=== PATIENT | female | born 1945 | race Caucasian/White ===

== ENCOUNTER → 2020-01-21 10:35 | Outpatient (BNVA) | payer OTHER, SELFPAY | PROVIDERS: PCP Family Medicine; Visit Provider Nurse Practitioner | DX: D12.6 Benign neoplasm of colon, unspecified (principal); K21.9 Gastro-esophageal reflux disease without esophagitis; K59.04 Chronic idiopathic constipation; R10.9 Unspecified abdominal pain | CPT/HCPCS: Q3014 ==

== ENCOUNTER 2020-07-15 14:50 | Inpatient (IN) | payer OTHER, SELFPAY ==
--- NOTE | ~2020-07-15 | XR_ITS ---
EXAMINATION: XR CHEST CLINICAL INFORMATION: Pneumonia. COMPARISON: Chest 12/28/2016 TECHNIQUE: Frontal view of the chest was obtained. FINDINGS: The lungs are well-expanded and clear. The heart size is enlarged with normal pulmonary vascularity. There is mild dextroscoliosis. No gross bony abnormality seen. XR/XR chest 1V IMPRESSION: Mild cardiomegaly. No acute process seen.
--- NOTE | ~2020-07-15 | CT_ITS ---
EXAMINATION: CT CHEST WITHOUT CONTRAST CLINICAL INFORMATION: Hypoxia. Question pneumonia. COMPARISON: Most recent chest radiograph done earlier the same day. CTA chest dated 09/21/2016. TECHNIQUE: Multidetector volumetric CT imaging of the chest was done. Axial MIP volume rendering provided. Sagittal and coronal reformatted images were obtained. This CT examination was performed using dose optimization techniques as appropriate, variously including the following: *Automated exposure control. *Adjustment of mA and/or kV according to patient size (this includes techniques or standardized protocols for targeted exams where dose is matched to indication/reason for exam; i.e. extremities or head). *Use of iterative reconstruction technique. DLP: 294 mGy-cm FINDINGS: SERVICE ATTENDANT CAFETERIA: Unremarkable. LUNGS: Mild bilateral atelectasis. No large, confluent airspace consolidation. No significant pulmonary nodule or mass. The central airways are patent. MEDIASTINUM: Cardiomegaly is redemonstrated. No pericardial effusion. No thoracic aortic dilatation. Atherosclerotic calcifications. No significant superior mediastinal or hilar lymphadenopathy. Unremarkable thyroid. PLEURA: There is no pleural effusion. No pleural mass or thickening. AXILLA: No lymphadenopathy. UPPER ABDOMEN: Small, sliding hiatal hernia. Otherwise, the visualized upper abdominal structures are unremarkable. OSSEOUS STRUCTURES: Unremarkable. CT/CT chest wo con IMPRESSION: 1. Mild bilateral atelectasis. No pulmonary nodule, mass, or confluent airspace consolidation. 2. No lymphadenopathy. 3. Stable cardiomegaly. 4. Stable, small sliding hiatal hernia.
--- NOTE | ~2020-07-15 | CT_ITS ---
EXAMINATION: CT ANGIOGRAM HEAD CT ANGIOGRAM NECK CLINICAL INFORMATION: Stroke. Carotid occlusion. COMPARISON: CT head from 07/15/2020. TECHNIQUE: Initial noncontrast prize fighter imaging of the head and neck was performed. Comparison is made with noncontrast head CT from earlier today. Test bolus sequences followed by intravenous administration 70 mL of Omnipaque 350. Helical imaging was performed in the axial plane from the aortic arch to the skull vertex. Delayed postcontrast imaging of the head was also performed. The data was processed at the development technologist's workstation for generation of MIP sequences. Angled MIPs and volume rendered reformatted images were also generated at an offline 3D workstation. Stenoses are assessed in accordance with NASCET criteria unless otherwise indicated. This CT examination was performed using dose optimization techniques as appropriate, variously including the following: *Automated exposure control. *Adjustment of mA and/or kV according to patient size (this includes techniques or standardized protocols for targeted exams where dose is matched to indication/reason for exam; i.e. extremities or head). *Use of iterative reconstruction technique. DLP: 1814 mGy-cm FINDINGS: CT Head: There is no evidence of acute intracranial hemorrhage or edematous territorial infarction. Basal ganglia mineralization. Lacunar infarcts of the bilateral lentiform nuclei and internal capsules. Scattered hypoattenuation in the periventricular and deep white matter are consistent with moderate microangiopathy. Serra-white matter differentiation is preserved. Proportional prominence of the ventricles and sulcal spaces. No evidence for obstructive hydrocephalus. No abnormal mass effect or midline shift. No extra-axial fluid collections. No pathologic intra-axial enhancement or regional oligemia. No acute soft tissue or osseous abnormalities. The mastoid air cells and paranasal sinuses are clear. CT Neck: The thyroid gland and remaining cervical soft tissues are within normal limits. Mild reversal the normal cervical lordosis centered on C4-C5. Mild degenerative anterolistheses at C2-C3 and C3-C4. Advanced degenerative disc disease at C5-C6 with disc disc osteophyte compresses formation. Facet and uncovertebral joint arthropathy leads osseous encroachment on the neural foramina from C3-C6. CT Upper Chest: The visualized lung apices and upper mediastinum are within normal limits. Neck CTA: Exam is moderately motion degraded. Repeat imaging was also obtained with delayed bolus timing. Aortic Arch: Normal contour and caliber with moderate calcific atherosclerotic disease. Classic 3 vessel branching pattern of the aortic arch. Great Vessel Origins: No significant stenosis of the branch origins. Right Common Carotid Artery: No focal stenosis or occlusion. Cervical Right Internal Carotid Artery: Calcific atherosclerotic disease of the carotid bulb and proximal internal carotid artery. No evidence of greater than 50% stenosis. Left Common Carotid Artery: No focal stenosis or occlusion. Cervical Left Internal Carotid Artery: Calcific atherosclerotic disease of the carotid bulb and proximal internal carotid artery. No evidence of greater than 50% stenosis. Cervical Vertebral Arteries: Evaluation of the cervical vertebral arteries is significantly limited by patient motion. Brain CTA: Exam is moderately motion degraded. Repeat imaging was also obtained with delayed bolus timing. Intracranial Internal Carotid Arteries: Moderate calcific atherosclerotic disease of the intracranial internal carotid arteries without occlusion or flow-limiting stenosis. No demonstrated focal stenosis or occlusion. Right Anterior Cerebral Artery: Normal A1 segment. Normal opacification of the distal EDWIGE segments. Left Anterior Cerebral Artery: Normal A1 segment. Normal opacification of the distal EDWIGE segments. Anterior Communicating Artery: Normal. Right Middle Cerebral Artery: Normal M1 segment of the MCA without focal stenosis or occlusion. Normal arborization of the distal segments. Left Middle Cerebral Artery: Normal M1 segment of the MCA without focal stenosis or occlusion. Normal arborization of the distal segments. Right Vertebral Artery: Normal V4 segment. Normal opacification of the proximal segments of the posterior inferior cerebellar artery. Left Vertebral Artery: Normal V4 segment. Normal opacification of the proximal segments of the posterior inferior cerebellar artery. Basilar Artery: Normal without focal stenosis or occlusion. Normal appearance of the proximal superior cerebellar arteries. Right Posterior Cerebral Artery: The P1 segment is diminutive. origin of the PHYSICAL MEDICINE SPECIALIST with robust opacification of the posterior communicating artery. Normal opacification of the distal PHYSICAL MEDICINE SPECIALIST segments. Left Posterior Cerebral Artery: Normal P1 segment. Normal opacification of the left-sided posterior communicating artery. Normal opacification of the distal PHYSICAL MEDICINE SPECIALIST segments. Normal opacification of the superior sagittal, straight, transverse, and sigmoid sinuses. CT/CT angio head neck IMPRESSION: Exam is limited by significant patient motion. 1. No evidence of acute intracranial hemorrhage or edematous territorial infarction. Moderate underlying microangiopathy. Lacunar infarcts of the deep nuclei. Mild generalized cerebral volume loss. 2. Within the limitations of this exam, CTA of the head and neck without demonstrated proximal occlusion or flow-limiting stenosis.
--- NOTE | ~2020-07-15 | CT_ITS ---
EXAMINATION: CT HEAD WITHOUT CONTRAST CLINICAL INFORMATION: Spontaneous. Resolved amnesia. COMPARISON: Previous head CT June 2015 TECHNIQUE: Contiguous axial imaging was performed from the skull base to vertex without intravenous administration of contrast. This CT examination was performed using dose optimization techniques as appropriate, variously including the following: *Automated exposure control *Adjustment of mA and/or kV according to patient size (this includes techniques or standardized protocols for targeted exams where dose is matched to indication/reason for exam; i.e. extremities or head) *Use of iterative reconstruction technique DLP: 556 mGy-cm FINDINGS: There is no evidence of an extra-axial collection. There is no evidence of intra-axial or extra-axial hemorrhage. Ventricles and extra-axial CSF spaces are slightly prominent compatible with age-related changes. There is nonspecific periventricular white matter. There is low-attenuation in the bilateral basal ganglia similar to prior exam questionable for small infarcts versus dilated perivascular spaces. No mass, mass effect or acute infarct is seen. There is evidence of atherosclerotic. The osseous structures and soft tissues are normal. There is mild inflammatory changes seen in the bilateral maxillary sinuses. The mastoid air cells and visualized portions of the paranasal sinuses are otherwise clear. CT/CT head/brain wo con IMPRESSION: No acute findings.
[2020-07-15 15:10] VITALS: BP 145/80; PULSE 82; RESP 18; TEMP 36.9; O2SAT 93; BMI 29.2
--- NOTE | 2020-07-15 15:24 | ED.GENADULT ---
HPI - General Adult General Chief complaint: Dizziness Stated complaint: Headache Time Seen by Provider: 07/15/20 15:06 Source: patient Mode of arrival: ambulatory Limitations: no limitations History of Present Illness HPI narrative: Patient presents to ED for Resolve amnesia and fogginess and head. Patient states this morning around 8:00am she woke up and she forgot who she was, where she was, and had bilateral blurry vision. Patient states for some reason she felt loss in her head. Patient states she did not feel herself until she showered and then has some recollection of who she was and where she was. Patient went to clinic with her grandson and was sent to the ED for evaluation. This as she was hypoxic at clinic. Patient denies any shortness of breath, chest pain, or any URI symptoms. Related Data Home Medications Medication Instructions Recorded Confirmed amlodipine 1 tab PO QAM 07/15/20 07/15/20 aspirin 1 tab PO QPM 07/15/20 07/15/20 atenolol 1 tab PO BID 07/15/20 07/15/20 atorvastatin 1 tab PO BEDTIME 07/15/20 07/15/20 cholecalciferol (vitamin D3) 1 tab PO QAM 07/15/20 07/15/20 glipizide 1 tab PO BID 07/15/20 07/15/20 losartan 1 tab PO DAILY 07/15/20 07/15/20 metformin 2 tab PO BID 07/15/20 07/15/20 omeprazole 1 cap PO QAM 07/15/20 07/15/20 sitagliptin [Januvia] 1 tab PO DAILY 07/15/20 07/15/20 Allergies Allergy/AdvReac Type Severity Reaction Status Date / Time No Known Allergies Allergy Unverified 10/24/19 17:45 [No Known Allergies*] Review of Systems Review of Systems: Yes all other systems are reviewed and are negative Constitutional: Constitutional: Reports as per HPI and Reports no additional constitutional complaints Eyes: Eyes: Reports as per HPI and Reports no additional eye complaints ENT: Reports system reviewed and no additional complaints, except as documented and Reports as per HPI Cardiovascular: Cardiovascular: Reports as per HPI and Reports no additional cardiovascular complaints Respiratory: Respiratory: Reports as per HPI and Reports no additional respiratory complaints Gastrointestinal: Gastrointestinal: Reports as per HPI and Reports no additional gastrointestinal complaints Musculoskeletal: Musculoskeletal: Reports no additional musculoskeletal complaints and Reports as per HPI Neurologic: Reports system reviewed and no additional complaints, except as documented and Reports as per HPI Comments: Resolved amnesia. Fogginess in the head Psychiatric: Psychiatric: Reports no additional psychiatric complaints and Reports as per HPI [facility] Past Medical History Surgical History (Updated 01/21/20 @ 10:38 by JACQUELINE Alvarez) History of esophagogastroduodenoscopy (EGD) History of tubal ligation Hx of colonoscopy Family History Family History (Updated 01/21/20 @ 10:36 by JACQUELINE Alvarez) Family/Other No significant medical problems Social History Social History (Updated 01/21/20 @ 10:37 by JACQUELINE Alvarez) Alcohol intake: never Patient Tobacco Use Status: Never used Tobacco Advance Directives: No Advance Directives Information Provided: Yes Physical Exam Vital Signs: Vital Signs: Last Vital Signs Temp 98.8 F 07/15/20 18:42 Pulse 83 07/15/20 18:42 Resp 17 07/15/20 18:42 BP 135/78 07/15/20 18:42 Pulse Ox 93 07/15/20 18:42 Body Mass Index 29.2 Const: General: cooperative, healthy appearing, comfortable, no acute distress, well developed, alert, awake and Physically active; No lethargic Orientation/consciousness: patient oriented x3 and No lethargic HENMT: Head: Yes normal to inspection, Yes No palpable skull fracture present, Yes normocephalic, Yes atraumatic and No abrasion Eyes: General: appearance normal, both eyes and all related structures Neck: Neck: Yes normal visual inspection, Yes full ROM, Yes no lymphadenopathy, Yes no meningeal signs, Yes trachea midline, Yes supple and No tender Chest: Chest palpation & inspection: normal inspection of the chest and normal palpation of entire chest wall Resp: Effort & Inspection: normal respiratory effort and able to speak in complete sentences Auscultation: clear to auscultation bilaterally Cardio: Jugular venous distension: no JVD Heart sounds: S1 normal heart sound present and S2 normal heart sound present GI: Inspection: Yes normal to inspection and No abdominal wall ecchymosis Palpation (GI): Soft to palpation, not firm, nontender, no guarding and not rigid : General: No CVA tenderness and Yes no CVA tenderness Back/Spine/Pelvis: Back: no CVA tenderness, No CVA tenderness and No back tenderness Skin: General skin exam: no rashes or lesions noted and elasticity normal Neuro: General: patient oriented x3, gait normal, no meningeal signs and CN's II-XI intact bilaterally Cranial nerves: Yes CN's II-XII intact bilaterally Extrem: Other: Lower extremities negative for swelling, pitting edema, calf tenderness. General: Yes normal to inspection and Yes full ROM Psych: Appearance: grossly normal, well kempt and not disheveled NIH Stroke Scale Level of Consciousness: Alert Level of Consciousness Questions: Answers both questions correctly Level of Consciousness Commands: Performs both tasks correctly Best Gaze: Normal Visual: No visual loss Facial Palsy: Normal Motor Arm (Right): No drift Motor Arm (Left): No drift Motor Leg (Right): No drift Motor Leg (Left): No drift Limb Ataxia: Absent Sensory: Normal Best Language: No aphasia Dysarthia: Normal Extinction and Inattention: No abnormality Score: 0 Course Course Course Narrative: Present NIH score 0. Patient on room air O2 saturation 94-95%. We will do medical evaluation including head CT Reevaluation(s) Reevaluation #1: Patient's troponin negative. Neuro exam is intact. Head CT a came back negative for stroke. During ED evaluation patient's O2 sats dropped to 80% on ambulation and was placed on nasal cannula oxygen with O2 saturation now 93% on 2 liter. Due to head CT already done not able to give IV contrast twice will do D-dimer, at BNP, and sent for chest CT to rule out any underlying x-ray. Reevaluation #2: D-dimer is 262 which is negative. Upper limit normal is 262. Chest CT came back negative for pneumonia. UA negative for UTI. Presently patient alert oriented x3 and negative for any neuro deficit. Patient accepted by hospitalist for admission for hypoxia and global amnesia/TIA. Dr. Moralez hospitalist Time: 21:58 Medical Decision Making MDM Narrative Medical decision making narrative: TIA. Global amnesia. Hypoxia Lab Data Result diagrams: 07/15/20 15:42 07/15/20 15:42 Labs: Lab Results 07/15/20 07/15/20 07/15/20 Range/Units 15:42 15:42 15:42 WBC 10.0 (4.8-10.8) X10*3/uL RBC 4.64 (4.20-5.50) X10*6/uL Hgb 12.9 (12.0-16.0) g/dl Hct 41.7 (37-47) % MCV 89.9 (80-98) fL MCH 27.8 (27.0-33.0) pg MCHC 30.9 L (31.0-35.0) g/dl RDW 13.6 (11.0-16.0) % Plt Count 199 (160-400) X10*3/uL MPV 13.4 H (9.4-12.3) fL Immature Gran % (Auto) Cancelled Neut % (Auto) Cancelled Lymph % (Auto) Cancelled Lewis % (Auto) Cancelled Eos % (Auto) Cancelled Baso % (Auto) Cancelled Lymph # (Auto) Cancelled Lewis # (Auto) Cancelled Eos # (Auto) Cancelled Baso # (Auto) Cancelled Abs Immat Gran (auto) Cancelled Absolute Neuts (auto) Cancelled Absolute Nucleated RBC 0.000 (0.0-0.012) X10*3/uL Nucleated RBC % (auto) 0.0 (0.0-0.2) /100WBC Neutrophils % (Manual) 64 (45-73) % Band Neutrophils % 3 (3-5) % Lymphocytes % (Manual) 23 (20-40) % Monocytes % (Manual) 7 (2-11) % Eosinophils % (Manual) 2 (0-4) % Basophils % (Manual) 1 (0-1) % Abs Neuts (Manual) 6.7 (2.2-7.9) X10*3/uL Lymphocytes # (Manual) 2.3 (0.6-4.8) X10*3/uL Monocytes # (Manual) 0.7 (0.0-1.2) X10*3/uL Eosinophils # (Manual) 0.2 (0.0-0.8) X10*3/UL Basophils # (Manual) 0.1 (0.0-0.3) X10*3/uL Platelet Estimate NORMAL (NORMAL) Large Platelets PRESENT Plt Morphology Comment NORMAL RBC Morphology NORMAL D-Dimer NG/ML Sodium 141 (135-145) mmol/L Potassium 4.5 (3.3-5.1) mmol/L Chloride 99 (96-108) mmol/L Carbon Dioxide 35 H (22-29) mmol/L Anion Gap 12 (12-20) BUN 13 (9-16) mg/dL Creatinine 0.84 (0.5-1.4) mg/dL Estim Creat Clear Calc 54.7 Estimated GFR > 60 Random Glucose 166 H (60-115) mg/dL Calcium 10.3 H (8.4-10.2) mg/dL Total Bilirubin 0.3 (0.0-1.0) mg/dL AST 24 (5-31) U/L ALT 13 (0-31) U/L Alkaline Phosphatase 94 (39-117) U/L Troponin I High Sens 4.8 (<3.5-17.0) ng/L B-Natriuretic Peptide 55 (<100) pg/mL Total Protein 7.7 (6.5-8.0) g/dL Albumin 4.2 (3.5-5.0) g/dL COVID-19 (KAVITHA) (Negative) COVID-19 Clin Com 07/15/20 07/15/20 Range/Units 15:42 18:31 WBC (4.8-10.8) X10*3/uL RBC (4.20-5.50) X10*6/uL Hgb (12.0-16.0) g/dl Hct (37-47) % MCV (80-98) fL MCH (27.0-33.0) pg MCHC (31.0-35.0) g/dl RDW (11.0-16.0) % Plt Count (160-400) X10*3/uL MPV (9.4-12.3) fL Immature Gran % (Auto) Neut % (Auto) Lymph % (Auto) Lewis % (Auto) Eos % (Auto) Baso % (Auto) Lymph # (Auto) Lewis # (Auto) Eos # (Auto) Baso # (Auto) Abs Immat Gran (auto) Absolute Neuts (auto) Absolute Nucleated RBC (0.0-0.012) X10*3/uL Nucleated RBC % (auto) (0.0-0.2) /100WBC Neutrophils % (Manual) (45-73) % Band Neutrophils % (3-5) % Lymphocytes % (Manual) (20-40) % Monocytes % (Manual) (2-11) % Eosinophils % (Manual) (0-4) % Basophils % (Manual) (0-1) % Abs Neuts (Manual) (2.2-7.9) X10*3/uL Lymphocytes # (Manual) (0.6-4.8) X10*3/uL Monocytes # (Manual) (0.0-1.2) X10*3/uL Eosinophils # (Manual) (0.0-0.8) X10*3/UL Basophils # (Manual) (0.0-0.3) X10*3/uL Platelet Estimate (NORMAL) Large Platelets Plt Morphology Comment RBC Morphology D-Dimer 262 NG/ML Sodium (135-145) mmol/L Potassium (3.3-5.1) mmol/L Chloride (96-108) mmol/L Carbon Dioxide (22-29) mmol/L Anion Gap (12-20) BUN (9-16) mg/dL Creatinine (0.5-1.4) mg/dL Estim Creat Clear Calc Estimated GFR Random Glucose (60-115) mg/dL Calcium (8.4-10.2) mg/dL Total Bilirubin (0.0-1.0) mg/dL AST (5-31) U/L ALT (0-31) U/L Alkaline Phosphatase (39-117) U/L Troponin I High Sens (<3.5-17.0) ng/L B-Natriuretic Peptide (<100) pg/mL Total Protein (6.5-8.0) g/dL Albumin (3.5-5.0) g/dL COVID-19 (KAVITHA) Negative (Negative) COVID-19 Clin Com See Note ECG Data Interpretation: Normal sinus rhythm. Ventricular rate left axis deviation. Ventricular rate 69. Pr interval 148. QRS 96. QTC 441. Negative STEMI Discharge Plan Discharge Clinical Impression: Transient cerebral ischemia, Amnesia, Hypoxia Patient Disposition: Admitted As Inpatient
[2020-07-15 15:46] VITALS: BP 131/83; PULSE 87; RESP 20; TEMP 37; O2SAT 93
[2020-07-15 16:04] LABS: Mean Corpuscular Volume 89.9 fL (80-98); Mean Platelet Volume 13.4 fL (9.4-12.3)
[2020-07-15 16:06] LABS: Hematocrit 41.7 % (37-47); Hemoglobin 12.9 g/dl (12.0-16.0); Mean Corpuscular HGB Conc 30.9 g/dl (31.0-35.0); Mean Corpuscular Hemoglobin 27.8 pg (27.0-33.0); Platelet Count 199 X10*3/uL (160-400); Red Blood Count 4.64 X10*6/uL (4.20-5.50); Red Cell Distribution Width 13.6 % (11.0-16.0)
[2020-07-15 16:07] LABS: PLT ABN DIST 1; WBC ABN SCTR FOR CBC 1
[2020-07-15 16:24] LABS: Alanine Aminotransferase 13 U/L (0-31); Albumin Level 4.2 g/dL (3.5-5.0); Alkaline Phosphatase 94 U/L (39-117); Anion Gap 12 (12-20); Aspartate Amino Transferase 24 U/L (5-31); Bilirubin Total 0.3 mg/dL (0.0-1.0); Blood Urea Nitrogen 13 mg/dL (9-16); Calcium 10.3 mg/dL (8.4-10.2); Carbon Dioxide 35 mmol/L (22-29); Chloride 99 mmol/L (96-108); Creatinine Clr Calc Pharmacy 54.7; Estimated Glomerular Filt Rate > 60; Glucose Random 166 mg/dL (60-115); Potassium 4.5 mmol/L (3.3-5.1); Sodium 141 mmol/L (135-145); Total Protein 7.7 g/dL (6.5-8.0)
[2020-07-15 16:30] LABS: Troponin-I High Sensitivity 4.8 ng/L (<3.5-17.0)
[2020-07-15 16:32] LABS: COVID-19 Test Negative (Negative)
[2020-07-15 16:43] LABS: Band Neutrophils Percent 3 % (3-5); Basophils Abs Manual 0.1 X10*3/uL (0.0-0.3); Basophils Percent Manual 1 % (0-1); Eosinophils Absolute Manual 0.2 X10*3/UL (0.0-0.8); Eosinophils Percent Manual 2 % (0-4); Lymphocytes Absolute Manual 2.3 X10*3/uL (0.6-4.8); Lymphocytes Percent Manual 23 % (20-40); Monocytes Absolute Manual 0.7 X10*3/uL (0.0-1.2); Monocytes Percent Manual 7 % (2-11); Neutrophils Absolute Manual 6.7 X10*3/uL (2.2-7.9); Neutrophils Percent Manual 64 % (45-73)
[2020-07-15 16:47] LABS: Platelet Estimate NORMAL (NORMAL); RBC Morphology NORMAL
[2020-07-15 16:48] LABS: Large Platelet PRESENT; Platelet Morphology Comment NORMAL
[2020-07-15] MEDS: iohexoL 350 MG/ML 100 ML INFUS..BTL IV (17:07)
[2020-07-15 18:00] VITALS: O2SAT 85
--- NOTE | 2020-07-15 18:27 | PC.NURSE ---
Pt's SPO2 dropped into the 80's while ambulating. Provider Shashank kemp.
[2020-07-15 18:42] VITALS: BP 135/78; PULSE 83; RESP 17; TEMP 37.1; O2SAT 93
[2020-07-15 18:47] LABS: D Dimer 262 NG/ML
[2020-07-15 18:53] LABS: B Type Natriuretic Peptide 55 pg/mL (<100)
--- NOTE | 2020-07-15 19:39 | PC.NURSE ---
REPORT TAKEN FROM CORRIE Juan RN. FIRST CONTACT WITH PT. SITTING UP IN BED A&Ox3, SKIN PWD RESPIRATIONS EVEN UNLABORED. AWAITING RESULTS AND MD REEVAL, AWARE OF PLAN OF CARE.
--- NOTE | 2020-07-15 19:56 | P.HPHOSP_ITS ---
History of Present Illness Date of Service: 07/15/20 Chief Complaint: Brief episode of forgetfulness. 75-year-old female with a past medical history of hypertension, hyperlipidemia, diabetes, GERD presented to the hospital with a chief complaint of brief episode of dizziness/funny sensation in head. Subsequently she went back to the sleep and again after she woke up she still felt the same and subsequently she took a shower and went to the clinic for evaluation where she was noted to be hypoxic to 90% on room air and the patient was sent to the ER for further evaluation. Patient mentioned that she has been taking her home medications okay. Mentions that her fingerstick glucose was in 200s in the clinic. Denies any GI or symptoms. Denies any fever chills cough. Review of all other systems is negative except mentioned above ER course: Per ER team patient exam was nonfocal, CT head and CT angio head and neck showed no acute process. D-dimer was slightly elevated than 270. Of chest x-ray showed no acute findings. Urinalysis pending. Random blood sugar in the blood chemistries 168. Otherwise CBC and chemistry within the normal limits. EKG nonischemic. Troponin x1 negative. Admitted to the hospital for further management. [facility] Family History (Updated 01/21/20 @ 10:36 by JACQUELINE Alvarez) Family/Other No significant medical problems Surgical History (Updated 01/21/20 @ 10:38 by JACQUELINE Alvarez) History of esophagogastroduodenoscopy (EGD) History of tubal ligation Hx of colonoscopy Social History (Updated 01/21/20 @ 10:37 by JACQUELINE Alvarez) Household Members: None Housing: Apartment Housing Other:: rd floor with elevator access Do you presently have visiting nurse or other home services: Yes ([employer] fr[employer]) Alcohol intake: never Patient Tobacco Use Status: Never used Tobacco Use of substances other than those prescribed or required for medical reasons: No Currently Displaying Signs/Symptoms of Drug Intoxication Withdrawal: No Have you been hit, kicked, punched, or otherwise hurt by someone within the past year? If so, by whom?: No Do you feel safe in your current relationship?: No Is there a partner from a previous relationship who is making you feel unsafe now?: No Are you made to feel afraid or neglected: No Advance Directives: No Advance Directives Information Provided: Yes Do you have thoughts of harming others: None Do you have a plan to hurt others: No Plan Recently lost weight without trying: Yes How much weight loss: 2-13 pounds Eating poorly because of decreased appetite: Yes Nutrition screen score: 4 Nutrition Risks: No Nutritional Risk Patient : No : No Poor oral hygiene: No service: No Current occupational status: unemployed Meds Allergies Allergy/AdvReac Type Severity Reaction Status Date / Time No Known Allergies Allergy Unverified 10/24/19 17:45 [No Known Allergies*] Active Medications: Current Medications Generic Name Dose Route Start Last Admin Trade Name Freq PRN Reason Stop Dose Admin Acetaminophen 650 mg 07/15/20 19:53 Acetaminophen 325 Mg Tablet PO Q6H PRN Pain, Mild (Pain Scale 1-3) Enoxaparin Sodium 40 mg 07/15/20 20:00 Enoxaparin Sodium 40 Mg/0.4 Ml Syringe SUBCUT Q24H [facility] Sodium Chloride 1,000 mls @ 50 mls/hr 07/15/20 20:00 Ns IVCONT .Q20H [facility] Insulin Human Lispro 0 unit 07/15/20 21:00 Insulin Lispro 100 Unit/Ml 3 Ml Vial SUBCUT QIDACHS [facility] Protocol Magnesium Hydroxide 30 ml 07/15/20 19:53 Milk Of Magnesia 30 Ml Oral.Susp PO DAILY PRN Constipation Melatonin 6 mg 07/15/20 19:53 Melatonin 3 Mg Tablet PO BEDTIME PRN Insomnia Sodium Chloride 3 ml 07/16/20 00:00 0.9 % Sodium Chloride Flush 3 Ml Syringe IVFLUSH QSHIFT [facility] Home Medications Medication Instructions Recorded Confirmed Last Taken Type Januvia 1 tab PO DAILY 07/15/20 07/15/20 Unknown History amlodipine 1 tab PO QAM 07/15/20 07/15/20 Unknown History aspirin 1 tab PO QPM 07/15/20 07/15/20 Unknown History atenolol 1 tab PO BID 07/15/20 07/15/20 Unknown History atorvastatin 1 tab PO BEDTIME 07/15/20 07/15/20 Unknown History cholecalciferol (vitamin D3) 1 tab PO QAM 07/15/20 07/15/20 Unknown History glipizide 1 tab PO BID 07/15/20 07/15/20 Unknown History losartan 1 tab PO DAILY 07/15/20 07/15/20 Unknown History metformin 2 tab PO BID 07/15/20 07/15/20 Unknown History omeprazole 1 cap PO QAM 07/15/20 07/15/20 Unknown History Physical Exam Vital Signs and Narrative: Vital Signs: Last Vital Signs Temp 98.8 F 07/15/20 18:42 Pulse 83 07/15/20 18:42 Resp 17 07/15/20 18:42 BP 135/78 07/15/20 18:42 Pulse Ox 93 07/15/20 18:42 Body Mass Index 29.2 Gen: Appears be in no acute distress HEENT: NCAT, Moist mucosa. Pulmonary: Vesicular breath sounds, fair air entry CVS: Normal S1-S2 Abdomen: BS+, Soft, Nontender Extremities: Warm well perfused Neuro: Alert and awake. Grossly nonfocal; oriented x3 Results Labs CBC and Chem 7: 07/16/20 05:14 07/16/20 05:14 Labs: Laboratory Results - last 24 hr 07/15/20 07/15/20 07/15/20 15:42 15:42 15:42 MCV 89.9 MCH 27.8 MCHC 30.9 L RDW 13.6 Plt Count 199 MPV 13.4 H Immature Gran % (Auto) Cancelled Neut % (Auto) Cancelled Lymph % (Auto) Cancelled [place] % (Auto) Cancelled Eos % (Auto) Cancelled Baso % (Auto) Cancelled Lymph # (Auto) Cancelled [place] # (Auto) Cancelled Eos # (Auto) Cancelled Baso # (Auto) Cancelled Abs Immat Gran (auto) Cancelled Absolute Neuts (auto) Cancelled Absolute Nucleated RBC 0.000 Nucleated RBC % (auto) 0.0 Neutrophils % (Manual) 64 Band Neutrophils % 3 Lymphocytes % (Manual) 23 Monocytes % (Manual) 7 Eosinophils % (Manual) 2 Basophils % (Manual) 1 Abs Neuts (Manual) 6.7 Lymphocytes # (Manual) 2.3 Monocytes # (Manual) 0.7 Eosinophils # (Manual) 0.2 Basophils # (Manual) 0.1 Platelet Estimate NORMAL Large Platelets PRESENT Plt Morphology Comment NORMAL RBC Morphology NORMAL D-Dimer Anion Gap 12 Estim Creat Clear Calc 54.7 Estimated GFR > 60 Random Glucose 166 H Calcium 10.3 H Total Bilirubin 0.3 AST 24 ALT 13 Alkaline Phosphatase 94 Troponin I High Sens 4.8 B-Natriuretic Peptide 55 Total Protein 7.7 Albumin 4.2 COVID-19 (K[facility]ITHA) COVID-19 Clin Com 07/15/20 07/15/20 15:42 18:31 MCV MCH MCHC RDW Plt Count MPV Immature Gran % (Auto) Neut % (Auto) Lymph % (Auto) [place] % (Auto) Eos % (Auto) Baso % (Auto) Lymph # (Auto) [place] # (Auto) Eos # (Auto) Baso # (Auto) Abs Immat Gran (auto) Absolute Neuts (auto) Absolute Nucleated RBC Nucleated RBC % (auto) Neutrophils % (Manual) Band Neutrophils % Lymphocytes % (Manual) Monocytes % (Manual) Eosinophils % (Manual) Basophils % (Manual) Abs Neuts (Manual) Lymphocytes # (Manual) Monocytes # (Manual) Eosinophils # (Manual) Basophils # (Manual) Platelet Estimate Large Platelets Plt Morphology Comment RBC Morphology D-Dimer 262 Anion Gap Estim Creat Clear Calc Estimated GFR Random Glucose Calcium Total Bilirubin AST ALT Alkaline Phosphatase Troponin I High Sens B-Natriuretic Peptide Total Protein Albumin COVID-19 (KAVITHA) Negative COVID-19 Clin Com See Note Imaging Radiologist's Impressions: Impressions Chest X-Ray 07/15/20 15:22 IMPRESSION: Mild cardiomegaly. No acute process seen. Head CT 07/15/20 15:41 IMPRESSION: No acute findings. Head/Neck CTA 07/15/20 16:26 IMPRESSION: Exam is limited by significant patient motion. 1. No evidence of acute intracranial hemorrhage or edematous territorial infarction. Moderate underlying microangiopathy. Lacunar infarcts of the deep nuclei. Mild generalized cerebral volume loss. 2. Within the limitations of this exam, CTA of the head and neck without demonstrated proximal occlusion or flow-limiting stenosis. Chest CT 07/15/20 19:01 IMPRESSION: 1. Mild bilateral atelectasis. No pulmonary nodule, mass, or confluent airspace consolidation. 2. No lymphadenopathy. 3. Stable cardiomegaly. 4. Stable, small sliding hiatal hernia. Assessment and Plan (1) Amnesia: Status: Acute 75-year-old female with a past medical history of hypertension, hyperlipidemia, diabetes, GERD presented to the hospital with a chief complaint of Dizziness. Dizziness: Unclear etiology. Denies any fall or trauma. Denies any seizure- like activity. Denies any chest pain or palpitations. Denies any signs of infection. Urinalysis pending CT head and CT angio head and neck showed no acute findings. Nonfocal examination; AAox3 Fingerstick glucose within the normal limits Neurology consult for further recommendations. EKG nonischemic, troponin [id number] troponin pending Hypertension/hyperlipidemia: Will continue home medications. Diabetes: Will give the patient on insulin sliding scale. Patient on glipizide and metformin at home. Will hold for now. DVT prophylaxis: Lovenox Code status: Full code
--- NOTE | 2020-07-15 20:15 | PC.NURSE ---
ATTEMPTED TO RECONCILE MEDICATIONS WITH PT, DOES NOT KNOW MEDS OFF TOP OF HEAD, SON TO GO HOME AND GET HER LIST.
--- NOTE | 2020-07-15 20:58 | PHA.MEDREC ---
Pharmacy Consult ? Medication Reconciliation Pharmacy has completed the medication reconciliation.
[2020-07-15 21:02] LABS: Glucose Urine UA NEG (NEG); Leukocyte Esterase Urine NEG (NEG); Nitrite Urine NEG (NEG); Urine Blood NEG (NEG); Urine Ketones NEG (NEG); Urine Protein 1+ MG/DL (NEG-TRACE)
[2020-07-15 21:05] LABS: Appearance Urine CLEAR; Color Urine YELLOW
[2020-07-15 21:10] LABS: RBC Urine 0-2 /HPF (0); Squamous Epithelial Cell Urine 2+ /LPF; WBC Urine 0-2 /HPF (0-4)
[2020-07-15 21:11] LABS: Bacteria Urine 1+ /LPF; Mucus Urine 1+ /LPF; Renal Epithelial Cells Urine TRACE /LPF
[2020-07-15 21:53] LABS: Glucose, Whole Blood 97 mg/dL (60-115)
--- NOTE | 2020-07-15 21:59 | ECG_ITS ---
Test Reason : SHORTNESS OF BREATH Blood Pressure : / mmHG Vent. Rate : 000 BPM Atrial Rate : 000 BPM P-R Int : 000 ms QRS Dur : 000 ms QT Int : 000 ms P-R-T Axes : 000 000 000 degrees QTc Int : 000 ms No QRS complexes found, no ECG analysis possible When compared with ECG of 21-SEP-2016 13:54, Current undetermined rhythm precludes rhythm comparison, needs review Referred By: Shashank Lux Electronically Signed By:
[2020-07-15 22:00] VITALS: PULSE 73; TEMP 37.1; O2SAT 100
[2020-07-15 23:37] VITALS: BP 156/79; PULSE 77; RESP 18; TEMP 37.2; O2SAT 93
[2020-07-16] VITALS (7 sets, daily range): BP systolic 128–154; BP diastolic 68–93; PULSE 69–89; RESP 18–19; TEMP 36–37.1; O2SAT 93–96
[2020-07-16 00:03] LABS: Glucose, Whole Blood 111 mg/dL (60-115)
[2020-07-16] MEDS: 0.9 % Sodium Chloride 1,000 ML 50 ML IVCONT ×2 (00:54→18:21)
[2020-07-16] MEDS: Enoxaparin Sodium 40 MG/0.4 ML SYRINGE SUBCUT ×2 (00:54→20:52)
[2020-07-16] MEDS: 0.9 % Sodium Chloride Flush 3 ML SYRINGE IVFLUSH (00:58)
[2020-07-16 06:52] LABS: Basophils Absolute Auto 0.1 X10*3/uL (0.0-0.2); Hemoglobin 12.1 g/dl (12.0-16.0)
[2020-07-16 06:54] LABS: Basophils Percent Auto 0.5 % (0-2); Eosinophils Absolute Auto 0.3 X10*3/uL (0.0-0.4); Eosinophils Percent Auto 2.8 % (0-4); Hematocrit 39.5 % (37-47); Imm Gran Abs Auto 0.04 X10*3/uL (0.00-0.03); Imm Gran Pct Auto 0.4 % (0.0-0.4); Lymphocytes Absolute Auto 3.5 X10*3/uL (1.2-4.9); Lymphocytes Percent Auto 31.9 % (20-40); Mean Corpuscular HGB Conc 30.6 g/dl (31.0-35.0); Mean Corpuscular Hemoglobin 27.8 pg (27.0-33.0); Mean Corpuscular Volume 90.8 fL (80-98); Mean Platelet Volume 13.7 fL (9.4-12.3); Monocytes Absolute Auto 0.9 X10*3/uL (0.1-1.2); Monocytes Percent Auto 8.3 % (2-11); Neutrophils Absolute Auto 6.1 X10*3/uL (2.0-8.3); Neutrophils Percent Auto 56.1 % (45-73); Platelet Count 186 X10*3/uL (160-400); Red Blood Count 4.35 X10*6/uL (4.20-5.50); Red Cell Distribution Width 13.4 % (11.0-16.0)
[2020-07-16 07:02] LABS: Anion Gap 10 (12-20); Blood Urea Nitrogen 13 mg/dL (9-16); Calcium 9.8 mg/dL (8.4-10.2); Carbon Dioxide 35 mmol/L (22-29); Chloride 98 mmol/L (96-108); Creatinine Clr Calc Pharmacy 56.8; Estimated Glomerular Filt Rate > 60; Glucose Random 150 mg/dL (60-115); Potassium 4.2 mmol/L (3.3-5.1); Sodium 139 mmol/L (135-145)
[2020-07-16 07:14] LABS: Magnesium 1.7 mg/dL (1.6-2.6)
[2020-07-16 07:15] LABS: Glucose, Whole Blood 158 mg/dL (60-115)
[2020-07-16 07:24] LABS: Thyroid Stimulating Hormone 2.74 uIU/mL (0.32-4.0)
[2020-07-16] MEDS: Acetaminophen 325 MG TABLET 650 MG PO (09:43)
[2020-07-16 11:10] LABS: Glucose, Whole Blood 192 mg/dL (60-115)
--- NOTE | 2020-07-16 12:22 | PM.NEUROCN ---
History of Present Illness Data of Consult Service Date: 07/16/20 Primary Care Provider: Annie Tafoya MD 75 years old woman with underlying history of diabetes who came to hospital with nonspecific dizziness. She described an odd feeling in the head. There was no associated speech or language difficulty double vision weakness numbness paralysis or any significant headache. Review of Systems Review of Systems: No recent cold or flu-like illness seizure or trauma. [facility] Family History Family History (Updated 01/21/20 @ 10:36 by JACQUELINE Alvarez) Family/Other No significant medical problems Surgical History Surgical History (Updated 01/21/20 @ 10:38 by JACQUELINE Alvarez) History of esophagogastroduodenoscopy (EGD) History of tubal ligation Hx of colonoscopy Social History Social History (Updated 01/21/20 @ 10:37 by JACQUELINE Alvarez) Household Members: None Housing: Apartment Housing Other:: rd floor with elevator access Do you presently have visiting nurse or other home services: Yes (HOSPITAL MONITOR services) Alcohol intake: never Patient Tobacco Use Status: Never used Tobacco Use of substances other than those prescribed or required for medical reasons: No Currently Displaying Signs/Symptoms of Drug Intoxication Withdrawal: No Have you been hit, kicked, punched, or otherwise hurt by someone within the past year? If so, by whom?: No Do you feel safe in your current relationship?: No Current Relationship Is there a partner from a previous relationship who is making you feel unsafe now?: No Are you made to feel afraid or neglected: No Advance Directives: No Advance Directives Information Provided: Yes Do you have thoughts of harming others: None Do you have a plan to hurt others: No Plan Recently lost weight without trying: No Nutrition Risks: No Nutritional Risk Patient : No : No Poor oral hygiene: No Meds Allergies Allergy/AdvReac Type Severity Reaction Status Date / Time No Known Allergies Allergy Unverified 10/24/19 17:45 [No Known Allergies*] Active Medications: Current Medications Generic Name Dose Route Start Last Admin Trade Name Freq PRN Reason Stop Dose Admin Acetaminophen 650 mg 07/15/20 19:53 07/16/20 09:43 Acetaminophen 325 Mg Tablet PO 325 mg Q6H PRN Administration Pain, Mild (Pain Scale 1-3) Enoxaparin Sodium 40 mg 07/15/20 22:00 07/16/20 00:54 Enoxaparin Sodium 40 Mg/0.4 Ml Syringe SUBCUT 40 mg Q24H NAJMA Administration Sodium Chloride 1,000 mls @ 50 mls/hr 07/15/20 20:00 07/16/20 00:54 Ns IVCONT 50 mls/hr .Q20H NAJMA Administration Insulin Human Lispro 0 unit 07/15/20 21:00 07/16/20 11:42 Insulin Lispro 100 Unit/Ml 3 Ml Vial SUBCUT Not Given QIDACHS [facility] Protocol Magnesium Hydroxide 30 ml 07/15/20 19:53 Milk Of Magnesia 30 Ml Oral.Susp PO DAILY PRN Constipation Melatonin 6 mg 07/15/20 19:53 Melatonin 3 Mg Tablet PO BEDTIME PRN Insomnia Pharmacy Consult 1 each 07/15/20 19:53 Consult Rx Perform Med Rec MISCELLANE ONCE PRN Consult order Sodium Chloride 3 ml 07/16/20 00:00 07/16/20 08:56 0.9 % Sodium Chloride Flush 3 Ml Syringe IVFLUSH Not Given QSHIFT [facility] Home Medications Medication Instructions Recorded Confirmed Last Taken Type amlodipine 1 tab PO QAM 07/15/20 07/15/20 Unknown History aspirin 1 tab PO QPM 07/15/20 07/15/20 Unknown History atenolol 1 tab PO BID 07/15/20 07/15/20 Unknown History atorvastatin 1 tab PO BEDTIME 07/15/20 07/15/20 Unknown History cholecalciferol (vitamin D3) 1 tab PO QAM 07/15/20 07/15/20 Unknown History glipizide 1 tab PO BID 07/15/20 07/15/20 Unknown History losartan 1 tab PO DAILY 07/15/20 07/15/20 Unknown History metformin 2 tab PO BID 07/15/20 07/15/20 Unknown History omeprazole 1 cap PO QAM 07/15/20 07/15/20 Unknown History sitagliptin [Januvia] 1 tab PO DAILY 07/15/20 07/15/20 Unknown History Physical Exam Vital Signs: Vital Signs: Last Vital Signs Temp 98 F 07/16/20 10:56 Pulse 78 07/16/20 10:56 Resp 19 07/16/20 10:56 BP 128/71 07/16/20 10:56 Pulse Ox 95 07/16/20 10:56 Body Mass Index 29.2 She was alert and awake with normal spontaneity of speech fluency comprehension and affect. Pupils were equal and reactive to light and extraocular muscles were intact. Visual callahan are full to threat. Face was symmetrical. There was no pronator drift. Deep tendon reflexes were absent with flexor plantars. Affect was normal. Results Labs CBC & Chem 7: 07/16/20 05:14 07/16/20 05:14 Labs: Short CBC 07/15/20 07/16/20 Range/Units 15:42 05:14 WBC 10.0 11.0 H (4.8-10.8) X10*3/uL Hgb 12.9 12.1 (12.0-16.0) g/dl Hct 41.7 39.5 (37-47) % Plt Count 199 186 (160-400) X10*3/uL BMP 07/15/20 07/16/20 15:42 05:14 Sodium 141 139 Potassium 4.5 4.2 Chloride 99 98 Carbon Dioxide 35 H 35 H BUN 13 13 Creatinine 0.84 0.81 Calcium 10.3 H 9.8 Liver Function 07/15/20 Range/Units 15:42 Total Bilirubin 0.3 (0.0-1.0) mg/dL AST 24 (5-31) U/L ALT 13 (0-31) U/L Alkaline Phosphatase 94 (39-117) U/L Albumin 4.2 (3.5-5.0) g/dL Urine 07/15/20 Range/Units 20:54 Urine Color YELLOW Urine Appearance CLEAR Urine pH 6.0 (5.0-8.0) Ur Specific [place] 1.010 (1.005-1.025) Urine Protein 1+ H (NEG-TRACE) MG/DL Urine Glucose (UA) NEG (NEG) MG/DL her noncontrast head CT revealed mild diffuse cerebral atrophy. CTA of brain and neck did not reveal any significant abnormality. CT of chest was okay. Assessment and Plan (1) Dizziness: Status: Acute Nonspecific symptom of dizziness with no other associated cortical or brainstem symptom. There was no obvious infection or metabolic abnormality or structure abnormality of brain or cerebral vasculature for explanation. At this time I would review her medications and make sure her diabetic medications and others were not causing any of this symptom. Overall clinical picture was not suggestive of seizure disorder either. Procedures Date of Service Date of Service: 07/16/20
[2020-07-16 15:58] LABS: Glucose, Whole Blood 233 mg/dL (60-115)
--- NOTE | 2020-07-16 16:05 | PC.NURSE ---
pt refusing sliding scale insulin. official court interpreter utilized to explain insulin coverage while hospitalized, pt reports that she uses metformin at home. notified
--- NOTE | 2020-07-16 16:32 | P.PNIM_ITS ---
Subjective Subjective Date of Service: 07/16/20 Physical Exam Vital Signs: Vital Signs: Last Vital Signs Temp 98.2 F 07/16/20 15:18 Pulse 74 07/16/20 15:18 Resp 19 07/16/20 15:18 BP 147/93 H 07/16/20 15:18 Pulse Ox 96 07/16/20 15:18 Body Mass Index 29.2 Objective Data Current Medications Generic Name Dose Route Start Last Admin Trade Name Freq PRN Reason Stop Dose Admin Acetaminophen 650 mg 07/15/20 19:53 07/16/20 09:43 Acetaminophen 325 Mg Tablet PO 325 mg Q6H PRN Administration Pain, Mild (Pain Scale 1-3) Enoxaparin Sodium 40 mg 07/15/20 22:00 07/16/20 00:54 Enoxaparin Sodium 40 Mg/0.4 Ml Syringe SUBCUT 40 mg Q24H NAJMA Administration Sodium Chloride 1,000 mls @ 50 mls/hr 07/15/20 20:00 07/16/20 00:54 Ns IVCONT 50 mls/hr .Q20H NAJMA Administration Insulin Human Lispro 0 unit 07/15/20 21:00 07/16/20 16:22 Insulin Lispro 100 Unit/Ml 3 Ml Vial SUBCUT Not Given QIDACHS [facility] Protocol Magnesium Hydroxide 30 ml 07/15/20 19:53 Milk Of Magnesia 30 Ml Oral.Susp PO DAILY PRN Constipation Melatonin 6 mg 07/15/20 19:53 Melatonin 3 Mg Tablet PO BEDTIME PRN Insomnia Pharmacy Consult 1 each 07/15/20 19:53 Consult Rx Perform Med Rec MISCELLANE ONCE PRN Consult order Sodium Chloride 3 ml 07/16/20 00:00 07/16/20 15:46 0.9 % Sodium Chloride Flush 3 Ml Syringe IVFLUSH Not Given QSHIFT [facility] Labs CBC & Chem 7: 07/16/20 05:14 07/16/20 05:14 Assessment and Plan (1) Dizziness: Status: Acute (2) Amnesia: Status: Acute Assessment and Plan: 75-year-old female with a past medical history of hypertension, hyperlipidemia, diabetes, GERD presented to the hospital with a chief complaint of Dizziness. Dizziness: Unclear etiology.work up has been unremarkable thus far, I don't the dizziness id due to diabetes meds or blood pressure meds, I will check orthostatic bP, Neurolgy did not make any additional recommendation. Observation and if no issues, discharge tomorrow. Hypertension/hyperlipidemia: Will continue home medications. Diabetes: Will give the patient on insulin sliding scale. Patient on glipizide and metformin at home. Will hold for now. DVT prophylaxis: Lovenox Code status: Full code
[2020-07-16 20:25] LABS: Glucose, Whole Blood 170 mg/dL (60-115)
[2020-07-17] VITALS (11 sets, daily range): BP systolic 131–162; BP diastolic 69–87; PULSE 78–97; RESP 18–19; TEMP 36.5–37.1; O2SAT 88–98
[2020-07-17 07:19] LABS: Glucose, Whole Blood 186 mg/dL (60-115)
[2020-07-17 11:22] LABS: Glucose, Whole Blood 208 mg/dL (60-115)
[2020-07-17 16:38] LABS: Glucose, Whole Blood 171 mg/dL (60-115)
--- NOTE | 2020-07-17 17:07 | HO.PM.IMPN ---
Subjective Subjective Date of Service: 07/17/20 Interval History: Seen in f/u for dizziness, she continues to have this but is very vague Review of Systems Gen: no fever Resp: no sob, no cough CV: no chest, no BOWEN, no leg edema GI: No n/v, no abd pain Neuro: No confusion Physical Exam Vital Signs: Vital Signs: Last Vital Signs Temp 98.0 F 07/17/20 15:13 Pulse 95 07/17/20 15:13 Resp 19 07/17/20 15:13 BP 162/87 H 07/17/20 15:13 Pulse Ox 91 L 07/17/20 15:13 Body Mass Index 29.2 General: AO X 3, no acute distress Resp: CTA bilateral CVS: S1,S2,RRR GI: +BS, NT, no distention Skin: No rash Neuro: motor grossly intact Psych: appropriate affect Objective Data Current Medications Generic Name Dose Route Start Last Admin Trade Name Freq PRN Reason Stop Dose Admin Acetaminophen 650 mg 07/15/20 19:53 07/16/20 09:43 Acetaminophen 325 Mg Tablet PO 325 mg Q6H PRN Administration Pain, Mild (Pain Scale 1-3) Enoxaparin Sodium 40 mg 07/15/20 22:00 07/16/20 20:52 Enoxaparin Sodium 40 Mg/0.4 Ml Syringe SUBCUT 40 mg Q24H NAJMA Administration Insulin Human Lispro 0 unit 07/15/20 21:00 07/17/20 16:49 Insulin Lispro 100 Unit/Ml 3 Ml Vial SUBCUT Not Given QIDACHS [facility] Protocol Magnesium Hydroxide 30 ml 07/15/20 19:53 Milk Of Magnesia 30 Ml Oral.Susp PO DAILY PRN Constipation Melatonin 6 mg 07/15/20 19:53 Melatonin 3 Mg Tablet PO BEDTIME PRN Insomnia Pharmacy Consult 1 each 07/15/20 19:53 Consult Rx Perform Med Rec MISCELLANE ONCE PRN Consult order Sodium Chloride 3 ml 07/16/20 00:00 07/17/20 08:52 0.9 % Sodium Chloride Flush 3 Ml Syringe IVFLUSH Not Given QSHIFT [facility] Labs CBC & Chem 7: 07/16/20 05:14 07/16/20 05:14 Assessment and Plan (1) Dizziness: Status: Acute (2) Amnesia: Status: Acute Assessment and Plan: 75-year-old female with a past medical history of hypertension, hyperlipidemia, diabetes, GERD presented to the hospital with a chief complaint of Dizziness. Dizziness: Unclear etiology.work up has been unremarkable thus far, I don't the dizziness id due to diabetes meds or blood pressure meds, I will check orthostatic bP, Neurolgy did not make any additional recommendation. Observation and if no issues Hypertension/hyperlipidemia: Will continue home medications. Diabetes: Will give the patient on insulin sliding scale. Patient on glipizide and metformin at home. Will hold for now. DVT prophylaxis: Lovenox Code status: Full code
[2020-07-17 20:53] LABS: Glucose, Whole Blood 220 mg/dL (60-115)
[2020-07-17] MEDS: Enoxaparin Sodium 40 MG/0.4 ML SYRINGE SUBCUT (21:05)
[2020-07-17] MEDS: 0.9 % Sodium Chloride Flush 3 ML SYRINGE IVFLUSH (21:06)
[2020-07-18 03:22] VITALS: BP 146/76; PULSE 67; RESP 18; TEMP 36.9; O2SAT 93
[2020-07-18 07:17] LABS: Glucose, Whole Blood 206 mg/dL (60-115)
[2020-07-18 07:20] VITALS: BP 169/83; PULSE 75; RESP 20; TEMP 37; O2SAT 93
[2020-07-18] MEDS: 0.9 % Sodium Chloride Flush 3 ML SYRINGE IVFLUSH (09:48)
[2020-07-18] MEDS: metFORMIN HCl ER 500 MG TAB.ER.24H 1000 MG PO (11:18)
[2020-07-18] MEDS: SITagliptin Phosphate 100 MG TABLET PO (11:19)
[2020-07-18 11:20] LABS: Glucose, Whole Blood 281 mg/dL (60-115)
[2020-07-18] MEDS: Aspirin Enteric Coated 81 MG TABLET.DR PO (11:20)
[2020-07-18] MEDS: Omeprazole 20 MG CAPSULE.DR PO (11:21)
[2020-07-18] MEDS: glipiZIDE 10 MG TABLET PO (11:22)
[2020-07-18] MEDS: Cholecalciferol (Vitamin D3) 25 MCG TABLET PO (11:22)
[2020-07-18 11:27] VITALS: BP 153/78; BP 191/98; PULSE 76; PULSE 91; RESP 20; TEMP 37.1; O2SAT 96
[2020-07-18] MEDS: Losartan Potassium 50 MG TABLET PO (11:27)
[2020-07-18 11:28] VITALS: BP 191/98; PULSE 91
[2020-07-18] MEDS: amLODIPine Besylate 10 MG TABLET PO (11:28)
[2020-07-18 11:37] VITALS: BP 191/98; PULSE 91
[2020-07-18] MEDS: atenoloL 100 MG TABLET PO (11:37)
--- NOTE | 2020-07-18 12:34 | MHC.CM.PN ---
PT MET [place] PT WITH THE ASSISTANCE OF [facility]. PTS TWO GRANDSONS WERE ALSO PRESENT AT BEDSIDE. PT REPORTEDLY LIVES ALONE AND HAS POWER ORIGINATOR SERVICES 5 HOURS DAILY. PT USES A CANE TO AMBULATE AND HAS A CPAP. PT REPORTEDLY LIVES NEXT DOOR TO THE [facility] WHERE HER PCP, PILI SIERRA IS, SO SHE WALKS TO [facility]. PT COMPLETED A NEW HCP TODAY NAMING HER GRANDSON, MONTY, HER AGENT. IMM DELIVERED CURRENT DC PLAN IS HOME WITH RESUMPTION OF POWER ORIGINATOR SERVICES PT/FAMILY ALSO INTERESTED IN [facility] TO TRANSPORT
[2020-07-18 14:41] VITALS: BP 134/80; PULSE 67; RESP 18; TEMP 37.1; O2SAT 95
--- NOTE | 2020-07-18 15:33 | PM.DS ---
DS: Providers Provider Date of Service: 07/18/20 Date of admission: 07/16/20 09:00 Primary care physician: Annie Tafoya MD Consults: 07/15/20 19:53 Consult to Neurology Routine Consulting Provider: [facility] Reason for consultation: Dizziness DS: Diagnosis Discharge Diagnosis (1) Dizziness: Status: Acute (2) Amnesia: Status: Acute DS: Medications Discharge Medications Home Medications: Home Medications Medication Instructions Recorded Confirmed Januvia 1 tab PO DAILY 07/15/20 07/15/20 amlodipine 1 tab PO QAM 07/15/20 07/15/20 aspirin 1 tab PO QPM 07/15/20 07/15/20 atenolol 1 tab PO BID 07/15/20 07/15/20 atorvastatin 1 tab PO BEDTIME 07/15/20 07/15/20 cholecalciferol (vitamin D3) 1 tab PO QAM 07/15/20 07/15/20 glipizide 1 tab PO BID 07/15/20 07/15/20 losartan 1 tab PO DAILY 07/15/20 07/15/20 metformin 2 tab PO BID 07/15/20 07/15/20 omeprazole 1 cap PO QAM 07/15/20 07/15/20 DS: Summary Hospital Course Hospital Course: 75-year-old female with a past medical history of hypertension, hyperlipidemia, diabetes, GERD presented to the hospital with a chief complaint of Dizziness that was rather non specific and work with CT head, ECG unremarkable. Was seen by Neuroglogy with no specific finding or recommendation. Patient seems fine at preents, has had some episode of elevated BP but now normal with her usual home medications. Orthostatic blood pressure was unremarkable I don't think the dizziness is due to diabetes meds or blood pressure meds. Hypertension/hyperlipidemia: Will continue home medications. Diabetes: continue home meds Time Spent with Patient Time attestation: Total time spent providing and/or coordinating discharge services: Discharge coordination time: Greater than 30 minutes Quality: Stroke Does the patient have a stroke diagnosis?: No Physical Exam Vital Signs: Vital Signs: Last Vital Signs Temp 98.7 F 07/18/20 14:41 Pulse 67 07/18/20 14:41 Resp 18 07/18/20 14:41 BP 134/80 07/18/20 14:41 Pulse Ox 95 07/18/20 14:41 Body Mass Index 29.2 Constitutional Awake and Alert, No apparent distress Neck Supple, No lymphadenopathy Cardiovascular RRR, No M/R/G, S1 S2, No S3 S4, No pedal edema Respiratory Lungs clear, No respiratory distress Gastrointestinal Non tender, Non-distended Skin No rash Neurological Alert & oriented x3 Psychological Appropriate affect DS: Data Data Completed and Pending Labs on day of discharge: Laboratory Results - last 24 hr 07/17/20 07/17/20 07/18/20 16:30 20:47 07:09 POC Glucose 171 H 220 H 206 H 07/18/20 11:10 POC Glucose 281 H Discharge Plan Discharge Anticipated Discharge Date/Time: 07/18/20 15:22 Patient Disposition: Home, Self-Care Discharge Diagnosis: dizziness Referrals: Annie Tafoya MD [Primary Care Provider] - 1 Week Discharge Medications: Continued losartan 50 mg tablet 1 tab PO DAILY RF: 0 atorvastatin 40 mg tablet 1 tab PO BEDTIME RF: 0 atenolol 100 mg tablet 1 tab PO BID RF: 0 glipizide 10 mg tablet 1 tab PO BID RF: 0 aspirin 81 mg tablet,delayed release (DR/EC) 1 tab PO QPM RF: 0 amlodipine 10 mg tablet 1 tab PO QAM RF: 0 omeprazole 20 mg capsule,delayed release(DR/EC) 1 cap PO QAM RF: 0 metformin 500 mg tablet extended release 24 hr 2 tab PO BID RF: 0 cholecalciferol (vitamin D3) 25 mcg (1,000 unit) tablet 1 tab PO QAM RF: 0 Januvia 100 mg tablet 1 tab PO DAILY RF: 0 Discharge Orders: Discharge Order (Routine); Ordered 07/18/20 Ordered By: Albert Elkins Diet: advance to usual diet Activity on Discharge: As tolerated Stand Alone Forms: Patient Portal Discharge page Care Plan Goals: prevent rehospitalization Health Concerns: dizziness Plan of Treatment: Take all our medicaton as directed and follow up with your Doctor in a week, call for appointment Assessment: See above
== END 2020-07-18 16:23 | disposition home or self-care (01) | DRG 149 ==
LOC: HO.ED 19:11 → HO.EDOVER 20:17 → HO.IMC 20:55
PROVIDERS: Physician Assistant; Admitting Provider Hospitalist; Emergency Provider Emergency Medicine Emergency Medical Services; PCP Family Medicine; Visit Provider Internal Medicine
DX: R42 Dizziness and giddiness (principal); E78.5 Hyperlipidemia, unspecified; R41.3 Other amnesia; I10 Essential (primary) hypertension; E11.9 Type 2 diabetes mellitus without complications; K21.9 Gastro-esophageal reflux disease without esophagitis; Z20.822 Contact with and (suspected) exposure to COVID-19; Z79.82 Long term (current) use of aspirin; Z79.84 Long term (current) use of oral hypoglycemic drugs; Z79.899 Other long term (current) drug therapy
CPT/HCPCS: 36415; 70450; 70496; 70498; 71045; 71250; 80048; 80053; 81001; 81003; 82947; 83735; 83880; 84443; 84484; 85007; 85025; 85027; 85379; 87635; 93005; 99285; J1650; Q9967

== ENCOUNTER 2020-09-24 16:24 | Outpatient (REF) | payer OTHER, SELFPAY ==
--- NOTE | ~2020-09-24 | MM_ITS ---
EXAMINATION: MM SCREENING DIGITAL BREAST TOMOSYNTHESIS, BILATERAL CLINICAL INFORMATION: Screening. Asymptomatic. The lifetime risk of breast cancer based on the Tyrer-Cuzick Model is 2%. COMPARISON: Mammography: 04/08/2019, 01/08/2018, 01/01/2018, 12/26/2016 TECHNIQUE: Digital breast tomosynthesis is performed in both the craniocaudal and mediolateral oblique views along with computer-aided detection (CAD). Synthesized 2D images are generated from the tomosynthesis. FINDINGS: There are scattered areas of fibroglandular density (ACR BI-RADS breast composition Category b). There are no significant masses, abnormal calcifications, or other abnormalities. Parenchymal pattern is similar to prior studies. No developing density. The axilla and skin contours are unremarkable. MM/MM tomosynthesis screening BI IMPRESSION: No mammographic evidence of malignancy. ASSESSMENT: BI-RADS 1: Negative RECOMMENDATION: Routine annual mammography screening. This patient's information was entered into a reminder system with a target due date for their next mammogram.
== END 2020-09-24 16:25 | disposition home or self-care (01) ==
LOC: HO.MAMMO 16:24
PROVIDERS: PCP Family Medicine; Visit Provider Family Medicine
DX: Z12.31 Encounter for screening mammogram for malignant neoplasm of breast (principal)
CPT/HCPCS: 77063; 77067

== ENCOUNTER 2020-10-26 11:53 | Outpatient (REF) | payer OTHER, SELFPAY ==
--- NOTE | ~2020-10-26 | XR_ITS ---
EXAMINATION: XR CHEST CLINICAL INFORMATION: Lower respiratory tract infection COMPARISON: Previous chest x-ray and chest CT July 2020 TECHNIQUE: 2 views of the chest were obtained. FINDINGS: The cardiac silhouette is enlarged but stable. The thoracic aorta is tortuous but stable. There are increased central markings questionable for bronchial wall thickening or airways disease. The lungs are otherwise clear without evidence of pneumonia. There is no pleural effusion or pneumothorax. Bony structures are unremarkable. XR/XR chest 2V IMPRESSION: Stable enlargement of the cardiac silhouette and tortuous thoracic aorta. Increased central lung markings questionable for bronchial wall thickening or airways disease. No evidence of pneumonia.
== END 2020-10-26 11:54 | disposition home or self-care (01) ==
LOC: HO.XRAY 11:53
PROVIDERS: PCP Family Medicine; Visit Provider Emergency Medicine
DX: J22 Unspecified acute lower respiratory infection (principal)
CPT/HCPCS: 71046

== ENCOUNTER 2020-11-26 11:24 | Outpatient (REF) | payer OTHER, SELFPAY ==
--- NOTE | ~2020-11-26 | XR_ITS ---
EXAMINATION: XR HIP, RIGHT CLINICAL INFORMATION: Right hip pain COMPARISON: None TECHNIQUE: Two views of the right hip. FINDINGS: No acute fracture or dislocation. Femoral head is spherical. Right hip joint space relatively preserved. Small femoral collar and acetabular marginal osteophytes. No suspicious osseous lesions. Soft tissues unremarkable. XR/XR hip RT min 2V IMPRESSION: No acute fracture or dislocation. Mild right hip arthrosis.
== END 2020-11-26 11:25 | disposition home or self-care (01) ==
LOC: HO.XRAY 11:24
PROVIDERS: Absent Provider Family Medicine; PCP Family Medicine; Visit Provider Internal Medicine Geriatric Medicine
DX: M25.551 Pain in right hip (principal)
CPT/HCPCS: 73502

== ENCOUNTER 2021-06-18 15:51 | Inpatient (IN) | payer OTHER, SELFPAY ==
--- NOTE | ~2021-06-18 | XR_ITS ---
EXAMINATION: XR CHEST CLINICAL INFORMATION: Shortness of breath COMPARISON: Chest x-ray 10/26/2020 TECHNIQUE: 2 views of the chest were obtained. FINDINGS: Lungs are clear. No pulmonary vascular congestion. There is no pleural effusion. The heart size is normal. The cardiac and mediastinal contours are normal. There are calcifications of the thoracic aorta. There are multilevel degenerative changes of dorsal spine. XR/XR chest 2V IMPRESSION: Unremarkable examination.
--- NOTE | ~2021-06-18 | NM_ITS ---
EXAMINATION: NM LUNG IMAGE PERFUSION CLINICAL INFORMATION: Shortness of breath with elevated d-dimer COMPARISON: Chest x-ray same day TECHNIQUE: 4 mCi technetium MAA. Images obtained in various obliquities over the lung callahan. FINDINGS: Fairly homogeneous distribution of the radioisotope. There is no convincing evidence for a segmental defect. Some overall decreased perfusion to the right base is likely due to mild elevation of the right hemidiaphragm on the chest x-ray. The anterior defect on the LPO images likely cardiac impression NM/NM pul perfusion IMPRESSION: Findings as described above. Suggest a low probability for pulmonary embolism. Correlation recommended clinically. Is there remains clinical suspicion recommend CTA of the chest and/or extremity venous Dopplers
--- NOTE | ~2021-06-18 | XR_ITS ---
EXAMINATION: XR CHEST CLINICAL INFORMATION: Cough. Question pneumonia. COMPARISON: 06/18/2021 TECHNIQUE: 2 views of the chest were obtained. FINDINGS: Cardiac leads overlie the chest. The lungs are well expanded. Mild elevation of the right hemidiaphragm. There is no focal consolidation, edema, or effusion. No pneumothorax. The cardiomediastinal silhouette is within normal limits of size with a calcified aorta. No acute osseous abnormality. XR/XR chest 2V IMPRESSION: No acute pulmonary finding.
--- NOTE | 2021-06-18 16:02 | ED_ITS ---
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 Patient states that 3 days ago, she tested positive for influenza but today, she has been getting increasingly short of breath. Patient denies any dizziness, lightheadedness, abdominal pain, nausea, vomiting, fever, chills, blurry vision, double vision, loss of vision, chest pain, back pain, night sweats, pain with urination, increased urinary frequency, increased urinary urgency, blood in her urine or stool, syncope or a near syncopal episode, recent trauma or falls, bowel incontinence, bladder incontinence, bowel retention, bladder retention, or any other complaints at this time. Patient states that she has a history does not have any history of respiratory issues including COPD. Onset (ago): hour(s) Severity scale (1-10): 5 Relieving factors: none Exacerbating factors: none Treatments prior to arrival: none Related Data Home Medications Medication Instructions Recorded Confirmed amlodipine 10 mg tablet 1 tab PO QAM 07/15/20 07/15/20 aspirin 81 mg tablet,delayed 1 tab PO QPM 07/15/20 07/15/20 release atenolol 100 mg tablet 1 tab PO BID 07/15/20 07/15/20 atorvastatin 40 mg tablet 1 tab PO BEDTIME 07/15/20 07/15/20 cholecalciferol (vitamin D3) 25 1 tab PO QAM 07/15/20 07/15/20 mcg (1,000 unit) tablet glipizide 10 mg tablet 1 tab PO BID 07/15/20 07/15/20 losartan 50 mg tablet 1 tab PO DAILY 07/15/20 07/15/20 metformin 500 mg tablet,extended 2 tab PO BID 07/15/20 07/15/20 release 24 hr omeprazole 20 mg capsule,delayed 1 cap PO QAM 07/15/20 07/15/20 release sitagliptin 100 mg tablet (Januvia) 1 tab PO DAILY 07/15/20 07/15/20 Allergies Allergy/AdvReac Type Severity Reaction Status Date / Time No Known Allergies Allergy Unverified 10/24/19 17:45 [No Known Allergies*] Review of Systems Constitutional: Constitutional: Reports no additional constitutional complaints, Denies chills, Denies fever(s) and Denies night sweats Eyes: Eyes: Reports no additional eye complaints, Denies blurry vision, Denies change in vision, Denies diplopia, Denies eye discharge, Denies loss of vision and Denies eye pain ENT: Denies dizziness Cardiovascular: Cardiovascular: Reports no additional cardiovascular complaints, Denies chest pain, Denies lightheadedness, Denies Loss of Consciousness and Reports dyspnea Respiratory: Respiratory: Reports no additional respiratory complaints and Reports dyspnea Gastrointestinal: Gastrointestinal: Reports no additional gastrointestinal complaints, Denies abdominal pain, Denies melena, Denies hematochezia, Denies change in bowel habits and Denies change in stool character Genitourinary: Genitourinary: Denies hematuria, Denies urinary frequency, Denies dysuria, Denies urinary incontinence, Denies urinary hesitancy and Denies urinary urgency Musculoskeletal: Musculoskeletal: Reports no additional musculoskeletal complaints, Denies numbness and Denies tingling Neurologic: Denies dizziness, Denies loss of vision, Denies numbness and Denies tingling Psychiatric: Psychiatric: Reports no additional psychiatric complaints Endocrine: Endocrine: Reports no additional endocrine complaints Hematologic/Lymphatic: Hematologic/Lymphatic: Reports no additional hematologic/lymphatic complaints Allergic/Immunologic: Allergic/Immunologic: Reports no additional allergic/immunologic complaints [facility] Past Medical History Attestation statement: The following information was validated with the patient. 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) Alcohol intake: never Patient Tobacco Use Status: Never used Tobacco Advance Directives: Yes Advance Directives on File: Yes Advance Directives Date on File: 07/20/20 service: No Current occupational status: unemployed Physical Exam ED Vital Signs: Vital Signs - 24 hr 06/18/21 16:10 06/18/21 17:00 06/18/21 19:02 Temperature 97.8 F 97.8 F 97.8 F Pulse Rate 115 H 111 H 91 Respiratory Rate 19 18 16 Blood Pressure 138/64 108/78 124/80 Pulse Oximetry 96 92 96 BMI result Body Mass Index 27.1 Const General: cooperative, no acute distress, alert and awake Nutritional Appearance: well nourished Orientation/consciousness: patient oriented x3 Limitations: no limitations HENMT Head: Yes normal to inspection and Yes atraumatic Ears: hearing grossly normal bilaterally and external ears normal General nose exam: Normal external nose present, no nasal discharge noted and no epistaxis Face and sinus: Yes normal facial exam, No abrasion and No laceration Mouth: Normal oral and palatal mucosa present, no drooling and no muffled voice Eyes General: appearance normal, both eyes and all related structures Periorbital: periorbital findings normal Eyelids: Yes eyelids normal Conjunctivae: conjunctivae normal Pupils: Equal, round and reactive pupils present EOM: EOMs intact bilaterally Neck Neck: Yes normal visual inspection, Yes full ROM and Yes no lymphadenopathy Chest Chest palpation & inspection: normal inspection of the chest Resp Effort & Inspection: able to speak in complete sentences and labored Auscultation: diminished lung sounds Cardio Rate: regular rate Rhythm: regular rhythm GI Inspection: Yes normal to inspection Neuro General: patient oriented x3 and moves all extremities Cranial nerves: Yes Equal, round and reactive pupils present Cognition (Neuro): normal cognition Motor exam (neuro): 5/5 motor strength present throughout Sensory Exam: Normal double simultaneous stimulation for sensation Coordination: [id number] test normal Extrem General: Yes normal to inspection, Yes full ROM and Yes capillary refill normal Psych Appearance: grossly normal Mental Status: mental status grossly normal Affect: normal affect Attitude: cooperative Thought process: Normal thought process present Thought content: Normal thought content present Insight: Good insight present (Psych) Medical Decision Making MDM Narrative Medical decision making narrative: Patient is a 76 year old female presenting to the emergency department today with shortness of breath. Patient's physical exam showed increased respiratory effort with decreased breath sounds throughout. Patient was at 96% on 2L of NC and when removed from oxygen, she desaturated to 84%. Patient's blood work showed an elevated d dimer. Patient's EKG was unremarkable. Patient's chest x- ray was read as normal however, there is a definite infiltrate present in the right lower lobe. Patient's rapid flu test was positive. I explained my physical exam findings as well as all test results to the patient and the patient's son. I answered all questions asked by the patient and the patient's son. Patient received IV fluids and IV Azithromycin which. Patient's VQ scan showed low probability of PE. I spoke to Dr. Moralez who agreed to hospital admission. Patient and the patient's son verbalized agreement and understanding with this treatment plan and admission. Differential Diagnosis Differential Diagnosis: hypoxia, pneumonia, influenza, PE Medical Records Medical records reviewed: Yes I reviewed the patient's medical records. Lab Data Lab results reviewed: Yes I reviewed the patient's lab results. Result diagrams: 06/18/21 16:15 06/18/21 16:15 Labs: Lab Results 06/18/21 06/18/21 06/18/21 Range/Units 16:15 16:15 16:15 WBC 7.9 (4.8-10.8) X10*3/uL RBC 4.84 (4.20-5.50) X10*6/uL Hgb 13.1 (12.0-16.0) g/dl Hct 41.7 (37.0-47.0) % MCV 86.2 (80.0-98.0) fL MCH 27.1 (27.0-33.0) pg MCHC 31.4 (31.0-35.0) g/dl RDW 13.2 (11.0-16.0) % Plt Count 166 (160-400) X10*3/uL MPV 14.3 H (9.4-12.3) fL Immature Gran % (Auto) 0.3 (0.0-0.4) % Neut % (Auto) 31.6 L (45-73) % Lymph % (Auto) 47.4 H (20-40) % [place] % (Auto) 18.6 H (2-11) % Eos % (Auto) 1.5 (0-4) % Baso % (Auto) 0.6 (0-2) % Lymph # (Auto) 3.7 (1.2-4.9) X10*3/uL [place] # (Auto) 1.5 H (0.1-1.2) X10*3/uL Eos # (Auto) 0.1 (0.0-0.4) X10*3/uL Baso # (Auto) 0.1 (0.0-0.2) X10*3/uL Abs Immat Gran (auto) 0.02 (0.00-0.03) X10*3/uL Absolute Neuts (auto) 2.5 (2.0-8.3) x10*3/uL Absolute Nucleated RBC 0.020 H (0.0-0.012) X10*3/uL Nucleated RBC % (auto) 0.3 H (0.0-0.2) /100WBC D-Dimer High Sensitivty NG/ML VBG pH (7.32-7.43) VBG pCO2 mmHg VBG pO2 mmHg VBG HCO3 (22-26) mmol/L VBG O2 Saturation % VBG Base Excess mmol/L Sodium 137 (135-145) mmol/L Potassium 3.9 (3.3-5.1) mmol/L Chloride 97 (96-108) mmol/L Carbon Dioxide 26 (22-29) mmol/L Anion Gap 18 (12-20) BUN 23 H (9-16) mg/dL Creatinine 1.39 (0.5-1.4) mg/dL Estim Creat Clear Calc 33.9 Estimated GFR 37 Random Glucose 175 H (60-115) mg/dL Lactic Acid 1.3 (0.5-2.0) mmol/L Calcium 9.3 (8.4-10.2) mg/dL Magnesium 1.9 (1.6-2.6) mg/dL Total Bilirubin 0.2 (0.0-1.0) mg/dL AST 40 H D (5-31) U/L ALT 24 (0-31) U/L Alkaline Phosphatase 81 (39-117) U/L Troponin I High Sens (<3.5-17.0) ng/L B-Natriuretic Peptide (<100) pg/mL Total Protein 8.0 (6.5-8.0) g/dL Albumin 4.0 (3.5-5.0) g/dL COVID-19 (KAVITHA) (Negative) COVID-19 Clin Com Influenza Type A (LETICIA) (Negative) Influenza Type B (LETICIA) (Negative) Influenza A & B Note 06/18/21 06/18/21 06/18/21 Range/Units 16:15 16:22 16:58 WBC (4.8-10.8) X10*3/uL RBC (4.20-5.50) X10*6/uL Hgb (12.0-16.0) g/dl Hct (37.0-47.0) % MCV (80.0-98.0) fL MCH (27.0-33.0) pg MCHC (31.0-35.0) g/dl RDW (11.0-16.0) % Plt Count (160-400) X10*3/uL MPV (9.4-12.3) fL Immature Gran % (Auto) (0.0-0.4) % Neut % (Auto) (45-73) % Lymph % (Auto) (20-40) % [place] % (Auto) (2-11) % Eos % (Auto) (0-4) % Baso % (Auto) (0-2) % Lymph # (Auto) (1.2-4.9) X10*3/uL [place] # (Auto) (0.1-1.2) X10*3/uL Eos # (Auto) (0.0-0.4) X10*3/uL Baso # (Auto) (0.0-0.2) X10*3/uL Abs Immat Gran (auto) (0.00-0.03) X10*3/uL Absolute Neuts (auto) (2.0-8.3) x10*3/uL Absolute Nucleated RBC (0.0-0.012) X10*3/uL Nucleated RBC % (auto) (0.0-0.2) /100WBC D-Dimer High Sensitivty NG/ML VBG pH 7.47 H (7.32-7.43) VBG pCO2 39 mmHg VBG pO2 109 mmHg VBG HCO3 29 H (22-26) mmol/L VBG O2 Saturation 99.0 % VBG Base Excess 5.4 mmol/L Sodium (135-145) mmol/L Potassium (3.3-5.1) mmol/L Chloride (96-108) mmol/L Carbon Dioxide (22-29) mmol/L Anion Gap (12-20) BUN (9-16) mg/dL Creatinine (0.5-1.4) mg/dL Estim Creat Clear Calc Estimated GFR Random Glucose (60-115) mg/dL Lactic Acid (0.5-2.0) mmol/L Calcium (8.4-10.2) mg/dL Magnesium (1.6-2.6) mg/dL Total Bilirubin (0.0-1.0) mg/dL AST (5-31) U/L ALT (0-31) U/L Alkaline Phosphatase (39-117) U/L Troponin I High Sens 14.7 (<3.5-17.0) ng/L B-Natriuretic Peptide (<100) pg/mL Total Protein (6.5-8.0) g/dL Albumin (3.5-5.0) g/dL COVID-19 (KAVITHA) (Negative) COVID-19 Clin Com Influenza Type A (LETICIA) Positive A (Negative) Influenza Type B (LETICIA) Negative (Negative) Influenza A & B Note See Note 06/18/21 06/18/21 06/18/21 Range/Units 16:58 17:14 19:01 WBC (4.8-10.8) X10*3/uL RBC (4.20-5.50) X10*6/uL Hgb (12.0-16.0) g/dl Hct (37.0-47.0) % MCV (80.0-98.0) fL MCH (27.0-33.0) pg MCHC (31.0-35.0) g/dl RDW (11.0-16.0) % Plt Count (160-400) X10*3/uL MPV (9.4-12.3) fL Immature Gran % (Auto) (0.0-0.4) % Neut % (Auto) (45-73) % Lymph % (Auto) (20-40) % [place] % (Auto) (2-11) % Eos % (Auto) (0-4) % Baso % (Auto) (0-2) % Lymph # (Auto) (1.2-4.9) X10*3/uL [place] # (Auto) (0.1-1.2) X10*3/uL Eos # (Auto) (0.0-0.4) X10*3/uL Baso # (Auto) (0.0-0.2) X10*3/uL Abs Immat Gran (auto) (0.00-0.03) X10*3/uL Absolute Neuts (auto) (2.0-8.3) x10*3/uL Absolute Nucleated RBC (0.0-0.012) X10*3/uL Nucleated RBC % (auto) (0.0-0.2) /100WBC D-Dimer High Sensitivty 312 NG/ML VBG pH (7.32-7.43) VBG pCO2 mmHg VBG pO2 mmHg VBG HCO3 (22-26) mmol/L VBG O2 Saturation % VBG Base Excess mmol/L Sodium (135-145) mmol/L Potassium (3.3-5.1) mmol/L Chloride (96-108) mmol/L Carbon Dioxide (22-29) mmol/L Anion Gap (12-20) BUN (9-16) mg/dL Creatinine (0.5-1.4) mg/dL Estim Creat Clear Calc Estimated GFR Random Glucose (60-115) mg/dL Lactic Acid (0.5-2.0) mmol/L Calcium (8.4-10.2) mg/dL Magnesium (1.6-2.6) mg/dL Total Bilirubin (0.0-1.0) mg/dL AST (5-31) U/L ALT (0-31) U/L Alkaline Phosphatase (39-117) U/L Troponin I High Sens 14.6 (<3.5-17.0) ng/L B-Natriuretic Peptide 28 (<100) pg/mL Total Protein (6.5-8.0) g/dL Albumin (3.5-5.0) g/dL COVID-19 (KAVITHA) Negative (Negative) COVID-19 Clin Com See Note Influenza Type A (LETICIA) (Negative) Influenza Type B (LETICIA) (Negative) Influenza A & B Note Imaging Data Chest x-ray: Attestation: I personally reviewed and interpreted this imaging study as follows: My impression: Acute right lower lobe infiltrate Radiologist's impression: EXAMINATION: XR CHEST CLINICAL INFORMATION: Shortness of breath COMPARISON: Chest x-ray 10/26/2020 TECHNIQUE: 2 views of the chest were obtained. FINDINGS: ?Lungs are clear. No pulmonary vascular congestion. There is no pleural effusion. The heart size is normal. The cardiac and mediastinal contours are normal. There are calcifications of the thoracic aorta. There are multilevel degenerative changes of dorsal spine.? ? XR/XR chest 2V IMPRESSION: Unremarkable examination. Dictated By: Scott Green MD Signed By: Electronically signed by Scott Green MD 06/18/21 1633 VQ Scan: Attestation: I personally reviewed and interpreted this imaging study as follows: Radiologist's impression: EXAMINATION: NM LUNG IMAGE PERFUSION CLINICAL INFORMATION: Shortness of breath with elevated d-dimer COMPARISON: Chest x-ray same day TECHNIQUE: 4 mCi technetium MAA. Images obtained in various obliquities over the lung callahan. FINDINGS: Fairly homogeneous distribution of the radioisotope. There is no convincing evidence for a segmental defect. Some overall decreased perfusion to the right base is likely due to mild elevation of the right hemidiaphragm on the chest x-ray. The anterior defect on the LPO images likely cardiac impression NM/NM pul perfusion IMPRESSION: Findings as described above. Suggest a low probability for pulmonary embolism. Correlation recommended clinically. Is there remains clinical suspicion recommend CTA of the chest and/or extremity venous Dopplers Dictated By: Parrish Argueta MD Signed By: Electronically signed by Parrish Argueta MD 06/18/212029 ECG Data Attestation: I personally reviewed and interpreted this ECG as follows: Prior ECG tracings: available for review Interpretation: Vent. Rate: 105 BPM ? ? Atrial Rate: 105 BPM P-R Int: 140 ms? QRS Dur: 098 ms QT Int: 366 ms ? ? ? P-R-T Axes: 052 -33 098 degrees QTc Int: 483 ms ? Sinus tachycardia Possible Left atrial enlargement Left axis deviation Left ventricular hypertrophy with repolarization abnormality ( R in aVL , [place] product ) Inferior infarct , age undetermined Abnormal ECG When compared with ECG of 15-JUL-2020 22:24, Vent. rate has increased BY? 36 BPM T wave inversion now evident in Lateral leads DD/ 1632 Discharge Plan Discharge Clinical Impression: Hypoxia, Influenza, Pneumonia Patient Disposition: Admitted As Inpatient Print Language: Hungarian
--- NOTE | 2021-06-18 16:08 | ECG_ITS ---
Test Reason : DYSPENA Blood Pressure : / mmHG Vent. Rate : 105 BPM Atrial Rate : 105 BPM P-R Int : 140 ms QRS Dur : 098 ms QT Int : 366 ms P-R-T Axes : 052 -33 098 degrees QTc Int : 483 ms Sinus tachycardia Possible Left atrial enlargement Left axis deviation Left ventricular hypertrophy with repolarization abnormality ( R in aVL , [place] product ) Inferior infarct , age undetermined Abnormal ECG When compared with ECG of 15-JUL-2020 22:24, Vent. rate has increased BY 36 BPM T wave inversion now evident in Lateral leads Referred By: Tawana Rucker Electronically Signed By:WILLI SMILEY MD
[2021-06-18 16:10] VITALS: BP 138/64; PULSE 115; RESP 19; TEMP 36.6; O2SAT 96; BMI 27.1
[2021-06-18 16:29] LABS: Venous Blood Gas Refer to POC result
[2021-06-18 16:30] LABS: VBG Base Excess 5.4 mmol/L; VBG HCO3 29 mmol/L (22-26); VBG pCO2 39 mmHg; VBG pH 7.47 (7.32-7.43); VBG pO2 109 mmHg
[2021-06-18 16:39] LABS: Red Cell Distribution Width 13.2 % (11.0-16.0); SCAN SMEAR FLAG 1; WBC ABN SCTR 1
[2021-06-18 16:41] LABS: PLT CLUMP 1
[2021-06-18 16:45] LABS: Lactic Acid 1.3 mmol/L (0.5-2.0)
[2021-06-18 16:46] LABS: Hemoglobin 13.1 g/dl (12.0-16.0)
[2021-06-18 16:50] LABS: Alanine Aminotransferase 24 U/L (0-31); Alkaline Phosphatase 81 U/L (39-117); Anion Gap 18 (12-20); Aspartate Amino Transferase 40 U/L (5-31); Bilirubin Total 0.2 mg/dL (0.0-1.0); Blood Urea Nitrogen 23 mg/dL (9-16); Calcium 9.3 mg/dL (8.4-10.2); Carbon Dioxide 26 mmol/L (22-29); Chloride 97 mmol/L (96-108); Creatinine Clr Calc Pharmacy 33.9; Estimated Glomerular Filt Rate 37; Glucose Random 175 mg/dL (60-115); Magnesium 1.9 mg/dL (1.6-2.6); Potassium 3.9 mmol/L (3.3-5.1); Sodium 137 mmol/L (135-145)
[2021-06-18 16:55] LABS: Basophils Absolute Auto 0.1 X10*3/uL (0.0-0.2); Basophils Percent Auto 0.6 % (0-2); Eosinophils Absolute Auto 0.1 X10*3/uL (0.0-0.4); Eosinophils Percent Auto 1.5 % (0-4); Hematocrit 41.7 % (37.0-47.0); Imm Gran Abs Auto 0.02 X10*3/uL (0.00-0.03); Imm Gran Pct Auto 0.3 % (0.0-0.4); Lymphocytes Absolute Auto 3.7 X10*3/uL (1.2-4.9); Lymphocytes Percent Auto 47.4 % (20-40); Mean Corpuscular HGB Conc 31.4 g/dl (31.0-35.0); Mean Corpuscular Hemoglobin 27.1 pg (27.0-33.0); Mean Corpuscular Volume 86.2 fL (80.0-98.0); Mean Platelet Volume 14.3 fL (9.4-12.3); Monocytes Absolute Auto 1.5 X10*3/uL (0.1-1.2); Monocytes Percent Auto 18.6 % (2-11); NRBC Pct Auto 0.3 /100WBC (0.0-0.2); Neutrophils Absolute Auto 2.5 x10*3/uL (2.0-8.3); Neutrophils Percent Auto 31.6 % (45-73); Red Blood Count 4.84 X10*6/uL (4.20-5.50)
[2021-06-18 16:56] LABS: Troponin-I High Sensitivity 14.7 ng/L (<3.5-17.0)
[2021-06-18 16:58] LABS: PLT ABN DIST 1; WBC ABN SCTR FOR CBC 1
[2021-06-18 16:59] LABS: MANUAL DIFF FLAG NO; White Blood Count 7.9 X10*3/uL (4.8-10.8)
[2021-06-18 17:00] VITALS: BP 108/78; PULSE 111; RESP 18; TEMP 36.6; O2SAT 92
[2021-06-18 17:01] LABS: Platelet Count 166 X10*3/uL (160-400)
--- NOTE | 2021-06-18 17:16 | PC.NURSE ---
86% on RA while at rest in hospital bed
[2021-06-18 17:28] LABS: COVID-19 Test Negative (Negative); IDNOW Serial# 16C4AD1C
[2021-06-18 17:31] LABS: D Dimer High Sensitivity 312 NG/ML
[2021-06-18 17:51] LABS: Influenza A Positive (Negative); Influenza B2 Negative (Negative)
[2021-06-18] MEDS: 0.9 % Sodium Chloride 1,000 ML 999 ML IVCONT (18:58)
[2021-06-18] MEDS: Azithromycin 500 MG in 0.9 % Sodium Chloride 250 ML 125 MG IV (18:58)
--- NOTE | 2021-06-18 19:00 | PC.NURSE ---
Took report from Stephen to assume care of Pt, Pt resting, call light in reach, this RN continues to monitor.
[2021-06-18 19:02] VITALS: BP 124/80; PULSE 91; RESP 16; TEMP 36.6; O2SAT 96
[2021-06-18 19:27] LABS: Troponin-I High Sensitivity 14.6 ng/L (<3.5-17.0)
[2021-06-18 20:20] LABS: B Type Natriuretic Peptide 28 pg/mL (<100)
--- NOTE | 2021-06-18 21:14 | PHA.MEDREC ---
MED REC COMPLETE, PATIENT DOES NOT KNOW THE NAMES OF HER MEDICATIONS BUT DOES STATE SHE TAKES WHAT IS FILLED AT THE PHARMACY, ENTERED MOSTLY OFF OF PHARMACY CLAIM HISTORY Pharmacy Consult ? Medication Reconciliation Pharmacy has completed the medication reconciliation.
--- NOTE | 2021-06-18 23:05 | PM.IMHP ---
History of Present Illness Date of Service: 06/18/21 Chief Complaint: Shortness of breath 76-year-old female with a past medical history of hypertension, hyperlipidemia, diabetes presented to the hospital with a chief complaint of shortness of breath. Patient reports that over the past 3 days she has been not feeling well; has been having shortness of breath which has been gradually worsening; associated dry cough. Denies any chest pain or palpitations. Denies any fevers. Denies any GI symptoms. Report because of the coughing she has mild abdominal discomfort. Denies any numbness tingling or focal weakness. Review of all other systems is negative except mentioned above ER course: Per ER team patient noted a coarse breath sounds; chest x-ray concerns for right lower lobe infiltrate-but reported negative; patient was given azithromycin empirically; also noted to be saturating 84% on room air; placed on supplemental oxygen. D-dimer was positive-weakness and pending. Patient influenza is positive. Admitted for further management PMFSH Family History Family/Other No significant medical problems Surgical History History of esophagogastroduodenoscopy (EGD) History of tubal ligation Hx of colonoscopy Social History Household Members: None Housing: Apartment Housing Other:: rd floor with elevator access Do you presently have visiting nurse or other home services: Yes Alcohol intake: never Patient Tobacco Use Status: Never used Tobacco Advance Directives Date on File: 07/20/20 service: No Current occupational status: unemployed Meds Allergies Allergy/AdvReac Type Severity Reaction Status Date / Time No Known Allergies Allergy Unverified 10/24/19 17:45 [No Known Allergies*] Active Medications: Current Medications Pharmacy Consult (Consult Rx Perform Med Rec) 1 each MISCELLANE ONCE PRN PRN Reason: Consult order Home Medications Medication Instructions Recorded Confirmed Last Taken Type amlodipine 10 mg tablet 1 tab PO DAILY 07/15/20 06/18/21 Unknown History aspirin 81 mg tablet,delayed 1 tab PO QPM 07/15/20 06/18/21 Unknown History release atenolol 100 mg tablet 1 tab PO BID 07/15/20 06/18/21 Unknown History atorvastatin 40 mg tablet 1 tab PO BEDTIME 07/15/20 06/18/21 Unknown History cholecalciferol (vitamin D3) 25 1 tab PO QAM 07/15/20 06/18/21 Unknown History mcg (1,000 unit) tablet losartan 50 mg tablet 1 tab PO DAILY 07/15/20 06/18/21 Unknown History metformin 500 mg tablet,extended 2 tab PO BID 07/15/20 06/18/21 Unknown History release 24 hr omeprazole 20 mg capsule,delayed 1 cap PO DAILY 07/15/20 06/18/21 Unknown History release clonazepam 0.5 mg tablet 0.5 mg PO BEDTIME 06/18/21 06/18/21 Unknown History insulin glargine 100 unit/mL 20 unit subcut DAILY 06/18/21 06/18/21 Unknown History subcutaneous solution (Lantus U-100 Insulin) oseltamivir 75 mg capsule 75 mg PO BID 06/18/21 06/18/21 Unknown History primidone 50 mg tablet 50 mg PO BID 06/18/21 06/18/21 Unknown History trihexyphenidyl 2 mg tablet 2 mg PO BID 06/18/21 06/18/21 Unknown History Physical Exam Vital Signs and Narrative: Vital Signs: Last Vital Signs Temp 97.8 F 06/18/21 19:02 Pulse 91 06/18/21 19:02 Resp 16 06/18/21 19:02 BP 124/80 06/18/21 19:02 Pulse Ox 96 06/18/21 19:02 BMI result Body Mass Index 27.1 Gen: Appears be in no acute distress HEENT: NCAT, Moist mucosa. Pulmonary: Coarse breath sounds CVS: Normal S1-S2 Abdomen: BS+, Soft, Nontender Extremities: Warm well perfused Neuro: Alert and awake. Results Labs CBC and Chem 7: 06/23/21 06:57 06/23/21 13:03 Labs: Laboratory Results - last 24 hr 06/18/21 06/18/21 06/18/21 16:15 16:15 16:15 MCV 86.2 MCH 27.1 MCHC 31.4 RDW 13.2 Plt Count 166 MPV 14.3 H Immature Gran % (Auto) 0.3 Neut % (Auto) 31.6 L Lymph % (Auto) 47.4 H [place] % (Auto) 18.6 H Eos % (Auto) 1.5 Baso % (Auto) 0.6 Lymph # (Auto) 3.7 [place] # (Auto) 1.5 H Eos # (Auto) 0.1 Baso # (Auto) 0.1 Abs Immat Gran (auto) 0.02 Absolute Neuts (auto) 2.5 Absolute Nucleated RBC 0.020 H Nucleated RBC % (auto) 0.3 H D-Dimer High Sensitivty VBG pH VBG pCO2 VBG pO2 VBG HCO3 VBG O2 Saturation VBG Base Excess Anion Gap 18 Estim Creat Clear Calc 33.9 Estimated GFR 37 Random Glucose 175 H Lactic Acid 1.3 Calcium 9.3 Magnesium 1.9 Total Bilirubin 0.2 AST 40 H D ALT 24 Alkaline Phosphatase 81 Troponin I High Sens B-Natriuretic Peptide Total Protein 8.0 Albumin 4.0 COVID-19 (KAVITHA) COVID-19 Clin Com Influenza Type A (LETICIA) Influenza Type B (LETICIA) Influenza A & B Note 06/18/21 06/18/21 06/18/21 16:15 16:22 16:58 MCV MCH MCHC RDW Plt Count MPV Immature Gran % (Auto) Neut % (Auto) Lymph % (Auto) [place] % (Auto) Eos % (Auto) Baso % (Auto) Lymph # (Auto) [place] # (Auto) Eos # (Auto) Baso # (Auto) Abs Immat Gran (auto) Absolute Neuts (auto) Absolute Nucleated RBC Nucleated RBC % (auto) D-Dimer High Sensitivty VBG pH 7.47 H VBG pCO2 39 VBG pO2 109 VBG HCO3 29 H VBG O2 Saturation 99.0 VBG Base Excess 5.4 Anion Gap Estim Creat Clear Calc Estimated GFR Random Glucose Lactic Acid Calcium Magnesium Total Bilirubin AST ALT Alkaline Phosphatase Troponin I High Sens 14.7 B-Natriuretic Peptide Total Protein Albumin COVID-19 (KAVITHA) COVID-19 Clin Com Influenza Type A (LETICIA) Positive A Influenza Type B (LETICIA) Negative Influenza A & B Note See Note 06/18/21 06/18/21 06/18/21 16:58 17:14 19:01 MCV MCH MCHC RDW Plt Count MPV Immature Gran % (Auto) Neut % (Auto) Lymph % (Auto) [place] % (Auto) Eos % (Auto) Baso % (Auto) Lymph # (Auto) [place] # (Auto) Eos # (Auto) Baso # (Auto) Abs Immat Gran (auto) Absolute Neuts (auto) Absolute Nucleated RBC Nucleated RBC % (auto) D-Dimer High Sensitivty 312 VBG pH VBG pCO2 VBG pO2 VBG HCO3 VBG O2 Saturation VBG Base Excess Anion Gap Estim Creat Clear Calc Estimated GFR Random Glucose Lactic Acid Calcium Magnesium Total Bilirubin AST ALT Alkaline Phosphatase Troponin I High Sens 14.6 B-Natriuretic Peptide 28 Total Protein Albumin COVID-19 (KAVITHA) Negative COVID-19 Clin Com See Note Influenza Type A (LETICIA) Influenza Type B (LETICIA) Influenza A & B Note Imaging Radiologist's Impressions: Impressions Chest X-Ray 06/18/21 16:19 IMPRESSION: Unremarkable examination. Pulmonary Perfusion Imaging 06/18/21 19:55 IMPRESSION: Findings as described above. Suggest a low probability for pulmonary embolism. Correlation recommended clinically. Is there remains clinical suspicion recommend CTA of the chest and/or extremity venous Dopplers Assessment and Plan (1) Hypoxia: Status: Resolved (2) Influenza: Status: Resolved Plan 76-year-old female with a past medical history of hypertension, hyperlipidemia, diabetes presented to the hospital with a chief complaint of shortness of breath. Noted to have following conditions Acute hypoxia: Likely in the setting of influenza/pneumonia: Patient has elevated D-dimer. V/Q scan low probability for PE Kendal p.r.n. Pneumonia: Patient initial chest x-ray read as negative. Will repeat chest x-ray after hydration. Empirically cover with ceftriaxone/azithromycin for now Ordered procalcitonin. Influenza positive: Will start the patient on Tamiflu. History of hypertension/hyperlipidemia: Continue home aspirin statin amlodipine atenolol History of diabetes: Hold home metformin, Lantus. Insulin sliding scale for now. DVT prophylaxis: Lovenox Code status: Full code Quality Stroke Does the patient have a stroke diagnosis?: No VTE Prior VTE?: No VTE Risk Level:: Medical - moderate - high VTE Device Contraindication: Treatment Not Indicated VTE Drug Contraindication: N/A - Med Ordered
[2021-06-19 00:31] LABS: Procalcitonin 0.17 ng/mL
[2021-06-19] MEDS: cefTRIAXone sodium 1 GM in 0.9 % Sodium Chloride 50 ML IV (00:46)
[2021-06-19] MEDS: 0.9 % Sodium Chloride 1,000 ML 50 ML IVCONT (00:47)
[2021-06-19] MEDS: Oseltamivir Phosphate 75 MG CAPSULE PO (02:47)
[2021-06-19 04:00] VITALS: BP 134/87; PULSE 108; RESP 16; TEMP 37.3; O2SAT 92
[2021-06-19 07:05] LABS: Hematocrit 39.2 % (37.0-47.0); Hemoglobin 12.2 g/dl (12.0-16.0); Mean Corpuscular HGB Conc 31.1 g/dl (31.0-35.0); Mean Corpuscular Hemoglobin 27.5 pg (27.0-33.0); Mean Corpuscular Volume 88.5 fL (80.0-98.0); Mean Platelet Volume 13.2 fL (9.4-12.3); Platelet Count 151 X10*3/uL (160-400); Red Blood Count 4.43 X10*6/uL (4.20-5.50); Red Cell Distribution Width 13.2 % (11.0-16.0)
[2021-06-19 07:09] LABS: WBC ABN SCTR FOR CBC 1
[2021-06-19 07:34] LABS: Anion Gap 15 (12-20); Blood Urea Nitrogen 15 mg/dL (9-16); Calcium 8.4 mg/dL (8.4-10.2); Carbon Dioxide 26 mmol/L (22-29); Chloride 103 mmol/L (96-108); Creatinine Clr Calc Pharmacy 58.9; Estimated Glomerular Filt Rate > 60; Glucose Random 172 mg/dL (60-115); Potassium 4.1 mmol/L (3.3-5.1); Sodium 140 mmol/L (135-145)
--- NOTE | 2021-06-19 07:40 | PC.NURSE ---
pt iv fluids finished infusing, were ordered for 50ml/hr lastnight, not scheduled to be fully infused at this time. iv fluids appear to not have been on iv pump.
[2021-06-19] MEDS: Insulin Lispro 100 UNIT/ML 3 ML VIAL SUBCUT ×3 (07:44→21:41)
[2021-06-19] MEDS: Omeprazole 20 MG CAPSULE.DR PO (07:45)
[2021-06-19] MEDS: Losartan Potassium 50 MG TABLET PO (07:45)
[2021-06-19] MEDS: Oseltamivir Phosphate 30 MG CAPSULE PO ×2 (07:45→21:29)
[2021-06-19] MEDS: atenoloL 100 MG TABLET PO ×2 (07:45→21:40)
[2021-06-19] MEDS: amLODIPine Besylate 10 MG TABLET PO (07:45)
[2021-06-19] MEDS: Enoxaparin Sodium 40 MG/0.4 ML SYRINGE SUBCUT (07:45)
[2021-06-19] MEDS: Cholecalciferol (Vitamin D3) 25 MCG TABLET PO (07:45)
[2021-06-19] MEDS: Primidone 50 MG TABLET PO ×2 (07:45→21:41)
[2021-06-19 07:49] LABS: Glucose, Whole Blood 166 mg/dL (60-115)
[2021-06-19 07:52] LABS: Band Neutrophils Percent 3 % (3-5); Basophils Percent Manual 1 % (0-2); Lymphocytes Percent Manual 39 % (20-40); Monocytes Percent Manual 18 % (2-11); Neutrophils Percent Manual 39 % (45-73)
[2021-06-19 07:53] LABS: Large Platelet PRESENT; Platelet Estimate SLIGHTLY DECREASED (NORMAL); Platelet Morphology Comment NOTED
[2021-06-19 07:54] LABS: RBC Morphology NORMAL
[2021-06-19 07:55] LABS: Basophils Abs Manual 0.1 X10*3/uL (0.0-0.2); Lymphocytes Absolute Manual 2.3 X10*3/uL (1.2-4.9); Neutrophils Absolute Manual 2.4 X10*3/uL (2.0-8.3); White Blood Count 5.8 X10*3/uL (4.8-10.8)
[2021-06-19 08:55] VITALS: BP 117/74; PULSE 102; RESP 16; TEMP 36.9; O2SAT 74
[2021-06-19 08:56] VITALS: O2SAT 93
--- NOTE | 2021-06-19 09:49 | HO.PM.IMPN ---
Subjective Subjective Date of Service: 06/19/21 Interval History: cc: sob interval history:still sob Cardiovascular Cardiovascular: Reports no additional cardiovascular complaints Gastrointestinal Gastrointestinal: Reports no additional gastrointestinal complaints Physical Exam Vital Signs: Vital Signs: Last Vital Signs Temp 98.5 F 06/19/21 08:55 Pulse 102 H 06/19/21 08:55 Resp 16 06/19/21 08:55 BP 117/74 06/19/21 08:55 Pulse Ox 93 06/19/21 08:56 BMI result Body Mass Index 27.1 General: AO X 3, dyspneic, tachypneic Resp: wheezing bilateral, accessory muscles used CVS: S1,S2,RRR GI: soft, non tender, non distended Neuro: motor grossly intact, alert Psych: appropriate affect, appropriate insight Objective Data Active Medications Acetaminophen (Acetaminophen 325 Mg Tablet) 650 mg PO Q6H PRN PRN Reason: Pain, Mild (Pain Scale 1-3) Albuterol/Ipratropium (Albuterol/Iprat 2.5/0.5mg 3 Ml Ampul.Neb) 3 ml INHALE RQ4H PRN PRN Reason: Shortness of Breath/Wheezing Amlodipine Besylate (Amlodipine Besylate 10 Mg Tablet) 10 mg PO DAILY [facility]; Protocol Last Admin: 06/19/21 07:45 Dose: 10 mg Documented by: PAUL Aspirin (Aspirin Enteric Coated 81 Mg Tablet.Dr) 81 mg PO BEDTIME NAJMA Atenolol (Atenolol 100 Mg Tablet) 100 mg PO BID [facility]; Protocol Last Admin: 06/19/21 07:45 Dose: 100 mg Documented by: PAUL Atorvastatin Calcium (Atorvastatin Calcium 40 Mg Tablet) 40 mg PO BEDTIME NAJMA Clonazepam (Clonazepam 0.5 Mg Tablet) 0.5 mg PO BEDTIME NAJMA Dextrose (Dextrose 50 % 25 Gm/50 Ml Syringe) 25 gm IVPUSH Q15M PRN; Protocol PRN Reason: per Hypoglycemia Standing Ord. Enoxaparin Sodium (Enoxaparin Sodium 40 Mg/0.4 Ml Syringe) 40 mg SUBCUT Q24H [facility] Last Admin: 06/19/21 07:45 Dose: 40 mg Documented by: PAUL Glucose (Glucose Gel 15 Gm Gel..Gram.) 15 gm PO Q15M PRN; Protocol PRN Reason: per Hypoglycemia Standing Ord. Insulin Human Lispro (Insulin Lispro 100 Unit/Ml 3 Ml Vial) 0 unit SUBCUT QIDACHS [facility]; Protocol Last Admin: 06/19/21 07:44 Dose: 2 unit Documented by: PAUL Losartan Potassium (Losartan Potassium 50 Mg Tablet) 50 mg PO DAILY [facility]; Protocol Last Admin: 06/19/21 07:45 Dose: 50 mg Documented by: PAUL Melatonin (Melatonin 3 Mg Tablet) 6 mg PO BEDTIME PRN PRN Reason: Insomnia Methylprednisolone Sodium Succinate (Methylprednisolone Sod Succ 40 Mg/Ml Vial) 40 mg IVPUSH Q12H [facility] Omeprazole (Omeprazole 20 Mg Capsule.) 20 mg PO DAILY [facility] Last Admin: 06/19/21 07:45 Dose: 20 mg Documented by: PAUL Oseltamivir Phosphate (Oseltamivir Phosphate 30 Mg Capsule) 30 mg PO BID [facility] Last Admin: 06/19/21 07:45 Dose: 30 mg Documented by: PAUL Pharmacy Consult (Consult Rx Perform Med Rec) 1 each MISCELLANE ONCE PRN PRN Reason: Consult order Primidone (Primidone 50 Mg Tablet) 50 mg PO BID [facility] Last Admin: 06/19/21 07:45 Dose: 50 mg Documented by: PAUL Senna (Sennosides 8.6 Mg Tablet) 17.2 mg PO BEDTIME PRN PRN Reason: Constipation Sodium Chloride (0.9 % Sodium Chloride Flush 3 Ml Syringe) 3 ml IVFLUSH QSHIFT [facility] Last Admin: 06/19/21 07:26 Dose: Not Given Documented by: PAUL Non-Admin Reason: Med Not Available Trihexyphenidyl HCl (Trihexyphenidyl Hcl 2 Mg Tablet) 2 mg PO BID [facility] Vitamin D (Cholecalciferol (Vitamin D3) 25 Mcg Tablet) 25 mcg PO DAILY [facility] Last Admin: 06/19/21 07:45 Dose: 25 mcg Documented by: PAUL Labs CBC & Chem 7: 06/19/21 06:50 06/19/21 06:50 Labs: Laboratory Results - last 24 hr 06/18/21 06/18/21 06/18/21 16:15 16:15 16:15 MCV 86.2 MCH 27.1 MCHC 31.4 RDW 13.2 Plt Count 166 MPV 14.3 H Immature Gran % (Auto) 0.3 Neut % (Auto) 31.6 L Lymph % (Auto) 47.4 H [place] % (Auto) 18.6 H Eos % (Auto) 1.5 Baso % (Auto) 0.6 Lymph # (Auto) 3.7 [place] # (Auto) 1.5 H Eos # (Auto) 0.1 Baso # (Auto) 0.1 Abs Immat Gran (auto) 0.02 Absolute Neuts (auto) 2.5 Absolute Nucleated RBC 0.020 H Nucleated RBC % (auto) 0.3 H Neutrophils % (Manual) Band Neutrophils % Lymphocytes % (Manual) Monocytes % (Manual) Basophils % (Manual) Abs Neuts (Manual) Lymphocytes # (Manual) Monocytes # (Manual) Basophils # (Manual) Platelet Estimate Large Platelets Plt Morphology Comment RBC Morphology D-Dimer High Sensitivty VBG pH VBG pCO2 VBG pO2 VBG HCO3 VBG O2 Saturation VBG Base Excess Anion Gap 18 Estim Creat Clear Calc 33.9 Estimated GFR 37 POC Glucose Random Glucose 175 H Lactic Acid 1.3 Calcium 9.3 Magnesium 1.9 Total Bilirubin 0.2 AST 40 H D ALT 24 Alkaline Phosphatase 81 Troponin I High Sens B-Natriuretic Peptide Total Protein 8.0 Albumin 4.0 Procalcitonin COVID-19 (KAVITHA) COVID-19 Clin Com Influenza Type A (LETICIA) Influenza Type B (LETICIA) Influenza A & B Note 06/18/21 06/18/21 06/18/21 16:15 16:22 16:58 MCV MCH MCHC RDW Plt Count MPV Immature Gran % (Auto) Neut % (Auto) Lymph % (Auto) [place] % (Auto) Eos % (Auto) Baso % (Auto) Lymph # (Auto) [place] # (Auto) Eos # (Auto) Baso # (Auto) Abs Immat Gran (auto) Absolute Neuts (auto) Absolute Nucleated RBC Nucleated RBC % (auto) Neutrophils % (Manual) Band Neutrophils % Lymphocytes % (Manual) Monocytes % (Manual) Basophils % (Manual) Abs Neuts (Manual) Lymphocytes # (Manual) Monocytes # (Manual) Basophils # (Manual) Platelet Estimate Large Platelets Plt Morphology Comment RBC Morphology D-Dimer High Sensitivty VBG pH 7.47 H VBG pCO2 39 VBG pO2 109 VBG HCO3 29 H VBG O2 Saturation 99.0 VBG Base Excess 5.4 Anion Gap Estim Creat Clear Calc Estimated GFR POC Glucose Random Glucose Lactic Acid Calcium Magnesium Total Bilirubin AST ALT Alkaline Phosphatase Troponin I High Sens 14.7 B-Natriuretic Peptide Total Protein Albumin Procalcitonin COVID-19 (KAVITHA) COVID-19 Clin Com Influenza Type A (LETICIA) Positive A Influenza Type B (LETICIA) Negative Influenza A & B Note See Note 06/18/21 06/18/21 06/18/21 16:58 17:14 19:01 MCV MCH MCHC RDW Plt Count MPV Immature Gran % (Auto) Neut % (Auto) Lymph % (Auto) [place] % (Auto) Eos % (Auto) Baso % (Auto) Lymph # (Auto) [place] # (Auto) Eos # (Auto) Baso # (Auto) Abs Immat Gran (auto) Absolute Neuts (auto) Absolute Nucleated RBC Nucleated RBC % (auto) Neutrophils % (Manual) Band Neutrophils % Lymphocytes % (Manual) Monocytes % (Manual) Basophils % (Manual) Abs Neuts (Manual) Lymphocytes # (Manual) Monocytes # (Manual) Basophils # (Manual) Platelet Estimate Large Platelets Plt Morphology Comment RBC Morphology D-Dimer High Sensitivty 312 VBG pH VBG pCO2 VBG pO2 VBG HCO3 VBG O2 Saturation VBG Base Excess Anion Gap Estim Creat Clear Calc Estimated GFR POC Glucose Random Glucose Lactic Acid Calcium Magnesium Total Bilirubin AST ALT Alkaline Phosphatase Troponin I High Sens 14.6 B-Natriuretic Peptide 28 Total Protein Albumin Procalcitonin COVID-19 (KAVITHA) Negative COVID-19 Clin Com See Note Influenza Type A (LETICIA) Influenza Type B (LETICIA) Influenza A & B Note 06/18/21 06/19/21 06/19/21 23:44 06:50 06:50 MCV 88.5 MCH 27.5 MCHC 31.1 RDW 13.2 Plt Count 151 L MPV 13.2 H Immature Gran % (Auto) Cancelled Neut % (Auto) Cancelled Lymph % (Auto) Cancelled [place] % (Auto) Cancelled Eos % (Auto) Cancelled Baso % (Auto) Cancelled Lymph # (Auto) Cancelled [place] # (Auto) Cancelled Eos # (Auto) Cancelled Baso # (Auto) Cancelled Abs Immat Gran (auto) Cancelled Absolute Neuts (auto) Cancelled Absolute Nucleated RBC 0.000 Nucleated RBC % (auto) 0.0 Neutrophils % (Manual) 39 L Band Neutrophils % 3 Lymphocytes % (Manual) 39 Monocytes % (Manual) 18 H Basophils % (Manual) 1 Abs Neuts (Manual) 2.4 Lymphocytes # (Manual) 2.3 Monocytes # (Manual) 1.0 Basophils # (Manual) 0.1 Platelet Estimate SLIGHTLY DECREASED Large Platelets PRESENT Plt Morphology Comment NOTED RBC Morphology NORMAL D-Dimer High Sensitivty VBG pH VBG pCO2 VBG pO2 VBG HCO3 VBG O2 Saturation VBG Base Excess Anion Gap 15 Estim Creat Clear Calc 58.9 Estimated GFR > 60 POC Glucose Random Glucose 172 H Lactic Acid Calcium 8.4 D Magnesium Total Bilirubin AST ALT Alkaline Phosphatase Troponin I High Sens B-Natriuretic Peptide Total Protein Albumin Procalcitonin 0.17 COVID-19 (KAVITHA) COVID-19 Clin Com Influenza Type A (LETICIA) Influenza Type B (LETICIA) Influenza A & B Note 06/19/21 07:02 MCV MCH MCHC RDW Plt Count MPV Immature Gran % (Auto) Neut % (Auto) Lymph % (Auto) [place] % (Auto) Eos % (Auto) Baso % (Auto) Lymph # (Auto) [place] # (Auto) Eos # (Auto) Baso # (Auto) Abs Immat Gran (auto) Absolute Neuts (auto) Absolute Nucleated RBC Nucleated RBC % (auto) Neutrophils % (Manual) Band Neutrophils % Lymphocytes % (Manual) Monocytes % (Manual) Basophils % (Manual) Abs Neuts (Manual) Lymphocytes # (Manual) Monocytes # (Manual) Basophils # (Manual) Platelet Estimate Large Platelets Plt Morphology Comment RBC Morphology D-Dimer High Sensitivty VBG pH VBG pCO2 VBG pO2 VBG HCO3 VBG O2 Saturation VBG Base Excess Anion Gap Estim Creat Clear Calc Estimated GFR POC Glucose 166 H Random Glucose Lactic Acid Calcium Magnesium Total Bilirubin AST ALT Alkaline Phosphatase Troponin I High Sens B-Natriuretic Peptide Total Protein Albumin Procalcitonin COVID-19 (KAVITHA) COVID-19 Clin Com Influenza Type A (LETICIA) Influenza Type B (LETICIA) Influenza A & B Note Assessment and Plan (1) Hypoxia: Status: Acute Plan 76F presented with sob acute hypoxic respiratory failure due to flu tamiflu, steroids, duonebs no evidence of bacterial pneumonia, will dc abx DM in[place]lin HTN atneolol, losartan dvt prophylaxis - lovenox full code reason for continued hospitalization: hypoxic, sob Quality Stroke Does the patient have a stroke diagnosis?: No VTE Prior VTE?: No VTE Risk Level:: Medical - moderate - high VTE Device Contraindication: Treatment Not Indicated VTE Drug Contraindication: N/A - Med Ordered
[2021-06-19] MEDS: methylPREDNISolone Sod Succ 40 MG/ML VIAL IVPUSH ×2 (11:36→21:28)
[2021-06-19 13:26] LABS: Glucose, Whole Blood 127 mg/dL (60-115)
[2021-06-19 15:46] VITALS: BP 150/90; PULSE 96; RESP 12; TEMP 37.2; O2SAT 97
[2021-06-19 18:31] LABS: Glucose, Whole Blood 311 mg/dL (60-115)
[2021-06-19 19:41] VITALS: BP 134/74; PULSE 99; RESP 16; O2SAT 98
[2021-06-19] MEDS: Aspirin Enteric Coated 81 MG TABLET.DR PO (21:29)
[2021-06-19] MEDS: Atorvastatin Calcium 40 MG TABLET PO (21:29)
[2021-06-19 21:40] VITALS: BP 124/70; PULSE 91; RESP 14; O2SAT 98
[2021-06-19] MEDS: Trihexyphenidyl HCL 2 MG TABLET PO (21:41)
[2021-06-19] MEDS: clonazePAM 0.5 MG TABLET PO (21:41)
--- NOTE | 2021-06-19 21:41 | PC.NURSE ---
POC 250, 4 units insulin given as per MD order, see MAR
[2021-06-19 21:45] LABS: Glucose, Whole Blood 250 mg/dL (60-115)
[2021-06-19] MEDS: 0.9 % Sodium Chloride Flush 3 ML SYRINGE IVFLUSH (23:15)
[2021-06-20] VITALS (7 sets, daily range): BP systolic 108–124; BP diastolic 55–70; PULSE 54–77; RESP 13–18; TEMP 35.7–36.5; O2SAT 84–99
[2021-06-20 07:12] LABS: Hematocrit 42.5 % (37.0-47.0); Mean Corpuscular HGB Conc 30.6 g/dl (31.0-35.0); Mean Corpuscular Hemoglobin 27.5 pg (27.0-33.0); Platelet Count 165 X10*3/uL (160-400); Red Blood Count 4.72 X10*6/uL (4.20-5.50); Red Cell Distribution Width 12.5 % (11.0-16.0)
--- NOTE | 2021-06-20 07:23 | PC.NURSE ---
pt asleep at this time, resp even and unlabored. vss. nad noted.
[2021-06-20 07:30] LABS: Glucose, Whole Blood 285 mg/dL (60-115)
[2021-06-20 07:50] LABS: Anion Gap 14 (12-20); Blood Urea Nitrogen 19 mg/dL (9-16); Calcium 9.5 mg/dL (8.4-10.2); Carbon Dioxide 33 mmol/L (22-29); Chloride 99 mmol/L (96-108); Creatinine Clr Calc Pharmacy 52.4; Estimated Glomerular Filt Rate > 60; Glucose Fasting 278 mg/dL (60-99); Potassium 5.1 mmol/L (3.3-5.1); Sodium 138 mmol/L (135-145)
[2021-06-20] MEDS: Enoxaparin Sodium 40 MG/0.4 ML SYRINGE SUBCUT (07:53)
[2021-06-20] MEDS: Insulin Lispro 100 UNIT/ML 3 ML VIAL SUBCUT ×4 (07:54→21:38)
[2021-06-20] MEDS: atenoloL 100 MG TABLET PO ×2 (07:54→20:58)
[2021-06-20] MEDS: Primidone 50 MG TABLET PO ×2 (07:54→20:58)
[2021-06-20] MEDS: 0.9 % Sodium Chloride Flush 3 ML SYRINGE IVFLUSH (07:54)
[2021-06-20] MEDS: amLODIPine Besylate 10 MG TABLET PO (07:55)
[2021-06-20] MEDS: Omeprazole 20 MG CAPSULE.DR PO (07:55)
[2021-06-20] MEDS: Oseltamivir Phosphate 30 MG CAPSULE PO ×2 (07:55→20:59)
[2021-06-20] MEDS: Losartan Potassium 50 MG TABLET PO (07:55)
[2021-06-20] MEDS: Cholecalciferol (Vitamin D3) 25 MCG TABLET PO (07:55)
[2021-06-20] MEDS: Trihexyphenidyl HCL 2 MG TABLET PO ×2 (07:56→20:59)
--- NOTE | 2021-06-20 10:20 | P.PNIM_ITS ---
Subjective Subjective Date of Service: 06/20/21 Interval History: cc: sob interval history:a bit better Cardiovascular Cardiovascular: Reports no additional cardiovascular complaints Respiratory Respiratory: Reports no additional respiratory complaints Physical Exam Vital Signs: Vital Signs: Last Vital Signs Temp 96.2 F L 06/20/21 09:14 Pulse 59 06/20/21 09:14 Resp 18 06/20/21 09:14 BP 119/55 L 06/20/21 09:14 Pulse Ox 97 06/20/21 09:14 BMI result Body Mass Index 27.1 General: AO X 3, less dyspneic Resp:? wheezing bilateral, accessory muscles used CVS: S1,S2,RRR GI: soft, non tender, non distended Neuro:? motor grossly intact, alert Psych: appropriate affect, appropriate insight? Objective Data Active Medications Acetaminophen (Acetaminophen 325 Mg Tablet) 650 mg PO Q6H PRN PRN Reason: Pain, Mild (Pain Scale 1-3) Albuterol/Ipratropium (Albuterol/Iprat 2.5/0.5mg 3 Ml Ampul.Neb) 3 ml INHALE RQ4H PRN PRN Reason: Shortness of Breath/Wheezing Amlodipine Besylate (Amlodipine Besylate 10 Mg Tablet) 10 mg PO DAILY [facility]; Protocol Last Admin: 06/20/21 07:55 Dose: 10 mg Documented by: NYDIA Aspirin (Aspirin Enteric Coated 81 Mg Tablet.) 81 mg PO BEDTIME [facility] Last Admin: 06/19/21 21:29 Dose: 81 mg Documented by: DANNY Atenolol (Atenolol 100 Mg Tablet) 100 mg PO BID [facility]; Protocol Last Admin: 06/20/21 07:54 Dose: 100 mg Documented by: NYDIA Atorvastatin Calcium (Atorvastatin Calcium 40 Mg Tablet) 40 mg PO BEDTIME [facility] Last Admin: 06/19/21 21:29 Dose: 40 mg Documented by: DANNY Clonazepam (Clonazepam 0.5 Mg Tablet) 0.5 mg PO BEDTIME [facility] Last Admin: 06/19/21 21:41 Dose: 0.5 mg Documented by: DANNY Dextrose (Dextrose 50 % 25 Gm/50 Ml Syringe) 25 gm IVPUSH Q15M PRN; Protocol PRN Reason: per Hypoglycemia Standing Ord. Enoxaparin Sodium (Enoxaparin Sodium 40 Mg/0.4 Ml Syringe) 40 mg SUBCUT Q24H [facility] Last Admin: 06/20/21 07:53 Dose: 40 mg Documented by: NYDIA Glucose (Glucose Gel 15 Gm Gel..Gram.) 15 gm PO Q15M PRN; Protocol PRN Reason: per Hypoglycemia Standing Ord. Insulin Human Lispro (Insulin Lispro 100 Unit/Ml 3 Ml Vial) 0 unit SUBCUT QIDACHS [facility]; Protocol Last Admin: 06/20/21 07:54 Dose: 6 unit Documented by: NYDIA Losartan Potassium (Losartan Potassium 50 Mg Tablet) 50 mg PO DAILY [facility]; Protocol Last Admin: 06/20/21 07:55 Dose: 50 mg Documented by: NYDIA Melatonin (Melatonin 3 Mg Tablet) 6 mg PO BEDTIME PRN PRN Reason: Insomnia Methylprednisolone Sodium Succinate (Methylprednisolone Sod Succ 40 Mg/Ml Vial) 40 mg IVPUSH Q12H [facility] Last Admin: 06/19/21 21:28 Dose: 40 mg Documented by: DANNY Omeprazole (Omeprazole 20 Mg Capsule.) 20 mg PO DAILY [facility] Last Admin: 06/20/21 07:55 Dose: 20 mg Documented by: NYDIA Oseltamivir Phosphate (Oseltamivir Phosphate 30 Mg Capsule) 30 mg PO BID [facility] Last Admin: 06/20/21 07:55 Dose: 30 mg Documented by: NYDIA Pharmacy Consult (Consult Rx Perform Med Rec) 1 each MISCELLANE ONCE PRN PRN Reason: Consult order Primidone (Primidone 50 Mg Tablet) 50 mg PO BID [facility] Last Admin: 06/20/21 07:54 Dose: 50 mg Documented by: NYDIA Senna (Sennosides 8.6 Mg Tablet) 17.2 mg PO BEDTIME PRN PRN Reason: Constipation Sodium Chloride (0.9 % Sodium Chloride Flush 3 Ml Syringe) 3 ml IVFLUSH QSHIFT [facility] Last Admin: 06/20/21 07:54 Dose: 3 ml Documented by: NYDIA Trihexyphenidyl HCl (Trihexyphenidyl Hcl 2 Mg Tablet) 2 mg PO BID [facility] Last Admin: 06/20/21 07:56 Dose: 2 mg Documented by: NYDIA Vitamin D (Cholecalciferol (Vitamin D3) 25 Mcg Tablet) 25 mcg PO DAILY [facility] Last Admin: 06/20/21 07:55 Dose: 25 mcg Documented by: NYDIA Labs CBC & Chem 7: 06/20/21 06:25 06/20/21 06:25 Labs: Laboratory Results - last 24 hr 06/19/21 06/19/21 06/19/21 13:19 18:05 21:29 MCV MCH MCHC RDW Plt Count MPV Absolute Nucleated RBC Nucleated RBC % (auto) Anion Gap Estim Creat Clear Calc Estimated GFR POC Glucose 127 H 311 H 250 H Fasting Glucose Calcium 06/20/21 06/20/21 06/20/21 06:25 06:25 07:16 MCV 90.0 MCH 27.5 MCHC 30.6 L RDW 12.5 Plt Count 165 MPV 14.0 H Absolute Nucleated RBC 0.000 Nucleated RBC % (auto) 0.0 Anion Gap 14 Estim Creat Clear Calc 52.4 Estimated GFR > 60 POC Glucose 285 H Fasting Glucose 278 H Calcium 9.5 D Microbiology Microbiology Results: Microbiology 06/18/21 16:58 Blood Culture - Final Blood - Venous Coag negative Staphylococcus 06/18/21 16:15 Blood Culture - Preliminary Blood - Venous No growth after 24 hours. Assessment and Plan (1) Hypoxia: Status: Acute Plan 76F presented with sob acute hypoxic respiratory failure due to flu tamiflu, steroids, duonebs wean o2 as tolerated DM [place] HTN atneolol, losartan dvt prophylaxis - lovenox full code reason for continued hospitalization: hypoxic, sob Quality Stroke Does the patient have a stroke diagnosis?: No VTE Prior VTE?: No VTE Risk Level:: Medical - moderate - high VTE Device Contraindication: Treatment Not Indicated VTE Drug Contraindication: N/A - Med Ordered
[2021-06-20] MEDS: methylPREDNISolone Sod Succ 40 MG/ML VIAL IVPUSH ×2 (10:52→20:58)
[2021-06-20 11:19] LABS: Glucose, Whole Blood 382 mg/dL (60-115)
[2021-06-20 17:50] LABS: Glucose, Whole Blood 193 mg/dL (60-115)
[2021-06-20] MEDS: Atorvastatin Calcium 40 MG TABLET PO (20:58)
[2021-06-20] MEDS: clonazePAM 0.5 MG TABLET PO (20:58)
[2021-06-20] MEDS: Aspirin Enteric Coated 81 MG TABLET.DR PO (20:59)
[2021-06-20 21:00] LABS: Glucose, Whole Blood 283 mg/dL (60-115)
[2021-06-21] MEDS: 0.9 % Sodium Chloride Flush 3 ML SYRINGE IVFLUSH ×3 (00:56→17:38)
--- NOTE | 2021-06-21 01:48 | PC.NURSE ---
Patient up ad araceli to commode - steady on feet. Patient on 2 liters nasal cannula. Denies SOB. Lungs CTA. Patient denies pain. New IV put in - #22 right AC. Vitals stable.
[2021-06-21 04:13] VITALS: BP 121/61; PULSE 57; RESP 15; TEMP 36.5; O2SAT 98
[2021-06-21 06:38] LABS: Red Cell Distribution Width 12.3 % (11.0-16.0)
[2021-06-21 06:40] LABS: Hematocrit 39.4 % (37.0-47.0); Hemoglobin 12.2 g/dl (12.0-16.0); Mean Corpuscular Hemoglobin 27.9 pg (27.0-33.0); Mean Platelet Volume 14.1 fL (9.4-12.3); Platelet Count 166 X10*3/uL (160-400); Red Blood Count 4.38 X10*6/uL (4.20-5.50)
[2021-06-21 06:55] LABS: PLT ABN DIST 1; WBC ABN SCTR FOR CBC 1; White Blood Count 8.1 X10*3/uL (4.8-10.8)
[2021-06-21 07:01] LABS: Anion Gap 8 (12-20); Blood Urea Nitrogen 34 mg/dL (9-16); Calcium 9.2 mg/dL (8.4-10.2); Carbon Dioxide 34 mmol/L (22-29); Chloride 97 mmol/L (96-108); Creatinine Clr Calc Pharmacy 43.6; Estimated Glomerular Filt Rate 49; Glucose Fasting 313 mg/dL (60-99); Potassium 5.8 mmol/L (3.3-5.1); Sodium 133 mmol/L (135-145)
[2021-06-21 07:50] LABS: Glucose, Whole Blood 295 mg/dL (60-115)
[2021-06-21] MEDS: Insulin Lispro 100 UNIT/ML 3 ML VIAL SUBCUT ×4 (07:55→21:15)
[2021-06-21] MEDS: Enoxaparin Sodium 40 MG/0.4 ML SYRINGE SUBCUT (08:00)
[2021-06-21] MEDS: Losartan Potassium 50 MG TABLET PO (08:02)
[2021-06-21] MEDS: Oseltamivir Phosphate 30 MG CAPSULE PO ×2 (08:03→21:17)
[2021-06-21] MEDS: Primidone 50 MG TABLET PO ×2 (08:03→21:17)
[2021-06-21] MEDS: Trihexyphenidyl HCL 2 MG TABLET PO ×2 (08:03→21:17)
[2021-06-21] MEDS: amLODIPine Besylate 10 MG TABLET PO (08:03)
[2021-06-21] MEDS: atenoloL 100 MG TABLET PO ×2 (08:03→21:17)
[2021-06-21] MEDS: Omeprazole 20 MG CAPSULE.DR PO (08:03)
[2021-06-21] MEDS: Cholecalciferol (Vitamin D3) 25 MCG TABLET PO (08:03)
--- NOTE | 2021-06-21 11:32 | HO.PM.IMPN ---
Subjective Subjective Date of Service: 06/21/21 Interval History: cc: sob interval history:improved but still sob Cardiovascular Cardiovascular: Reports no additional cardiovascular complaints Gastrointestinal Gastrointestinal: Reports no additional gastrointestinal complaints Physical Exam Vital Signs: Vital Signs: Last Vital Signs Temp 97.7 F 06/21/21 04:13 Pulse 57 06/21/21 04:13 Resp 15 06/21/21 04:13 BP 121/61 06/21/21 04:13 Pulse Ox 98 06/21/21 04:13 BMI result Body Mass Index 27.1 General: AO X 3, less dyspneic Resp:? diminished bilateral, accessory muscles used CVS: S1,S2,RRR GI: soft, non tender, non distended Neuro:? motor grossly intact, alert Psych: appropriate affect, appropriate insight? Objective Data Active Medications Acetaminophen (Acetaminophen 325 Mg Tablet) 650 mg PO Q6H PRN PRN Reason: Pain, Mild (Pain Scale 1-3) Albuterol/Ipratropium (Albuterol/Iprat 2.5/0.5mg 3 Ml Ampul.Neb) 3 ml INHALE RQ4H PRN PRN Reason: Shortness of Breath/Wheezing Amlodipine Besylate (Amlodipine Besylate 10 Mg Tablet) [address] [facility]; Protocol Last Admin: 06/21/21 08:03 Dose: 10 mg Documented by: MELISSA Aspirin (Aspirin Enteric Coated 81 Mg Tablet.) 81 mg PO BEDTIME [facility] Last Admin: 06/20/21 20:59 Dose: 81 mg Documented by: JESSIE Atenolol (Atenolol 100 Mg Tablet) [address] [facility]; Protocol Last Admin: 06/21/21 08:03 Dose: 100 mg Documented by: MELISSA Atorvastatin Calcium (Atorvastatin Calcium 40 Mg Tablet) 40 mg PO BEDTIME [facility] Last Admin: 06/20/21 20:58 Dose: 40 mg Documented by: JESSIE Clonazepam (Clonazepam 0.5 Mg Tablet) 0.5 mg PO BEDTIME [facility] Last Admin: 06/20/21 20:58 Dose: 0.5 mg Documented by: JESSIE Dextrose (Dextrose 50 % 25 Gm/50 Ml Syringe) 25 gm IVPUSH Q15M PRN; Protocol PRN Reason: per Hypoglycemia Standing Ord. Enoxaparin Sodium (Enoxaparin Sodium 40 Mg/0.4 Ml Syringe) [address] [facility] Last Admin: 06/21/21 08:00 Dose: 40 mg Documented by: MELISSA Glucose (Glucose Gel 15 Gm Gel..Gram.) 15 gm PO Q15M PRN; Protocol PRN Reason: per Hypoglycemia Standing Ord. Insulin Human Lispro (Insulin Lispro 100 Unit/Ml 3 Ml Vial) [address] [facility]; Protocol Last Admin: 06/21/21 07:55 Dose: 6 unit Documented by: MELISSA Melatonin (Melatonin 3 Mg Tablet) 6 mg PO BEDTIME PRN PRN Reason: Insomnia Methylprednisolone Sodium Succinate (Methylprednisolone Sod Succ 40 Mg/Ml Vial) [address] [facility] Last Admin: 06/20/21 20:58 Dose: 40 mg Documented by: JESSIE Omeprazole (Omeprazole 20 Mg Capsule.) [address] [facility] Last Admin: 06/21/21 08:03 Dose: 20 mg Documented by: MELISSA Oseltamivir Phosphate (Oseltamivir Phosphate 30 Mg Capsule) [address] [facility] Last Admin: 06/21/21 08:03 Dose: 30 mg Documented by: MELISSA Pharmacy Consult (Consult Rx Perform Med Rec) 1 each MISCELLANE ONCE PRN PRN Reason: Consult order Primidone (Primidone 50 Mg Tablet) [address] [facility] Last Admin: 06/21/21 08:03 Dose: 50 mg Documented by: MELISSA Senna (Sennosides 8.6 Mg Tablet) 17.2 mg PO BEDTIME PRN PRN Reason: Constipation Sodium Chloride (0.9 % Sodium Chloride Flush 3 Ml Syringe) [address] [facility] Last Admin: 06/21/21 08:04 Dose: 3 ml Documented by: MELISSA Trihexyphenidyl HCl (Trihexyphenidyl Hcl 2 Mg Tablet) [address] [facility] Last Admin: 06/21/21 08:03 Dose: 2 mg Documented by: MELISSA Vitamin D (Cholecalciferol (Vitamin D3) 25 Mcg Tablet) [address] [facility] Last Admin: 06/21/21 08:03 Dose: 25 mcg Documented by: MELISSA Labs CBC & Chem 7: 06/21/21 06:23 05/16/22 06:23 Labs: Laboratory Results - last 24 hr 06/20/21 06/20/21 06/21/21 17:42 20:52 06:23 MCV 90.0 MCH 27.9 MCHC 31.0 RDW 12.3 Plt Count 166 MPV 14.1 H Absolute Nucleated RBC 0.000 Nucleated RBC % (auto) 0.0 Anion Gap Estim Creat Clear Calc Estimated GFR POC Glucose 193 H 283 H Fasting Glucose Calcium 06/21/21 06/21/21 06:23 07:42 MCV MCH MCHC RDW Plt Count MPV Absolute Nucleated RBC Nucleated RBC % (auto) Anion Gap 8 L Estim Creat Clear Calc 43.6 Estimated GFR 49 POC Glucose 295 H Fasting Glucose 313 H Calcium 9.2 Microbiology Microbiology Results: Microbiology 06/18/21 16:15 Blood Culture - Preliminary Blood - Venous No growth after 48 hours. 06/18/21 16:58 Blood Culture - Final Blood - Venous Coag negative Staphylococcus Assessment and Plan (1) Hypoxia: Status: Acute Plan 76F presented with sob acute hypoxic respiratory failure due to flu tamiflu, steroids, duonebs wean o2 as tolerated, still needing 2L hyperkalemia 5.8 hold losartan lokelma 10mg once monitor DM [place] HTN atenolol, losartan on hold dvt prophylaxis - lovenox full code reason for continued hospitalization: hypoxic, sob, hyperk Quality Stroke Does the patient have a stroke diagnosis?: No VTE Prior VTE?: No VTE Risk Level:: Medical - moderate - high VTE Device Contraindication: Treatment Not Indicated VTE Drug Contraindication: N/A - Med Ordered
[2021-06-21 11:45] VITALS: BP 111/58; PULSE 61; RESP 20; TEMP 36.5; O2SAT 95
[2021-06-21] MEDS: methylPREDNISolone Sod Succ 40 MG/ML VIAL IVPUSH ×2 (11:49→21:18)
[2021-06-21 11:55] LABS: Glucose, Whole Blood 278 mg/dL (60-115)
[2021-06-21] MEDS: Sodium Zirconium Cyclosilicate 10 GM POWD.PACK PO (13:49)
--- NOTE | 2021-06-21 15:41 | MHC.CM.PN ---
Met with pt via staff interpreter to review d/c planning needs: pt resides alone but has compensated [employer] care M-F provided by her grand dtr. [employer] care includes transportation, housekeeping and minimal ADL assistance. Pt has no other services and has a CPAP that she doesn't use - vendor unknown. D/C plan is for a return to home with existing [employer]. IMM given and in chart, HCP on file/verified: [facility].
[2021-06-21 18:13] LABS: Glucose, Whole Blood 328 mg/dL (60-115)
[2021-06-21 18:20] VITALS: BP 98/59; PULSE 60; RESP 15; TEMP 36.4; O2SAT 95
[2021-06-21 20:00] VITALS: BP 114/60; PULSE 65; RESP 16; TEMP 36.3; O2SAT 93
[2021-06-21 20:57] LABS: Glucose, Whole Blood 356 mg/dL (60-115)
[2021-06-21] MEDS: Atorvastatin Calcium 40 MG TABLET PO (21:17)
[2021-06-21] MEDS: Aspirin Enteric Coated 81 MG TABLET.DR PO (21:17)
[2021-06-21] MEDS: clonazePAM 0.5 MG TABLET PO (21:17)
[2021-06-22] VITALS (7 sets, daily range): BP systolic 118–152; BP diastolic 52–93; PULSE 58–70; RESP 18–20; TEMP 36.4–37.1; O2SAT 92–98
[2021-06-22] MEDS: 0.9 % Sodium Chloride Flush 3 ML SYRINGE IVFLUSH ×4 (00:09→23:56)
[2021-06-22 06:57] LABS: Anion Gap 11 (12-20); Blood Urea Nitrogen 28 mg/dL (9-16); Calcium 9.4 mg/dL (8.4-10.2); Carbon Dioxide 33 mmol/L (22-29); Chloride 98 mmol/L (96-108); Creatinine Clr Calc Pharmacy 48.6; Estimated Glomerular Filt Rate 56; Glucose Fasting 321 mg/dL (60-99); Potassium 5.4 mmol/L (3.3-5.1); Sodium 137 mmol/L (135-145)
[2021-06-22 06:59] LABS: Hematocrit 40.3 % (37.0-47.0); Hemoglobin 12.2 g/dl (12.0-16.0); Mean Corpuscular HGB Conc 30.3 g/dl (31.0-35.0); Mean Corpuscular Hemoglobin 26.7 pg (27.0-33.0); Mean Corpuscular Volume 88.2 fL (80.0-98.0); Platelet Count 162 X10*3/uL (160-400); Red Blood Count 4.57 X10*6/uL (4.20-5.50); Red Cell Distribution Width 12.3 % (11.0-16.0); White Blood Count 6.5 X10*3/uL (4.8-10.8)
[2021-06-22 07:48] LABS: Glucose, Whole Blood 304 mg/dL (60-115)
[2021-06-22] MEDS: Primidone 50 MG TABLET PO ×2 (08:52→20:39)
[2021-06-22] MEDS: Cholecalciferol (Vitamin D3) 25 MCG TABLET PO (08:52)
[2021-06-22] MEDS: Insulin Lispro 100 UNIT/ML 3 ML VIAL SUBCUT ×5 (08:52→20:38)
[2021-06-22] MEDS: Omeprazole 20 MG CAPSULE.DR PO (08:52)
[2021-06-22] MEDS: Enoxaparin Sodium 40 MG/0.4 ML SYRINGE SUBCUT (08:52)
[2021-06-22] MEDS: methylPREDNISolone Sod Succ 40 MG/ML VIAL IVPUSH ×2 (08:52→20:40)
[2021-06-22] MEDS: atenoloL 100 MG TABLET PO ×2 (08:53→20:39)
[2021-06-22] MEDS: Trihexyphenidyl HCL 2 MG TABLET PO ×2 (08:53→20:39)
[2021-06-22] MEDS: amLODIPine Besylate 10 MG TABLET PO (08:53)
[2021-06-22] MEDS: Oseltamivir Phosphate 30 MG CAPSULE PO ×2 (08:53→20:39)
--- NOTE | 2021-06-22 10:20 | HO.PM.IMPN ---
Subjective Subjective Date of Service: 06/22/21 Interval History: cc: sob interval history: still sob, though overall improved Gastrointestinal Gastrointestinal: Reports no additional gastrointestinal complaints Genitourinary Genitourinary: Reports no additional female genitourinary complaints Physical Exam Vital Signs: Vital Signs: Last Vital Signs Temp 97.6 F 06/22/21 07:36 Pulse 59 06/22/21 07:36 Resp 18 06/22/21 07:36 BP 134/71 06/22/21 07:36 Pulse Ox 96 06/22/21 07:36 BMI result Body Mass Index 27.1 General: AO X 3, less dyspneic Resp:? diminished bilateral, accessory muscles used CVS: S1,S2,RRR GI: soft, non tender, non distended Neuro:? motor grossly intact, alert Psych: appropriate affect, appropriate insight? Objective Data Active Medications Acetaminophen (Acetaminophen 325 Mg Tablet) 650 mg PO Q6H PRN PRN Reason: Pain, Mild (Pain Scale 1-3) Albuterol/Ipratropium (Albuterol/Iprat 2.5/0.5mg 3 Ml Ampul.Neb) 3 ml INHALE RQ4H PRN PRN Reason: Shortness of Breath/Wheezing Amlodipine Besylate (Amlodipine Besylate 10 Mg Tablet) 10 mg PO DAILY [facility]; Protocol Last Admin: 06/22/21 08:53 Dose: 10 mg Documented by: ELISA Aspirin (Aspirin Enteric Coated 81 Mg Tablet.Dr) 81 mg PO BEDTIME [facility] Last Admin: 06/21/21 21:17 Dose: 81 mg Documented by: MEÑO Atenolol (Atenolol 100 Mg Tablet) 100 mg PO BID [facility]; Protocol Last Admin: 06/22/21 08:53 Dose: 100 mg Documented by: ELISA Atorvastatin Calcium (Atorvastatin Calcium 40 Mg Tablet) 40 mg PO BEDTIME [facility] Last Admin: 06/21/21 21:17 Dose: 40 mg Documented by: MEÑO Clonazepam (Clonazepam 0.5 Mg Tablet) 0.5 mg PO BEDTIME [facility] Last Admin: 06/21/21 21:17 Dose: 0.5 mg Documented by: MEÑO Dextrose (Dextrose 50 % 25 Gm/50 Ml Syringe) 25 gm IVPUSH Q15M PRN; Protocol PRN Reason: per Hypoglycemia Standing Ord. Enoxaparin Sodium (Enoxaparin Sodium 40 Mg/0.4 Ml Syringe) 40 mg SUBCUT Q24H [facility] Last Admin: 06/22/21 08:52 Dose: 40 mg Documented by: ELISA Glucose (Glucose Gel 15 Gm Gel..Gram.) 15 gm PO Q15M PRN; Protocol PRN Reason: per Hypoglycemia Standing Ord. Insulin Human Lispro (Insulin Lispro 100 Unit/Ml 3 Ml Vial) 0 unit SUBCUT QIDACHS [facility]; Protocol Last Admin: 06/22/21 08:52 Dose: 8 unit Documented by: ELISA Melatonin (Melatonin 3 Mg Tablet) 6 mg PO BEDTIME PRN PRN Reason: Insomnia Methylprednisolone Sodium Succinate (Methylprednisolone Sod Succ 40 Mg/Ml Vial) 40 mg IVPUSH Q12H [facility] Last Admin: 06/22/21 08:52 Dose: 40 mg Documented by: ELISA Omeprazole (Omeprazole 20 Mg Capsule.) 20 mg PO DAILY [facility] Last Admin: 06/22/21 08:52 Dose: 20 mg Documented by: ELISA Oseltamivir Phosphate (Oseltamivir Phosphate 30 Mg Capsule) 30 mg PO BID [facility] Last Admin: 06/22/21 08:53 Dose: 30 mg Documented by: ELISA Pharmacy Consult (Consult Rx Perform Med Rec) 1 each MISCELLANE ONCE PRN PRN Reason: Consult order Primidone (Primidone 50 Mg Tablet) 50 mg PO BID [facility] Last Admin: 06/22/21 08:52 Dose: 50 mg Documented by: ELISA Senna (Sennosides 8.6 Mg Tablet) 17.2 mg PO BEDTIME PRN PRN Reason: Constipation Sodium Chloride (0.9 % Sodium Chloride Flush 3 Ml Syringe) 3 ml IVFLUSH QSHIFT [facility] Last Admin: 06/22/21 08:52 Dose: 3 ml Documented by: ELISA Trihexyphenidyl HCl (Trihexyphenidyl Hcl 2 Mg Tablet) 2 mg PO BID [facility] Last Admin: 06/22/21 08:53 Dose: 2 mg Documented by: ELISA Vitamin D (Cholecalciferol (Vitamin D3) 25 Mcg Tablet) 25 mcg PO DAILY [facility] Last Admin: 06/22/21 08:52 Dose: 25 mcg Documented by: HO.RAEJ Labs CBC & Chem 7: 06/22/21 06:08 06/22/21 06:08 Labs: Laboratory Results - last 24 hr 06/21/21 06/21/21 06/21/21 11:36 18:09 20:53 MCV MCH MCHC RDW Plt Count MPV Absolute Nucleated RBC Nucleated RBC % (auto) Anion Gap Estim Creat Clear Calc Estimated GFR POC Glucose 278 H 328 H 356 H* Fasting Glucose Calcium 06/22/21 06/22/21 06/22/21 06:08 06:08 07:37 MCV 88.2 MCH 26.7 L MCHC 30.3 L RDW 12.3 Plt Count 162 MPV 14.0 H Absolute Nucleated RBC 0.000 Nucleated RBC % (auto) 0.0 Anion Gap 11 L Estim Creat Clear Calc 48.6 Estimated GFR 56 POC Glucose 304 H Fasting Glucose 321 H Calcium 9.4 Assessment and Plan (1) Hypoxia: Status: Acute Plan 76F presented with sob acute hypoxic respiratory failure due to flu tamiflu day 4/, steroids, duonebs wean o2 as tolerated, still needing 2L hyperkalemia 5.4 holding losartan second dose lokelma 10mg monitor DM in[place] HTN atenolol, losartan on hold dvt prophylaxis - lovenox full code reason for continued hospitalization: hypoxic, sob, hyperk Quality Stroke Does the patient have a stroke diagnosis?: No VTE Prior VTE?: No VTE Risk Level:: Medical - moderate - high VTE Device Contraindication: Treatment Not Indicated VTE Drug Contraindication: N/A - Med Ordered
[2021-06-22] MEDS: Sodium Zirconium Cyclosilicate 10 GM POWD.PACK PO (10:48)
[2021-06-22 11:22] LABS: Glucose, Whole Blood 388 mg/dL (60-115)
--- NOTE | 2021-06-22 12:27 | P.CDIC_ITS ---
CDI Concurrent Query Documentation Clarification: PHYSICIAN'S DOCUMENTATION REQUEST Date of Query: 06/22/21 1229 Patient Name: Gay Whelan Admit Date: 06/18/21 Dear Doctor, A review of the medical record indicates additional documentation may be needed. Please review below and update the documentation accordingly. Clinical Indicators: The following diagnoses or signs and symptoms were noted in the patient record: Lab Tests: 06/18/21: Influenza type A positive Risk Factors/Clinical Indicators/Treatments Per MD progress note 06/22/21: acute hypoxic respiratory failure due to flu Tamiflu day 4/, steroids, duonebs wean o2 as tolerated, still needing 2L Based on the above, could you clarify in the Progress Notes the appropriate diagnosis, if significant, that supports the above abnormalities and additional evaluation, monitoring, and/or treatment rendered: * Labs indicate a diagnosis of (please specify type of Influenza) * Other (please specify) * Unable to determine Use of terms such as suspected, likely, concern for, or probable (associated with a specific diagnosis that is being evaluated, monitored, or treated as if it exists) are acceptable and can be coded in the inpatient setting, when documented at the time of discharge. Thank you, Katherine Davis RN Extension: [phone] Please use your independent medical judgment in providing your response. THIS QUERY IS PART OF THE PERMANENT MEDICAL RECORD Provider Response: Other Other Diagnosis: influenza a
[2021-06-22 15:56] LABS: Glucose, Whole Blood 311 mg/dL (60-115)
[2021-06-22 19:43] LABS: Glucose, Whole Blood 356 mg/dL (60-115)
[2021-06-22] MEDS: Atorvastatin Calcium 40 MG TABLET PO (20:39)
[2021-06-22] MEDS: clonazePAM 0.5 MG TABLET PO (20:39)
[2021-06-22] MEDS: Aspirin Enteric Coated 81 MG TABLET.DR PO (20:39)
[2021-06-23 07:15] LABS: Hematocrit 39.7 % (37.0-47.0); Hemoglobin 12.3 g/dl (12.0-16.0); Mean Corpuscular Volume 87.1 fL (80.0-98.0); Platelet Count 150 X10*3/uL (160-400); Red Blood Count 4.56 X10*6/uL (4.20-5.50); Red Cell Distribution Width 11.9 % (11.0-16.0)
[2021-06-23 07:16] LABS: PLT ABN DIST 1; WBC ABN SCTR FOR CBC 1; White Blood Count 8.8 X10*3/uL (4.8-10.8)
[2021-06-23 07:22] LABS: Glucose, Whole Blood 409 mg/dL (60-115)
[2021-06-23 08:00] VITALS: BP 153/72; PULSE 60; RESP 20; TEMP 36.5; O2SAT 94
[2021-06-23 08:16] LABS: Anion Gap 13 (12-20); Blood Urea Nitrogen 25 mg/dL (9-16); Calcium 9.2 mg/dL (8.4-10.2); Carbon Dioxide 32 mmol/L (22-29); Chloride 96 mmol/L (96-108); Creatinine Clr Calc Pharmacy 54.8; Estimated Glomerular Filt Rate > 60; Glucose Fasting 386 mg/dL (60-99); Potassium 5.5 mmol/L (3.3-5.1); Sodium 135 mmol/L (135-145)
[2021-06-23] MEDS: Insulin Glargine,Hum.rec.anlog 100 UNIT/ML 10 ML VIAL 10 UNIT SUBCUT (09:05)
[2021-06-23] MEDS: Insulin Lispro 100 UNIT/ML 3 ML VIAL SUBCUT ×3 (09:06→11:56)
[2021-06-23] MEDS: 0.9 % Sodium Chloride Flush 3 ML SYRINGE IVFLUSH (09:07)
[2021-06-23] MEDS: methylPREDNISolone Sod Succ 40 MG/ML VIAL IVPUSH (09:07)
[2021-06-23] MEDS: Sodium Zirconium Cyclosilicate 10 GM POWD.PACK PO (09:07)
[2021-06-23] MEDS: Enoxaparin Sodium 40 MG/0.4 ML SYRINGE SUBCUT (09:08)
[2021-06-23] MEDS: Primidone 50 MG TABLET PO (09:08)
[2021-06-23] MEDS: Trihexyphenidyl HCL 2 MG TABLET PO (09:08)
[2021-06-23] MEDS: Cholecalciferol (Vitamin D3) 25 MCG TABLET PO (09:08)
[2021-06-23] MEDS: Sodium Polystyrene Sulfon/Sorb 15 GM/60 ML ORAL.SUSP 30 GM PO (09:08)
[2021-06-23] MEDS: Omeprazole 20 MG CAPSULE.DR PO (09:08)
[2021-06-23] MEDS: atenoloL 100 MG TABLET PO (09:08)
[2021-06-23] MEDS: amLODIPine Besylate 10 MG TABLET PO (09:08)
[2021-06-23] MEDS: Oseltamivir Phosphate 30 MG CAPSULE PO (09:08)
[2021-06-23 11:17] LABS: Glucose, Whole Blood 325 mg/dL (60-115)
[2021-06-23 11:19] VITALS: BP 150/60; PULSE 70; RESP 20; TEMP 36.5; O2SAT 98
--- NOTE | 2021-06-23 11:47 | MHC.CM.PN ---
Per ROUNDS discussion, Patient may be medically cleared for dc soon, pending high K. Home/resume [employer] is the goal and CM will follow.
[2021-06-23 13:25] VITALS: BP 150/60; PULSE 70; O2SAT 98
--- NOTE | 2021-06-23 13:44 | P.DS_ITS ---
DS: Providers Provider Date of Service: 06/23/21 Date of admission: 06/18/21 23:05 Primary care physician: Annie Tafoya MD DS: Diagnosis Discharge Diagnosis (1) Hypoxia: Status: Acute (2) Hyperkalemia: Status: Acute (3) Influenza: Status: Acute DS: Summary Hospital Course Hospital Course: admission note HPI 76-year-old female with a past medical history of hypertension, hyperlipidemia, diabetes presented to the hospital with a chief complaint of shortness of breath.? Patient reports that over the past 3 days she has been not feeling well; has been having shortness of breath which has been gradually worsening; associated dry cough.? Denies any chest pain or palpitations.?Denies any fevers.Denies any GI symptoms.Report because of the coughing she has mild abdominal discomfort.Denies any numbness tingling or focal weakness.? Per ER team patient noted a coarse breath sounds; chest x-ray concerns for right lower lobe infiltrate-but reported negative; patient was given azithromycin empirically; also noted to be saturating 84% on room air; placed on supplemental oxygen.? D-dimer was positive-weakness and pending.? Patient influenza is positive.? Admitted for further management Hospital course The patient was admitted to the hospital for evaluation of acute hypoxic respiratory failure secondary to influenza infection. The patient was treated with IV steroids, DuoNebs and Tamiflu finish total of 5 days during the hospital stay and was weaned off the oxygen down to room air. Able to ambulate with physical therapist with a plan to go back home. Noticed to have elevated potassium levels responded well to local mass and Kayexalate. To repeat blood work after discharge home. continue prednisone as prescribed To repeat BMP as outpatient Time Spent with Patient Time attestation: Total time spent providing and/or coordinating discharge services: Discharge coordination time: Greater than 30 minutes Quality: Safe Use of Opioids Does Pt have an Active Cancer Diagnosis on the Problem List?: No Quality: Stroke Does the patient have a stroke diagnosis?: No Physical Exam Vital Signs: Vital Signs: Last Vital Signs Temp 97.7 F 06/23/21 11:19 Pulse 70 06/23/21 11:19 Resp 20 06/23/21 11:19 BP 150/60 H 06/23/21 11:19 Pulse Ox 98 06/23/21 11:19 BMI result Body Mass Index 27.1 Const: Other: Constitutional : Alert, oriented, not in distress Neck : Normal inspection, Supple Cardiovascular : RRR, no JVP, no lower extremity edema Respiratory : fair bilateral air entry, no crackles, wheezes or rhonchi Gastrointestinal: soft, lax, Normal bowel sounds, Non tender Skin : Warm, Dry Neurological : Alert & oriented x3, No focal deficit , CN 2-12 within normal DS: Data Data Completed and Pending Labs on day of discharge: Laboratory Results - last 24 hr 06/22/21 06/22/21 06/23/21 15:22 19:38 06:57 WBC 8.8 RBC 4.56 Hgb 12.3 Hct 39.7 MCV 87.1 MCH 27.0 MCHC 31.0 RDW 11.9 Plt Count 150 L MPV 14.0 H Absolute Nucleated RBC 0.000 Nucleated RBC % (auto) 0.0 Sodium Potassium Chloride Carbon Dioxide Anion Gap BUN Creatinine Estim Creat Clear Calc Estimated GFR POC Glucose 311 H 356 H* Fasting Glucose Calcium 06/23/21 06/23/21 06/23/21 06:57 07:17 11:08 WBC RBC Hgb Hct MCV MCH MCHC RDW Plt Count MPV Absolute Nucleated RBC Nucleated RBC % (auto) Sodium 135 Potassium 5.5 H Chloride 96 Carbon Dioxide 32 H Anion Gap 13 BUN 25 H Creatinine 0.86 Estim Creat Clear Calc 54.8 Estimated GFR > 60 POC Glucose 409 H* 325 H Fasting Glucose 386 H* Calcium 9.2 Preliminary micro results at discharge 06/18/21 16:15 Blood Culture - Preliminary Blood - Venous No growth after 48 hours. Discharge Plan Discharge Patient Disposition: Home, Self-Care Discharge Diagnosis: Influenza A infection Hyperkalemia Referrals: Annie Tafoya MD [Primary Care Provider] - 1 Week Discharge Medications: New prednisone 20 mg tablet 40 mg PO DAILY 3 Days Qty: 6 0RF Continued atorvastatin 40 mg tablet 1 tab PO BEDTIME 0RF atenolol 100 mg tablet 1 tab PO BID 0RF aspirin 81 mg tablet,delayed release (DR/EC) 1 tab PO QPM 0RF amlodipine 10 mg tablet 1 tab PO DAILY 0RF omeprazole 20 mg capsule,delayed release(DR/EC) 1 cap PO DAILY 0RF metformin 500 mg tablet extended release 24 hr 2 tab PO BID 0RF cholecalciferol (vitamin D3) 25 mcg (1,000 unit) tablet 1 tab PO QAM 0RF oseltamivir 75 mg Capsule 75 mg PO BID 0RF Rx Instructions: ORDERED 06/18/21, FOR 5 DAY SUPPLY, PATIENT HAS NOT YET STARTED Lantus U-100 Insulin 100 unit/mL Solution 20 unit SUBCUT DAILY 0RF primidone 50 mg Tablet 50 mg PO BID 0RF clonazepam 0.5 mg Tablet 0.5 mg PO BEDTIME 0RF Rx Instructions: administer 30 minutes before bedtime trihexyphenidyl 2 mg Tablet 2 mg PO BID 0RF Rx Instructions: give with food (meal/snack) Held losartan 50 mg tablet 1 tab PO DAILY 0RF Hold Instructions: Resume on 06/26/21. Discharge Orders: Discharge Order (Routine); Ordered 06/23/21 Ordered By: Toño He Diet: advance to usual diet Activity on Discharge: As tolerated Stand Alone Forms: Patient Portal Discharge page Print Language: [place] Other Ambulatory Orders: Basic Metabolic Panel (Routine) Timeframe: 1 Day Facility: [facility] - Location: Laboratory Ordered By: Toño He Care Plan Goals: Read below Health Concerns: Read below Plan of Treatment: Read below Assessment: you were admitted to the hospital for treatment of influenza infection. Responded well to Tamiflu and steroids with addition of nebulizers. continue prednisone as prescribed to recheck your blood work as outpatient
--- NOTE | 2021-06-23 13:57 | W.MHC.F2F ---
Service Date Service Date: 06/23/21 Encounter Date of encounter: 06/23/21 Reasons for Services Signs and symptoms assessed: physical deconditioning Reason for physical therapy: home safety and mobility and therapeutic exercises Homebound: Leaving the home is medically contraindicated at this time without the asist of a device and/or another person due th the listed conditions above and below. Reason homebound: unsteady gait / fall risk Certification: Based on the above findings, I certify that this patient is confined to the home and needs intermittent penitentiary care, physical therapy and/or speech therapy, or continues to need occupational therapy. The patient is under my care, and I have initiated the establishment of the plan of care. The patient will be followed by a physician who will periodically review the plan of care.
[2021-06-23 14:09] LABS: Anion Gap 12 (12-20); Blood Urea Nitrogen 25 mg/dL (9-16); Calcium 9.7 mg/dL (8.4-10.2); Carbon Dioxide 34 mmol/L (22-29); Chloride 94 mmol/L (96-108); Creatinine Clr Calc Pharmacy 51.3; Estimated Glomerular Filt Rate 60; Glucose Random 315 mg/dL (60-115); Potassium 4.2 mmol/L (3.3-5.1); Sodium 136 mmol/L (135-145)
--- NOTE | 2021-06-23 14:15 | W.MHC.F2F ---
Service Date Service Date: 06/23/21 Encounter Date of encounter: 06/23/21 Reasons for Services Signs and symptoms assessed: Physical deconditioning Reason for physical therapy: home safety and mobility and therapeutic exercises Homebound: Leaving the home is medically contraindicated at this time without the asist of a device and/or another person due th the listed conditions above and below. Reason homebound: unsteady gait / fall risk Certification: Based on the above findings, I certify that this patient is confined to the home and needs intermittent long term care, physical therapy and/or speech therapy, or continues to need occupational therapy. The patient is under my care, and I have initiated the establishment of the plan of care. The patient will be followed by a physician who will periodically review the plan of care.
--- NOTE | 2021-06-23 14:27 | MHC.CM.PN ---
Patient has been medically cleared for dc to home today, with services. A referral was made to [facility], who is aware of today's dc and can SOC with PT tomorrow. Last IMM addressed on 06/21/21.
[2021-06-23 15:25] VITALS: BP 160/75; PULSE 73; RESP 18; TEMP 37.1; O2SAT 97
[2021-06-23 15:44] LABS: Glucose, Whole Blood 344 mg/dL (60-115)
== END 2021-06-23 17:00 | disposition home health service (06) | DRG 866 ==
LOC: HO.ED 23:01 → HO.EDOVER 23:17 → HO.IMC 06-21 18:27
PROVIDERS: Internal Medicine; Physician Assistant Medical; Admitting Provider Hospitalist; Emergency Provider Student in an Organized Health Care Education/Training Program; PCP Family Medicine; Visit Provider Student in an Organized Health Care Education/Training Program
DX: J10.89 Influenza due to other identified influenza virus with other manifestations (principal); I10 Essential (primary) hypertension; E87.5 Hyperkalemia; E78.5 Hyperlipidemia, unspecified; E11.9 Type 2 diabetes mellitus without complications; Z20.822 Contact with and (suspected) exposure to COVID-19; Z79.4 Long term (current) use of insulin; Z79.82 Long term (current) use of aspirin; Z79.84 Long term (current) use of oral hypoglycemic drugs; Z79.52 Long term (current) use of systemic steroids; Z79.899 Other long term (current) drug therapy
CPT/HCPCS: 36415; 71046; 78580; 80048; 80053; 82803; 82947; 83605; 83735; 83880; 84145; 84484; 85007; 85025; 85027; 85379; 87040; 87147; 87205; 87502; 87635; 93005; 96361; 96365; 97162; 99285; A9540; J0456; J0696; J1650; J2920

== ENCOUNTER 2021-06-24 11:33 | Outpatient (REF) | payer OTHER, MEDICAID, SELFPAY ==
[2021-06-24 13:24] LABS: Anion Gap 10 (12-20); Blood Urea Nitrogen 24 mg/dL (9-16); Calcium 9.8 mg/dL (8.4-10.2); Carbon Dioxide 41 mmol/L (22-29); Chloride 90 mmol/L (96-108); Estimated Glomerular Filt Rate 48; Glucose Random 325 mg/dL (60-115); Potassium 3.7 mmol/L (3.3-5.1); Sodium 137 mmol/L (135-145)
== END 2021-06-24 11:34 | disposition home or self-care (01) ==
LOC: HO.LAB 11:33
PROVIDERS: PCP Family Medicine; Visit Provider Student in an Organized Health Care Education/Training Program
DX: E87.5 Hyperkalemia (principal)
CPT/HCPCS: 36415; 80048

== ENCOUNTER 2021-09-28 11:55 | Outpatient (REF) | payer OTHER, MEDICAID, SELFPAY ==
--- NOTE | ~2021-09-28 | MM_ITS ---
EXAMINATION: MM SCREENING DIGITAL BREAST TOMOSYNTHESIS, BILATERAL CLINICAL INFORMATION: Screening. Asymptomatic. The lifetime risk of breast cancer based on the Tyrer-Cuzick Model is 2%. COMPARISON: Mammography: September 24, 2020 and studies dating back to October 07, 2015 TECHNIQUE: Digital breast tomosynthesis is performed in both the craniocaudal and mediolateral oblique views along with computer-aided detection (CAD). Synthesized 2D images are generated from the tomosynthesis. FINDINGS: There are scattered areas of fibroglandular density (ACR BI-RADS breast composition Category b). There are no significant masses, abnormal calcifications, or other abnormalities. MM/MM tomosynthesis screening BI IMPRESSION: No significant changes from prior exam. ASSESSMENT: BI-RADS 1: Negative RECOMMENDATION: Routine annual mammography screening. This patient's information was entered into a reminder system with a target due date for their next mammogram.
== END 2021-09-28 11:56 | disposition home or self-care (01) ==
LOC: HO.MAMMO 11:55
PROVIDERS: PCP Family Medicine; Visit Provider Family Medicine
DX: Z12.31 Encounter for screening mammogram for malignant neoplasm of breast (principal)
CPT/HCPCS: 77063; 77067

== ENCOUNTER 2022-09-06 12:47 | Inpatient (IN) | payer OTHER, MEDICAID, SELFPAY ==
--- NOTE | ~2022-09-06 | US_ITS ---
EXAMINATION: US ABDOMEN LIMITED CLINICAL INFORMATION: Right upper quadrant pain. COMPARISON: None available. TECHNIQUE: Real-time imaging of the right upper quadrant abdominal viscera. FINDINGS: PANCREAS: Normal. LIVER: The liver is normal in size. The liver contour is normal. Increased parenchymal echogenicity. No focal hepatic lesion. There is no intrahepatic biliary duct dilatation seen. GALLBLADDER: Normal. The gallbladder is physiologically distended without evidence of stones, sludge, polyps, wall thickening or pericholecystic fluid. COMMON BILE DUCT: Normal in caliber measuring 0.3 cm in diameter. RIGHT KIDNEY: Normal. No hydronephrosis. No renal calculi or focal parenchymal lesions. The kidney measures 10 cm in maximum dimension. FREE FLUID: None. US/US abdomen limited IMPRESSION: Increased hepatic parenchymal echogenicity is nonspecific and could be seen in the setting of hepatic steatosis or hepatocellular disease. Correlate with liver function tests.
--- NOTE | ~2022-09-06 | XR_ITS ---
EXAMINATION: XR CHEST CLINICAL INFORMATION: Chest pain COMPARISON: 06/19/2021 TECHNIQUE: 2 views of the chest were obtained. FINDINGS: The lungs are well expanded. Central vascular prominence without overt edema. No dense consolidation. No pleural effusion or pneumothorax. The cardiomediastinal silhouette remains enlarged with a calcified aorta. XR/XR chest 2V IMPRESSION: Central vascular prominence without overt edema.
--- NOTE | 2022-09-06 12:55 | ECG_ITS ---
Test Reason : chest pain Blood Pressure : / mmHG Vent. Rate : 069 BPM Atrial Rate : 069 BPM P-R Int : 168 ms QRS Dur : 100 ms QT Int : 402 ms P-R-T Axes : 010 -31 055 degrees QTc Int : 430 ms Normal sinus rhythm Left axis deviation Moderate voltage criteria for LVH, may be normal variant ( R in aVL , Corona product ) Possible Anterolateral infarct , age undetermined Abnormal ECG When compared with ECG of 18-JUN-2021 16:32, Vent. rate has decreased BY 36 BPM Borderline criteria for Anterolateral infarct are now Present QT has shortened Referred By: Generic ED Physician Electronically Signed By:SUHAIL TAN
[2022-09-06 13:20] VITALS: BP 152/85; PULSE 69; RESP 17; TEMP 35.8; O2SAT 94; BMI 29.8
--- NOTE | 2022-09-06 13:22 | ED.CHESTPAIN ---
HPI - Chest Pain General Chief Complaint: General Medical Stated Complaint: Chest pain/Neck pain/R arm pain Time Seen by Provider: 09/06/22 15:48 Source: patient, family and design engineering specialist Mode of arrival: ambulatory History of Present Illness HPI narrative: 77-year-old female with difficult history as she reports 1-2 months of initially right upper quadrant discomfort and radiation into the right shoulder with some subjective fevers and chills and then endorses that she has also had left-sided abdominal discomfort and also reports urinary symptoms and was recently seen by her primary care provider in July. Patient does have diabetes and hypertension. Related Data Home Medications Medication Instructions Recorded Confirmed amlodipine 10 mg tablet 1 tab PO DAILY 07/15/20 06/18/21 aspirin 81 mg tablet,delayed 1 tab PO QPM 07/15/20 06/18/21 release atenolol 100 mg tablet 1 tab PO BID 07/15/20 06/18/21 atorvastatin 40 mg tablet 1 tab PO BEDTIME 07/15/20 06/18/21 cholecalciferol (vitamin D3) 25 1 tab PO QAM 07/15/20 06/18/21 mcg (1,000 unit) tablet losartan 50 mg tablet 1 tab PO DAILY 07/15/20 06/18/21 metformin 500 mg tablet,extended 2 tab PO BID 07/15/20 06/18/21 release 24 hr omeprazole 20 mg capsule,delayed 1 cap PO DAILY 07/15/20 06/18/21 release clonazepam 0.5 mg tablet 0.5 mg PO BEDTIME 06/18/21 06/18/21 insulin glargine 100 unit/mL 20 unit subcut DAILY 06/18/21 06/18/21 subcutaneous solution (Lantus U-100 Insulin) oseltamivir 75 mg capsule 75 mg PO BID 06/18/21 06/18/21 primidone 50 mg tablet 50 mg PO BID 06/18/21 06/18/21 trihexyphenidyl 2 mg tablet 2 mg PO BID 06/18/21 06/18/21 Previous Rx's Medication Instructions Recorded prednisone 20 mg tablet 40 mg PO DAILY 3 days #6 tabs 06/23/21 Allergies Allergy/AdvReac Type Severity Reaction Status Date / Time No Known Allergies Allergy Unverified 10/24/19 17:45 [No Known Allergies*] Review of Systems Review of Systems: Pertinent positives and negatives as stated in HPI [facility] Past Medical History Source: nursing notes reviewed Surgical History History of esophagogastroduodenoscopy (EGD) History of tubal ligation Hx of colonoscopy Family History Family History Family/Other No significant medical problems Social History Social History Household Members: None Housing: Apartment Housing Other:: rd floor with elevator access Do you presently have visiting nurse or other home services: Yes Alcohol intake: never Patient Tobacco Use Status: Never used Tobacco Smoked in Last 30 Days: No Use of substances other than those prescribed or required for medical reasons: No Advance Directives: Yes Advance Directives on File: Yes Advance Directives Date on File: 07/20/20 service: No Current occupational status: unemployed Physical Exam Vital Signs: Vital Signs: Last Vital Signs Temp 98.5 F 09/06/22 19:06 Pulse 76 09/06/22 20:40 Resp 16 09/06/22 20:40 BP 162/82 H 09/06/22 19:06 Pulse Ox 92 09/06/22 19:06 O2 Del Method Room Air 09/06/22 19:06 BMI result Body Mass Index 29.8 VITAL SIGNS: Reviewed. GENERAL: Well developed, well nourished, in no acute distress. HEAD: Normocephalic/atraumatic EYES: PERRLA, EOMI EARS: Ext canals without abnormality NOSE: Nares patent bilateral OROPHARYNX: no oral lesions noted, posterior pharynx clear NECK: Supple, no adenopathy LUNGS: Crackles noted. No adventitious sounds or accessory muscle use. SpO2<90> CARDIOVASCULAR: Regular rate and rhythm without noted murmurs, no JVD or lower extremity edema. ABDOMEN: Soft, RUQ ttp but also ttp in LUQ, non-distended with bowel sounds. MUSCULOSKELETAL: No tenderness, deformities, or effusions noted on gross inspection. EXTREMITIES: No cyanosis, clubbing or edema. SKIN: Inspection of the skin reveals no rashes NEUROLOGIC: Alert and oriented x 4. Strength and sensation to light touch were grossly intact x 4. Course Course Course Narrative: RME - 77 yo Yi speaking female with history of GERD, constipation, HTN, HLD, DM who presents to the ER for evaluation of intermittent central chest pain for the last 2 days. It is associated with lower chest pain under the breasts radiating to the RUQ and back for the last month. It also radiates to her right shoulder which has chronic pain and she recently had injection in. Also reporting fevers. No SOB Plan: EKG, cardiac workup, LFTs Medications Administered Discontinued Medications Generic Name Dose Route Start Last Admin Trade Name Mayte PRN Reason Stop Dose Admin Albuterol Sulfate 5 mg/ 0 mg 09/06/22 19:07 09/06/22 19:32 Albuterol/Ipratropium 3 ml INHALE 09/06/22 19:08 1 each ONCE ONE Administration Albuterol Sulfate 5 mg/ 0 mg 09/06/22 20:25 09/06/22 20:39 Albuterol/Ipratropium 3 ml INHALE 09/06/22 20:26 1 each ONCE ONE Administration Methylprednisolone Sodium Succinate 125 mg 09/06/22 20:25 09/06/22 20:42 Methylprednisolone Sod Succ 125 Mg/2 Ml Vial IVPUSH 09/06/22 20:26 125 mg ONCE ONE Administration Medical Decision Making Medical Decision Making MDM Narrative: 77-year-old female with history and clinical presentation, DDX: Musculoskeletal, gastritis, cholecystitis, less likely felt to be pneumonia and patient has no history of asthma or COPD. On review of all investigations there is no leukocytosis, anemia or thrombocytopenia. Chemistry indices show electrolytes and liver enzymes are within normal limits with the chronically stable detected troponin level. There is no TODD. I reviewed the ultrasound read which came in somewhat late and there is no cholelithiasis/cholecystitis and otherwise my interpretation is in agreement with radiology's impression. Chest x-ray does demonstrate central vascular prominence without overt edema and on clinical exam patient is noted to appear to be tachypneic although she states that she is all was like this. 2033: Nursing informed me that patient had increasing oxygenation drops down into 88-90% and was placed on supplemental oxygen at 2 L and I ordered a DuoNeb treatment. I have reviewed patient's chart and do not appreciate any history of COPD though on further questioning with a senior associate patient and family endorse that she is a previous smoker. The son with whom she lives states that patient has had chronic low oxygen levels and when asked with the plan was for these low levels by the primary care doctor neither the family nor the patient know. Again, patient continues to insist that she is not at being difficulty breathing. We conducted an ambulation test which demonstrated 84% on ambulation an 87% while standing still. Patient appears to have increased work of breathing and will proceed with treatment for COPD as I have low clinical suspicion for pulmonary edema/CHF. - BNP, VBG, Lactic acid, BCx I reviewed BNP which this further supports my clinical assessment that this is not component of CHF, lactic acid blood cultures have been collected, lactic acid is within normal limits. There was some problem with the tube sent for VBG and so that test is pending. 2141: I contacted inpatient hospitalist and will accept patient. 2142: VBG demonstrates pH of 7.35 and pCO2 of 53. As patient carries no diagnosis of COPD this is further suggestion that she is currently undergoing in exacerbation. Differential Diagnosis Differential Diagnoses: The differential diagnosis associated with the presentation includes Please see the discussion above Admission/Observation Consideration of admission/observation: Escalation of care including admission/observation considered Please see the discussion above Consult Healthcare Provider Management of the patient was discussed with: Hospitalist Please see the discussion above Lab Data MDM Lab Attestation statement: I reviewed the patient's lab results. Please see the discussion above 09/06/22 14:00 09/06/22 14:00 Labs: Lab Results 09/06/22 09/06/22 09/06/22 Range/Units 14:00 14:00 14:00 WBC 8.9 (4.8-10.8) X10*3/uL RBC 4.74 (4.20-5.50) X10*6/uL Hgb 12.9 (12.0-16.0) g/dl Hct 41.7 (37.0-47.0) % MCV 88.0 (80.0-98.0) fL MCH 27.2 (27.0-33.0) pg MCHC 30.9 L (31.0-35.0) g/dl RDW 13.0 (11.0-16.0) % Plt Count 214 D (160-400) X10*3/uL MPV Not Reportable Immature Gran % (Auto) Cancelled Neut % (Auto) Cancelled Lymph % (Auto) Cancelled [place] % (Auto) Cancelled Eos % (Auto) Cancelled Baso % (Auto) Cancelled Lymph # (Auto) Cancelled [place] # (Auto) Cancelled Eos # (Auto) Cancelled Baso # (Auto) Cancelled Abs Immat Gran (auto) Cancelled Absolute Neuts (auto) Cancelled Absolute Nucleated RBC 0.000 (0.0-0.012) X10*3/uL Nucleated RBC % (auto) 0.0 (0.0-0.2) /100WBC Neutrophils % (Manual) 52 (45-73) % Band Neutrophils % 0 L (3-5) % Lymphocytes % (Manual) 30 (20-40) % Monocytes % (Manual) 15 H (2-11) % Eosinophils % (Manual) 3 (0-4) % Abs Neuts (Manual) 4.6 (2.0-8.3) X10*3/uL Lymphocytes # (Manual) 2.7 (1.2-4.9) X10*3/uL Monocytes # (Manual) 1.3 H (0.1-1.2) X10*3/uL Eosinophils # (Manual) 0.3 (0.0-0.4) X10*3/uL Platelet Estimate NORMAL (NORMAL) Large Platelets PRESENT Plt Morphology Comment NOTED RBC Morphology NOTED Hypochromasia 1+ (5-14) /OIF VBG pH (7.32-7.43) VBG pCO2 mmHg VBG pO2 mmHg VBG HCO3 (22-26) mmol/L VBG O2 Saturation % VBG Base Excess mmol/L Sodium 141 (135-145) mmol/L Potassium 4.6 D (3.3-5.1) mmol/L Chloride 102 (96-108) mmol/L Carbon Dioxide 27 (22-29) mmol/L Anion Gap 17 (12-20) BUN 19 H (9-16) mg/dL Creatinine 1.03 (0.5-1.4) mg/dL Estim Creat Clear Calc 43.7 Estimated GFR 52 Random Glucose 117 H (60-115) mg/dL Lactic Acid (0.5-2.0) mmol/L Calcium 9.7 (8.4-10.2) mg/dL Magnesium 1.9 (1.6-2.6) mg/dL Total Bilirubin 0.2 (0.0-1.0) mg/dL Direct Bilirubin < 0.2 (0.0-0.5) mg/dL AST 18 (5-31) U/L ALT 14 (0-31) U/L Alkaline Phosphatase 97 (39-117) U/L Troponin I High Sens 4.6 (<3.5-17.0) ng/L B-Natriuretic Peptide (<100) pg/mL Total Protein 8.3 H (6.5-8.0) g/dL Albumin 4.1 (3.5-5.0) g/dL Lipase 48 (8-78) U/L Urine Color Urine Appearance Urine pH (5.0-9.0) Ur Specific [place] (1.005-1.025) Urine Protein (Neg-Trace) mg/dL Urine Glucose (UA) (Negative) mg/dL Urine Ketones (Negative) mg/dL Urine Blood (Negative) Urine Nitrite (Negative) Ur Leukocyte Esterase (Negative) Urine RBC (0-2) /HPF Urine WBC (0-5) /HPF Ur Squamous Epith Cells (0-2) /HPF Urine Bacteria (None Seen) Hyaline Casts (0-2) /LPF 09/06/22 09/06/22 09/06/22 Range/Units 14:05 21:06 21:06 WBC (4.8-10.8) X10*3/uL RBC (4.20-5.50) X10*6/uL Hgb (12.0-16.0) g/dl Hct (37.0-47.0) % MCV (80.0-98.0) fL MCH (27.0-33.0) pg MCHC (31.0-35.0) g/dl RDW (11.0-16.0) % Plt Count (160-400) X10*3/uL MPV Immature Gran % (Auto) Neut % (Auto) Lymph % (Auto) [place] % (Auto) Eos % (Auto) Baso % (Auto) Lymph # (Auto) [place] # (Auto) Eos # (Auto) Baso # (Auto) Abs Immat Gran (auto) Absolute Neuts (auto) Absolute Nucleated RBC (0.0-0.012) X10*3/uL Nucleated RBC % (auto) (0.0-0.2) /100WBC Neutrophils % (Manual) (45-73) % Band Neutrophils % (3-5) % Lymphocytes % (Manual) (20-40) % Monocytes % (Manual) (2-11) % Eosinophils % (Manual) (0-4) % Abs Neuts (Manual) (2.0-8.3) X10*3/uL Lymphocytes # (Manual) (1.2-4.9) X10*3/uL Monocytes # (Manual) (0.1-1.2) X10*3/uL Eosinophils # (Manual) (0.0-0.4) X10*3/uL Platelet Estimate (NORMAL) Large Platelets Plt Morphology Comment RBC Morphology Hypochromasia /OIF VBG pH (7.32-7.43) VBG pCO2 mmHg VBG pO2 mmHg VBG HCO3 (22-26) mmol/L VBG O2 Saturation % VBG Base Excess mmol/L Sodium (135-145) mmol/L Potassium (3.3-5.1) mmol/L Chloride (96-108) mmol/L Carbon Dioxide (22-29) mmol/L Anion Gap (12-20) BUN (9-16) mg/dL Creatinine (0.5-1.4) mg/dL Estim Creat Clear Calc Estimated GFR Random Glucose (60-115) mg/dL Lactic Acid 1.4 (0.5-2.0) mmol/L Calcium (8.4-10.2) mg/dL Magnesium (1.6-2.6) mg/dL Total Bilirubin (0.0-1.0) mg/dL Direct Bilirubin (0.0-0.5) mg/dL AST (5-31) U/L ALT (0-31) U/L Alkaline Phosphatase (39-117) U/L Troponin I High Sens (<3.5-17.0) ng/L B-Natriuretic Peptide 81 (<100) pg/mL Total Protein (6.5-8.0) g/dL Albumin (3.5-5.0) g/dL Lipase (8-78) U/L Urine Color Yellow Urine Appearance Clear Urine pH 5.5 (5.0-9.0) Ur Specific [place] 1.020 (1.005-1.025) Urine Protein 300 (3+) H (Neg-Trace) mg/dL Urine Glucose (UA) Negative (Negative) mg/dL Urine Ketones Trace (Negative) mg/dL Urine Blood Negative (Negative) Urine Nitrite Negative (Negative) Ur Leukocyte Esterase Moderate (2+) H (Negative) Urine RBC 0-2 (0-2) /HPF Urine WBC 21-50 H (0-5) /HPF Ur Squamous Epith Cells 11-20 (0-2) /HPF Urine Bacteria Trace (None Seen) Hyaline Casts 0-2 (0-2) /LPF 09/06/22 Range/Units 21:30 WBC (4.8-10.8) X10*3/uL RBC (4.20-5.50) X10*6/uL Hgb (12.0-16.0) g/dl Hct (37.0-47.0) % MCV (80.0-98.0) fL MCH (27.0-33.0) pg MCHC (31.0-35.0) g/dl RDW (11.0-16.0) % Plt Count (160-400) X10*3/uL MPV Immature Gran % (Auto) Neut % (Auto) Lymph % (Auto) [place] % (Auto) Eos % (Auto) Baso % (Auto) Lymph # (Auto) [place] # (Auto) Eos # (Auto) Baso # (Auto) Abs Immat Gran (auto) Absolute Neuts (auto) Absolute Nucleated RBC (0.0-0.012) X10*3/uL Nucleated RBC % (auto) (0.0-0.2) /100WBC Neutrophils % (Manual) (45-73) % Band Neutrophils % (3-5) % Lymphocytes % (Manual) (20-40) % Monocytes % (Manual) (2-11) % Eosinophils % (Manual) (0-4) % Abs Neuts (Manual) (2.0-8.3) X10*3/uL Lymphocytes # (Manual) (1.2-4.9) X10*3/uL Monocytes # (Manual) (0.1-1.2) X10*3/uL Eosinophils # (Manual) (0.0-0.4) X10*3/uL Platelet Estimate (NORMAL) Large Platelets Plt Morphology Comment RBC Morphology Hypochromasia /OIF VBG pH 7.35 (7.32-7.43) VBG pCO2 53 mmHg VBG pO2 44 mmHg VBG HCO3 30 H (22-26) mmol/L VBG O2 Saturation 67.0 % VBG Base Excess 3.6 mmol/L Sodium (135-145) mmol/L Potassium (3.3-5.1) mmol/L Chloride (96-108) mmol/L Carbon Dioxide (22-29) mmol/L Anion Gap (12-20) BUN (9-16) mg/dL Creatinine (0.5-1.4) mg/dL Estim Creat Clear Calc Estimated GFR Random Glucose (60-115) mg/dL Lactic Acid (0.5-2.0) mmol/L Calcium (8.4-10.2) mg/dL Magnesium (1.6-2.6) mg/dL Total Bilirubin (0.0-1.0) mg/dL Direct Bilirubin (0.0-0.5) mg/dL AST (5-31) U/L ALT (0-31) U/L Alkaline Phosphatase (39-117) U/L Troponin I High Sens (<3.5-17.0) ng/L B-Natriuretic Peptide (<100) pg/mL Total Protein (6.5-8.0) g/dL Albumin (3.5-5.0) g/dL Lipase (8-78) U/L Urine Color Urine Appearance Urine pH (5.0-9.0) Ur Specific [place] (1.005-1.025) Urine Protein (Neg-Trace) mg/dL Urine Glucose (UA) (Negative) mg/dL Urine Ketones (Negative) mg/dL Urine Blood (Negative) Urine Nitrite (Negative) Ur Leukocyte Esterase (Negative) Urine RBC (0-2) /HPF Urine WBC (0-5) /HPF Ur Squamous Epith Cells (0-2) /HPF Urine Bacteria (None Seen) Hyaline Casts (0-2) /LPF Independent Interpretation I performed an independent interpretation of an: EKG Interpretation: NSR, HR-69, no STEMI, AL/QRS/QTc wnl Radiology Impression Discussion of test interpretation with radiology: I have reviewed the radiologist's reading. Radiologist Impression: Venous congestion, otherwise my interpretation is in agreement with radiology's impression External Record Review External record reviewed: Outpatient record and Prior outpatient labs Chronic Conditions Patient?s care impacted by: Diabetes and Hypertension Critical Care Time Critical Care Time Critical Care Time: Yes Total Critical Care Time: 30 Attestation: I personally attest to this time spent taking care of the patient. Discharge Plan Discharge Clinical Impression: Hypoxia, COPD exacerbation Patient Disposition: Admitted As Inpatient
[2022-09-06 14:15] LABS: Appearance Urine Clear; Color Urine Yellow; Glucose Urine UA Negative (Negative); Leukocyte Esterase Urine Moderate (2+) (Negative); Nitrite Urine Negative (Negative); PH 5.5 (5.0-9.0); UMIC TRIGGER UACC YES; Urine Blood Negative (Negative); Urine Ketones Trace mg/dL (Negative); Urine Protein 300 (3+) mg/dL (Neg-Trace)
[2022-09-06 14:20] LABS: Hematocrit 41.7 % (37.0-47.0); Hemoglobin 12.9 g/dl (12.0-16.0); Mean Corpuscular HGB Conc 30.9 g/dl (31.0-35.0); Mean Corpuscular Hemoglobin 27.2 pg (27.0-33.0); PLT CLUMP 1; Red Blood Count 4.74 X10*6/uL (4.20-5.50)
[2022-09-06 14:21] LABS: PLT ABN DIST 1; WBC ABN SCTR FOR CBC 1
[2022-09-06 14:24] LABS: Bacteria Urine Trace (None Seen); Hyaline Casts Urine 0-2 /LPF (0-2); RBC Urine 0-2 /HPF (0-2); UACC Culture Trigger YES; WBC Urine 21-50 /HPF (0-5)
[2022-09-06 14:39] LABS: Alanine Aminotransferase 14 U/L (0-31); Albumin Level 4.1 g/dL (3.5-5.0); Alkaline Phosphatase 97 U/L (39-117); Anion Gap 17 (12-20); Aspartate Amino Transferase 18 U/L (5-31); Bilirubin Direct < 0.2 mg/dL (0.0-0.5); Bilirubin Total 0.2 mg/dL (0.0-1.0); Blood Urea Nitrogen 19 mg/dL (9-16); Calcium 9.7 mg/dL (8.4-10.2); Carbon Dioxide 27 mmol/L (22-29); Chloride 102 mmol/L (96-108); Creatinine Clr Calc Pharmacy 43.7; Estimated Glomerular Filt Rate 52; Glucose Random 117 mg/dL (60-115); Lipase 48 U/L (8-78); Magnesium 1.9 mg/dL (1.6-2.6); Potassium 4.6 mmol/L (3.3-5.1); Sodium 141 mmol/L (135-145); Total Protein 8.3 g/dL (6.5-8.0)
[2022-09-06 14:45] LABS: Troponin-I High Sensitivity 4.6 ng/L (<3.5-17.0)
[2022-09-06 14:59] LABS: Band Neutrophils Percent 0 % (3-5); Eosinophils Percent Manual 3 % (0-4); Lymphocytes Percent Manual 30 % (20-40); Monocytes Percent Manual 15 % (2-11); Neutrophils Percent Manual 52 % (45-73)
[2022-09-06 15:00] LABS: Hypochromasia 1+ (5-14) /OIF; Large Platelet PRESENT; Platelet Estimate NORMAL (NORMAL); Platelet Morphology Comment NOTED; RBC Morphology NOTED
[2022-09-06 15:54] VITALS: BP 162/82; PULSE 69; RESP 18; TEMP 36.9; O2SAT 90
[2022-09-06 17:37] LABS: Eosinophils Absolute Manual 0.3 X10*3/uL (0.0-0.4); Lymphocytes Absolute Manual 2.7 X10*3/uL (1.2-4.9); Monocytes Absolute Manual 1.3 X10*3/uL (0.1-1.2); Neutrophils Absolute Manual 4.6 X10*3/uL (2.0-8.3); Platelet Count 214 X10*3/uL (160-400); White Blood Count 8.9 X10*3/uL (4.8-10.8)
[2022-09-06 19:06] VITALS: BP 162/82; PULSE 64; RESP 18; TEMP 36.9; O2SAT 92
[2022-09-06] MEDS: Albuterol Sulfate 5 MG, Albuterol/Iprat 2.5/0.5MG 3 ML 3 ML INHALE ×2 (19:32→20:39)
[2022-09-06 19:33] VITALS: PULSE 69; RESP 16; O2SAT 96
[2022-09-06 20:40] VITALS: PULSE 76; RESP 16; O2SAT 96
[2022-09-06] MEDS: methylPREDNISolone Sod Succ 125 MG/2 ML VIAL IVPUSH (20:42)
--- NOTE | 2022-09-06 20:44 | PC.NURSE ---
this rn assumed care of pt @ 1900. 20g iv placed in L AC. pt medicated according to mar
[2022-09-06 21:26] LABS: Lactic Acid 1.4 mmol/L (0.5-2.0)
[2022-09-06 21:36] LABS: Venous Blood Gas Refer to POC result
[2022-09-06 21:36] LABS: B Type Natriuretic Peptide 81 pg/mL (<100)
[2022-09-06 21:38] LABS: VBG Base Excess 3.6 mmol/L; VBG HCO3 30 mmol/L (22-26); VBG pCO2 53 mmHg; VBG pH 7.35 (7.32-7.43); VBG pO2 44 mmHg
--- NOTE | 2022-09-06 21:51 | PHA.MEDREC ---
Pharmacy Consult ? Medication Reconciliation Pharmacy has completed the medication reconciliation. Patient uses [facility] at [facility] pharmacy to fill medications. Bronson ChengD
--- NOTE | 2022-09-06 22:56 | PM.IMHP ---
History of Present Illness Date of Service: 09/06/22 Chief Complaint: Dyspnea This is a 77-year-old female with pertinent history of insulin-dependent diabetes mellitus, mood disorder, essential hypertension, mixed hyperlipidemia, gastroesophageal reflux disease who presents to the emergency department for evaluation of dyspnea and generalized abdominal discomfort. Patient states he has been having generalized abdominal pain that has been ongoing for the last 2-3 months. Denies nausea, vomiting, diarrhea. She was also found to be tachypneic and dyspneic by her family members. Patient was found to be wheezing. Is former tobacco smoker. Denies fever, chills, cough, chest discomfort, palpitations, abdominal pain, changes in urinary or bowel habits. In the emergency department, patient was found to be wheezing and hypoxemic Review of Systems Constitutional: Constitutional: Reports no additional constitutional complaints Cardiovascular: Cardiovascular: Reports dyspnea on exertion Respiratory: Respiratory: Reports dyspnea on exertion and Reports wheezing Gastrointestinal: Gastrointestinal: Reports no additional gastrointestinal complaints Genitourinary: Genitourinary: Reports no additional female genitourinary complaints Allergic/Immunologic: Allergic/Immunologic: Reports wheezing [facility], LAT[facility] Medical History GERD (gastroesophageal reflux disease) Hyperlipidemia Hypertension Insulin dependent type 2 diabetes mellitus Mood disorder Family History Family/Other No significant medical problems Pertinent family history: Not significant due to age Surgical History History of esophagogastroduodenoscopy (EGD) History of tubal ligation Hx of colonoscopy Social History Household Members: None Housing: Apartment Housing Other:: rd floor with elevator access Do you presently have visiting nurse or other home services: Yes Alcohol intake: never Patient Tobacco Use Status: Never used Tobacco Smoked in Last 30 Days: No Use of substances other than those prescribed or required for medical reasons: No Advance Directives: Yes Advance Directives on File: Yes Advance Directives Date on File: 07/20/20 service: No Current occupational status: unemployed Meds Allergies Allergy/AdvReac Type Severity Reaction Status Date / Time No Known Allergies Allergy Unverified 10/24/19 17:45 [No Known Allergies*] Home Medications Medication Instructions Recorded Confirmed Last Taken Type amlodipine 10 mg tablet 1 tab PO DAILY 07/15/20 09/06/22 Unknown History aspirin 81 mg tablet,delayed 1 tab PO QPM 07/15/20 09/06/22 Unknown History release atenolol 100 mg tablet 1 tab PO BID 07/15/20 09/06/22 Unknown History atorvastatin 40 mg tablet 1 tab PO BEDTIME 07/15/20 09/06/22 Unknown History cholecalciferol (vitamin D3) 25 1 tab PO QAM 07/15/20 09/06/22 Unknown History mcg (1,000 unit) tablet metformin 500 mg tablet,extended 2 tab PO BID 07/15/20 09/06/22 Unknown History release 24 hr omeprazole 20 mg capsule,delayed 1 cap PO DAILY 07/15/20 09/06/22 Unknown History release insulin glargine 100 unit/mL 24 unit subcut DAILY 06/18/21 09/06/22 Unknown History subcutaneous solution (Lantus U-100 Insulin) primidone 50 mg tablet 50 mg PO BID 06/18/21 09/06/22 Unknown History trihexyphenidyl 2 mg tablet 2 mg PO BID 06/18/21 09/06/22 Unknown History clonazepam 1 mg tablet 1 mg PO BEDTIME 09/06/22 09/06/22 Unknown History Physical Exam Vital Signs and Narrative: Vital Signs: Last Vital Signs Temp 98.5 F 09/06/22 19:06 Pulse 76 09/06/22 20:40 Resp 16 09/06/22 20:40 BP 162/82 H 09/06/22 19:06 Pulse Ox 92 09/06/22 19:06 O2 Del Method Room Air 09/06/22 19:06 BMI result Body Mass Index 29.8 Elderly female lying in bed in mild distress on supplemental oxygen Neck supple, no JVD Regular rate and rhythm, S1-S2 heard Bilateral wheezing without crackles Abdomen soft nontender, no guarding, no rigidity Patient is awake, alert and oriented to self, place, time and person ; no focal motor deficit Psych: Normal mood Results Labs 09/06/22 14:00 09/06/22 14:00 Labs: Laboratory Results - last 24 hr 09/06/22 09/06/22 09/06/22 14:00 14:00 14:05 MCV 88.0 MCH 27.2 MCHC 30.9 L RDW 13.0 Plt Count 214 D MPV Not Reportable Immature Gran % (Auto) Cancelled Neut % (Auto) Cancelled Lymph % (Auto) Cancelled [place] % (Auto) Cancelled Eos % (Auto) Cancelled Baso % (Auto) Cancelled Lymph # (Auto) Cancelled [place] # (Auto) Cancelled Eos # (Auto) Cancelled Baso # (Auto) Cancelled Abs Immat Gran (auto) Cancelled Absolute Neuts (auto) Cancelled Absolute Nucleated RBC 0.000 Nucleated RBC % (auto) 0.0 Neutrophils % (Manual) 52 Band Neutrophils % 0 L Lymphocytes % (Manual) 30 Monocytes % (Manual) 15 H Eosinophils % (Manual) 3 Abs Neuts (Manual) 4.6 Lymphocytes # (Manual) 2.7 Monocytes # (Manual) 1.3 H Eosinophils # (Manual) 0.3 Platelet Estimate NORMAL Large Platelets PRESENT Plt Morphology Comment NOTED RBC Morphology NOTED Hypochromasia 1+ (5-14) VBG pH VBG pCO2 VBG pO2 VBG HCO3 VBG O2 Saturation VBG Base Excess Anion Gap 17 Estim Creat Clear Calc 43.7 Estimated GFR 52 Random Glucose 117 H Lactic Acid Calcium 9.7 Magnesium 1.9 Total Bilirubin 0.2 Direct Bilirubin < 0.2 AST 18 ALT 14 Alkaline Phosphatase 97 B-Natriuretic Peptide Total Protein 8.3 H Albumin 4.1 Lipase 48 Urine Color Yellow Urine Appearance Clear Urine pH 5.5 Ur Specific [place] 1.020 Urine Protein 300 (3+) H Urine Glucose (UA) Negative Urine Ketones Trace Urine Blood Negative Urine Nitrite Negative Ur Leukocyte Esterase Moderate (2+) H Urine RBC 0-2 Urine WBC 21-50 H Ur Squamous Epith Cells 11-20 Urine Bacteria Trace Hyaline Casts 0-2 09/06/22 09/06/22 09/06/22 21:06 21:06 21:30 MCV MCH MCHC RDW Plt Count MPV Immature Gran % (Auto) Neut % (Auto) Lymph % (Auto) [place] % (Auto) Eos % (Auto) Baso % (Auto) Lymph # (Auto) [place] # (Auto) Eos # (Auto) Baso # (Auto) Abs Immat Gran (auto) Absolute Neuts (auto) Absolute Nucleated RBC Nucleated RBC % (auto) Neutrophils % (Manual) Band Neutrophils % Lymphocytes % (Manual) Monocytes % (Manual) Eosinophils % (Manual) Abs Neuts (Manual) Lymphocytes # (Manual) Monocytes # (Manual) Eosinophils # (Manual) Platelet Estimate Large Platelets Plt Morphology Comment RBC Morphology Hypochromasia VBG pH 7.35 VBG pCO2 53 VBG pO2 44 VBG HCO3 30 H VBG O2 Saturation 67.0 VBG Base Excess 3.6 Anion Gap Estim Creat Clear Calc Estimated GFR Random Glucose Lactic Acid 1.4 Calcium Magnesium Total Bilirubin Direct Bilirubin AST ALT Alkaline Phosphatase B-Natriuretic Peptide 81 Total Protein Albumin Lipase Urine Color Urine Appearance Urine pH Ur Specific [place] Urine Protein Urine Glucose (UA) Urine Ketones Urine Blood Urine Nitrite Ur Leukocyte Esterase Urine RBC Urine WBC Ur Squamous Epith Cells Urine Bacteria Hyaline Casts Imaging Radiologist's Impressions: Impressions Chest X-Ray 09/06/22 13:52 IMPRESSION: Central vascular prominence without overt edema. Abdomen Ultrasound 09/06/22 17:28 IMPRESSION: Increased hepatic parenchymal echogenicity is nonspecific and could be seen in the setting of hepatic steatosis or hepatocellular disease. Correlate with liver function tests. Assessment and Plan (1) Hypoxia: Status: Acute Plan This is a 77-year-old female with pertinent history of insulin-dependent diabetes mellitus, mood disorder, essential hypertension, mixed hyperlipidemia, gastroesophageal reflux disease who presents to the emergency department for evaluation of dyspnea and generalized abdominal discomfort. #. Acute hypoxemic respiratory failure due to likely acute exacerbation of obstructive lung disease. Patient is former smoker and found to be hypoxemic and wheezing at admission. Initiating systemic steroids. Scheduled and p.r.n. DuoNebs. Patient not on home inhalers. Consulting pulmonology #. Mood disorder. Continue clonazepam #. Tremors. On primidone and trihexyphenidyl #. Essential hypertension. On atenolol and amlodipine #. Insulin-dependent diabetes mellitus. Reduce home basal insulin. Initiating Accu-Cheks with sliding scale insulin #. Mixed hyperlipidemia. On statin #. Pyuria. Patient without symptoms. Defer treatment DVT prophylaxis: Lovenox Full code Admit as inpatient and will require two night minimum hospital stay for supplemental oxygen Time Spent With Patient Time: Total time managing care of this patient today ____ minutes. Quality Stroke Does the patient have a stroke diagnosis?: No VTE Prior VTE?: No VTE Risk Level:: Medical - moderate - high VTE Device Contraindication: Treatment Not Indicated VTE Drug Contraindication: N/A - Med Ordered
[2022-09-06 23:25] VITALS: BP 118/70; PULSE 82; RESP 18; TEMP 36.8; O2SAT 97
--- NOTE | 2022-09-06 23:30 | PC.NURSE ---
assembled wood products repairer informed this rn that pt was fully dressed under impression she was up for discharge. this rn spoke with dr melissa singletary. and shellfish checker to bedside to educate pt that she will be admitted. pt back into hospital gown. calm and cooperative
[2022-09-06 23:40] LABS: Glucose, Whole Blood 320 mg/dL (60-115)
[2022-09-07] VITALS (13 sets, daily range): BP systolic 101–143; BP diastolic 45–69; PULSE 73–90; RESP 13–20; TEMP 36.3–36.9; O2SAT 92–100
[2022-09-07] MEDS: 0.9 % Sodium Chloride Flush 3 ML SYRINGE IVFLUSH ×3 (00:23→23:07)
[2022-09-07] MEDS: Enoxaparin Sodium 40 MG/0.4 ML SYRINGE SUBCUT ×2 (00:23→23:07)
[2022-09-07] MEDS: Aspirin Enteric Coated 81 MG TABLET.DR PO ×2 (00:23→20:43)
[2022-09-07] MEDS: polyethylene glycoL 3350 17 GM POWD.PACK PO (00:23)
[2022-09-07] MEDS: clonazePAM 1 MG TABLET PO ×2 (00:24→20:44)
--- NOTE | 2022-09-07 00:29 | PC.NURSE ---
dr torres made aware of poc of 320. dr torres placed order for IVP insulin
[2022-09-07] MEDS: Insulin Regular, Human 100 UNIT/ML 3 ML VIAL IVPUSH (00:42)
--- NOTE | 2022-09-07 02:17 | PC.NURSE ---
this rn made dr torres aware of poc of 284. per md no new orders at this time
[2022-09-07 02:21] LABS: Glucose, Whole Blood 284 mg/dL (60-115)
--- NOTE | 2022-09-07 05:12 | PC.NURSE ---
pt positioned on left side. sleeping at this time. lights dimmed
[2022-09-07 05:44] LABS: Hematocrit 39.1 % (37.0-47.0); Mean Corpuscular HGB Conc 30.7 g/dl (31.0-35.0); Mean Corpuscular Hemoglobin 27.1 pg (27.0-33.0); Mean Corpuscular Volume 88.3 fL (80.0-98.0); Platelet Count 200 X10*3/uL (160-400); Red Blood Count 4.43 X10*6/uL (4.20-5.50); Red Cell Distribution Width 12.8 % (11.0-16.0)
[2022-09-07 05:45] LABS: WBC ABN SCTR FOR CBC 1; White Blood Count 10.4 X10*3/uL (4.8-10.8)
[2022-09-07 06:03] LABS: Anion Gap 20 (12-20); Blood Urea Nitrogen 24 mg/dL (9-16); Calcium 9.9 mg/dL (8.4-10.2); Carbon Dioxide 25 mmol/L (22-29); Chloride 99 mmol/L (96-108); Creatinine Clr Calc Pharmacy 38.8; Estimated Glomerular Filt Rate 45; Glucose Random 348 mg/dL (60-115); Potassium 5.6 mmol/L (3.3-5.1); Sodium 138 mmol/L (135-145)
[2022-09-07 06:07] LABS: Band Neutrophils Percent 4 % (3-5); Basophils Abs Manual 0.1 X10*3/uL (0.0-0.2); Basophils Percent Manual 1 % (0-2); Lymphocytes Absolute Manual 0.8 X10*3/uL (1.2-4.9); Lymphocytes Percent Manual 8 % (20-40); Monocytes Absolute Manual 0.1 X10*3/uL (0.1-1.2); Monocytes Percent Manual 1 % (2-11); Neutrophils Absolute Manual 9.4 X10*3/uL (2.0-8.3); Neutrophils Percent Manual 86 % (45-73)
[2022-09-07 06:08] LABS: Burr Cells 1+ (0-2) /OIF; Platelet Estimate NORMAL (NORMAL); Platelet Morphology Comment NORMAL; RBC Morphology NOTED; Smudge Cells PRESENT
[2022-09-07] MEDS: Omeprazole 20 MG CAPSULE.DR PO (06:32)
--- NOTE | 2022-09-07 07:39 | MHC.EDTECH ---
Oral care done and linens changed. AM care done.
[2022-09-07] MEDS: Insulin Lispro 100 UNIT/ML 3 ML VIAL SUBCUT ×4 (07:46→20:43)
[2022-09-07 07:51] LABS: Glucose, Whole Blood 338 mg/dL (60-115)
--- NOTE | 2022-09-07 07:51 | PC.NURSE ---
PT ATE BKFST, UP TO SINK TO WASH UP.
--- NOTE | 2022-09-07 08:47 | PM.CNPUL ---
History of Present Illness History of Present Illness Consult date: 09/07/22 Chief complaint: Dyspnea Narrative: THis is an inpatient pulmonary consultation. This is a 77-year-old female presenting to the emergency department for evaluation of dyspnea and generalized abdominal discomfort.? Patient states he has been having generalized abdominal pain that has been ongoing for the last 2-3 months.? Denies nausea, vomiting, diarrhea.? She was also found to be tachypneic and dyspneic by her family members.? Patient was found to be wheezing.? Is former tobacco smoker.? Denies fever, chills, cough, chest discomfort, palpitations, abdominal pain, changes in urinary or bowel habits.The patient is a chest x-ray which I personally reviewed demonstrating increased cardiac silhouette is some perihilar congestion. She denies any lower extremity edema or any chest pain at this time. We did review also a CT scan that she had back in 2020 of the chest. She also had increased cardiac size also there. EKG demonstrated some abnormal findings as well. she had been having some wheezing this morning she is doing better. She is currently on 2 L and her oxygenation now is 98%. Overall the patient is doing little better. Review of Systems Constitutional: Constitutional: Reports no additional constitutional complaints Cardiovascular: Cardiovascular: Reports dyspnea on exertion Respiratory: Respiratory: Reports dyspnea on exertion and Reports wheezing Gastrointestinal: Gastrointestinal: Reports no additional gastrointestinal complaints Genitourinary: Genitourinary: Reports no additional female genitourinary complaints Allergic/Immunologic: Allergic/Immunologic: Reports wheezing PMFSH Past Medical History Medical History (Updated 09/07/22 @ 08:50 by Pavan Roman MD) Cardiomegaly GERD (gastroesophageal reflux disease) Hyperlipidemia Hypertension Insulin dependent type 2 diabetes mellitus Mood disorder Family History Family History Family/Other No significant medical problems Surgical History Surgical History History of esophagogastroduodenoscopy (EGD) History of tubal ligation Hx of colonoscopy Social History Social History Household Members: None Housing: Apartment Housing Other:: rd floor with elevator access Do you presently have visiting nurse or other home services: Yes Alcohol intake: never Patient Tobacco Use Status: Never used Tobacco Smoked in Last 30 Days: No Use of substances other than those prescribed or required for medical reasons: No Advance Directives: Yes Advance Directives on File: Yes Advance Directives Date on File: 07/20/20 service: No Current occupational status: unemployed Meds Allergies Allergy/AdvReac Type Severity Reaction Status Date / Time No Known Allergies Allergy Unverified 10/24/19 17:45 [No Known Allergies*] Active Medications: Current Medications Acetaminophen (Acetaminophen 325 Mg Tablet) 650 mg PO Q6H PRN PRN Reason: Pain, Mild (Pain Scale 1-3) Albuterol/Ipratropium (Albuterol/Iprat 2.5/0.5mg 3 Ml Ampul.Neb) 3 ml INHALE Q4H PRN PRN Reason: Wheezing Albuterol/Ipratropium (Albuterol/Iprat 2.5/0.5mg 3 Ml Ampul.Neb) 3 ml INHALE RQ4H WHILE AWAKE ON LICENSE OF [facility] Last Admin: 09/07/22 08:12 Dose: Not Given Amlodipine Besylate (Amlodipine Besylate 10 Mg Tablet) 10 mg PO DAILY ON LICENSE OF [facility]; Protocol Aspirin (Aspirin Enteric Coated 81 Mg Tablet.Dr) 81 mg PO BEDTIME ON LICENSE OF [facility] Last Admin: 09/07/22 00:23 Dose: 81 mg Atenolol (Atenolol 100 Mg Tablet) 100 mg PO BID ON LICENSE OF [facility]; Protocol Atorvastatin Calcium (Atorvastatin Calcium 40 Mg Tablet) 40 mg PO BEDTIME ON LICENSE OF [facility] Clonazepam (Clonazepam 1 Mg Tablet) 1 mg PO BEDTIME ON LICENSE OF [facility] Last Admin: 09/07/22 00:24 Dose: 1 mg Dextrose (Dextrose 50 % 25 Gm/50 Ml Syringe) 25 gm IVPUSH Q15M PRN; Protocol PRN Reason: per Hypoglycemia Standing Ord. Enoxaparin Sodium (Enoxaparin Sodium 40 Mg/0.4 Ml Syringe) 40 mg SUBCUT Q24H ON LICENSE OF [facility] Last Admin: 09/07/22 00:23 Dose: 40 mg Glucose (Glucose Gel 15 Gm Gel..Gram.) 15 gm PO Q15M PRN; Protocol PRN Reason: per Hypoglycemia Standing Ord. Insulin Glargine (Insulin Glargine,Hum.Rec.Anlog 100 Unit/Ml 10 Ml Vial) 15 unit SUBCUT DAILY ON LICENSE OF [facility] Insulin Human Lispro (Insulin Lispro 100 Unit/Ml 3 Ml Vial) 0 unit SUBCUT QIDACHS ON LICENSE OF [facility]; Protocol Last Admin: 09/07/22 07:46 Dose: 8 unit Melatonin (Melatonin 3 Mg Tablet) 6 mg PO BEDTIME PRN PRN Reason: Insomnia Methylprednisolone Sodium Succinate (Methylprednisolone Sod Succ 40 Mg/Ml Vial) 40 mg IVPUSH Q12H ON LICENSE OF [facility] Omeprazole (Omeprazole 20 Mg Capsule.Dr) 20 mg PO DAILY@0630 ON LICENSE OF [facility] Last Admin: 09/07/22 06:32 Dose: 20 mg Ondansetron HCl (Ondansetron Hcl 4 Mg/2 Ml Vial) 4 mg IVPUSH Q8H PRN PRN Reason: Nausea and Vomiting Primidone (Primidone 50 Mg Tablet) 50 mg PO BID ON LICENSE OF [facility] Sodium Chloride (0.9 % Sodium Chloride Flush 3 Ml Syringe) 3 ml IVFLUSH QSHIFT ON LICENSE OF [facility] Last Admin: 09/07/22 00:23 Dose: 3 ml Trihexyphenidyl HCl (Trihexyphenidyl Hcl 2 Mg Tablet) 2 mg PO BID ON LICENSE OF [facility] Vitamin D (Cholecalciferol (Vitamin D3) 25 Mcg Tablet) 25 mcg PO DAILY ON LICENSE OF [facility] Home Medications Medication Instructions Recorded Confirmed Last Taken Type amlodipine 10 mg tablet 1 tab PO DAILY 07/15/20 09/06/22 Unknown History aspirin 81 mg tablet,delayed 1 tab PO QPM 07/15/20 09/06/22 Unknown History release atenolol 100 mg tablet 1 tab PO BID 07/15/20 09/06/22 Unknown History atorvastatin 40 mg tablet 1 tab PO BEDTIME 07/15/20 09/06/22 Unknown History cholecalciferol (vitamin D3) 25 1 tab PO QAM 07/15/20 09/06/22 Unknown History mcg (1,000 unit) tablet metformin 500 mg tablet,extended 2 tab PO BID 07/15/20 09/06/22 Unknown History release 24 hr omeprazole 20 mg capsule,delayed 1 cap PO DAILY 07/15/20 09/06/22 Unknown History release insulin glargine 100 unit/mL 24 unit subcut DAILY 06/18/21 09/06/22 Unknown History subcutaneous solution (Lantus U-100 Insulin) primidone 50 mg tablet 50 mg PO BID 06/18/21 09/06/22 Unknown History trihexyphenidyl 2 mg tablet 2 mg PO BID 06/18/21 09/06/22 Unknown History clonazepam 1 mg tablet 1 mg PO BEDTIME 09/06/22 09/06/22 Unknown History Physical Exam Vital Signs: Vital Signs: Last Vital Signs Temp 98.3 F 09/07/22 05:53 Pulse 77 09/07/22 05:53 Resp 18 09/07/22 05:53 BP 136/60 09/07/22 05:53 Pulse Ox 98 09/07/22 05:53 O2 Del Method Nasal Cannula 09/07/22 05:53 O2 Flow Rate 3 09/07/22 05:53 BMI result Body Mass Index 29.8 Const: Other: Constitutional : Alert, oriented, not in distress Neck : Normal inspection, Supple Cardiovascular : RRR, no JVP, no lower extremity edema Respiratory : fair bilateral air entry, no crackles, wheezes or rhonchi Gastrointestinal: soft, lax, Normal bowel sounds, Non tender Skin : Warm, Dry Neurological : Alert & oriented x3, No focal deficit , CN 2-12 within normal Results Laboratory Findings 09/07/22 05:14 09/07/22 05:14 Abnormal lab findings: Abnormal Labs 09/06/22 09/06/22 09/06/22 14:00 14:00 14:05 MCHC 30.9 L MPV Neutrophils % (Manual) Band Neutrophils % 0 L Lymphocytes % (Manual) Monocytes % (Manual) 15 H Abs Neuts (Manual) Lymphocytes # (Manual) Monocytes # (Manual) 1.3 H VBG HCO3 Potassium BUN 19 H POC Glucose Random Glucose 117 H Total Protein 8.3 H Urine Protein 300 (3+) H Ur Leukocyte Esterase Moderate (2+) H Urine WBC 21-50 H 09/06/22 09/06/22 09/07/22 21:30 23:36 02:15 MCHC MPV Neutrophils % (Manual) Band Neutrophils % Lymphocytes % (Manual) Monocytes % (Manual) Abs Neuts (Manual) Lymphocytes # (Manual) Monocytes # (Manual) VBG HCO3 30 H Potassium BUN POC Glucose 320 H 284 H Random Glucose Total Protein Urine Protein Ur Leukocyte Esterase Urine WBC 09/07/22 09/07/22 09/07/22 05:14 05:14 07:31 MCHC 30.7 L MPV 13.0 H Neutrophils % (Manual) 86 H Band Neutrophils % Lymphocytes % (Manual) 8 L Monocytes % (Manual) 1 L Abs Neuts (Manual) 9.4 H Lymphocytes # (Manual) 0.8 L Monocytes # (Manual) VBG HCO3 Potassium 5.6 H D BUN 24 H POC Glucose 338 H Random Glucose 348 H Total Protein Urine Protein Ur Leukocyte Esterase Urine WBC Assessment and Plan (1) Hypoxia: Status: Acute (2) COPD exacerbation: Status: Acute (3) Cardiomegaly: Status: Acute Plan The patient presented with worsening respiratory symptoms and evidence of acute hypoxia respiratory failure requiring oxygen. She did have some wheezing. In the cardiac wheezing is in the differential. She does have increased cardiac size in some her vascular congestion. Recommendations: Lasix p.o. x1 Echocardiogram Stop Solu-Medrol and start on prednisone. To minimize significant hyperglycemia I will for the prednisone twice a day Titrate oxygen to maintain a pulse ox above 92%. She is already at 98% on a couple Liters so should be able to easily be weaned off. Continue respiratory therapy Time Spent With Patient Time: Total time managing care of this patient today ____ minutes. Procedures Date of Service Date of Service: 09/07/22
[2022-09-07] MEDS: Furosemide 20 MG TABLET PO (10:03)
[2022-09-07] MEDS: Cholecalciferol (Vitamin D3) 25 MCG TABLET PO (10:03)
--- NOTE | 2022-09-07 10:05 | PC.NURSE ---
talking well w/no diff breathing. +o2 on RA. no resp distress. denies pain. poc taken.
[2022-09-07] MEDS: atenoloL 100 MG TABLET PO ×2 (10:07→20:44)
[2022-09-07] MEDS: amLODIPine Besylate 10 MG TABLET PO (10:07)
[2022-09-07 10:12] LABS: Glucose, Whole Blood 367 mg/dL (60-115)
--- NOTE | 2022-09-07 10:15 | PC.NURSE ---
paged poc [phone] (rechecked it prior to glargine). her family said she had a 4oz cup of milk around 9:15am. asked how to proceed.
[2022-09-07] MEDS: Insulin Glargine,Hum.rec.anlog 100 UNIT/ML 10 ML VIAL 15 UNIT SUBCUT (10:30)
--- NOTE | 2022-09-07 10:34 | PC.NURSE ---
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 family member at bedside. no distress. hanna spanish interpreter/translator on way
--- NOTE | 2022-09-07 10:35 | PC.NURSE ---
med req'd meds not available in pyxis from [facility] pharmacist - pharm bringing down
--- NOTE | 2022-09-07 10:40 | PC.NURSE ---
staff interpreter hanna at bedside when giving meds. no distress. pt states feels well and has no questions at this time re: plan of care/assessment.
--- NOTE | 2022-09-07 10:59 | P.PNIM_ITS ---
Subjective Subjective Date of Service: 09/07/22 Interval History: f/u on acute resp faiure, intervl history: feels better, hypoxia reolved. Physical Exam Vital Signs: Vital Signs: Last Vital Signs Temp 98.3 F 09/07/22 05:53 Pulse 83 09/07/22 10:00 Resp 16 09/07/22 09:17 BP 119/67 09/07/22 10:00 Pulse Ox 99 09/07/22 09:17 O2 Del Method Room Air 09/07/22 09:17 O2 Flow Rate 3 09/07/22 05:53 BMI result Body Mass Index 29.8 Const: Other: General: AO X 3, no acute distress Resp: CTA bilateral CVS: S1,S2,RRR GI: +BS, NT, no distention Skin: No rash Neuro: motor grossly intact Psych: appropriate affect Objective Data Active Medications Acetaminophen (Acetaminophen 325 Mg Tablet) 650 mg PO Q6H PRN PRN Reason: Pain, Mild (Pain Scale 1-3) Albuterol/Ipratropium (Albuterol/Iprat 2.5/0.5mg 3 Ml Ampul.Neb) 3 ml INHALE Q4H PRN PRN Reason: Wheezing Albuterol/Ipratropium (Albuterol/Iprat 2.5/0.5mg 3 Ml Ampul.Neb) 3 ml INHALE RQ4H WHILE AWAKE [facility] Last Admin: 09/07/22 08:12 Dose: Not Given Documented By: JACQUES Non-Admin Reason: Patient Asleep Amlodipine Besylate (Amlodipine Besylate 10 Mg Tablet) 10 mg PO DAILY [facility]; Protocol Last Admin: 09/07/22 10:07 Dose: 10 mg Documented By: FRANK Aspirin (Aspirin Enteric Coated 81 Mg Tablet.) 81 mg PO BEDTIME [facility] Last Admin: 09/07/22 00:23 Dose: 81 mg Documented By: JAY Atenolol (Atenolol 100 Mg Tablet) 100 mg PO BID [facility]; Protocol Last Admin: 09/07/22 10:07 Dose: 100 mg Documented By: FRANK Atorvastatin Calcium (Atorvastatin Calcium 40 Mg Tablet) 40 mg PO BEDTIME NAJMA Clonazepam (Clonazepam 1 Mg Tablet) 1 mg PO BEDTIME [facility] Last Admin: 09/07/22 00:24 Dose: 1 mg Documented By: JAY Dextrose (Dextrose 50 % 25 Gm/50 Ml Syringe) 25 gm IVPUSH Q15M PRN; Protocol PRN Reason: per Hypoglycemia Standing Ord. Enoxaparin Sodium (Enoxaparin Sodium 40 Mg/0.4 Ml Syringe) 40 mg SUBCUT Q24H [facility] Last Admin: 09/07/22 00:23 Dose: 40 mg Documented By: JAY Glucose (Glucose Gel 15 Gm Gel..Gram.) 15 gm PO Q15M PRN; Protocol PRN Reason: per Hypoglycemia Standing Ord. Insulin Glargine (Insulin Glargine,Hum.Rec.Anlog 100 Unit/Ml 10 Ml Vial) 15 unit SUBCUT DAILY [facility] Insulin Human Lispro (Insulin Lispro 100 Unit/Ml 3 Ml Vial) 0 unit SUBCUT QIDACHS [facility]; Protocol Last Admin: 09/07/22 07:46 Dose: 8 unit Documented By: ISABELL Melatonin (Melatonin 3 Mg Tablet) 6 mg PO BEDTIME PRN PRN Reason: Insomnia Omeprazole (Omeprazole 20 Mg Capsule.Dr) 20 mg PO DAILY@0630 [facility] Last Admin: 09/07/22 06:32 Dose: 20 mg Documented By: JAY Ondansetron HCl (Ondansetron Hcl 4 Mg/2 Ml Vial) 4 mg IVPUSH Q8H PRN PRN Reason: Nausea and Vomiting Prednisone (Prednisone 20 Mg Tablet) 20 mg PO BIDWM [facility] Primidone (Primidone 50 Mg Tablet) 50 mg PO BID [facility] Sodium Chloride (0.9 % Sodium Chloride Flush 3 Ml Syringe) [facility] Last Admin: 09/07/22 10:35 Dose: Not Given Documented By: FRANK Non-Admin Reason: prev shift Trihexyphenidyl HCl (Trihexyphenidyl Hcl 2 Mg Tablet) 2 mg PO BID [facility] Vitamin D (Cholecalciferol (Vitamin D3) 25 Mcg Tablet) 25 mcg PO DAILY [facility] Last Admin: 09/07/22 10:03 Dose: 25 mcg Documented By: FRANK Labs 09/07/22 05:14 09/07/22 05:14 Labs: Laboratory Results - last 24 hr 09/06/22 09/06/22 09/06/22 14:00 14:00 14:05 MCV 88.0 MCH 27.2 MCHC 30.9 L RDW 13.0 Plt Count 214 D MPV Not Reportable Immature Gran % (Auto) Cancelled Neut % (Auto) Cancelled Lymph % (Auto) Cancelled [place] % (Auto) Cancelled Eos % (Auto) Cancelled Baso % (Auto) Cancelled Lymph # (Auto) Cancelled [place] # (Auto) Cancelled Eos # (Auto) Cancelled Baso # (Auto) Cancelled Abs Immat Gran (auto) Cancelled Absolute Neuts (auto) Cancelled Absolute Nucleated RBC 0.000 Nucleated RBC % (auto) 0.0 Neutrophils % (Manual) 52 Band Neutrophils % 0 L Lymphocytes % (Manual) 30 Monocytes % (Manual) 15 H Eosinophils % (Manual) 3 Basophils % (Manual) Abs Neuts (Manual) 4.6 Lymphocytes # (Manual) 2.7 Monocytes # (Manual) 1.3 H Eosinophils # (Manual) 0.3 Basophils # (Manual) Smudge Cells Platelet Estimate NORMAL Large Platelets PRESENT Plt Morphology Comment NOTED RBC Morphology NOTED Hypochromasia 1+ (5-14) [place] Cells VBG pH VBG pCO2 VBG pO2 VBG HCO3 VBG O2 Saturation VBG Base Excess Anion Gap 17 Estim Creat Clear Calc 43.7 Estimated GFR 52 POC Glucose Random Glucose 117 H Lactic Acid Calcium 9.7 Magnesium 1.9 Total Bilirubin 0.2 Direct Bilirubin < 0.2 AST 18 ALT 14 Alkaline Phosphatase 97 B-Natriuretic Peptide Total Protein 8.3 H Albumin 4.1 Lipase 48 Urine Color Yellow Urine Appearance Clear Urine pH 5.5 Ur Specific [place] 1.020 Urine Protein 300 (3+) H Urine Glucose (UA) Negative Urine Ketones Trace Urine Blood Negative Urine Nitrite Negative Ur Leukocyte Esterase Moderate (2+) H Urine RBC 0-2 Urine WBC 21-50 H Ur Squamous Epith Cells 11-20 Urine Bacteria Trace Hyaline Casts 0-2 09/06/22 09/06/22 09/06/22 21:06 21:06 21:30 MCV MCH MCHC RDW Plt Count MPV Immature Gran % (Auto) Neut % (Auto) Lymph % (Auto) [place] % (Auto) Eos % (Auto) Baso % (Auto) Lymph # (Auto) [place] # (Auto) Eos # (Auto) Baso # (Auto) Abs Immat Gran (auto) Absolute Neuts (auto) Absolute Nucleated RBC Nucleated RBC % (auto) Neutrophils % (Manual) Band Neutrophils % Lymphocytes % (Manual) Monocytes % (Manual) Eosinophils % (Manual) Basophils % (Manual) Abs Neuts (Manual) Lymphocytes # (Manual) Monocytes # (Manual) Eosinophils # (Manual) Basophils # (Manual) Smudge Cells Platelet Estimate Large Platelets Plt Morphology Comment RBC Morphology Hypochromasia [place] Cells VBG pH 7.35 VBG pCO2 53 VBG pO2 44 VBG HCO3 30 H VBG O2 Saturation 67.0 VBG Base Excess 3.6 Anion Gap Estim Creat Clear Calc Estimated GFR POC Glucose Random Glucose Lactic Acid 1.4 Calcium Magnesium Total Bilirubin Direct Bilirubin AST ALT Alkaline Phosphatase B-Natriuretic Peptide 81 Total Protein Albumin Lipase Urine Color Urine Appearance Urine pH Ur Specific [place] Urine Protein Urine Glucose (UA) Urine Ketones Urine Blood Urine Nitrite Ur Leukocyte Esterase Urine RBC Urine WBC Ur Squamous Epith Cells Urine Bacteria Hyaline Casts 09/06/22 09/07/22 09/07/22 23:36 02:15 05:14 MCV 88.3 MCH 27.1 MCHC 30.7 L RDW 12.8 Plt Count 200 MPV 13.0 H Immature Gran % (Auto) Cancelled Neut % (Auto) Cancelled Lymph % (Auto) Cancelled [place] % (Auto) Cancelled Eos % (Auto) Cancelled Baso % (Auto) Cancelled Lymph # (Auto) Cancelled [place] # (Auto) Cancelled Eos # (Auto) Cancelled Baso # (Auto) Cancelled Abs Immat Gran (auto) Cancelled Absolute Neuts (auto) Cancelled Absolute Nucleated RBC 0.000 Nucleated RBC % (auto) 0.0 Neutrophils % (Manual) 86 H Band Neutrophils % 4 Lymphocytes % (Manual) 8 L Monocytes % (Manual) 1 L Eosinophils % (Manual) Basophils % (Manual) 1 Abs Neuts (Manual) 9.4 H Lymphocytes # (Manual) 0.8 L Monocytes # (Manual) 0.1 Eosinophils # (Manual) Basophils # (Manual) 0.1 Smudge Cells PRESENT Platelet Estimate NORMAL Large Platelets Plt Morphology Comment NORMAL RBC Morphology NOTED Hypochromasia [place] Cells 1+ (0-2) VBG pH VBG pCO2 VBG pO2 VBG HCO3 VBG O2 Saturation VBG Base Excess Anion Gap Estim Creat Clear Calc Estimated GFR POC Glucose 320 H 284 H Random Glucose Lactic Acid Calcium Magnesium Total Bilirubin Direct Bilirubin AST ALT Alkaline Phosphatase B-Natriuretic Peptide Total Protein Albumin Lipase Urine Color Urine Appearance Urine pH Ur Specific [place] Urine Protein Urine Glucose (UA) Urine Ketones Urine Blood Urine Nitrite Ur Leukocyte Esterase Urine RBC Urine WBC Ur Squamous Epith Cells Urine Bacteria Hyaline Casts 09/07/22 09/07/22 09/07/22 05:14 07:31 10:04 MCV MCH MCHC RDW Plt Count MPV Immature Gran % (Auto) Neut % (Auto) Lymph % (Auto) [place] % (Auto) Eos % (Auto) Baso % (Auto) Lymph # (Auto) [place] # (Auto) Eos # (Auto) Baso # (Auto) Abs Immat Gran (auto) Absolute Neuts (auto) Absolute Nucleated RBC Nucleated RBC % (auto) Neutrophils % (Manual) Band Neutrophils % Lymphocytes % (Manual) Monocytes % (Manual) Eosinophils % (Manual) Basophils % (Manual) Abs Neuts (Manual) Lymphocytes # (Manual) Monocytes # (Manual) Eosinophils # (Manual) Basophils # (Manual) Smudge Cells Platelet Estimate Large Platelets Plt Morphology Comment RBC Morphology Hypochromasia [place] Cells VBG pH VBG pCO2 VBG pO2 VBG HCO3 VBG O2 Saturation VBG Base Excess Anion Gap 20 Estim Creat Clear Calc 38.8 Estimated GFR 45 POC Glucose 338 H 367 H* Random Glucose 348 H Lactic Acid Calcium 9.9 Magnesium Total Bilirubin Direct Bilirubin AST ALT Alkaline Phosphatase B-Natriuretic Peptide Total Protein Albumin Lipase Urine Color Urine Appearance Urine pH Ur Specific [place] Urine Protein Urine Glucose (UA) Urine Ketones Urine Blood Urine Nitrite Ur Leukocyte Esterase Urine RBC Urine WBC Ur Squamous Epith Cells Urine Bacteria Hyaline Casts Assessment and Plan (1) Hypoxia: Status: Acute Plan 77-year-old female with pertinent history of insulin-dependent diabetes mellitus, mood disorder, essential hypertension, mixed hyperlipidemia, gastroesophageal reflux disease who presents to the emergency department for evaluation of dyspnea and generalized abdominal discomfort. #? Acute hypoxemic respiratory failure due to likely acute exacerbation of obstructive lung disease.? -improving, continue Nebs, Prednisone, Echo as recommended by Pulmonology, wean off O2 # Mood disorder.? Continue clonazepam #? Tremors.? On primidone and trihexyphenidyl #? Essential hypertension.? On atenolol and amlodipine # Insulin-dependent diabetes mellitus.? Reduce home basal insulin.? Initiating Accu-Cheks with sliding scale insulin #? Mixed hyperlipidemia.? On statin #? Pyuria.? Patient without symptoms.? Defer treatment DVT prophylaxis: Lovenox Full code Time Spent With Patient Time: Total time managing care of this patient today ____ minutes. Quality Stroke Does the patient have a stroke diagnosis?: No VTE Prior VTE?: No VTE Risk Level:: Medical - moderate - high VTE Device Contraindication: Treatment Not Indicated VTE Drug Contraindication: N/A - Med Ordered
[2022-09-07] MEDS: Albuterol/Iprat 2.5/0.5MG 3 ML AMPUL.NEB INHALE ×3 (11:02→20:17)
[2022-09-07] MEDS: Primidone 50 MG TABLET PO ×2 (12:30→20:44)
[2022-09-07] MEDS: Trihexyphenidyl HCL 2 MG TABLET PO ×2 (12:31→20:44)
[2022-09-07 12:37] LABS: Glucose, Whole Blood 259 mg/dL (60-115)
--- NOTE | 2022-09-07 13:45 | PC.NURSE ---
transport called by rogerio woodruff
--- NOTE | 2022-09-07 13:49 | PC.NURSE ---
called for report. pt eatingh lunch. family in room. no distress. VSS. talking well.
--- NOTE | 2022-09-07 15:05 | MHC.CLN ---
NUTRITION ADDED DIABETIC 1800 KCAL TO DIET ORDER. DIET=DM 1800 KCALS, CARDIAC.
[2022-09-07 16:28] LABS: Glucose, Whole Blood 232 mg/dL (60-115)
[2022-09-07] MEDS: predniSONE 20 MG TABLET PO (16:28)
[2022-09-07 20:32] LABS: Glucose, Whole Blood 360 mg/dL (60-115)
[2022-09-07] MEDS: Atorvastatin Calcium 40 MG TABLET PO (20:43)
[2022-09-08] VITALS (11 sets, daily range): BP systolic 111–146; BP diastolic 61–86; PULSE 68–85; RESP 16–20; TEMP 36.1–36.5; O2SAT 92–96
[2022-09-08] MEDS: Omeprazole 20 MG CAPSULE.DR PO (05:54)
--- NOTE | 2022-09-08 07:00 | CA_ITS ---
Transthoracic Echocardiogram Patient (Last, First, Middle): aGy Giron T Gender: Female Date of : 1945 Age: 77 Procedure Date: 09/08/2022 Procedure Type: Transthoracic E[place] [facility] [place]: 157.48 cm Weight: 73.94 kg BSA: 1.75 m2 Heart Rate: 71 bpm BP: 136 / 60 mmHg Press Puller: SB Referring MD: Pavan Roman MD Symptoms: hypoxia Study Quality: Fair but adequate ECG Rhythm: Sinus Conclusions: - The left ventricular systolic function is normal. The visually estimated ejection fraction is between 55-60%. - Evidence suggests grade II (moderate) diastolic dysfunction. - There is mild mitral annular calcification. There is mild mitral valve regurgitation. - Mild pulmonary hypertension is present. - The inferior vena cava is mildly dilated and collapses less than 50% with inspiration. Findings Left Ventricle Normal left ventricular cavity size. There is normal left ventricular wall thickness. The left ventricular systolic function is normal. The visually estimated ejection fraction is between 55-60%. There is no evidence of regional wall motion abnormalities. Evidence suggests grade II (moderate) diastolic dysfunction. Right Ventricle Normal right ventricular cavity size and systolic function. Atria The left atrium is mildly dilated. The right atrium is normal in size. Aortic Valve The aortic valve was not well visualized. There is no aortic valve stenosis. There is no aortic valve regurgitation. Mitral Valve There is mild mitral annular calcification. There is mild mitral valve regurgitation. There is no mitral valve stenosis. Pulmonic Valve The pulmonic valve is likely normal. Tricuspid Valve Normal tricuspid valve structure. There is trace tricuspid valve regurgitation. Mild pulmonary hypertension is present. Great Vessels The asc aorta is normal in size. Venous The inferior vena cava is mildly dilated and collapses less than 50% with inspiration. Pericardium/Pleural There is no evidence of pericardial effusion. Prior Study Comparison No significant change compared to prior study dated: 02/24/2017. Measurements 2D Linear Measurements IVSd: 0.99 0.6-0.9/0.6-1.0 cm LVIDd: 5.09 3.9-5.3/4.2-5.9 cm LVIDd Index: 2.91 2.4-3.2/2.2-3.1 cm/m2 LVIDs: 3.63 2.0-3.6 cm LVPWd: 0.83 0.7-1.1 cm LA Diam: 4.10 2.7-3.8/3.0-4.0 cm LAIDs Index: 2.34 1.5-2.3 cm/m2 LV Mass: 205.99 67-162/88-224 g LV Mass Index: 117.71 43-95/49-115 g/m2 LVOT Diam: 2.10 3.0+(-)1.3 cm 2D Systolic Function EF 4C: 51.10 >55% EF 2C: 53.00 >55% EF BiP: 51.00 >55% Mitral Valve MV Pk E: 1.34 MV PK A: 1.02 MV Decel Time: 198.00 E/A: 1.30 E'Lateral: 5.33 E'Medial: 5.11 E/E' Med: 26.20 E/E' Lat: 25.10 PHT: 58.00 MVA PHT: 3.79 Decel Ponce: 6.77 MR VTI: 1.75 Aortic Valve AoV Pk Peter: 1.50 AoV Mn Peter: 1.03 AoV VTI: 0.33 AoV Pk Grad: 9.00 Aov Mn Grad: 5.00 YASMANY Cont.VTI: 2.59 LVOT LVOT Pk Peter: 1.06 LVOT Mn Peter: 0.73 LVOT VTI: 0.25 LVOT Pk Grad: 4.00 LVOT Mn Grad: 2.00 LVOT Diam: 2.10 LVOT Area: 3.46 Diastolic Function MV Pk E: 1.34 MV Pk A: 1.02 E/A: 1.30 E'Medial: 5.11 E/E' Med: 26.20 E' Laterial: 5.33 E/E' Lat: 25.10 Right Ventricle TAPSE (mm): 26.90 TVS' Peter: 11.80 Tricuspid Valve TR Pk Peter: 2.98 TR Pk Grad: 36.00 RA Press: 15.00 RVSP: 51.00 Great Vessels Aorta Sinus of Valsalva: 3.00 2.0-3.5 cm Ao Asc: 3.50 2.1-3.4 cm Pulmonary Veins Pulm Vein S/D 1.00 Pulmonary Valve PV Pk Peter: 1.03 Peak PV Grad: 4.00 Updated in Other Vendor System with Status of Final Kurtis Patel MD electronically signed on 09/08/2022 3:19:03 PM with status of Final
[2022-09-08 07:25] LABS: Glucose, Whole Blood 290 mg/dL (60-115)
[2022-09-08] MEDS: predniSONE 20 MG TABLET PO ×2 (07:34→16:23)
[2022-09-08] MEDS: Insulin Lispro 100 UNIT/ML 3 ML VIAL SUBCUT ×4 (07:34→20:24)
[2022-09-08] MEDS: amLODIPine Besylate 10 MG TABLET PO (07:34)
[2022-09-08] MEDS: 0.9 % Sodium Chloride Flush 3 ML SYRINGE IVFLUSH ×2 (07:34→23:19)
[2022-09-08] MEDS: atenoloL 100 MG TABLET PO ×2 (07:34→20:02)
[2022-09-08] MEDS: Trihexyphenidyl HCL 2 MG TABLET PO ×2 (07:34→20:02)
[2022-09-08] MEDS: Primidone 50 MG TABLET PO ×2 (07:34→20:02)
[2022-09-08] MEDS: Cholecalciferol (Vitamin D3) 25 MCG TABLET PO (07:35)
[2022-09-08] MEDS: Albuterol/Iprat 2.5/0.5MG 3 ML AMPUL.NEB INHALE ×4 (08:34→19:22)
[2022-09-08] MEDS: Insulin Glargine,Hum.rec.anlog 100 UNIT/ML 10 ML VIAL 15 UNIT SUBCUT (09:09)
--- NOTE | 2022-09-08 10:34 | P.DS_ITS ---
DS: Providers Provider Date of Service: 09/09/22 Date of admission: 09/06/22 22:55 Primary care physician: Annie Tafoya MD Consults: 09/06/22 23:04 Consult to Pulmonology Routine Consulting Provider: [facility] [place] Pulmonology Services Reason for consultation: COPD exacerbation DS: Diagnosis Discharge Diagnosis (1) Hypoxia: Status: Resolved DS: Summary Hospital Course Hospital Course: hief Complaint: Dyspnea This is a 77-year-old female with pertinent history of insulin-dependent diabetes mellitus, mood disorder, essential hypertension, mixed hyperlipidemia, gastroesophageal reflux disease who presents to the emergency department for evaluation of dyspnea and generalized abdominal discomfort.? Patient states he has been having generalized abdominal pain that has been ongoing for the last 2-3 months.? Denies nausea, vomiting, diarrhea.? She was also found to be tachypneic and dyspneic by her family members.? Patient was found to be wheezing.? Is former tobacco smoker.? Denies fever, chills, cough, chest discomfort, palpitations, abdominal pain, changes in urinary or bowel habits. In the emergency department, patient was found to be wheezing and hypoxemic Hospital course: This patient has copd and TAMIKA and uses CPAP but is not reliable with the CPAP, she presented with SOB and was admitted for management of COPD exacerbation with IV steroid, bronchodilator by Nebs. Overall is better, hypoxia has resolved while awake but has been noted to be hypoxic when sleeping. She will be discharge with Prednisone. She was noted to desat while sleeping and therefore had nocturnal O2 study with signficant drop in O2 and additional qualify for day O2 with activity and therefore will be discharge home with oxygen to be used during the day and at night Time Spent with Patient Time attestation: Total time managing care of this patient today ____ minutes. Discharge coordination time: Greater than 30 minutes Quality: Safe Use of Opioids Does Pt have an Active Cancer Diagnosis on the Problem List?: No Quality: Stroke Does the patient have a stroke diagnosis?: No Physical Exam Vital Signs: Vital Signs: Last Vital Signs Temp 97.1 F 09/08/22 07:12 Pulse 73 09/08/22 08:36 Resp 16 09/08/22 08:36 BP 132/63 09/08/22 07:12 Pulse Ox 93 09/08/22 09:48 O2 Del Method Room Air 09/08/22 09:48 O2 Flow Rate 2 09/08/22 07:12 BMI result Body Mass Index 29.8 DS: Data Data Completed and Pending Labs on day of discharge: Laboratory Results - last 24 hr 09/07/22 09/07/22 09/07/22 12:30 16:21 20:25 POC Glucose 259 H 232 H 360 H* 09/08/22 07:16 POC Glucose 290 H Preliminary micro results at discharge 09/06/22 20:58 Blood Culture - Preliminary Blood - Venous No growth after 24 hours. 09/06/22 21:06 Blood Culture - Preliminary Blood - Venous No growth after 24 hours. Discharge Plan Discharge Anticipated Discharge Date/Time: 09/08/22 10:24 Patient Disposition: Home Health Service Discharge Diagnosis: copd exacerbation Referrals: Andrew HULL [Outside] - 3-5 Days (HOME SERVICES FOR [facility] AND PHYSICAL THERAPY) Annie Tafoya MD [Primary Care Provider] - 1 Week Discharge Medications: Continued atorvastatin 40 mg tablet 1 tab PO BEDTIME atenolol 100 mg tablet 1 tab PO BID aspirin 81 mg tablet,delayed release (DR/EC) 1 tab PO QPM amlodipine 10 mg tablet 1 tab PO DAILY omeprazole 20 mg capsule,delayed release(DR/EC) 1 cap PO DAILY metformin 500 mg tablet extended release 24 hr 2 tab PO BID cholecalciferol (vitamin D3) 25 mcg (1,000 unit) tablet 1 tab PO QAM insulin glargine [Lantus U-100 Insulin] 100 unit/mL Solution 24 unit SUBCUT DAILY primidone 50 mg Tablet 50 mg PO BID trihexyphenidyl 2 mg Tablet 2 mg PO BID Rx Instructions: give with food (meal/snack) clonazepam 1 mg tablet 1 mg PO BEDTIME Discharge Orders: Discharge Order (Routine); Ordered 09/09/22 Ordered By: Albert Elkins Diet: Advance to usual diet Activity on Discharge: As tolerated Stand Alone Forms: Patient Portal Discharge page Care Plan Goals: recovery from copd exacerbation Health Concerns: copd, sleep apnea Plan of Treatment: use CPAP machine every nigh, take steroid (prednisone) as directed and follow up with your doctor in a week Use oxygen as directed Assessment: as above Discharge Date/Time: 09/09/22 14:24
[2022-09-08 11:15] LABS: Glucose, Whole Blood 300 mg/dL (60-115)
--- NOTE | 2022-09-08 11:22 | PC.NURSE ---
Attempted to wean off o2, 93% room while awake up in chair. rechecked later while pt sleeping sat 77-84% aroused pt ant only went up to 90% Pt had cpap at home but is non-compliant. Dr Elkins aware Abg s ordered.
[2022-09-08 11:48] LABS: ABG Base Excess 5.4 mmol/L; ABG HCO3 33 mmol/L (22-26); ABG pCO2 62 mmHg (32-45); ABG pH 7.33 (7.35-7.45); ABG pO2 69 mmHg (83-108)
--- NOTE | 2022-09-08 12:49 | P.PNIM_ITS ---
Subjective Subjective Date of Service: 09/08/22 Interval History: f/u on acute resp faiure, intervl history: feels better, hypoxia reolved, but easily somnolent, ABG shows some CO2 retention, she reportedly doesn't use CPAP Physical Exam Vital Signs: Vital Signs: Last Vital Signs Temp 97.1 F 09/08/22 07:12 Pulse 80 09/08/22 12:29 Resp 16 09/08/22 12:29 BP 132/63 09/08/22 07:12 Pulse Ox 93 09/08/22 09:48 O2 Del Method Room Air 09/08/22 09:48 O2 Flow Rate 2 09/08/22 07:12 BMI result Body Mass Index 29.8 Const: Other: General: AO X 3, no acute distress Resp: CTA bilateral CVS: S1,S2,RRR GI: +BS, NT, no distention Skin: No rash Neuro: motor grossly intact Psych: appropriate affect Objective Data Active Medications Acetaminophen (Acetaminophen 325 Mg Tablet) 650 mg PO Q6H PRN PRN Reason: Pain, Mild (Pain Scale 1-3) Albuterol/Ipratropium (Albuterol/Iprat 2.5/0.5mg 3 Ml Ampul.Neb) 3 ml INHALE Q4H PRN PRN Reason: Wheezing Albuterol/Ipratropium (Albuterol/Iprat 2.5/0.5mg 3 Ml Ampul.Neb) 3 ml INHALE RQ4H WHILE AWAKE [facility] Last Admin: 09/08/22 12:29 Dose: 3 ml Documented By: JESSICA Amlodipine Besylate (Amlodipine Besylate 10 Mg Tablet) 10 mg PO DAILY [facility]; Protocol Last Admin: 09/08/22 07:34 Dose: 10 mg Documented By: MATTHEW Aspirin (Aspirin Enteric Coated 81 Mg Tablet.) 81 mg PO BEDTIME [facility] Last Admin: 09/07/22 20:43 Dose: 81 mg Documented By: ISAIAH Atenolol (Atenolol 100 Mg Tablet) 100 mg PO BID [facility]; Protocol Last Admin: 09/08/22 07:34 Dose: 100 mg Documented By: MATTHEW Atorvastatin Calcium (Atorvastatin Calcium 40 Mg Tablet) 40 mg PO BEDTIME [facility] Last Admin: 09/07/22 20:43 Dose: 40 mg Documented By: ISAIAH Clonazepam (Clonazepam 1 Mg Tablet) 1 mg PO BEDTIME [facility] Last Admin: 09/07/22 20:44 Dose: 1 mg Documented By: ISAIAH Dextrose (Dextrose 50 % 25 Gm/50 Ml Syringe) 25 gm IVPUSH Q15M PRN; Protocol PRN Reason: per Hypoglycemia Standing Ord. Enoxaparin Sodium (Enoxaparin Sodium 40 Mg/0.4 Ml Syringe) 40 mg SUBCUT Q24H [facility] Last Admin: 09/07/22 23:07 Dose: 40 mg Documented By: ISAIAH Glucose (Glucose Gel 15 Gm Gel..Gram.) 15 gm PO Q15M PRN; Protocol PRN Reason: per Hypoglycemia Standing Ord. Insulin Glargine (Insulin Glargine,Hum.Rec.Anlog 100 Unit/Ml 10 Ml Vial) 15 unit SUBCUT DAILY [facility] Last Admin: 09/08/22 09:09 Dose: 15 unit Documented By: NURIA Insulin Human Lispro (Insulin Lispro 100 Unit/Ml 3 Ml Vial) 0 unit SUBCUT QIDACHS [facility]; Protocol Last Admin: 09/08/22 11:39 Dose: 8 unit Documented By: MATTHEW Melatonin (Melatonin 3 Mg Tablet) 6 mg PO BEDTIME PRN PRN Reason: Insomnia Omeprazole (Omeprazole 20 Mg Capsule.) 20 mg PO DAILY@0630 [facility] Last Admin: 09/08/22 05:54 Dose: 20 mg Documented By: ISAIAH Ondansetron HCl (Ondansetron Hcl 4 Mg/2 Ml Vial) 4 mg IVPUSH Q8H PRN PRN Reason: Nausea and Vomiting Prednisone (Prednisone 20 Mg Tablet) 20 mg PO BIDWM [facility] Last Admin: 09/08/22 07:34 Dose: 20 mg Documented By: MATTHEW Primidone (Primidone 50 Mg Tablet) 50 mg PO BID [facility] Last Admin: 09/08/22 07:34 Dose: 50 mg Documented By: MATTHEW Sodium Chloride (0.9 % Sodium Chloride Flush 3 Ml Syringe) 3 ml IVFLUSH QSHIFT [facility] Last Admin: 09/08/22 07:34 Dose: 3 ml Documented By: MATTHEW Trihexyphenidyl HCl (Trihexyphenidyl Hcl 2 Mg Tablet) 2 mg PO BID [facility] Last Admin: 09/08/22 07:34 Dose: 2 mg Documented By: MATTHEW Vitamin D (Cholecalciferol (Vitamin D3) 25 Mcg Tablet) 25 mcg PO DAILY [facility] Last Admin: 09/08/22 07:35 Dose: 25 mcg Documented By: MATTHEW Labs 09/07/22 05:14 09/07/22 05:14 Labs: Laboratory Results - last 24 hr 09/07/22 09/07/22 09/08/22 16:21 20:25 07:16 O2 Saturation ABG pH at Pt Temp ABG pCO2 at Pt Temp ABG pO2 at Pt Temp ABG HCO3 ABG Base Excess (Actual) POC Glucose 232 H 360 H* 290 H 09/08/22 09/08/22 11:09 11:38 O2 Saturation 93.0 ABG pH at Pt Temp 7.33 L ABG pCO2 at Pt Temp 62 H* ABG pO2 at Pt Temp 69 L ABG HCO3 33 H ABG Base Excess (Actual) 5.4 POC Glucose 300 H Microbiology Microbiology Results: Microbiology 09/06/22 20:58 Blood Culture - Preliminary Blood - Venous No growth after 24 hours. 09/06/22 21:06 Blood Culture - Preliminary Blood - Venous No growth after 24 hours. 09/06/22 Unknown Urine Culture - Final Urine clean catch - Urine chandra top No growth. Assessment and Plan (1) Cardiomegaly: Status: Acute Plan 77-year-old female with pertinent history of insulin-dependent diabetes mellitus, mood disorder, essential hypertension, mixed hyperlipidemia, gastroesophageal reflux disease who presents to the emergency department for evaluation of dyspnea and generalized abdominal discomfort. #? Acute hypoxemic respiratory failure due to likely acute exacerbation of obstructive lung disease.? -improving, continue Nebs, Prednisone, Echo done today, check nocturnal O2 # Mood disorder.? Continue clonazepam #? Tremors.? On primidone and trihexyphenidyl #? Essential hypertension.? On atenolol and amlodipine # Insulin-dependent diabetes mellitus.? basal insulin.? Initiating Accu-Cheks with sliding scale insulin #? Mixed hyperlipidemia.? On statin #? Pyuria.? Patient without symptoms.? Defer treatment DVT prophylaxis: Lovenox Full code Time Spent With Patient Time: Total time managing care of this patient today ____ minutes. Quality Stroke Does the patient have a stroke diagnosis?: No VTE Prior VTE?: No VTE Risk Level:: Medical - moderate - high VTE Device Contraindication: Treatment Not Indicated VTE Drug Contraindication: N/A - Med Ordered
[2022-09-08 13:39] LABS: ABG Refer to POC result
[2022-09-08 16:34] LABS: Glucose, Whole Blood 264 mg/dL (60-115)
--- NOTE | 2022-09-08 18:32 | PM.PNPUL ---
Subjective Subjective Date of Service: 09/08/22 Interval history: Seen and examined. Feeling better. Still desaturates at times. Objective Data Labs 09/07/22 05:14 09/07/22 05:14 Labs: Laboratory Results - last 24 hr 09/07/22 09/08/22 09/08/22 20:25 07:16 11:09 O2 Saturation ABG pH at Pt Temp ABG pCO2 at Pt Temp ABG pO2 at Pt Temp ABG HCO3 ABG Base Excess (Actual) POC Glucose 360 H* 290 H 300 H 09/08/22 09/08/22 11:38 16:24 O2 Saturation 93.0 ABG pH at Pt Temp 7.33 L ABG pCO2 at Pt Temp 62 H* ABG pO2 at Pt Temp 69 L ABG HCO3 33 H ABG Base Excess (Actual) 5.4 POC Glucose 264 H Microbiology Microbiology Results: Microbiology 09/06/22 20:58 Blood - Venous Blood Culture - Preliminary No growth after 24 hours. 09/06/22 21:06 Blood - Venous Blood Culture - Preliminary No growth after 24 hours. 09/06/22 Unknown Urine clean catch - Urine chandra top Urine Culture - Final No growth. Review of Systems Constitutional: Reports no additional constitutional complaints Cardiovascular: Reports dyspnea on exertion Respiratory: Reports dyspnea on exertion and Reports wheezing Gastrointestinal: Reports no additional gastrointestinal complaints Genitourinary: Reports no additional female genitourinary complaints Allergic/Immunologic: Reports wheezing Physical Exam Vital Signs: Vital Signs: Last Vital Signs Temp 97.6 F 09/08/22 15:44 Pulse 68 09/08/22 16:51 Resp 16 09/08/22 16:51 BP 111/86 09/08/22 15:44 Pulse Ox 96 09/08/22 15:44 O2 Del Method Nasal Cannula 09/08/22 15:44 O2 Flow Rate 2 09/08/22 15:44 BMI result Body Mass Index 29.8 Const: Other: General: AO X 3, no acute distress Resp: CTA bilateral CVS: S1,S2,RRR GI: +BS, NT, no distention Skin: No rash Neuro: motor grossly intact Psych: appropriate affect Procedures Date of Service Date of Service: 09/08/22 Assessment and Plan Assessment and plan (1) COPD exacerbation: Status: Acute (2) Hypoxia: Status: Acute (3) Cardiomegaly: Status: Acute (4) Diastolic dysfunction: Status: Acute Plan continue respiratory therapy diuresis as tolerated Prednione taper Overnight oximetry, will benefit from nocturnal oxygen Will need to F/U as outpt Time Spent With Patient Time: Total time managing care of this patient today ____ minutes. Progress Note: Quality Stroke Does the patient have a stroke diagnosis?: No
[2022-09-08] MEDS: Aspirin Enteric Coated 81 MG TABLET.DR PO (20:01)
[2022-09-08] MEDS: Atorvastatin Calcium 40 MG TABLET PO (20:02)
[2022-09-08] MEDS: clonazePAM 1 MG TABLET PO (20:02)
[2022-09-08 20:20] LABS: Glucose, Whole Blood 321 mg/dL (60-115)
[2022-09-08] MEDS: Enoxaparin Sodium 40 MG/0.4 ML SYRINGE SUBCUT (22:18)
--- NOTE | 2022-09-08 22:24 | PC.RT ---
Overnight pulse ox placed. Patient on room air. No SOB noted at this time. RN made aware of overnight study.
[2022-09-09 02:53] VITALS: BP 130/60; PULSE 75; RESP 16; TEMP 36; O2SAT 86
[2022-09-09 07:21] VITALS: BP 124/93; PULSE 60; RESP 18; TEMP 36.2
[2022-09-09 07:36] LABS: Glucose, Whole Blood 207 mg/dL (60-115)
[2022-09-09] MEDS: Albuterol/Iprat 2.5/0.5MG 3 ML AMPUL.NEB INHALE ×2 (07:44→11:43)
[2022-09-09 07:47] VITALS: PULSE 75; RESP 16; O2SAT 92
[2022-09-09] MEDS: predniSONE 20 MG TABLET PO (08:33)
[2022-09-09] MEDS: Cholecalciferol (Vitamin D3) 25 MCG TABLET PO (08:33)
[2022-09-09] MEDS: Insulin Lispro 100 UNIT/ML 3 ML VIAL SUBCUT ×2 (08:33→12:11)
[2022-09-09] MEDS: Trihexyphenidyl HCL 2 MG TABLET PO (08:33)
[2022-09-09] MEDS: Insulin Glargine,Hum.rec.anlog 100 UNIT/ML 10 ML VIAL 15 UNIT SUBCUT (08:33)
[2022-09-09] MEDS: amLODIPine Besylate 10 MG TABLET PO (08:33)
[2022-09-09] MEDS: Primidone 50 MG TABLET PO (08:33)
[2022-09-09] MEDS: atenoloL 100 MG TABLET PO (08:33)
[2022-09-09] MEDS: 0.9 % Sodium Chloride Flush 3 ML SYRINGE IVFLUSH (08:34)
[2022-09-09 11:15] LABS: Glucose, Whole Blood 259 mg/dL (60-115)
[2022-09-09 11:41] VITALS: PULSE 75
[2022-09-09 11:45] VITALS: PULSE 72; PULSE 74; PULSE 76; PULSE 95; PULSE 96; RESP 16; O2SAT 87; O2SAT 88; O2SAT 92; O2SAT 93
--- NOTE | 2022-09-09 14:07 | MHC.CM.PN ---
IMM DELIVERED PT LIVES ALONE IN AN APT WITH AN ELEVATOR. INDEPENDENT AT BASELINE FOR ADL'S BUT USES A WALKER FOR AMBULATION. 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 PCP DR. SIERRA AT [facility] DP: PT HAS BEEN MEDICALLY CLEARED FOR DC HOME WITH NEW [facility] SERVICES FOR SN/PT, HAS NEW HOME 02. FAMILY TO TRANSPORT.
--- NOTE | 2022-09-09 14:33 | W.MHC.F2F ---
Service Date Service Date: 09/09/22 Encounter Date of encounter: 09/09/22 Reasons for Services Signs and symptoms assessed: weakness, shorntess, new to oxygen Reason for half-way: medication management and teach disease management Reason for physical therapy: home safety and mobility and energy conservation Homebound: Leaving the home is medically contraindicated at this time without the asist of a device and/or another person due th the listed conditions above and below. Reason homebound: unsteady gait / fall risk, shortness of breath with minimal effort and weakness related to hospital stay Homebound supporting statement: Homebound due to shortness of breath, falls, weakness from hospitalizaton and need for assistance from another person Certification: Based on the above findings, I certify that this patient is confined to the home and needs intermittent half-way care, physical therapy and/or speech therapy, or continues to need occupational therapy. The patient is under my care, and I have initiated the establishment of the plan of care. The patient will be followed by a physician who will periodically review the plan of care. Time Spent With Patient Time: Total time managing care of this patient today ____ minutes.
== END 2022-09-09 14:24 | disposition home health service (06) | DRG 192 ==
LOC: HO.ED 20:36 → HO.EDOVER 23:01 → HO.ICU 09-07 13:15 → HO.S3 09-07 13:25
PROVIDERS: Physician Assistant; Admitting Provider Student in an Organized Health Care Education/Training Program; Emergency Provider Student in an Organized Health Care Education/Training Program; PCP Family Medicine; Visit Provider Internal Medicine
DX: J44.1 Chronic obstructive pulmonary disease with (acute) exacerbation (principal); E78.2 Mixed hyperlipidemia; R25.1 Tremor, unspecified; G47.33 Obstructive sleep apnea (adult) (pediatric); I11.9 Hypertensive heart disease without heart failure; E11.9 Type 2 diabetes mellitus without complications; F39 Unspecified mood [affective] disorder; Z91.199 Patient's noncompliance with other medical treatment and regimen due to unspecified reason; Z87.891 Personal history of nicotine dependence; Z79.4 Long term (current) use of insulin; Z79.84 Long term (current) use of oral hypoglycemic drugs; Z79.82 Long term (current) use of aspirin; Z79.899 Other long term (current) drug therapy
CPT/HCPCS: 36415; 36600; 71046; 76705; 80048; 80076; 81001; 82803; 82947; 83605; 83690; 83735; 83880; 84484; 85007; 85027; 87040; 87086; 93005; 93306; 94640; 97162; 99285; J1650; J2930; Q9957

== ENCOUNTER → 2022-09-06 12:55 | Outpatient (BNV) | payer OTHER, MEDICAID, SELFPAY | PROVIDERS: Emergency Provider Student in an Organized Health Care Education/Training Program; PCP Family Medicine; Visit Provider Internal Medicine | DX: R94.31 Abnormal electrocardiogram [ECG] [EKG] (principal); R07.9 Chest pain, unspecified | CPT/HCPCS: 93010 ==

== ENCOUNTER 2022-09-06 22:55 | Outpatient (BNV) | payer OTHER, MEDICAID, SELFPAY | END 2022-09-08 07:00 | PROVIDERS: Admitting Provider Student in an Organized Health Care Education/Training Program; Emergency Provider Student in an Organized Health Care Education/Training Program; PCP Family Medicine; Visit Provider Internal Medicine | DX: I34.0 Nonrheumatic mitral (valve) insufficiency (principal); I34.81 Nonrheumatic mitral (valve) annulus calcification | CPT/HCPCS: 93306 ==

== ENCOUNTER → 2022-09-06 22:55 | Outpatient (BNV) | payer OTHER, MEDICAID, SELFPAY | PROVIDERS: Admitting Provider Student in an Organized Health Care Education/Training Program; Emergency Provider Student in an Organized Health Care Education/Training Program; PCP Family Medicine; Visit Provider Student in an Organized Health Care Education/Training Program | DX: J44.1 Chronic obstructive pulmonary disease with (acute) exacerbation (principal) | CPT/HCPCS: 99222; 99232; 99239; G0180 ==

== ENCOUNTER → 2022-09-06 22:55 | Outpatient (BNV) | payer OTHER, MEDICAID, SELFPAY | PROVIDERS: Admitting Provider Student in an Organized Health Care Education/Training Program; Emergency Provider Student in an Organized Health Care Education/Training Program; PCP Family Medicine; Visit Provider Hospitalist | DX: J44.1 Chronic obstructive pulmonary disease with (acute) exacerbation (principal); R09.02 Hypoxemia; I51.7 Cardiomegaly | CPT/HCPCS: 99223; 99233 ==

== ENCOUNTER 2022-09-10 21:04 | Emergency (ER) | payer OTHER, MEDICAID, SELFPAY ==
[2022-09-10 21:13] VITALS: BP 132/79; BP 170/100; PULSE 81; PULSE 86; RESP 16; TEMP 37.9; O2SAT 94; BMI 41.6
--- NOTE | 2022-09-10 21:27 | ED.SOB ---
HPI - SOB/Dyspnea General Chief Complaint: Upper Respiratory Symptoms Stated Complaint: sob Time Seen by Provider: 09/10/22 21:22 Source: patient Mode of arrival: EMS Limitations: no limitations History of Present Illness HPI Narrative: Patient is 77 years of history of diabetes mood disorder hypertension with history of TAMIKA noncompliant to CPAP noted to be desaturating while sleeping and oxygen 3 liter/minute was given to the patient patient came here as as she ran out of her oxygen Related Data Home Medications Medication Instructions Recorded Confirmed amlodipine 10 mg tablet 1 tab PO DAILY 07/15/20 09/06/22 aspirin 81 mg tablet,delayed 1 tab PO QPM 07/15/20 09/06/22 release atenolol 100 mg tablet 1 tab PO BID 07/15/20 09/06/22 atorvastatin 40 mg tablet 1 tab PO BEDTIME 07/15/20 09/06/22 cholecalciferol (vitamin D3) 25 1 tab PO QAM 07/15/20 09/06/22 mcg (1,000 unit) tablet metformin 500 mg tablet,extended 2 tab PO BID 07/15/20 09/06/22 release 24 hr omeprazole 20 mg capsule,delayed 1 cap PO DAILY 07/15/20 09/06/22 release insulin glargine 100 unit/mL 24 unit subcut DAILY 06/18/21 09/06/22 subcutaneous solution (Lantus U-100 Insulin) primidone 50 mg tablet 50 mg PO BID 06/18/21 09/06/22 trihexyphenidyl 2 mg tablet 2 mg PO BID 06/18/21 09/06/22 clonazepam 1 mg tablet 1 mg PO BEDTIME 09/06/22 09/06/22 Previous Rx's Medication Instructions Recorded prednisone 20 mg tablet 40 mg PO DAILY #8 tabs 09/08/22 Allergies Allergy/AdvReac Type Severity Reaction Status Date / Time No Known Allergies Allergy Unverified 10/24/19 17:45 [No Known Allergies*] Review of Systems Review of Systems: Yes all other systems are reviewed and are negative [facility] Past Medical History Medical History Cardiomegaly Diastolic dysfunction GERD (gastroesophageal reflux disease) Hyperlipidemia Hypertension Insulin dependent type 2 diabetes mellitus Mood disorder Surgical History History of esophagogastroduodenoscopy (EGD) History of tubal ligation Hx of colonoscopy Family History Family History Family/Other No significant medical problems Social History Social History Household Members: None Housing: Apartment Housing Other:: rd floor with elevator access Do you presently have visiting nurse or other home services: Yes Alcohol intake: never Patient Tobacco Use Status: Never used Tobacco Smoked in Last 30 Days: No Use of substances other than those prescribed or required for medical reasons: No Advance Directives: Yes Advance Directives on File: Yes Advance Directives Date on File: 07/20/20 service: No Current occupational status: unemployed Physical Exam Vital Signs: Vital Signs: Last Vital Signs Temp 98.7 F 09/11/22 04:01 Pulse 73 09/11/22 04:01 Resp 20 09/11/22 04:01 BP 133/58 L 09/11/22 04:01 Pulse Ox 94 09/11/22 04:37 O2 Del Method Nasal Cannula 09/11/22 04:37 O2 Flow Rate 2 09/11/22 04:01 Oxygen Flow Rate 2 09/11/22 04:37 BMI result Body Mass Index 41.6 Appearance: Alert. Oriented X3. No acute distress. Eyes: PERRLA, No Nystagmus ENT: Pharynx normal. Oral Mucosa moist Neck: Normal inspection. Neck supple. CVS: Normal heart rate and rhythm. Pulses normal. Respiratory: No respiratory distress. Equal air entry bilateral, prolonged expiration Abdomen: Soft and nontender. Bowel sounds are present, no mass palpable, no CVA tenderness Skin: Skin warm and dry. Normal skin color. Normal skin turgor. Extremities: No lower extremity edema. No calf tenderness Neuro: Oriented X 3. No motor deficit. Medications Administered Discontinued Medications Generic Name Dose Route Start Last Admin Trade Name Freq PRN Reason Stop Dose Admin Albuterol/Ipratropium 3 ml 09/10/22 21:47 09/10/22 21:49 Albuterol/Iprat 2.5/0.5mg 3 Ml Ampul.Neb INHALE 09/10/22 21:48 3 ml ONCE ONE Administration Medical Decision Making Medical Decision Making MDM Narrative: Patient oxygen-dependent COPD unable to get the oxygen for home will give the patient emergency room for observation and get the care team involved for arrangement for the oxygen tomorrow Lab Data [facility] Lab Attestation statement: I reviewed the patient's lab results. 09/11/22 00:00 09/11/22 00:00 Labs: Lab Results 09/10/22 09/10/22 09/11/22 Range/Units 21:38 22:50 00:00 WBC 11.0 H (4.8-10.8) X10*3/uL RBC 4.37 (4.20-5.50) X10*6/uL Hgb 11.9 L (12.0-16.0) g/dl Hct 38.3 (37.0-47.0) % MCV 87.6 (80.0-98.0) fL MCH 27.2 (27.0-33.0) pg MCHC 31.1 (31.0-35.0) g/dl RDW 12.8 (11.0-16.0) % Plt Count TNP MPV 13.7 H (9.4-12.3) fL Immature Gran % (Auto) Cancelled Neut % (Auto) Cancelled Lymph % (Auto) Cancelled Mccreary % (Auto) Cancelled Eos % (Auto) Cancelled Baso % (Auto) Cancelled Lymph # (Auto) Cancelled Mccreary # (Auto) Cancelled Eos # (Auto) Cancelled Baso # (Auto) Cancelled Abs Immat Gran (auto) Cancelled Absolute Neuts (auto) Cancelled Absolute Nucleated RBC 0.000 (0.0-0.012) X10*3/uL Nucleated RBC % (auto) 0.0 (0.0-0.2) /100WBC Neutrophils % (Manual) 47 (45-73) % Band Neutrophils % 1 L (3-5) % Lymphocytes % (Manual) 41 H (20-40) % Monocytes % (Manual) 6 (2-11) % Eosinophils % (Manual) 5 H (0-4) % Abs Neuts (Manual) 5.3 (2.0-8.3) X10*3/uL Lymphocytes # (Manual) 4.5 (1.2-4.9) X10*3/uL Monocytes # (Manual) 0.7 (0.1-1.2) X10*3/uL Eosinophils # (Manual) 0.6 H (0.0-0.4) X10*3/uL Smudge Cells PRESENT Platelet Estimate NORMAL (NORMAL) Large Platelets PRESENT Plt Morphology Comment NORMAL RBC Morphology NORMAL Sodium (135-145) mmol/L Potassium (3.3-5.1) mmol/L Chloride (96-108) mmol/L Carbon Dioxide (22-29) mmol/L Anion Gap (12-20) BUN (9-16) mg/dL Creatinine (0.5-1.4) mg/dL Estim Creat Clear Calc Estimated GFR POC Glucose 340 H (60-115) mg/dL Random Glucose (60-115) mg/dL Lactic Acid (0.5-2.0) mmol/L Calcium (8.4-10.2) mg/dL Total Bilirubin (0.0-1.0) mg/dL AST (5-31) U/L ALT (0-31) U/L Alkaline Phosphatase (39-117) U/L B-Natriuretic Peptide (<100) pg/mL Total Protein (6.5-8.0) g/dL Albumin (3.5-5.0) g/dL COVID-19 (KAVITHA) Negative (Negative) COVID-19 Clin Com See Note 09/11/22 09/11/22 09/11/22 Range/Units 00:00 00:00 00:00 WBC (4.8-10.8) X10*3/uL RBC (4.20-5.50) X10*6/uL Hgb (12.0-16.0) g/dl Hct (37.0-47.0) % MCV (80.0-98.0) fL MCH (27.0-33.0) pg MCHC (31.0-35.0) g/dl RDW (11.0-16.0) % Plt Count MPV (9.4-12.3) fL Immature Gran % (Auto) Neut % (Auto) Lymph % (Auto) Mccreary % (Auto) Eos % (Auto) Baso % (Auto) Lymph # (Auto) Mccreary # (Auto) Eos # (Auto) Baso # (Auto) Abs Immat Gran (auto) Absolute Neuts (auto) Absolute Nucleated RBC (0.0-0.012) X10*3/uL Nucleated RBC % (auto) (0.0-0.2) /100WBC Neutrophils % (Manual) (45-73) % Band Neutrophils % (3-5) % Lymphocytes % (Manual) (20-40) % Monocytes % (Manual) (2-11) % Eosinophils % (Manual) (0-4) % Abs Neuts (Manual) (2.0-8.3) X10*3/uL Lymphocytes # (Manual) (1.2-4.9) X10*3/uL Monocytes # (Manual) (0.1-1.2) X10*3/uL Eosinophils # (Manual) (0.0-0.4) X10*3/uL Smudge Cells Platelet Estimate (NORMAL) Large Platelets Plt Morphology Comment RBC Morphology Sodium 138 (135-145) mmol/L Potassium 4.3 D (3.3-5.1) mmol/L Chloride 98 (96-108) mmol/L Carbon Dioxide 29 (22-29) mmol/L Anion Gap 15 (12-20) BUN 27 H (9-16) mg/dL Creatinine 1.05 (0.5-1.4) mg/dL Estim Creat Clear Calc 36.2 Estimated GFR 51 POC Glucose (60-115) mg/dL Random Glucose 297 H (60-115) mg/dL Lactic Acid 1.4 (0.5-2.0) mmol/L Calcium 9.3 D (8.4-10.2) mg/dL Total Bilirubin 0.1 (0.0-1.0) mg/dL AST 13 (5-31) U/L ALT 16 (0-31) U/L Alkaline Phosphatase 96 (39-117) U/L B-Natriuretic Peptide 83 (<100) pg/mL Total Protein 7.2 (6.5-8.0) g/dL Albumin 3.6 (3.5-5.0) g/dL COVID-19 (KAVITHA) (Negative) COVID-19 Clin Com Discharge Plan Discharge Clinical Impression: COPD (chronic obstructive pulmonary disease), Chronic respiratory failure with hypoxia Patient Disposition: Still a Patient Prescriptions: No Action atorvastatin 40 mg tablet 1 tab PO BEDTIME atenolol 100 mg tablet 1 tab PO BID aspirin 81 mg tablet,delayed release (DR/EC) 1 tab PO QPM amlodipine 10 mg tablet 1 tab PO DAILY omeprazole 20 mg capsule,delayed release(DR/EC) 1 cap PO DAILY metformin 500 mg tablet extended release 24 hr 2 tab PO BID cholecalciferol (vitamin D3) 25 mcg (1,000 unit) tablet 1 tab PO QAM insulin glargine [Lantus U-100 Insulin] 100 unit/mL Solution 24 unit SUBCUT DAILY primidone 50 mg Tablet 50 mg PO BID trihexyphenidyl 2 mg Tablet 2 mg PO BID Rx Instructions: give with food (meal/snack) clonazepam 1 mg tablet 1 mg PO BEDTIME prednisone 20 mg tablet 40 mg PO DAILY Qty: 8 0RF
--- NOTE | 2022-09-10 21:29 | ECG_ITS ---
Test Reason : SOB Blood Pressure : / mmHG Vent. Rate : 076 BPM Atrial Rate : 076 BPM P-R Int : 142 ms QRS Dur : 102 ms QT Int : 394 ms P-R-T Axes : 029 -31 056 degrees QTc Int : 443 ms Normal sinus rhythm Left axis deviation Moderate voltage criteria for LVH, may be normal variant ( R in aVL , [place] product ) Abnormal ECG When compared with ECG of 06-SEP-2022 13:06, Borderline criteria for Anterolateral infarct are no longer Present Referred By: Jewel Salgado Electronically Signed By:SUHAIL TAN
[2022-09-10 21:42] LABS: Glucose, Whole Blood 340 mg/dL (60-115)
[2022-09-10 21:49] VITALS: PULSE 82; RESP 18; O2SAT 95
[2022-09-10] MEDS: Albuterol/Iprat 2.5/0.5MG 3 ML AMPUL.NEB INHALE (21:49)
--- NOTE | 2022-09-10 22:52 | PC.NURSE ---
per provider hold off on labs.
[2022-09-10 23:10] LABS: COVID-19 Test Negative (Negative); IDNOW Serial# 6674DD1D
[2022-09-11 00:10] LABS: Hematocrit 38.3 % (37.0-47.0); Hemoglobin 11.9 g/dl (12.0-16.0); Mean Corpuscular HGB Conc 31.1 g/dl (31.0-35.0); Mean Corpuscular Hemoglobin 27.2 pg (27.0-33.0); Mean Corpuscular Volume 87.6 fL (80.0-98.0); Mean Platelet Volume 13.7 fL (9.4-12.3); PLT CLUMP 1; Red Blood Count 4.37 X10*6/uL (4.20-5.50); Red Cell Distribution Width 12.8 % (11.0-16.0)
[2022-09-11 00:11] LABS: WBC ABN SCTR FOR CBC 1
[2022-09-11 00:16] LABS: Lactic Acid 1.4 mmol/L (0.5-2.0)
[2022-09-11 00:21] LABS: Alanine Aminotransferase 16 U/L (0-31); Albumin Level 3.6 g/dL (3.5-5.0); Alkaline Phosphatase 96 U/L (39-117); Anion Gap 15 (12-20); Aspartate Amino Transferase 13 U/L (5-31); Bilirubin Total 0.1 mg/dL (0.0-1.0); Blood Urea Nitrogen 27 mg/dL (9-16); Calcium 9.3 mg/dL (8.4-10.2); Carbon Dioxide 29 mmol/L (22-29); Chloride 98 mmol/L (96-108); Creatinine Clr Calc Pharmacy 36.2; Estimated Glomerular Filt Rate 51; Glucose Random 297 mg/dL (60-115); Potassium 4.3 mmol/L (3.3-5.1); Sodium 138 mmol/L (135-145); Total Protein 7.2 g/dL (6.5-8.0)
[2022-09-11 00:27] LABS: B Type Natriuretic Peptide 83 pg/mL (<100)
[2022-09-11 00:30] LABS: Band Neutrophils Percent 1 % (3-5); Eosinophils Absolute Manual 0.6 X10*3/uL (0.0-0.4); Eosinophils Percent Manual 5 % (0-4); Large Platelet PRESENT; Lymphocytes Absolute Manual 4.5 X10*3/uL (1.2-4.9); Lymphocytes Percent Manual 41 % (20-40); Monocytes Absolute Manual 0.7 X10*3/uL (0.1-1.2); Monocytes Percent Manual 6 % (2-11); Neutrophils Absolute Manual 5.3 X10*3/uL (2.0-8.3); Neutrophils Percent Manual 47 % (45-73); Platelet Estimate NORMAL (NORMAL); Platelet Morphology Comment NORMAL; RBC Morphology NORMAL
[2022-09-11 00:31] LABS: Smudge Cells PRESENT
[2022-09-11 04:00] VITALS: O2SAT 85
[2022-09-11 04:01] VITALS: BP 133/58; PULSE 73; RESP 20; TEMP 37.1; O2SAT 96
--- NOTE | 2022-09-11 04:25 | PC.NURSE ---
Late entry: SHON from home, son at bedside. Pt reports being D/C from here recently and given two O2 tanks where she uses at night. Son reports O2 running low, calling PCP and advise to come to hospital. Pt reports dry nose from O2 use. Pt speaking in full sentences, 94% on 2L via NC, RR 16. SpO2 85% while on RA while Pt was sleeping, placed back on 2L via NC. No apparent distress noted. Will CTM.
[2022-09-11 04:37] VITALS: PULSE 79; O2SAT 94
[2022-09-11 08:17] LABS: Glucose, Whole Blood 185 mg/dL (60-115)
[2022-09-11 08:21] VITALS: BP 135/68; PULSE 65; RESP 17; TEMP 36.8; O2SAT 98
--- NOTE | 2022-09-11 09:03 | PHA.MEDREC ---
Addendum entered by Vicki Lamb RPh 09/11/22 09:22: PT UNCLEAR IF SHE IS ON CLONAZEPAM. BASED ON PDMP GETS FILLED EVERY 30 DAYS. DUE TOMORROW FOR FILL Original Note: Pharmacy Consult ? Medication Reconciliation Pharmacy has completed the medication reconciliation. spoke with patient through an virtual assistant for advertisers. Had med boxes from [facility]. Patient reports not picking up the prednisone and has not started it.
[2022-09-11 10:37] VITALS: BP 159/80; PULSE 62; RESP 18; TEMP 37.2; O2SAT 98
--- NOTE | 2022-09-11 10:49 | MHC.CM.ED ---
Received consult for assessment of d/c needs: [place] [facility] [place] [facility] and new [facility] skilled RN visits. Pt sent home w/portable O2 tank but did not contact [facility] for delivery of O2. She subsequently ran out of the portable supply and represented to the ED for assistance. Pt and primary support Srinivasa (son) Malay speaking only. [facility] [place] contact [facility] to set up home delivery as soon as pt's son arrives to transport pt to home. [facility] contacted to ensure start of services on 09/12. She has two portable tanks that will accompany her. Pt states understanding of plan per use of making department preparer. Son contacted using coordinator integrated marketing as well. ED care team updated on d/c plan.
== END 2022-09-11 11:53 | disposition home or self-care (01) ==
PROVIDERS: Emergency Provider Internal Medicine; PCP Family Medicine
DX: J44.9 Chronic obstructive pulmonary disease, unspecified (principal); J96.11 Chronic respiratory failure with hypoxia; R06.02 Shortness of breath; Z20.822 Contact with and (suspected) exposure to COVID-19; E11.9 Type 2 diabetes mellitus without complications; I10 Essential (primary) hypertension; E78.5 Hyperlipidemia, unspecified; K21.9 Gastro-esophageal reflux disease without esophagitis; G47.33 Obstructive sleep apnea (adult) (pediatric); Z99.89 Dependence on other enabling machines and devices; Z99.81 Dependence on supplemental oxygen; Z79.4 Long term (current) use of insulin; Z79.82 Long term (current) use of aspirin; Z79.899 Other long term (current) drug therapy
CPT/HCPCS: 36415; 80053; 82947; 83605; 83880; 85007; 85027; 87040; 87635; 93005; 94640; 99285

== ENCOUNTER → 2022-09-10 21:29 | Outpatient (BNV) | payer OTHER, MEDICAID, SELFPAY | PROVIDERS: Emergency Provider Internal Medicine; PCP Family Medicine; Visit Provider Internal Medicine | DX: R94.31 Abnormal electrocardiogram [ECG] [EKG] (principal); R06.02 Shortness of breath | CPT/HCPCS: 93010 ==

== ENCOUNTER → 2022-10-11 10:45 | Outpatient (BNV) | payer OTHER, MEDICAID, SELFPAY | PROVIDERS: PCP Family Medicine; Visit Provider Radiology Diagnostic Radiology | DX: Z12.31 Encounter for screening mammogram for malignant neoplasm of breast (principal) | CPT/HCPCS: 77063; 77067 ==

== ENCOUNTER 2022-10-11 10:55 | Outpatient (REF) | payer OTHER, MEDICAID, SELFPAY ==
--- NOTE | ~2022-10-11 | MM_ITS ---
EXAMINATION: MM SCREENING DIGITAL BREAST TOMOSYNTHESIS, BILATERAL CLINICAL INFORMATION: Screening. Asymptomatic. COMPARISON: Mammography: 09/28/2021, and studies dating back to October 07, 2015 TECHNIQUE: Digital breast tomosynthesis is performed in both the craniocaudal and mediolateral oblique views along with computer-aided detection (CAD). Synthesized 2D images are generated from the tomosynthesis. In addition additional full-field 3-D left MLO nipple in profile view was performed. FINDINGS: There are scattered areas of fibroglandular density (ACR BI-RADS breast composition Category b). There are no suspicious masses, suspicious grouped calcifications, or areas of architectural distortion. The parenchymal pattern is stable from prior exams. MM/MM tomosynthesis screening BI IMPRESSION: No mammographic evidence of malignancy. ASSESSMENT: BI-RADS BI-RADS 1 - Negative RECOMMENDATION: Routine annual mammography screening. 1 year F/U This examination should not preclude the clinical evaluation of a suspicious palpable abnormality. This patient's information was entered into a reminder system with a target due date for their next mammogram.
== END 2022-10-11 10:56 | disposition home or self-care (01) ==
LOC: HO.MAMMO 10:55
PROVIDERS: PCP Family Medicine; Visit Provider Family Medicine
DX: Z12.31 Encounter for screening mammogram for malignant neoplasm of breast (principal)
CPT/HCPCS: 77063; 77067

== ENCOUNTER 2022-11-29 14:25 | Outpatient (AMB) | payer OTHER, MEDICAID, SELFPAY ==
--- NOTE | 2022-11-29 14:47 | MHC.OFFVIS ---
Intake Vital Signs 11/29/22 14:49 Weight 176 lb 6 oz BP 140/82 H Blood Pressure Location Rt brachial Position Sitting Pulse 67 Pulse Source Pulse Oximeter Pulse Oximetry (%) 100 Oxygen Delivery Method Nasal Cannula Oxygen Flow Rate 4 Intake Visit Reasons: Letter ENP-TAMIKA - Confirmed Intake Note: Pt here today to establish care for TAMIKA Allergies No Known Allergies [No Known Allergies*] Allergy (Verified 11/29/22 14:52) HPI HPI Comments History of Present Illness Details 77 y/o female patient with COPD, hypoxia presents with her grandson for new in-person visit to manage sleep apnea. Pt reports that she was diagnosed with TAMIKA about 4-5 years ago, and tried BiPAP. However, she did not tolerate BiPAP and stopped using it. Pt is also oxygen dependent, uses continuous supplement O2 at 4L. Sleep questionnaire: Have you ever been diagnosed with a sleep disorder? Yes, Have you ever had a sleep study in the past? Yes, 4-5 years ago. Have you ever been treated for a sleep disorder? Yes, with BiPAP, but not using it. Do you take medications for a sleep disorder? trazodone PRN. Do you snore? Yes. Do you wake up gasping at night? Yes. Do you have episodes of apneas? Yes. If yes, are they witnessed? Yes. Do you have episodes of nocturnal chest pain or dyspnea? Yes, uses supplement O2 4L. Do you have difficulty initiating sleep? Yes. Do you have difficulty maintaining sleep? Yes. Do you wake up tired? Yes. Do you have headaches upon awakening? Yes. Do you wake up with dry mouth or throat? Yes. Do you have GERD? Yes. Do you have nocturia? Yes. Do you have nocturnal leg cramps? No. Do you have symptoms of restless legs? No. Do you act out your dreams? No. Sleep hygiene questionnaire: What is your usual sleep routine? Usual bedtime is at 11 pm; Usual wake up time is at 8-11 am. Do you take naps? Yes. Is your sleep environment cool, dark, and quiet? Yes. Do you exercise? No. Do you take caffeine or other stimulants? 1 cup of coffee in the morning and in the evening. Do you use electronics in bed? Yes. What is your work schedule? N/A Hypersomnolence questionnaire: Do you have daytime tiredness or fatigue? Yes. Do you easily fall asleep when inactive? Yes. Have you ever had episodes of sudden weakness? No. Have you ever had episodes of sudden weakness associated with strong emotions? No. PFSH Medical History Diastolic dysfunction Cardiomegaly Mood disorder Hyperlipidemia Hypertension Insulin dependent type 2 diabetes mellitus GERD (gastroesophageal reflux disease) Surgical History History of esophagogastroduodenoscopy (EGD) Hx of colonoscopy History of tubal ligation Family History Family/Other No significant medical problems Social History Household Members: None Housing: Apartment Housing Other:: rd floor with elevator access Do you presently have visiting nurse or other home services: Yes Alcohol intake: never Patient Tobacco Use Status: Never used Tobacco Advance Directives Date on File: 07/20/20 service: No Current occupational status: unemployed Review of Systems Const All systems reviewed & are unremarkable except as noted in HPI and below ENT Reports Normal hearing present Neuro Reports Normal hearing present Physical Exam Vital Signs: Last Vital Signs Pulse 67 11/29/22 14:49 BP 140/82 H 11/29/22 14:49 Pulse Ox 100 11/29/22 14:49 Oxygen Delivery Method Nasal Cannula 11/29/22 14:49 Oxygen Flow Rate 4 11/29/22 14:49 Const General: cooperative Nutritional Appearance: obese Orientation/consciousness: patient oriented x3 Limitations: language barrier ([place] speaking only) Neck Neck: Yes full ROM and Yes supple Resp Other: Uses continuous supplement O2 at 4L Neuro General: patient oriented x3 Cranial nerves: Yes Bilaterally intact EOM present, Yes Normal facial strength present, Yes Midline tongue present, Yes Symmetric palate elevation present, Yes Normal hearing present, Yes Ability to bilaterally rotate head present and Yes Ability to bilaterally elevate shoulders present Cognition (Neuro): normal cognition Motor exam (neuro): 5/5 motor strength present throughout, Pronator motor function not present and no tremor noted Psych Appearance: grossly normal Mental Status: mental status grossly normal Speech and movement: Normal speech and movement present Affect: normal affect Assessment & Plan Assessment & Plan (1) TAMIKA and COPD overlap syndrome: Code(s): G47.33 - Obstructive sleep apnea (adult) (pediatric); J44.9 - Chronic obstructive pulmonary disease, unspecified Plan Advised patient to undergo in lab sleep study with continuous supplement O2 to assess sleep apnea and hypoxemia. Will f/u with patient after the sleep study to discuss result and appropriate treatment options. Pt to call to call with any worsening concerns and questions. 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
[2022-11-29 14:49] VITALS: BP 140/82; PULSE 67; O2SAT 100
== END 2022-11-29 15:26 | disposition home or self-care (01) ==
PROVIDERS: PCP Family Medicine; Visit Provider Nurse Practitioner Family
DX: G47.33 Obstructive sleep apnea (adult) (pediatric) (principal); J44.9 Chronic obstructive pulmonary disease, unspecified
CPT/HCPCS: 99203

== ENCOUNTER → 2022-11-29 14:25 | Outpatient (BNVA) | payer OTHER, MEDICAID, SELFPAY | PROVIDERS: PCP Family Medicine; Visit Provider Nurse Practitioner Family ==

== ENCOUNTER → 2022-12-14 19:30 | Outpatient (REF) | payer OTHER, MEDICAID, SELFPAY | LOC: HO.SL 19:30 | PROVIDERS: PCP Family Medicine; Visit Provider Nurse Practitioner Family | DX: G47.30 Sleep apnea, unspecified (principal); I51.7 Cardiomegaly; I51.89 Other ill-defined heart diseases; E11.9 Type 2 diabetes mellitus without complications; J44.9 Chronic obstructive pulmonary disease, unspecified; R09.02 Hypoxemia; I10 Essential (primary) hypertension; Z79.4 Long term (current) use of insulin | CPT/HCPCS: 95810 ==

== ENCOUNTER → 2022-12-15 00:43 | Outpatient (BNV) | payer OTHER, MEDICAID, SELFPAY | PROVIDERS: PCP Family Medicine; Visit Provider Psychiatry & Neurology Neurology | DX: G47.33 Obstructive sleep apnea (adult) (pediatric) (principal) | CPT/HCPCS: 95810 ==

== ENCOUNTER → 2023-02-17 19:30 | Outpatient (REF) | payer OTHER, MEDICAID, SELFPAY | LOC: HO.SL 19:30 | PROVIDERS: PCP Family Medicine; Visit Provider Nurse Practitioner Family | DX: G47.33 Obstructive sleep apnea (adult) (pediatric) (principal) | CPT/HCPCS: 95811 ==

== ENCOUNTER → 2023-02-17 23:08 | Outpatient (BNV) | payer OTHER, MEDICAID, SELFPAY | PROVIDERS: PCP Family Medicine; Visit Provider Psychiatry & Neurology Neurology | DX: G47.33 Obstructive sleep apnea (adult) (pediatric) (principal) | CPT/HCPCS: 95811 ==

== ENCOUNTER 2023-04-06 09:44 | Outpatient (REF) | payer OTHER, MEDICAID, SELFPAY ==
[2023-04-06 11:46] LABS: Estimated Average Glucose 171 mg/dL; Hemoglobin A1c % 7.6 % (<6.0)
[2023-04-06 11:48] LABS: Alanine Aminotransferase 13 U/L (0-31); Albumin Level 4.2 g/dL (3.5-5.0); Alkaline Phosphatase 85 U/L (39-117); Anion Gap 12 (12-20); Aspartate Amino Transferase 17 U/L (5-31); Bilirubin Direct < 0.2 mg/dL (0.0-0.5); Bilirubin Total 0.2 mg/dL (0.0-1.0); Blood Urea Nitrogen 21 mg/dL (9-16); Calcium 9.9 mg/dL (8.4-10.2); Carbon Dioxide 33 mmol/L (22-29); Chloride 101 mmol/L (96-108); Cholesterol 171 mg/dL (<200); Estimated Glomerular Filt Rate 60; Glucose Random 151 mg/dL (60-115); HDL Cholesterol 47 mg/dL (>40); LDL Cholesterol Calculated 84 mg/dL (<100); Potassium 4.3 mmol/L (3.3-5.1); Sodium 142 mmol/L (135-145); Total Protein 8.2 g/dL (6.5-8.0); Triglycerides 203 mg/dL (<150)
[2023-04-06 12:08] LABS: ~HepC Num1 0.11 S/CO (0.00-0.79); ~Hepatitis C Antibody Nonreactive (Nonreactive)
[2023-04-06 12:17] LABS: Creatinine Urine 87.92 mg/dL; Microalbum/Creatinine Ratio Ur 350.3 ug/mg cr (<30)
== END 2023-04-06 09:45 | disposition home or self-care (01) ==
LOC: HO.HHCL 09:44
PROVIDERS: Visit Provider Family Medicine
DX: Z11.59 Encounter for screening for other viral diseases (principal); E78.5 Hyperlipidemia, unspecified; Z79.4 Long term (current) use of insulin
CPT/HCPCS: 36415; 80048; 80061; 80076; 82043; 82570; 83036; 86803

== ENCOUNTER 2023-04-19 14:48 | Outpatient (AMB) | payer OTHER, MEDICAID, SELFPAY ==
--- NOTE | 2023-04-19 14:50 | A.OFFVIS_ITS ---
Intake Vital Signs 04/19/23 14:57 Height 5 ft Weight 162 lb BMI 31.6 BP 140/80 H Blood Pressure Location Rt brachial Position Sitting Pulse 75 Pulse Source Pulse Oximeter Pulse Oximetry (%) 96 Oxygen Delivery Method Room Air Intake Visit Reasons: Follow Up - CONF w/address Intake Note: Patient presents for f/u. Allergies No Known Allergies [No Known Allergies*] Allergy (Verified 04/19/23 14:56) HPI HPI Comments History of Present Illness Details 78 y/o female patient presents with her grandson for follow up of sleep study. retread technician ID #[id number] utilized. Pt has hx of COPD and hypoxia, was on 4LPM of O2. Pt reports that her barrel charrer helper told her that she does not need to use continuous O2 during daytime, so she stopped using it. The PSG sleep study result was significant for a severe degree of sleep apnea. The AHI was 40/hr, REM AHI was 85/hr and oxygen apurva was 56%. She uses 4LPM of O2 at home and during this sleep study, supplemented with 1LPM. Pt also underwent titration study. Pt's breathing and oxygenation stabilized with CPAP at [id number] and supplemental oxygen 1L. CPAP ordered, but patient has not received CPAP yet. COUNT INCLUDES [facility] Medical History Diastolic dysfunction Cardiomegaly Mood disorder Hyperlipidemia Hypertension Insulin dependent type 2 diabetes mellitus GERD (gastroesophageal reflux disease) Surgical History History of esophagogastroduodenoscopy (EGD) Hx of colonoscopy History of tubal ligation Family History Family/Other No significant medical problems Social History Household Members: None Housing: Apartment Housing Other:: rd floor with elevator access Do you presently have visiting nurse or other home services: Yes Alcohol intake: never Patient Tobacco Use Status: Never used Tobacco Advance Directives Date on File: 07/20/20 service: No Current occupational status: unemployed Review of Systems Const All systems reviewed & are unremarkable except as noted in HPI and below ENT Reports Normal hearing present Neuro Reports Normal hearing present Physical Exam Vital Signs: Last Vital Signs Pulse 75 04/19/23 14:57 BP 140/80 H 04/19/23 14:57 Pulse Ox 96 04/19/23 14:57 Oxygen Delivery Method Room Air 04/19/23 14:57 BMI result Body Mass Index 31.6 Const General: cooperative Nutritional Appearance: obese Orientation/consciousness: patient oriented x3 Limitations: language barrier ([place] speaking only) Neck Neck: Yes full ROM and Yes supple Resp Other: Uses continuous supplement O2 at 4L Neuro General: patient oriented x3 Cranial nerves: Yes Bilaterally intact EOM present, Yes Normal facial strength present, Yes Midline tongue present, Yes Symmetric palate elevation present, Yes Normal hearing present, Yes Ability to bilaterally rotate head present and Yes Ability to bilaterally elevate shoulders present Cognition (Neuro): normal cognition Motor exam (neuro): 5/5 motor strength present throughout, Pronator motor function not present and no tremor noted Psych Appearance: grossly normal Mental Status: mental status grossly normal Speech and movement: Normal speech and movement present Affect: normal affect Assessment & Plan Assessment & Plan (1) TAMIKA and COPD overlap syndrome: Code(s): G47.33 - Obstructive sleep apnea (adult) (pediatric); J44.9 - Chronic obstructive pulmonary disease, unspecified Plan Resent CPAP prescription to [facility]. [facility] information given to patient. Advised patient to start CPAP at [id number] with supplemental O2 1 L at night. Stressed compliance, use CPAP nightly and more than 4 hrs. Coding Level of Care Code Est Pt Level 3 (35525) Diagnoses TAMIKA and COPD overlap syndrome G47.33; J44.9
[2023-04-19 14:57] VITALS: BP 140/80; PULSE 75; O2SAT 96; BMI 31.6
== END 2023-04-19 15:19 | disposition home or self-care (01) ==
PROVIDERS: PCP Family Medicine; Visit Provider Nurse Practitioner Family
DX: G47.33 Obstructive sleep apnea (adult) (pediatric) (principal); J44.9 Chronic obstructive pulmonary disease, unspecified
CPT/HCPCS: 99213

== ENCOUNTER → 2023-04-19 14:48 | Outpatient (BNVA) | payer OTHER, MEDICAID, SELFPAY | PROVIDERS: PCP Family Medicine; Visit Provider Nurse Practitioner Family | DX: J44.9 Chronic obstructive pulmonary disease, unspecified (principal); G47.33 Obstructive sleep apnea (adult) (pediatric) | CPT/HCPCS: 99212 ==

== ENCOUNTER 2023-06-22 10:52 | Outpatient (REF) | payer OTHER, SELFPAY ==
[2023-06-22 11:35] LABS: Anion Gap 11 (12-20); Blood Urea Nitrogen 15 mg/dL (9-16); Calcium 9.5 mg/dL (8.4-10.2); Carbon Dioxide 32 mmol/L (22-29); Chloride 99 mmol/L (96-108); Estimated Glomerular Filt Rate 49; Glucose Random 168 mg/dL (60-115); Potassium 4.3 mmol/L (3.3-5.1); Sodium 138 mmol/L (135-145)
== END 2023-06-22 10:53 | disposition home or self-care (01) ==
LOC: HO.LAB 10:52
PROVIDERS: PCP Family Medicine; Visit Provider Internal Medicine
DX: U07.1 COVID-19 (principal)
CPT/HCPCS: 36415; 80048; 83605

== ENCOUNTER 2023-07-27 13:37 | Outpatient (REF) | payer OTHER, SELFPAY ==
[2023-07-27 15:45] LABS: Appearance Urine Clear; Color Urine Yellow; Glucose Urine UA >=1000 mg/dL (Negative); Leukocyte Esterase Urine Negative (Negative); Nitrite Urine Negative (Negative); Specific Gravity - Urine >= 1.030 (1.005-1.025); UMIC TRIGGER UA YES; Urine Blood Negative (Negative); Urine Ketones Negative (Negative); Urine Protein 30 (1+) mg/dL (Neg-Trace)
[2023-07-27 15:45] LABS: Hematocrit 37.1 % (37.0-47.0); Hemoglobin 11.7 g/dl (12.0-16.0); Mean Corpuscular HGB Conc 31.5 g/dl (31.0-35.0); Mean Corpuscular Hemoglobin 27.7 pg (27.0-33.0); Mean Corpuscular Volume 87.9 fL (80.0-98.0); PLT CLUMP 1; Red Blood Count 4.22 X10*6/uL (4.20-5.50); Red Cell Distribution Width 13.2 % (11.0-16.0)
[2023-07-27 15:52] LABS: Bacteria Urine None Seen (None Seen); Hyaline Casts Urine 0-2 /LPF (0-2); RBC Urine 0-2 /HPF (0-2); WBC Urine 0-5 /HPF (0-5)
[2023-07-27 15:53] LABS: PLT ABN DIST 1; White Blood Count 10.6 X10*3/uL (4.8-10.8)
[2023-07-27 16:09] LABS: Alanine Aminotransferase 17 U/L (0-31); Alkaline Phosphatase 85 U/L (39-117); Anion Gap 15 (12-20); Aspartate Amino Transferase 19 U/L (5-31); Bilirubin Total 0.2 mg/dL (0.0-1.0); Blood Urea Nitrogen 24 mg/dL (9-16); Calcium 9.7 mg/dL (8.4-10.2); Carbon Dioxide 31 mmol/L (22-29); Chloride 98 mmol/L (96-108); Estimated Glomerular Filt Rate 51; Glucose Random 139 mg/dL (60-115); Potassium 4.7 mmol/L (3.3-5.1); Sodium 139 mmol/L (135-145); Total Protein 7.7 g/dL (6.5-8.0)
[2023-07-27 16:18] LABS: Creatinine Urine 99.69 mg/dL; Total Protein Urine Random 41 mg/dL (<12)
[2023-07-27 16:19] LABS: Mean Platelet Volume 13.7 fL (9.4-12.3); Platelet Count 230 X10*3/uL (160-400)
== END 2023-07-27 13:38 | disposition home or self-care (01) ==
LOC: HO.LAB 13:37
PROVIDERS: PCP Family Medicine; Referring Provider Family Medicine; Visit Provider Internal Medicine Hypertension Specialist
DX: E11.22 Type 2 diabetes mellitus with diabetic chronic kidney disease (principal); I12.9 Hypertensive chronic kidney disease with stage 1 through stage 4 chronic kidney disease, or unspecified chronic kidney disease; N18.9 Chronic kidney disease, unspecified; R80.9 Proteinuria, unspecified
CPT/HCPCS: 36415; 80053; 81001; 82570; 84156; 85027; 99202

== ENCOUNTER 2023-07-27 13:37 | Outpatient (AMB) | payer OTHER, SELFPAY ==
--- NOTE | 2023-07-27 13:39 | HO.NEPHOV ---
Vital Signs 07/27/23 13:40 Height 5 ft Weight 157 lb BMI 30.7 BP 134/70 Blood Pressure Location Rt brachial Position Sitting Pulse 72 Pulse Source Pulse Oximeter Pulse Oximetry (%) 91 L Oxygen Delivery Method Room Air Intake Visit Reasons: Proteinuria/ Conf Offal Icer Poultry Required: Yes Offal Icer Poultry Name: Mando [id number] Accompanied by: Friend Allergies No Known Allergies [No Known Allergies*] Allergy (Verified 07/27/23 13:46) Medication List - Last Reconciled 07/27/23 by Emory Chamorro MD amlodipine 1 tab PO DAILY aspirin 1 tab PO QPM atenolol 1 tab PO BID atorvastatin 1 tab PO BEDTIME cholecalciferol (vitamin D3) 1 tab PO QAM clonazepam 1 mg PO BEDTIME insulin glargine (Lantus U-100 Insulin) 24 units subcut DAILY losartan 25 mg PO DAILY metformin ER 2 tabs PO BID omeprazole 1 cap PO DAILY primidone 50 mg PO BID trihexyphenidyl 2 mg PO BID HPI Comments Details: Gay is a 78 new year old woman with a history of longstanding diabetes mellitus for more than 15 years along with hypertension. She has been referred for evaluation of proteinuria. She is currently on losartan for renal protection. She was accompanied by a family member. Offal Icer Poultry service was used. She has been compliant with her medications. Today she has no complaints like headache nausea vomiting. No shortness of breath. No edema. No polyuria polydipsia. No fever no rash. No joint pains. [facility] Medical History Diastolic dysfunction Cardiomegaly Mood disorder Hyperlipidemia Hypertension Insulin dependent type 2 diabetes mellitus GERD (gastroesophageal reflux disease) Surgical History History of esophagogastroduodenoscopy (EGD) Hx of colonoscopy History of tubal ligation Family History Family/Other No significant medical problems Social History Household Members: None Housing: Apartment Housing Other:: rd floor with elevator access Do you presently have visiting nurse or other home services: Yes Alcohol intake: never Patient Tobacco Use Status: Never used Tobacco Advance Directives Date on File: 07/20/20 service: No Current occupational status: unemployed Physical Exam Vital Signs: Last Vital Signs Pulse 72 07/27/23 13:40 BP 134/70 07/27/23 13:40 Pulse Ox 91 L 07/27/23 13:40 Oxygen Delivery Method Room Air 07/27/23 13:40 BMI result Body Mass Index 30.7 Const General: comfortable; No acute distress Orientation/consciousness: patient oriented x3 Eyes General: appearance normal, both eyes and all related structures Visual Mckeon: normal visual mckeon by confrontation Neck Neck: Yes supple and Yes no JVD Resp Effort & Inspection: normal respiratory effort and respiratory effort not decreased Auscultation: rhonchi Cardio Palpation: no palpable S3 and no palpable S4 Heart sounds: no rubs GI Inspection: Yes normal to inspection Palpation (GI): Soft to palpation Percussion: Yes normal to percussion Auscultation: normal bowel sounds General: Yes no CVA tenderness Back/Spine/Pelvis Back: no CVA tenderness Skin General skin exam: no petechiae and no purpura Neuro General: patient oriented x3 and no focal motor deficits Extrem General: No clubbing and No edema Results Reviewed Nephrology Results: Hgb Pending 07/27/23 WBC Pending 07/27/23 Plt Count Pending 07/27/23 Sodium 138 mmol/L (135-145) 06/22/23 Potassium 4.3 mmol/L (3.3-5.1) 06/22/23 Chloride 99 mmol/L (96-108) 06/22/23 Carbon Dioxide 32 mmol/L (22-29) H 06/22/23 BUN 15 mg/dL (9-16) 06/22/23 Creatinine 1.09 mg/dL (0.5-1.4) 06/22/23 Calcium 9.5 mg/dL (8.4-10.2) 06/22/23 Urine Creatinine 87.92 mg/dL 04/06/23 Assessment & Plan Assessment & Plan (1) Hypertension: Code(s): I10 - Essential (primary) hypertension Category: Medical (2) CKD (chronic kidney disease): Code(s): N18.9 - Chronic kidney disease, unspecified Category: Medical (3) Proteinuria: Code(s): R80.9 - Proteinuria, unspecified Category: Medical Plan Gay is a 78-year-old woman with non nephrotic range proteinuria in the setting of longstanding diabetes mellitus hypertension. 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 No clinical events obstruction. No evidence of any active glomerulonephritis or interstitial disease at this time. I have initiated workup for CKD. Recheck urine protein creatinine ratio. Check renal ultrasonogram. Optimize blood pressure and maintain blood pressure less than 130/80. Agree with angiotensin receptor jo. Gradually titrate the dose to maximize ARASELI inhibition. Continue overt nephrotoxic agents including NSAIDs. Encouraged her to stay on low-sodium diet. Increase p.o. fluid intake and avoid dehydration. Answered all questions. Return to office in the next few weeks Orders: Orders Complete Blood Count no Diff Today E11.9 - Type 2 diabetes mellitus without complications, I10 - Essential (primary) hypertension Total Protein Urine Random Today E11.9 - Type 2 diabetes mellitus without complications, I10 - Essential (primary) hypertension Creatinine Urine Today E11.9 - Type 2 diabetes mellitus without complications, I10 - Essential (primary) hypertension Comprehensive Met. Panel Today E11.9 - Type 2 diabetes mellitus without complications, I10 - Essential (primary) hypertension UA and rflx microscopic Today E11.9 - Type 2 diabetes mellitus without complications, I10 - Essential (primary) hypertension US renal BI Today N18.9 - Chronic kidney disease, unspecified Coding Level of Care Code New Pt Level 4 (58611) Diagnoses Hypertension I10 CKD (chronic kidney disease) N18.9 Proteinuria R80.9
[2023-07-27 13:40] VITALS: BP 134/70; PULSE 72; O2SAT 91; BMI 30.7
== END 2023-07-27 14:07 | disposition home or self-care (01) ==
PROVIDERS: PCP Family Medicine; Referring Provider Family Medicine; Visit Provider Internal Medicine Hypertension Specialist
DX: I12.9 Hypertensive chronic kidney disease with stage 1 through stage 4 chronic kidney disease, or unspecified chronic kidney disease (principal); N18.9 Chronic kidney disease, unspecified; R80.9 Proteinuria, unspecified
CPT/HCPCS: 99204

== ENCOUNTER 2023-08-30 12:02 | Outpatient (REF) | payer OTHER, SELFPAY ==
[2023-08-30 13:57] LABS: Anion Gap 14 (12-20); Blood Urea Nitrogen 25 mg/dL (9-16); Calcium 9.8 mg/dL (8.4-10.2); Carbon Dioxide 30 mmol/L (22-29); Chloride 101 mmol/L (96-108); Estimated Glomerular Filt Rate 42; Glucose Random 300 mg/dL (60-115); Potassium 4.5 mmol/L (3.3-5.1); Sodium 140 mmol/L (135-145)
[2023-08-30 18:13] LABS: Appearance Urine Clear; Color Urine Yellow; Glucose Urine UA >=1000 mg/dL (Negative); Leukocyte Esterase Urine Trace (Negative); Nitrite Urine Negative (Negative); PH 6.5 (5.0-9.0); UMIC TRIGGER UA YES; Urine Blood Negative (Negative); Urine Ketones Negative (Negative); Urine Protein 100 (2+) mg/dL (Neg-Trace)
[2023-08-30 18:33] LABS: Bacteria Urine None Seen (None Seen); Hyaline Casts Urine 0-2 /LPF (0-2); RBC Urine 0-2 /HPF (0-2)
[2023-08-30 18:34] LABS: Specific Gravity - Urine >= 1.030 (1.005-1.025)
== END 2023-08-30 12:03 | disposition home or self-care (01) ==
LOC: HO.HHCL 12:02
PROVIDERS: Internal Medicine Hypertension Specialist; Visit Provider Family Medicine
DX: I10 Essential (primary) hypertension (principal); E11.9 Type 2 diabetes mellitus without complications
CPT/HCPCS: 36415; 80048; 81001

== ENCOUNTER 2023-08-31 10:53 | Outpatient (AMB) | payer OTHER, SELFPAY ==
--- NOTE | 2023-08-31 10:54 | HO.NEPHOV ---
Vital Signs 08/31/23 10:55 Height 5 ft Weight 159 lb BMI 31.0 BP 122/64 Blood Pressure Location Lt brachial Position Sitting Pulse 70 Pulse Source Pulse Oximeter Pulse Oximetry (%) 93 Oxygen Delivery Method Room Air Intake Visit Reasons: Proteinuria/ Conf Construction Helper Required: Yes Construction Helper Name: Sunni [id number] Accompanied by: Self / Same As Patient Allergies No Known Allergies [No Known Allergies*] Allergy (Verified 08/31/23 10:58) Medication List - Last Reconciled 08/31/23 by Emory Chamorro MD amlodipine 1 tab PO DAILY aspirin 1 tab PO QPM atenolol 1 tab PO BID atorvastatin 1 tab PO BEDTIME cholecalciferol (vitamin D3) 1 tab PO QAM clonazepam 1 mg PO BEDTIME empagliflozin-metformin 10-1,000 mg ER (Synjardy XR) 1 tab PO DAILY insulin glargine (Lantus U-100 Insulin) 24 units subcut DAILY losartan 25 mg PO DAILY omeprazole 1 cap PO DAILY primidone 50 mg PO BID trihexyphenidyl 2 mg PO BID HPI Comments Details: Gay is a 78 new year old woman with a history of longstanding diabetes mellitus for more than 15 years along with hypertension. She has been referred for evaluation of proteinuria. She is currently on losartan for renal protection. She was accompanied by a family member. Construction Helper service was used. She has been compliant with her medications. Today she has no complaints like headache nausea vomiting. No shortness of breath. No edema. No polyuria polydipsia. No fever no rash. No joint pains. [facility] Medical History Diastolic dysfunction Cardiomegaly Mood disorder Hyperlipidemia Hypertension Insulin dependent type 2 diabetes mellitus GERD (gastroesophageal reflux disease) Surgical History History of esophagogastroduodenoscopy (EGD) Hx of colonoscopy History of tubal ligation Family History Family/Other No significant medical problems Social History Household Members: None Housing: Apartment Housing Other:: rd floor with elevator access Do you presently have visiting nurse or other home services: Yes Alcohol intake: never Patient Tobacco Use Status: Never used Tobacco Advance Directives Date on File: 07/20/20 service: No Current occupational status: unemployed Physical Exam Vital Signs: Last Vital Signs Pulse 70 08/31/23 10:55 BP 122/64 08/31/23 10:55 Pulse Ox 93 08/31/23 10:55 Oxygen Delivery Method Room Air 08/31/23 10:55 BMI result Body Mass Index 31.0 Results Reviewed Nephrology Results: Hgb 11.7 g/dl (12.0-16.0) L 07/27/23 WBC 10.6 X10*3/uL (4.8-10.8) 07/27/23 Plt Count 230 X10*3/uL (160-400) 07/27/23 Sodium 140 mmol/L (135-145) 08/30/23 Potassium 4.5 mmol/L (3.3-5.1) 08/30/23 Chloride 101 mmol/L (96-108) 08/30/23 Carbon Dioxide 30 mmol/L (22-29) H 08/30/23 BUN 25 mg/dL (9-16) H 08/30/23 Creatinine 1.24 mg/dL (0.5-1.4) 08/30/23 Calcium 9.8 mg/dL (8.4-10.2) 08/30/23 Urine Protein 100 (2+) mg/dL (Neg-Trace) H 08/30/23 Urine Creatinine 99.69 mg/dL 07/27/23 Assessment & Plan Assessment & Plan (1) CKD (chronic kidney disease): Code(s): N18.9 - Chronic kidney disease, unspecified Category: Medical (2) Hypertension: Code(s): I10 - Essential (primary) hypertension Category: Medical (3) Proteinuria: Code(s): R80.9 - Proteinuria, unspecified Category: Medical Plan Gay is a 78-year-old woman with non nephrotic range proteinuria in the setting of longstanding diabetes mellitus hypertension. 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 No clinical evidence of obstruction. No evidence of any active glomerulonephritis or interstitial disease at this time. Mild acceptabel increase in creatinine She could have a component of hypoperfusion ( She had diarrhea) Encouraged in increase PO fluids Optimize blood pressure and maintain blood pressure less than 130/80. Agree with angiotensin receptor jo. Gradually titrate the dose to maximize ARASELI inhibition. Continue overt nephrotoxic agents including NSAIDs. Encouraged her to stay on low-sodium diet. Urine with leukocytes Will check culture Orders: Orders Urine Culture Today N18.9 - Chronic kidney disease, unspecified Coding Level of Care Code Est Pt Level 4 (04188) Diagnoses CKD (chronic kidney disease) N18.9 Hypertension I10 Proteinuria R80.9
[2023-08-31 10:55] VITALS: BP 122/64; PULSE 70; O2SAT 93; BMI 31.0
== END 2023-08-31 11:12 | disposition home or self-care (01) ==
PROVIDERS: PCP Family Medicine; Visit Provider Internal Medicine Hypertension Specialist
DX: I12.9 Hypertensive chronic kidney disease with stage 1 through stage 4 chronic kidney disease, or unspecified chronic kidney disease (principal); N18.9 Chronic kidney disease, unspecified; R80.9 Proteinuria, unspecified
CPT/HCPCS: 99214

== ENCOUNTER → 2023-08-31 10:53 | Outpatient (BNVA) | payer OTHER, SELFPAY | PROVIDERS: PCP Family Medicine; Visit Provider Internal Medicine Hypertension Specialist | DX: R80.9 Proteinuria, unspecified (principal); E11.65 Type 2 diabetes mellitus with hyperglycemia; I12.9 Hypertensive chronic kidney disease with stage 1 through stage 4 chronic kidney disease, or unspecified chronic kidney disease; Z79.4 Long term (current) use of insulin | CPT/HCPCS: 81001; 87086; 99212 ==

== ENCOUNTER 2023-08-31 11:52 | Outpatient (REF) | payer OTHER, SELFPAY ==
[2023-08-31 13:41] LABS: Appearance Urine Clear; Color Urine Yellow; Glucose Urine UA >=1000 mg/dL (Negative); Leukocyte Esterase Urine Negative (Negative); Nitrite Urine Negative (Negative); PH 5.5 (5.0-9.0); Specific Gravity - Urine 1.025 (1.005-1.025); UMIC TRIGGER UA YES; Urine Blood Negative (Negative); Urine Ketones Negative (Negative); Urine Protein 30 (1+) mg/dL (Neg-Trace)
[2023-08-31 13:47] LABS: Bacteria Urine None Seen (None Seen); Hyaline Casts Urine 0-2 /LPF (0-2); RBC Urine 0-2 /HPF (0-2); Squamous Epithelial Cell Urine 0-2 /HPF (0-2); WBC Urine 0-5 /HPF (0-5)
== END 2023-08-31 11:53 | disposition home or self-care (01) ==
LOC: HO.10HDLNP 11:52
PROVIDERS: Visit Provider Internal Medicine Hypertension Specialist
DX: Z13.89 Encounter for screening for other disorder (principal)
CPT/HCPCS: 81001; 87086

== ENCOUNTER 2023-12-04 10:52 | Outpatient (AMB) | payer OTHER, SELFPAY ==
--- NOTE | 2023-12-04 10:50 | HO.NEPHOV ---
Vital Signs 12/04/23 10:51 Height 5 ft Weight 167 lb BMI 32.6 BP 138/72 Blood Pressure Location Lt brachial Position Sitting Pulse 87 Pulse Source Pulse Oximeter Pulse Oximetry (%) 94 Oxygen Delivery Method Room Air Intake Visit Reasons: Proteinuria/ Conf Traffic Attendant Required: Yes Traffic Attendant Name: Pamella [id number] Accompanied by: Self / Same As Patient Allergies No Known Allergies [No Known Allergies*] Allergy (Verified 12/04/23 10:52) Medication List - Last Reconciled 12/04/23 by Emory Chamorro MD amlodipine 1 tab PO DAILY aspirin 1 tab PO QPM atenolol 50 mg PO BID atorvastatin 1 tab PO BEDTIME cholecalciferol (vitamin D3) 1 tab PO QAM empagliflozin (Jardiance) 25 mg PO DAILY insulin glargine (Lantus U-100 Insulin) 24 units subcut DAILY losartan 50 mg PO DAILY omeprazole 1 cap PO DAILY primidone 50 mg PO BID HPI Comments Details: Gay is a 78 new year old woman with a history of longstanding diabetes mellitus for more than 15 years along with hypertension. She has been referred for evaluation of proteinuria. She is currently on losartan for renal protection. She was accompanied by a family member. Traffic Attendant service was used. She has been compliant with her medications. Today she has no complaints like headache nausea vomiting. No shortness of breath. No edema. No polyuria polydipsia. No fever no rash. No joint pains. 12/04/23 Did not undergo any investigations as ordered. Traffic Attendant service was used. [facility] Medical History Diastolic dysfunction Cardiomegaly Mood disorder Hyperlipidemia Hypertension Insulin dependent type 2 diabetes mellitus GERD (gastroesophageal reflux disease) Surgical History History of esophagogastroduodenoscopy (EGD) Hx of colonoscopy History of tubal ligation Family History Family/Other No significant medical problems Social History Household Members: None Housing: Apartment Housing Other:: rd floor with elevator access Do you presently have visiting nurse or other home services: Yes Alcohol intake: never Patient Tobacco Use Status: Never used Tobacco Advance Directives Date on File: 07/20/20 service: No Current occupational status: unemployed Physical Exam Vital Signs: Last Vital Signs Pulse 87 12/04/23 10:51 BP 138/72 12/04/23 10:51 Pulse Ox 94 12/04/23 10:51 Oxygen Delivery Method Room Air 12/04/23 10:51 BMI result Body Mass Index 32.6 Const General: comfortable; No acute distress Orientation/consciousness: patient oriented x3 Eyes General: appearance normal, both eyes and all related structures Visual Mckeon: normal visual mckeon by confrontation Neck Neck: Yes supple and Yes no JVD Resp Effort & Inspection: normal respiratory effort and respiratory effort not decreased Auscultation: rhonchi Cardio Palpation: no palpable S3 and no palpable S4 Heart sounds: no rubs GI Inspection: Yes normal to inspection Palpation (GI): Soft to palpation Percussion: Yes normal to percussion Auscultation: normal bowel sounds General: Yes no CVA tenderness Back/Spine/Pelvis Back: no CVA tenderness Skin General skin exam: no petechiae and no purpura Neuro General: patient oriented x3 and no focal motor deficits Extrem General: No clubbing and No edema Results Reviewed Nephrology Results: Hgb 11.7 g/dl (12.0-16.0) L 07/27/23 WBC 10.6 X10*3/uL (4.8-10.8) 07/27/23 Plt Count 230 X10*3/uL (160-400) 07/27/23 Sodium 140 mmol/L (135-145) 08/30/23 Potassium 4.5 mmol/L (3.3-5.1) 08/30/23 Chloride 101 mmol/L (96-108) 08/30/23 Carbon Dioxide 30 mmol/L (22-29) H 08/30/23 BUN 25 mg/dL (9-16) H 08/30/23 Creatinine 1.24 mg/dL (0.5-1.4) 08/30/23 Calcium 9.8 mg/dL (8.4-10.2) 08/30/23 Urine Protein 30 (1+) mg/dL (Neg-Trace) H 08/31/23 Urine Creatinine 99.69 mg/dL 07/27/23 Assessment & Plan Assessment & Plan (1) CKD (chronic kidney disease): Code(s): N18.9 - Chronic kidney disease, unspecified Category: Medical (2) Hypertension: Code(s): I10 - Essential (primary) hypertension Category: Medical Plan Gay is a 78-year-old woman with non nephrotic range proteinuria in the setting of longstanding diabetes mellitus hypertension. 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 No clinical evidence of obstruction. No evidence of any active glomerulonephritis or interstitial disease at this time. Mild acceptable increase in creatinine She could have a component of hypoperfusion ( She had diarrhea) Encouraged in increase PO fluids Optimize blood pressure and maintain blood pressure less than 130/80. Agree with angiotensin receptor jo. Gradually titrate the dose to maximize ARASELI inhibition. Continue overt nephrotoxic agents including NSAIDs. Encouraged her to stay on low-sodium diet. Reordered investigations. Orders: Orders Total Protein Urine Random Today N18.9 - Chronic kidney disease, unspecified, R80.9 - Proteinuria, unspecified US renal BI Today I10 - Essential (primary) hypertension, N18.9 - Chronic kidney disease, unspecified, R80.9 - Proteinuria, unspecified Basic Metabolic Panel Today N18.9 - Chronic kidney disease, unspecified, R80.9 - Proteinuria, unspecified Creatinine Urine Today N18.9 - Chronic kidney disease, unspecified, R80.9 - Proteinuria, unspecified UA and rflx microscopic Today N18.9 - Chronic kidney disease, unspecified, R80.9 - Proteinuria, unspecified Coding Level of Care Code Est Pt Level 4 (84602) Diagnoses CKD (chronic kidney disease) N18.9 Hypertension I10
[2023-12-04 10:51] VITALS: BP 138/72; PULSE 87; O2SAT 94; BMI 32.6
== END 2023-12-04 11:08 | disposition home or self-care (01) ==
PROVIDERS: PCP Family Medicine; Visit Provider Internal Medicine Hypertension Specialist
DX: I12.9 Hypertensive chronic kidney disease with stage 1 through stage 4 chronic kidney disease, or unspecified chronic kidney disease (principal); E11.22 Type 2 diabetes mellitus with diabetic chronic kidney disease; N18.30 Chronic kidney disease, stage 3 unspecified
CPT/HCPCS: 99214

== ENCOUNTER → 2023-12-04 10:52 | Outpatient (BNVA) | payer OTHER, SELFPAY | PROVIDERS: PCP Family Medicine; Visit Provider Internal Medicine Hypertension Specialist | DX: R80.9 Proteinuria, unspecified (principal); I12.9 Hypertensive chronic kidney disease with stage 1 through stage 4 chronic kidney disease, or unspecified chronic kidney disease; E11.22 Type 2 diabetes mellitus with diabetic chronic kidney disease; N18.9 Chronic kidney disease, unspecified | CPT/HCPCS: 36415; 80048; 81001; 82570; 84156; 99212 ==

== ENCOUNTER 2023-12-04 11:34 | Outpatient (REF) | payer OTHER, SELFPAY ==
[2023-12-04 14:18] LABS: Color Urine Yellow; Glucose Urine UA >=1000 mg/dL (Negative); Leukocyte Esterase Urine Negative (Negative); Nitrite Urine Negative (Negative); PH 5.5 (5.0-9.0); Specific Gravity - Urine 1.025 (1.005-1.025); UMIC TRIGGER UA YES; Urine Blood Negative (Negative); Urine Ketones Negative (Negative); Urine Protein 30 (1+) mg/dL (Neg-Trace)
[2023-12-04 14:24] LABS: Appearance Urine Clear; Bacteria Urine None Seen (None Seen); Hyaline Casts Urine 0-2 /LPF (0-2); RBC Urine 0-2 /HPF (0-2); Squamous Epithelial Cell Urine 0-2 /HPF (0-2); WBC Urine 0-5 /HPF (0-5)
[2023-12-04 14:34] LABS: Anion Gap 14 (12-20); Blood Urea Nitrogen 29 mg/dL (9-16); Calcium 9.3 mg/dL (8.4-10.2); Carbon Dioxide 29 mmol/L (22-29); Chloride 98 mmol/L (96-108); Estimated Glomerular Filt Rate 35; Glucose Random 282 mg/dL (60-115); Potassium 4.5 mmol/L (3.3-5.1); Sodium 136 mmol/L (135-145)
[2023-12-04 14:43] LABS: Creatinine Urine 46.52 mg/dL; Total Protein Urine Random 41 mg/dL (<12)
== END 2023-12-04 11:35 | disposition home or self-care (01) ==
LOC: HO.10HDL 11:34
PROVIDERS: Visit Provider Internal Medicine Hypertension Specialist
DX: Z13.89 Encounter for screening for other disorder (principal)
CPT/HCPCS: 36415; 80048; 81001; 81003; 82570; 84156

== ENCOUNTER 2023-12-12 10:53 | Outpatient (REF) | payer OTHER, SELFPAY ==
--- NOTE | ~2023-12-12 | US_ITS ---
EXAMINATION: US RETROPERITONEAL LIMITED (RENAL ONLY) CLINICAL INFORMATION: Essential (primary) hypertension. COMPARISON: Limited abdominal ultrasound 09/06/2022. TECHNIQUE: Real-time imaging of the kidneys. Limited visualization due to bowel gas. FINDINGS: RIGHT KIDNEY: 10.0 x 4.7 x 5.1 cm (SAG x AP x TRV). No hydronephrosis. No renal calculi. Limited visualization. Increased renal echogenicity. LEFT KIDNEY: 10.6 x 4.7 x 5.1 cm (SAG x AP x TRV). Increased renal echogenicity. No hydronephrosis. No renal calculi. Renal cortical thickness is normal. Limited visualization. US/US renal BI IMPRESSION: Increased renal echogenicity. No hydronephrosis. No renal calculi. Limited visualization. This study was presented today 12/12/2023 for interpretation. Stat results provided at this time as requested by referring provider. Electronically signed by: Kay De La O MD 12/12/2023 12:36 PM MARTHA
== END 2023-12-12 10:54 | disposition home or self-care (01) ==
LOC: HO.US 10:53
PROVIDERS: PCP Family Medicine; Visit Provider Internal Medicine Hypertension Specialist
DX: R80.9 Proteinuria, unspecified (principal); I12.9 Hypertensive chronic kidney disease with stage 1 through stage 4 chronic kidney disease, or unspecified chronic kidney disease; N18.9 Chronic kidney disease, unspecified
CPT/HCPCS: 76775

== ENCOUNTER 2023-12-26 12:32 | Outpatient (REF) | payer OTHER, SELFPAY ==
[2023-12-26 14:15] LABS: Anion Gap 15 (12-20); Blood Urea Nitrogen 17 mg/dL (9-16); Calcium 9.8 mg/dL (8.4-10.2); Carbon Dioxide 29 mmol/L (22-29); Chloride 98 mmol/L (96-108); Estimated Glomerular Filt Rate 46; Glucose Random 310 mg/dL (60-115); Potassium 4.7 mmol/L (3.3-5.1); Sodium 137 mmol/L (135-145)
== END 2023-12-26 12:33 | disposition home or self-care (01) ==
LOC: HO.HHCL 12:32
PROVIDERS: Visit Provider Family Medicine
DX: I10 Essential (primary) hypertension (principal)
CPT/HCPCS: 36415; 80048

== ENCOUNTER 2024-02-19 10:13 | Outpatient (REF) | payer OTHER, SELFPAY ==
[2024-02-19 11:05] LABS: Appearance Urine Clear; Color Urine Yellow; Glucose Urine UA >=1000 mg/dL (Negative); Leukocyte Esterase Urine Negative (Negative); Nitrite Urine Negative (Negative); UMIC TRIGGER UA YES; Urine Blood Negative (Negative); Urine Ketones Negative (Negative); Urine Protein 100 (2+) mg/dL (Neg-Trace)
[2024-02-19 11:08] LABS: Bacteria Urine None Seen (None Seen); Hyaline Casts Urine 0-2 /LPF (0-2); RBC Urine 0-2 /HPF (0-2)
[2024-02-19 11:35] LABS: Anion Gap 13 (12-20); Blood Urea Nitrogen 25 mg/dL (9-16); Calcium 9.4 mg/dL (8.4-10.2); Carbon Dioxide 31 mmol/L (22-29); Chloride 102 mmol/L (96-108); Cholesterol 152 mg/dL (<200); Estimated Glomerular Filt Rate 53; Glucose Random 234 mg/dL (60-115); HDL Cholesterol 48 mg/dL (>40); LDL Cholesterol Calculated 75 mg/dL (<100); Potassium 4.6 mmol/L (3.3-5.1); Sodium 141 mmol/L (135-145); Triglycerides 149 mg/dL (<150)
[2024-02-19 12:29] LABS: Creatinine Urine 44.57 mg/dL; Microalbum/Creatinine Ratio Ur 1011.8 ug/mg cr (<30)
[2024-02-22 10:34] LABS: TS Negative Control Passed; TS Panel A 0; TS Panel B 1; TS Positive Control Passed; TSpotTB Negative (Negative)
== END 2024-02-19 10:14 | disposition home or self-care (01) ==
LOC: HO.HHCL 10:13
PROVIDERS: Internal Medicine Hypertension Specialist; Visit Provider Family Medicine
DX: Z11.1 Encounter for screening for respiratory tuberculosis (principal); I10 Essential (primary) hypertension; E78.5 Hyperlipidemia, unspecified; E11.65 Type 2 diabetes mellitus with hyperglycemia; Z79.4 Long term (current) use of insulin; N18.9 Chronic kidney disease, unspecified; R80.9 Proteinuria, unspecified
CPT/HCPCS: 36415; 80048; 80061; 81001; 81003; 82043; 82570; 86481

== ENCOUNTER 2024-03-18 09:57 | Outpatient (AMB) | payer OTHER, SELFPAY ==
--- NOTE | 2024-03-18 10:01 | MHC.OFFVIS ---
Vital Signs 03/18/24 10:11 Height 5 ft Weight 167 lb BMI 32.6 BP 140/82 H Blood Pressure Location Rt brachial Pulse 67 Pulse Source Pulse Oximeter Pulse Oximetry (%) 90 L Oxygen Delivery Method Room Air Intake Visit Reasons: Follow Up - Confirmed Home School Coordinator Required: Yes Home School Coordinator Services: Home School Coordinator Present Accompanied by: beverly Allergies No Known Allergies [No Known Allergies*] Allergy (Verified 03/18/24 10:07) HPI Comments Details: 79 y/o female patient presents for follow-up of severe obstructive sleep apnea and nocturnal hypoxemia in setting of PMH DM, CKD, HTN, HLD, GERD, mood disorder. Patient is accompanied by her her grandson. 12/14/2022, In-lab PSG showed AHI 40/hr, REM AHI 86/hr and oxygen apurva was 56% with average SpO2 91% and SpO2 under 88% for 73 minutes of sleep study time. Periodic limb movement of sleep (PLMS) index 21/hour and PLMS arousal index 3.8/hour. 02/17/2023 in-lab PAP titration study, showed frequent residual sleep apnea with hypoxemia at lower treatment pressures. Recommendation was CPAP 15 cm H2O with small N20 mask and supplemental O2 at 1 LPM. Patient states she has her CPAP machine, but has not been using it. She needs new supplies. She states she never received supplemental O2 to use with her CPAP machine, but that she did not need to as she was told she no longer needed supplemental O2 at home as her O2 levels did not drop significantly enough on walking test. She was previously on supplemental home O2 at 4 LPM. Without CPAP, patient does have snoring, apneas, gasping arousals, excessive daytime sleepiness, fragmented sleep. She denies usual cough, wheezing, shortness of breath. However, she does endorse shortness of breath with walking longer distances were taking the stairs. Patient states she has not seen pulmonology since [place] [facility] [place] [address], [facility] Email: [email or web address] Compliance Report Usage 08/15/2023 - 09/13/2023 Usage days 16/30 days (53%) >= 4 hours 0 days (0%) < 4 hours 16 days (53%) Average usage (days used) 43 minutes AirSense 10 AutoSet Serial number [id number] Mode CPAP Set pressure 15 cmH2O EPR Fulltime EPR level 2 Therapy Leaks - L/min Median: 72.9 95th percentile: 105.5 Maximum: 109.1 Events per hour AI: 2.1 HI: 0.0 AHI: 2.1 PFSH Medical History Diastolic dysfunction Cardiomegaly Mood disorder Hyperlipidemia Hypertension Insulin dependent type 2 diabetes mellitus GERD (gastroesophageal reflux disease) Surgical History History of esophagogastroduodenoscopy (EGD) Hx of colonoscopy History of tubal ligation Family History Family/Other No significant medical problems Social History Household Members: None Housing: Apartment Housing Other:: rd floor with elevator access Do you presently have visiting nurse or other home services: Yes Alcohol intake: never Patient Tobacco Use Status: Never used Tobacco Advance Directives Date on File: 07/20/20 service: No Current occupational status: unemployed Physical Exam Vital Signs: Last Vital Signs Pulse 67 03/18/24 10:11 BP 140/82 H 03/18/24 10:11 Pulse Ox 90 L 03/18/24 10:11 Oxygen Delivery Method Room Air 03/18/24 10:11 BMI result Body Mass Index 32.6 Const General: no acute distress Orientation/consciousness: patient oriented x3 Resp Effort & Inspection: normal respiratory effort and able to speak in complete sentences Neuro General: patient oriented x3 Psych Mental Status: mental status grossly normal Speech and movement: Clear speech present Attitude: cooperative Assessment & Plan Assessment & Plan (1) TAMIKA (obstructive sleep apnea): Comment: Severe degree of sleep apnea. The AHI was 40, REM AHI was 85 and oxygen apurva was 56%. Code(s): G47.33 - Obstructive sleep apnea (adult) (pediatric) Category: Medical (2) Nocturnal hypoxemia: Code(s): G47.34 - Idiopathic sleep related nonobstructive alveolar hypoventilation Category: Medical Plan Discussed with patient that she has a known history of severe obstructive sleep apnea and nocturnal hypoxemia. Discussed that supplemental O2 use alone is usually not sufficient to treat nocturnal hypoxemia in the setting of severe TAMIKA. Patient states she is agreeable to resuming PAP therapy with O2 if needed. Patient is advised to undergo follow-up in-lab PSG, as she will need to requalify for CPAP therapy services. Her current respiratory supplier is [facility], however this may need to be changed to an alternate company, such as [employer], which can also provide supplemental home O2 Services. In the meantime, we will request pulmonology consult. Will follow-up upon review of above and patient to follow-up in clinic in 6 months or sooner prn. Orders: Orders RT PSG in-lab sleep study Today G47.33 - Obstructive sleep apnea (adult) (pediatric), G47.34 - Idiopathic sleep related nonobstructive alveolar hypoventilation, R06.02 - Shortness of breath Referrals Pulmonology Referral G47.33 - Obstructive sleep apnea (adult) (pediatric), G47.34 - Idiopathic sleep related nonobstructive alveolar hypoventilation, R06.02 - Shortness of breath Coding Level of Care Code Est Pt Level 3 (70400) Diagnoses TAMIKA (obstructive sleep apnea) G47.33 Nocturnal hypoxemia G47.34
[2024-03-18 10:11] VITALS: BP 140/82; PULSE 67; O2SAT 90; BMI 32.6
== END 2024-03-18 10:46 | disposition home or self-care (01) ==
PROVIDERS: PCP Family Medicine; Visit Provider Nurse Practitioner Family
DX: G47.33 Obstructive sleep apnea (adult) (pediatric) (principal); G47.34 Idiopathic sleep related nonobstructive alveolar hypoventilation
CPT/HCPCS: 99213

== ENCOUNTER → 2024-03-18 09:57 | Outpatient (BNVA) | payer OTHER, SELFPAY | PROVIDERS: PCP Family Medicine; Visit Provider Nurse Practitioner Family | DX: G47.33 Obstructive sleep apnea (adult) (pediatric) (principal); G47.34 Idiopathic sleep related nonobstructive alveolar hypoventilation | CPT/HCPCS: 99212 ==

== ENCOUNTER 2024-03-21 11:10 | Outpatient (REF) | payer OTHER, SELFPAY ==
--- OUTSIDE RECORDS SUMMARY | 2024-03-21 11:49 | XMS_ITS | Encounter Summary ---
Author Organization [facility] [employer] Address [address] [facility] [address] [place] [address] Care Team Providers Care Live Truck Operator Name Role Phone Annie Tafoya MD Primary Care Provider +- [phone] Misa Adler PharmD Unavailable Reason for Visit * Reason Onset Date Comments Prior Authorization 03/11/2024 Encounter Details Date Type Department Care Team (Late st Contact Info) Description 03/11/2024 Telephone [facility] MEDICINE [address] [place] [address] Wanda Collins, RN [address] [place] [address] Prior Authorization Social History Tobacco Use Types Packs/Day Years Used Date Smoking Tobacco: Never Passive Smoke Exposure: Never Smokeless Tobacco: Never Alcohol Use Standard Drinks/Week Comments Never 0 (1 standard drink = 0.6 oz pur e alcohol) Alcohol Answer Date Recorded Frequency of Alcohol Consumption Not on file 11/29/2023 Average Number of Drinks Not on file 024 Frequency of Binge Drinking Not on file 11/07 Score 0 11/29/2023 Depression Answer Date Recorded Patient Health Questionnaire-9 Score 7 11/29/2023 Patient Health Questionnaire-9 Score 7 11/29/2023 Last PHQ-9: Questionnaire Data Not on file 1 Housing Stability Answer Date Recorded What is your housing situation today? I have naren lepe 11/29/[address] you li ve. Do you have problems with any of the following? None of the above 11/29/2023 Food Insecurity Answer Date Recorded Within the past 12 months, y ou worried that your food would run out before you got money to buy more: Never True 11/29/2023 Within the past 12 months,th e food you bought just didn't last and you didn't have enough money to get more: Never True Transportation Answer Date Recorded In the past 12 months, has l ack of transportation kept you from medical appts, meetings, work or from getting things needed for daily living? No 11/29/2023 Utilities Answer Date Recorded In the past 12 months, has t he electric, gas, oil or water company threatened to shut off services in your home? No 11/29/2023 Depression Answer Date Recorded Patient Health Questionnaire-2 Score 1 11/29/2023 Internet Access Answer Date Recorded Internet Access Q1 Yes 11/29/2023 Internet Access Q2 Not on file 11/29/2023 Comments Unknown Sex and Gender Information Value Date Recorded Sex Assigned at Female 12/06/2021 10:20 AM EDT Legal Sex Female 10:20 AM EDT Gender Identity Female 12/06/2021 10:20 AM EDT Sexual Orientation Straight 12/06/2021 10 :20 AM EDT documented as of this encounter Miscellaneous Notes * Telephone Encounter - Alba Valenzuela - 03/21/2024 11:07 AM EST PA approval received. Scanned into media. * Telephone Encounter - Wanda Collins RN - 03/13/2024 4:07 PM EST Faxed signed PA packet to [facility] as below * Telephone Encounter - Wanda Collins RN - 03/11/2024 3:16 PM EST Received fax from pharmacy stating [facility] and supplies require PA. PA packet generated and placed on PCP's desk. Pending signature. documented in this encounter Plan of Treatment Upcoming Encounters Date Type Department Care Team (Late st Contact Info) Description 03/27/2024 2:00 PM EST Medication Management [facility] MEDICINE [address] [place] [phone] Misa Adler PharmD [address] [place] [phone] 05/15/2024 10:15 AM EDT Office Visit [facility] MEDICINE [address] [place] [address] [phone] Annie Tafoya MD [address] [place] [phone] documented as of this encounter Goals Goal Patient Goal Type Associated Problems Recent Progress Patient-Stated? Author Blood Pressure < 140/90 Blood Pressure 136/68(2024 3:16 PM EST) No Misa Yap PharmD Hemoglobin A1c < 8 Result Component 10.5(02/15/19 3:28 PM EST) No Misa Yap PharmD documented as of this encounter Visit Diagnoses Not on filedocumented in this encounter Additional Health Concerns Assessment Noted Time PHQ-9 Depression Total Score: 7 11/29/19 24 3:29 PM EDT documented as of this encounter Care Teams Live Truck Operator Relationship Specialty Start Date End Date Annie Tafoya MD [address] [place] [phone] PCP - General Family Medicine 09/24/12 Msia Adler PharmD [address] [place] [phone] Pharmacist Internal Medicine 02/25/22 documented as of this encounter
--- OUTSIDE RECORDS SUMMARY | 2024-03-21 11:49 | XMS_ITS | Encounter Summary ---
Author Organization [employer] Address [address] [place] [address] Care Team Providers Care Polyethylene Bag Machine Operator Name Role Phone Annie Tafoya MD Primary Care Provider + [phone] Misa Adler PharmD Unavailable +[phone]- [phone] Encounter Details Date Type Department Care Team (Latest Contact Info) Description 03/06/2024 Travel Social History Tobacco Use Types Packs/Day Years [...] AM EDT documented as of this encounter Plan of Treatment Upcoming Encounters Date Type Department Care Team (Late st Contact Info) Description 03/27/2024 2:00 PM EST Medication Management [facility] MEDICINE [address] [place] [phone] Azars-Teena Gaffneysa, PharmD [address] [place] [phone] 05/15/2024 10:15 AM EDT Office Visit [facility] [address] [place] [phone] Annie Tafoya MD [address] [place] [phone] documented as of this encounter Goals Goal Patient Goal Type Associated Problems Recent Progress Patient-Stated? Author Blood Pressure < 140/90 Blood Pressure 136/68(2024 3:16 PM EST) No Piers-Gambl e, Misa, PharmD Hemoglobin A1c < 8 Result Component 10.5(02/15/19 3:28 PM EST) No Piers-Gambl e, Misa, PharmD documented as of this encounter Visit Diagnoses Not on filedocumented in this encounter Additional Health Concerns Assessment Noted Time PHQ-9 Depression Total Score: 7 11/29/19 24 3:29 PM EDT documented as of this encounter Care Teams Polyethylene Bag Machine Operator Relationship Specialty Start Date End Date Michelet, Annie, MD [address] [place] [address] PCP - General Family Medicine 09/24/12 Misa Adler, BronsonD [address] [place] [address] Pharmacist Internal Medicine 02/25/22 documented as of this encounter
--- OUTSIDE RECORDS SUMMARY | 2024-03-21 11:49 | XMS_ITS | Encounter Summary ---
Author Organization [employer] [employer] Address [address] [facility] 7t [place] [address] Care Team Providers Care Ldr Rn Name Role Phone Annie Tafoya MD Primary Care Provider + [phone] Misa Adler PharmD Unavailable Encounter Details Date Type Department Care Team (Late st Contact Info) Description 02/27/2024 Telephone [facility] MED[facility]INE [address] [place] [address] Misa Adler, PharmD [address] [place] [address] Social History Tobacco Use Types Packs/Day Years [...] encounter Miscellaneous Notes * Telephone Encounter - Misa Adler PharmD - 02/27/2024 10:47 AM EST CDTM [facility] is currently working on PA for Jose; just an FYI to prevent duplicate PA completion. documented in this encounter Plan of Treatment Upcoming Encounters Date Type Department Care Team (Late st Contact Info) Description 03/27/2024 2:00 PM EST Medication Management [facility] MEDICINE [address] [place] [phone] Misa Adler PharmD [address] [place] [address] 05/15/2024 10:15 AM EDT Office Visit [facility] [address] [place] [phone] Annie Tafoya MD [address] [place] [address] documented as of this encounter Goals Goal [...] documented as of this encounter Care Teams Ldr Rn Relationship Specialty Start Date End Date Annie Tafoya MD [address] [place] [address] PCP - General Family Medicine 09/24/12 Misa Adler PharmD [address] [place] [address] Pharmacist Internal Medicine 02/25/22 documented as of this encounter
--- OUTSIDE RECORDS SUMMARY | 2024-03-21 11:50 | XMS_ITS | Encounter Summary ---
Author Organization [employer] Address [address] [facility] [address] [place] [address] Care Team Providers Care Metal Furniture Repairer Name Role Phone Annie Tafoya MD Primary Care Provider + [phone] Misa Adler PharmD Unavailable Reason for Visit * Reason Comments Med Refill Encounter Details Date Type Department Care Team (Late st Contact Info) Description 02/06/2024 Refill [facility] MEDICINE [address] [place] [address] Misa Adler, PharmD [address] [place], [place] [phone] Primary hypertension; Type 2 diabetes mellitus with hyperglycemia, with long-term current use of insulin ([facility]) Social History Tobacco Use Types Packs/Day Years [...] Description 03/27/2024 2:00 PM EST Medication Management [facility] [address] [place] [phone] Misa Adler PharmD [address] [place] [phone] 05/15/2024 10:15 AM EDT Office Visit [facility] [address] [place] [phone] Annie Tafoya MD [address] [place] [phone] documented as of this encounter Goals Goal Patient Goal Type Associated Problems Recent Progress Patient-Stated? Author Blood Pressure < 140/90 Blood Pressure 136/68(2024 3:16 PM EST) No Misa Yap PharmD Hemoglobin A1c < 8 Result Component 10.5(02/15/19 25 3:28 PM EST) No Misa Yap PharmD documented as of this encounter Visit Diagnoses Diagnosis Primary hypertension Unspecified essential hypertension Type 2 diabetes mellitus with hyperglycemia, with long-term current use of insulin ([facility]) documented in this encounter Additional Health Concerns Assessment Noted Time PHQ-9 Depression Total Score: 7 11/29/19 24 3:29 PM EDT documented as of this encounter Care Teams Metal Furniture Repairer Relationship Specialty Start Date End Date Annie Tafoya MD [address] [place] [address] PCP - General Family Medicine 09/24/12 Misa Adler PharmD [address] [place] [address] Pharmacist Internal Medicine 02/25/22 documented as of this encounter
--- OUTSIDE RECORDS SUMMARY | 2024-03-21 11:50 | XMS_ITS | Encounter Summary ---
Author Organization [employer] Address [address] [facility] [address] [place] [address] Care Team Providers Care Wire Drawing Die Maker Name Role Phone Annie Tafoya MD Primary Care Provider + [phone] Misa Adler PharmD Unavailable Reason for Visit * Reason Comments Med Refill Encounter Details Date Type Department Care Team (Late st Contact Info) Description 04/15/2022 Refill [facility] [address], [place] [phone] Annie Tafoya MD [address], [place] [phone] Type 2 diabetes mellitus with hyperglycemia ([facility]) Social History Tobacco Use Types Packs/Day Years Used Date Smoking Tobacco: Never Comments Unknown Sex and Gender Information Value Date Recorded Sex Assigned at Female 12/06/2021 10:20 AM EDT Legal Sex Female 10:20 AM EDT Gender Identity Female 12/06/2021 10:20 AM EDT Sexual Orientation Straight 12/06/2021 10 :20 AM EDT documented as of this encounter Miscellaneous Notes * Telephone Encounter - Mary Souza LPN - 04/26/2022 2:14 PM EDT Received an incoming fax from [facility] with refill request for Trihexyphenidyl 2 mg 1 tablet twice a day.Refill denied by pt needS an appt due to No Shows. DOES PCP WANT TO COVER? documented in this encounter Plan of Treatment Upcoming Encounters Date Type Department Care Team (Late st Contact Info) Description 03/27/2024 2:00 PM EST Medication Management [facility] [address] [place] [phone] Misa Adler PharmD [address] [place] [phone] 05/15/2024 10:15 AM EDT Office Visit [facility] [address] [place] [phone] Annie Tafoya MD [address] [place] [address] [phone] documented as of this encounter Goals Goal Patient Goal Type Associated Problems Recent Progress Patient-Stated? Author Hemoglobin A1c < 8 Result Component 10.5( 3:28 PM EST) No Misa Adler PharmD documented as of this encounter Visit Diagnoses Diagnosis Type 2 diabetes mellitus with hyperglycemia ([facility]) documented in this encounter Care Teams Wire Drawing Die Maker Relationship Specialty Start Date End Date Annie Tafoya MD [address] [place] [address] [phone] PCP - General Family Medicine 09/24/12 Misa Adler PharmD [address] [place] [address] [phone] Pharmacist Internal Medicine 02/25/22 documented as of this encounter
--- OUTSIDE RECORDS SUMMARY | 2024-03-21 11:50 | XMS_ITS | Clinical Summary ---
Author Organization [employer] Address [address] [place] [address] Care Team Providers Care Bike Shop Manager Name Role Phone Annie Tafoya MD Primary Care Provider +- [phone] Misa Adler PharmD Unavailable Allergies No known active allergies Medications albuterol 108 (90 Base) MCG/ACT inhaler Inhale 2 puffs. Every 4-6 hours as needed 020 Active TRUEplus Lancets 33G miscIndications: Type 2 diabetes mellitus with hyperglycemia (CMS/HCC) TEST BLOOD SUGAR TWICE DAILY 100 each 11 023 Active glucose (Glutose) 40 % gel oral gel USE NEEDED IF LOW BLOOD SUGAR OCCURS 37 g 11 023 Active Pentips 32G X 4 MM miscIndications: Insulin dependent type 2 diabetes mellitus (CMS/HCC) USE DIRECTED WITH LANTUS SOLOSTAR 100 each 5 024 Active aspirin 81 MG EC tablet Take 1 tablet (81 mg) by mouth in the morning. 90 tablet 3 024 Active atorvastatin (Lipitor) 40 MG tabletIndication s:Insulin dependent type 2 diabetes mellitus (CMS/HCC),Hyperl ipidemia, unspecified hyperlipidemia type Take 1 tablet (40 mg) by mouth at bedtime. 90 tablet 3 024 Active Blood Pressure kitIndications:P rimary hypertension Use as directed to check BP daily. 1 kit 024 Active omeprazole (PriLOSEC) [address] Glenn ns:Gastric pain TAKE 1 CAPSULE BY MOUTH EVERY MORNING 90 capsule 3 024 Active cholecalciferol (Vitamin D3) 25 MCG (1000 UT) tabletIndication s:Vitamin D deficiency TAKE 1 TABLET BY MOUTH EVERY MORNING 90 tablet 3 024 Active fluticasone (Flonase) 50 MCG/ACT nasal spray INSTILL 1 SPRAY IN EACH NOSTRIL ONCE DAILY 16 g 2 024 Active empagliflozin (Jardiance) 25 MGIndications:Ty pe 2 diabetes mellitus with hyperglycemia, with long-term current use of insulin ([facility]) TAKE 1 TABLET BY MOUTH EVERY MORNING 90 tablet 3 024 Active atenolol (Tenormin) 50 MG tabletIndication s:Primary hypertension TAKE 1 TABLET BY MOUTH TWICE DAILY IN THE MORNING AND IN THE EVENING 180 tablet 3 024 Active amLODIPine (Norvasc) 5 MG tabletIndication s:Primary hypertension Take 1 tablet (5 mg) by mouth Once per day. 90 tablet 025 Active losartan (Cozaar) 100 MG tabletIndication s:Primary hypertension Take 1 tablet (100 mg) by mouth Once per day. 90 tablet 025 Active Tirzepatide (Mounjaro) 2.5 MG/0.5ML solution auto-injectorInd ications:Type 2 diabetes mellitus with hyperglycemia, with long-term current use of insulin ([facility]) Inject 2.5 mg under the skin 1 (one) time per week. 2 mL 025 Active Continuous Glucose Sensor (FreeStyle Sury 3 Plus Sensor) miscIndications: Type 2 diabetes mellitus with hyperglycemia, with long-term current use of insulin ([facility]) 1 each Use as directed. 2 each 025 Active Continuous Glucose Skin Lifter Bacon (FreeStyle Sury 3 [place]) deviceIndication s:Type 2 diabetes mellitus with hyperglycemia, with long-term current use of insulin ([facility]) 1 each Use as directed. 1 each 025 Active insulin glargine (Lantus SoloStar) 100 UNIT/ML penIndications:T ype 2 diabetes mellitus with hyperglycemia, with long-term current use of insulin ([facility]) INJECT 34 UNITS SUBCUTANEOUSLY ONCE DAILY 025 Active Continuous Blood Gluc Skin Lifter Bacon (FreeStyle Sury 2 [place]) deviceIndication s:Insulin dependent type 2 diabetes mellitus (CMS/HCC) USE DIRECTED TO TEST BLOOD SUGAR EVERY 8 HOURS 1 each 023 2024 Discontinued(O ther) Continuous Glucose Sensor (FreeStyle Sury 2 Sensor) miscIndications: Insulin dependent type 2 diabetes mellitus (CMS/HCC) USE DIRECTED TO TEST BLOOD SUGAR EVERY 8 HOURS. CHANGE EVERY 14 DAYS 2 each 11 024 2024 Discontinued(O ther) insulin glargine (Lantus SoloStar) 100 UNIT/ML penIndications:T ype 2 diabetes mellitus with hyperglycemia, with long-term current use of insulin (CMS/HCC) INJECT 30 UNITS SUBCUTANEOUSLY ONCE DAILY 15 mL 6 025 2024 Discontinued insulin glargine (Lantus SoloStar) 100 UNIT/ML penIndications:T ype 2 diabetes mellitus with hyperglycemia, with long-term current use of insulin ([facility]) INJECT 32 UNITS SUBCUTANEOUSLY ONCE DAILY 025 2024 Discontinued Active Problems Patient Care Coordination No te Formatting of this note migh t be different from the original. Enrolled in [facility] DM and [facility] HTN clinic with Misa Adler, BronsonD, [facility] Care team: Navigator Srinath Walker Geriatric biomedical equipment support specialist Sasha [facility] Health customs manager Shayne Pagan [facility] Nurse oil field caser Jean Bolaños, HERO Problem Noted Date Diagnosed Date Type 2 diabetes mellitus wit h hyperglycemia, with long-term current use of insulin 11/29/2023 Overview (03/20/2024): - Mounjaro 2.5mg once daily started by [facility] 03/06/24 - Lantus titrated by [facility] - Continue Jardiance 25mg once daily -Metformin previously discontinued -SMGB using Sury 2 however to switch to Sury 3 plus 03/27/24 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, psychotic disturbance, mood disturbance, or anxiety 11/10/2023 Overview (11/10/2023): MMSE2 in [place] completed with pt 11/10/23 Pt scored a 13 out of a possible 30 points. This is considered severe cognitive impairment and at an increased odds for dementia status. Diabetes mellitus due to und erlying condition, with diabetic microalbuminuria, with long-term current use of insulin 10/16/2023 COVID-19 06/22/2023 Assessment & Plan (06/22/2023 10:18 AM EDT): Pt dx w/ covid, today 7th day of Sx is past the window period for anti viral Tx Pt is dehydrated and I advised her to go to ED for further IVF and life check, she refused I Order labs to be done today and will fu results Rx for zofran to take PRN nausea or vomiting Isolation until she's free of Sx for 24 hrs and she will be out of work until then. Counseled to let close contacts within the past week, know about dx so they can be tested if needed. Rest (sleep at least 8 hours a night). Wash hands frequently Hydrate with plenty of water. Use saline nose drops Take Acetaminophen or Ibuprofen as Prn fever or discomfort Gargle with salt water and use throat sprays/lozenges prn Use heated, humidified air or take hot showers. Body aches 06/22/2023 Nausea 06/22/2023 Sore throat 06/22/2023 Cataracts, bilateral 03/13/2023 Overview (04/05/2023): This patient was seen in our clinic for annual diabetic eye exam 02/2023. She has severe cataracts with reduced vision and has been referred to ophthalmology in the past and recommended to have surgery but believes that she has to wait for her health to stabilize. She would like to be referred and I have initiated the consult, but if the procedure is contraindicated then she would be best advised by you. I think she would greatly benefit from cataract surgery if she is medically able; additionally it will become increasingly difficult to assess her for diabetic retinal complications otherwise. - Encouraged to get surgery. Patient agrees to Cataract Surgery 04/05/23 Assessment & Plan (04/05/2023 12:00 PM EST): This patient was seen in our clinic for annual diabetic eye exam 02/2023. She has severe cataracts with reduced vision and has been referred to ophthalmology in the past and recommended to have surgery but believes that she has to wait for her health to stabilize. She would like to be referred and I have initiated the consult, but if the procedure is contraindicated then she would be best advised by you. I think she would greatly benefit from cataract surgery if she is medically able; additionally it will become increasingly difficult to assess her for diabetic retinal complications otherwise. - Encouraged to get surgery. Patient agrees to Cataract Surgery 04/05/23 Other specified health status 11/17/2022 Overview (04/05/2023): -next physical exam due after 11/18/2023 -eye care facilitated by [facility] -dental home is [facility] care proxy paperwork completed 04/05/23 Assessment & Plan (04/05/2023 10:42 AM EST): -next physical exam due after 11/18/2023 -eye care facilitated by [facility] -dental home is [facility] -Health care proxy paperwork completed 04/05/23 Assessment & Plan (11/17/2022 10:38 AM EDT): -next physical exam due after 11/18/2023 -eye care facilitated by [facility] -dental home is [facility] Physical exam 11/17/2022 Overview (07/05/2023): -Normal growth and development. -Anticipatory guidance discussed. -Preventative care / harm reduction discussed. Assessment & Plan (11/17/2022 9:52 AM EDT): -Normal growth and development. -Anticipatory guidance discussed. -Preventative care / harm reduction discussed. Urinary incontinence 11/17/2022 Overview (11/17/2022): -Requesting letter for night care. Assessment & Plan (11/17/2022 10:40 AM EDT): -Requesting letter for night care. Alcohol use 11/17/2022 Cardiomegaly 10/21/2022 Chronic idiopathic constipation 10/21/2022 Diastolic dysfunction 10/21/2022 Overview (11/17/2022): Echo 09/08/22 reveals EF 55-60% with grade 2, moderate diastolic dysfunction. Mild mitral annular calcification. Mild pulmonary hypertension. Mildly dilated inferior vena caval Assessment & Plan (11/17/2022 10:15 AM EDT): Echo 09/08/22 reveals EF 55-60% with grade 2, moderate diastolic dysfunction. Mild mitral annular calcification. Mild pulmonary hypertension. Mildly dilated inferior vena caval Gastric pain 10/21/2022 GERD (gastroesophageal reflux disease) Tubular adenoma of colon 10/21/2022 Class 1 obesity with serious comorbidity and body mass index (BMI) of 33.0 to 33.9 in adult 09/15/2022 Assessment & Plan (09/15/2022 9:26 AM EDT): Patient has been counseled and educated about diet and exercise. Personal goal of weight loss discussedPatient has comorbidity of:Patient has comorbidity of: DM Dependence on wheelchair 01/10/2022 Overview (10/26/2022): Pt ambulates in the home but is unsteady, she is required wheelchair for outtings sinse hospitalization on 06/2021. Assessment & Plan (11/29/2023 3:28 PM EDT): Pt ambulates in the home but is unsteady, she is required wheelchair for outtings sinse hospitalization on 06/2021. Assessment & Plan (11/17/2022 9:19 AM EDT): Pt ambulates in the home but is unsteady, she is required wheelchair for outtings sinse hospitalization on 06/2021. Assessment & Plan (07/13/2022 9:15 AM EDT): Pt ambulates in the home but is unsteady, she is required wheelchair for outtings sinse hospitalization on 06/2021. Assessment & Plan (05/04/2022 11:39 AM EDT): Pt ambulates in the home but is unsteady, she is required wheelchair for outtings sinse hospitalization on 06/2021. Hyperkalemia 01/10/2022 Overview (07/13/2022): Labs on 07/02/21 showed potassium 5.5 -Follow up potattium 3.47 -Losartan held. -Repeat potassium 06/2022 was 5.1 Assessment & Plan (11/17/2022 9:19 AM EDT): Labs on 07/02/21 showed potassium 5.5 -Follow up potattium 3.47 -Losartan held. -Repeat potassium 06/2022 was 5.1 Assessment & Plan (07/13/2022 10:21 AM EDT): Labs on 07/02/21 showed potassium 5.5 -Follow up potattium 3.47 -Losartan held. -Repeat potassium 06/2022 was 5.1 Assessment & Plan (05/04/2022 12:02 PM EDT): Labs on 07/02/21 showed potassium 5.5 -Follow up potattium 3.47 -Losartan held. -Will recheck. Hypoxia 01/10/2022 Overview (04/05/2023): O2 Sa 85%-94% on RA documented since at least 05/10/21. No wheeze on exam. No URI symptoms. CT negative for PE. WBC normal. No evidence of fluid overload ir CHF. No anemia. Hx mild tobacco but quit 11 years ago. last seen by pulmonology 2019. She reports tolerating BiPAP at night. - CRX normal 01/2017 - TAMIKA diagnosed 04/2016 but was not covered by insurance. She has new insurance. - Pt is followed by heel pricker, Dr. Galvan. She last visited 2019. - Pt was unable to perform spirogram despite 2 attempts. - Her chest exam did not suggest bronchospasm. - Differentials of varicose veins or DVT were ruled out. - Pt's dry cough might suggest a possibility of asthma or post nasal drip. - Echo results from 02/15/17: not suggestive of cardiac etiology. - 6 min walk study done - Last pulmonology follow up04/2018 recommends follow up sleep clinic. -hospitalized at [facility] (09/06/22-09/09/22)Patient presented for evaluation of dyspnea and general abdominal discomfort. Patient had oxygen drops down into 88-90% and was placed on supplemental O2. Noted to have increased work of breathing and treated for COPD. Treated with IV steroids and bronchodilators by nebs. Discharged home on O2 with activity and at night and prednisone. -After hospilitation she has not seen pulmonology, she has follow p in 02/10/2023, they report she was last seen 3yrs ago and has multiple no shows but they can call to see if anyone cancels sooner - Pt saw [facility] 02/09/23 Pulmonology and her Oxygen was discontinued, CXR and PFTs ordered referral for O2 assessment done to see if she needs O2 or not, Pt reports she is no longer on O2, Has follow up in August, pt and [employer] notified of follow up Assessment & Plan (07/06/2023 8:33 AM EDT): O2 Sa 85%-94% on RA documented since at least 05/10/21. No wheeze on exam. No URI symptoms. CT negative for PE. WBC normal. No evidence of fluid overload ir CHF. No anemia. Hx mild tobacco but quit 11 years ago. last seen by pulmonology 2018. She reports tolerating BiPAP at night. - CRX normal 01/2017 - TAMIKA diagnosed 04/2016 but was not covered by insurance. She has new insurance. - Pt is followed by heel pricker, Dr. Galvan. She last visited 2018. - Pt was unable to perform spirogram despite 2 attempts. - Her chest exam did not suggest bronchospasm. - Differentials of varicose veins or DVT were ruled out. - Pt's dry cough might suggest a possibility of asthma or post nasal drip. - Echo results from 02/15/17: not suggestive of cardiac etiology. - 6 min walk study done - Last pulmonology follow up04/2018 recommends follow up sleep clinic. -hospitalized at [facility] (09/06/22-09/09/22)Patient presented for evaluation of dyspnea and general abdominal discomfort. Patient had oxygen drops down into 88-90% and was placed on supplemental O2. Noted to have increased work of breathing and treated for COPD. Treated with IV steroids and bronchodilators by nebs. Discharged home on O2 with activity and at night and prednisone. -After hospilitation she has not seen pulmonology, she has follow p in 02/10/2023, they report she was last seen 3yrs ago and has multiple no shows but they can call to see if anyone cancels sooner - Pt saw [facility] 02/09/23 Pulmonology and her Oxygen was discontinued, CXR and PFTs ordered referral for O2 assessment done to see if she needs O2 or not, Pt reports she is no longer on O2, Has follow up in August, pt and [employer] notified of follow up Assessment & Plan (04/05/2023 11:30 AM EST): O2 Sa 85%-94% on RA documented since at least 05/10/21. No wheeze on exam. No URI symptoms. CT negative for PE. WBC normal. No evidence of fluid overload ir CHF. No anemia. Hx mild tobacco but quit 11 years ago. last seen by pulmonology 2018. She reports tolerating BiPAP at night. - CRX normal 01/2017 - TAMIKA diagnosed 04/2016 but was not covered by insurance. She has new insurance. - Pt is followed by heel pricker, Dr. Galvan. She last visited 2019. - Pt was unable to perform spirogram despite 2 attempts. - Her chest exam did not suggest bronchospasm. - Differentials of varicose veins or DVT were ruled out. - Pt's dry cough might suggest a possibility of asthma or post nasal drip. - Echo results from 02/15/17: not suggestive of cardiac etiology. - 6 min walk study done - Last pulmonology follow up04/2018 recommends follow up sleep clinic. -hospitalized at [facility] (09/06/22-09/09/22)Patient presented for evaluation of dyspnea and general abdominal discomfort. Patient had oxygen drops down into 88-90% and was placed on supplemental O2. Noted to have increased work of breathing and treated for COPD. Treated with IV steroids and bronchodilators by nebs. Discharged home on O2 with activity and at night and prednisone. -After hospilitation she has not seen pulmonology, she has follow p in 02/10/2023, they report she was last seen 3yrs ago and has multiple no shows but they can call to see if anyone cancels sooner - Pt saw [facility] 02/09/23 Pulmonology and her Oxygen was discontinued, CXR and PFTs ordered referral for O2 assessment done to see if she needs O2 or not, Pt reports she is no longer on O2, Has follow up in August, pt and [employer] notified of follow up Assessment & Plan (11/17/2022 10:46 AM EDT): O2 Sa 85%-94% on RA documented since at least 05/10/21. No wheeze on exam. No URI symptoms. CT negative for PE. WBC normal. No evidence of fluid overload ir CHF. No anemia. Hx mild tobacco but quit 11 years ago. last seen by pulmonology 2018. She reports tolerating BiPAP at night. - CRX normal 01/2017 - TAMIKA diagnosed 04/2016 but was not covered by insurance. She has new insurance. - Pt is followed by heel pricker, Dr. Galvan. She last visited 2018. - Pt was unable to perform spirogram despite 2 attempts. - Her chest exam did not suggest bronchospasm. - Differentials of varicose veins or DVT were ruled out. - Pt's dry cough might suggest a possibility of asthma or post nasal drip. - Echo results from 02/15/17: not suggestive of cardiac etiology. - 6 min walk study done - Last pulmonology follow up04/2018 recommends follow up sleep clinic. -hospitalized at [facility] (09/06/22-09/09/22)Patient presented for evaluation of dyspnea and general abdominal discomfort. Patient had oxygen drops down into 88-90% and was placed on supplemental O2. Noted to have increased work of breathing and treated for COPD. Treated with IV steroids and bronchodilators by nebs. Discharged home on O2 with activity and at night and prednisone. -After hospilitation she has not seen pulmonology, she has follow p in 02/10/2023, they report she was last seen 3yrs ago and has multiple no shows but they can call to see if anyone cancels sooner Assessment & Plan (09/15/2022 9:38 AM EDT): Pt here for a HDF Recently admitted after pt presented to the ER due to the fact that she had ran out of Oxygen.'She was given a diagnosis of COPD, started on PO Steroids and discharged home on a short term supply of Oxygen Pt has well documented chronic Hypoxia with her Os fluctuating between O2 Sa 85%-94% on RA since at least 05/10/21. Previous CT negative for PE. No evidence of fluid overload or CHF.Hx mild tobacco but quit 11 years ago. last seen by pulmonology ( Dr Galvan ) 2018. She reports tolerating BiPAP at night. - CRX normal 01/2017 - TAMIKA diagnosed 04/2016 - Pt is followed by heel pricker, Dr. Galvan. She last visited 2018. - Pt was unable to perform spirogram despite 2 attempts. - Her chest exam did not suggest bronchospasm. - Pt's dry cough might suggest a possibility of asthma or post nasal drip. - Echo results from 02/15/17: not suggestive of cardiac etiology. - 6 min walk study done - Last pulmonology follow up04/2018 recommends follow up sleep clinic. Pt not using her Bipap Plan: Will refer back to Pulmonology, refer back to Sleep Clinic Assessment & Plan (07/13/2022 9:14 AM EDT): O2 Sa 85%-94% on RA documented since at least 05/10/21. No wheeze on exam. No URI symptoms. CT negative for PE. WBC normal. No evidence of fluid overload ir CHF. No anemia. Hx mild tobacco but quit 11 years ago. last seen by pulmonology 2018. She reports tolerating BiPAP at night. - CRX normal 01/2017 - TAMIKA diagnosed 04/2016 but was not covered by insurance. She has new insurance. - Pt is followed by heel pricker, Dr. Galvan. She last visited 2019. - Pt was unable to perform spirogram despite 2 attempts. - Her chest exam did not suggest bronchospasm. - Differentials of varicose veins or DVT were ruled out. - Pt's dry cough might suggest a possibility of asthma or post nasal drip. - Echo results from 02/15/17: not suggestive of cardiac etiology. - 6 min walk study done - Last pulmonology follow up04/2018 recommends follow up sleep clinic. Assessment & Plan (05/04/2022 11:38 AM EDT): O2 Sa 85%-94% on RA documented since at least 05/10/21. No wheeze on exam. No URI symptoms. CT negative for PE. WBC normal. No evidence of fluid overload ir CHF. No anemia. Hx mild tobacco but quit 11 years ago. last seen by pulmonology 2018. She reports tolerating BiPAP at night. - CRX normal 01/2017 - TAMIKA diagnosed 04/2016 but was not covered by insurance. She has new insurance. - Pt is followed by heel pricker, Dr. Galvan. She last visited 2018. - Pt was unable to perform spirogram despite 2 attempts. - Her chest exam did not suggest bronchospasm. - Differentials of varicose veins or DVT were ruled out. - Pt's dry cough might suggest a possibility of asthma or post nasal drip. - Echo results from 02/15/17: not suggestive of cardiac etiology. - 6 min walk study done - Last pulmonology follow up04/2018 recommends follow up sleep clinic. Pneumonia due to infectious organism 01/10/2022 Mitral valve annular calcification 01/10/2022 Overview (11/17/2022): Saw cardiology; Dr. Cohen on 07/22/21. -Her echo on Feb 2017 showed moderate mitral annular calcification. -Echo 09/08/22 reveals EF 55-60% with grade 2, moderate diastolic dysfunction. Mild mitral annular calcification. Mild pulmonary hypertension. Mildly dilated inferior vena caval Assessment & Plan (11/17/2022 10:15 AM EDT): [facility]; Dr. Cohen on 07/22/21. -Her echo on Feb 2017 showed moderate mitral annular calcification. -Echo 09/08/22 reveals EF 55-60% with grade 2, moderate diastolic dysfunction. Mild mitral annular calcification. Mild pulmonary hypertension. Mildly dilated inferior vena caval Assessment & Plan (07/13/2022 9:14 AM EDT): [facility]; Dr. Cohen on 07/22/21. -Her echo on Feb 2017 showed moderate mitral annular calcification. Assessment & Plan (05/04/2022 11:38 AM EDT): Saw cardiology; Dr. Cohen on 07/22/21. -Her echo on Feb 2017 showed moderate mitral annular calcification. Obstructive sleep apnea syndrome 01/10/2022 Overview (05/15/2023): Diagnosed on sleep study 04/2016. Pt followed by sleep clinic. Reports now tolerating BiPAP. She saw a specialist on 11/2017 at [facility] 02/14/2018: We contacted [facility] and Linda reports: in July an order was sent to [employer] for CPAP and there is no record of issues with machine. We then contacted [employer] in July where Dr Fields's office was notified her insurance did not accept it so we recalled [facility] and the reported they will send an urgent message to find an in-network supplier. She states she has her machine now. - Sleep study done [facility] 02/17/23 recommending CPAP with 14 small N20 mask and Supplemental O2 at 1 L per min with Dr. Kayley Chamorro and patient reports compliance with CPAP 04/05/23 -Seen by sleep medicine 05/14/23 Resent CPAP prescription to [facility]. [facility] information given to patient. Advised patient to start CPAP at [id number] with supplemental O2 1 L at night. Stressed compliance, use CPAP nightly and more than 4 hrs. Assessment & Plan (07/06/2023 8:33 AM EDT): Diagnosed on sleep study 04/2016. Pt followed by sleep clinic. Reports now tolerating BiPAP. She saw a specialist on 11/2017 at [facility] 02/14/2018: We contacted [facility] and Linda reports: in July an order was sent to [employer] for CPAP and there is no record of issues with machine. We then contacted [employer] in July where Dr Fields's office was notified her insurance did not accept it so we recalled [facility] and the reported they will send an urgent message to find an in-network supplier. She states she has her machine now. - Sleep study done [facility] sleep center 02/17/23 recommending CPAP with 14 small N20 mask and Supplemental O2 at 1 L per min with Dr. Kayley Chamorro and patient reports compliance with CPAP 04/05/23 -Seen by sleep medicine 05/14/23 Resent CPAP prescription to C. [facility] information given to patient. Advised patient to start CPAP at [id number] with supplemental O2 1 L at night. Stressed compliance, use CPAP nightly and more than 4 hrs. Assessment & Plan (04/05/2023 11:59 AM EST): Diagnosed on sleep study 04/2016. Pt followed by sleep clinic. Reports now tolerating BiPAP. She saw a specialist on 11/2017 at [facility] 02/14/2018: We contacted [facility] and Linda reports: in July an order was sent to [employer] for CPAP and there is no record of issues with machine. We then contacted [employer] in July where Dr Fields's office was notified her insurance did not accept it so we recalled [facility] and the reported they will send an urgent message to find an in-network supplier. She states she has her machine now. - Sleep study done [facility] sleep center 02/17/23 recommending CPAP with 14 small N20 mask and Supplemental O2 at 1 L per min with Dr. Kayley Chamorro and patient reports compliance with CPAP 04/05/23 Assessment & Plan (11/17/2022 9:20 AM EDT): Diagnosed on sleep study 04/2016. Pt followed by sleep clinic. Reports now tolerating BiPAP. She saw a specialist on 11/2017 at [facility] 02/14/2018: We contacted [facility] and Linda reports: in July an order was sent to [employer] for CPAP and there is no record of issues with machine. We then contacted [employer] in July where Dr Fields's office was notified her insurance did not accept it so we recalled [facility] and the reported they will send an urgent message to find an in-network supplier. She states she has her machine now. Assessment & Plan (09/15/2022 9:35 AM EDT): Pt not using her Bipap for a long time due to the fact that the mask does not fit well Will refer to Sleep Clinic Assessment & Plan (07/13/2022 9:14 AM EDT): Diagnosed on sleep study 04/2016. Pt followed by sleep clinic. Reports now tolerating BiPAP. She saw a specialist on 11/2017 at [facility] 02/14/2018: We contacted [facility] and Linda reports: in July an order was sent to [facility] for CPAP and there is no record of issues with machine. We then contacted [employer] in July where Dr Fields's office was notified her insurance did not accept it so we recalled [facility] and the reported they will send an urgent message to find an in-network supplier. She states she has her machine now. Assessment & Plan (05/04/2022 11:37 AM EDT): Diagnosed on sleep study 04/2016. Pt followed by sleep clinic. Reports now tolerating BiPAP. She saw a specialist on 11/2017 at [facility] 02/14/2018: We contacted [facility] and Linda reports: in July an order was sent to [facility] for CPAP and there is no record of issues with machine. We then contacted [employer] in July where Dr Fields's office was notified her insurance did not accept it so we recalled [facility] and the reported they will send an urgent message to find an in-network supplier. She states she has her machine now. Tubular adenoma 01/10/2022 Overview (10/26/2022): Colonoscopy on 12/25/[address] Poole showed tubular adenoma. Advised repeat in 5 years. Assessment & Plan (11/17/2022 9:21 AM EDT): Colonoscopy on 12/25/[address] Poole showed tubular adenoma. Advised repeat in 5 years. Assessment & Plan (07/13/2022 9:13 AM EDT): Colonoscopy on 12/25/[address] Poole showed tubular adenoma. Advised repeat in 5 years. Assessment & Plan (05/04/2022 11:36 AM EDT): Colonoscopy on 12/25/[address] Poole showed tubular adenoma. Advised repeat in 5 years. Proteinuria 12/30/2013 Overview (12/06/2023): -Losartan increased to 50mg once daily and Jardiance increased to 25mg once daily by CDTM on 11/14/23 -seen by nephrology De. Emory Chamorro, 12/04/23-non nephrotic range proteinuria in the setting of longstanding diabetes mellitus hypertension. 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 -No clinical events obstruction. No evidence of any active glomerulonephritis or interstitial disease at this time. -Optimize blood pressure and maintain blood pressure less than 130/80. -Agree with angiotensin receptor jo. -Gradually titrate the dose to maximize WILLIS inhibition. -Continue overt nephrotoxic agents including NSAIDs. -Encouraged her to stay on low-sodium diet. -Recheck urine protein creatinine ratio. -Check renal ultrasonogram. -Optimize blood pressure and maintain blood pressure less than 130/80. Agree with angiotensin receptor jo. Gradually titrate the dose to maximize WILLIS inhibition. Continue overt nephrotoxic agents including NSAIDs. Tremor 04/09/2012 Overview (11/29/2023): Seen by neurology 2020 Dr. Bae and prescribed : Primidone 50mg bid clonazapam 0.5 daily trihexphenidyl 2mg bid Continue to follow with neurology. Assessment & Plan (11/29/2023 3:47 PM EDT): Seen by neurology 2020 Dr. Bae and prescribed : Primidone 50mg bid clonazapam 0.5 daily trihexphenidyl 2mg bid Continue to follow with neurology. Assessment & Plan (11/17/2022 9:20 AM EDT): Seen by neurology 2020 Dr. Bae and prescribed : Primidone 50mg bid clonazapam 0.5 daily trihexphenidyl 2mg bid Assessment & Plan (05/04/2022 11:37 AM EDT): Seen by neurology 2020 Dr. Bae and prescribed : Primidone 50mg bid clonazapam 0.5 daily trihexphenidyl 2mg bid Depressive disorder 11/15/2011 Overview (10/26/2022): No KOURTNEY. Aggravated by stresses at home. Assessment & Plan (11/29/2023 3:44 PM EDT): No KOURTNEY. Aggravated by stresses at home. Assessment & Plan (11/17/2022 9:19 AM EDT): No KOURTNEY. Aggravated by stresses at home. Assessment & Plan (07/13/2022 9:15 AM EDT): No KOURTNEY. Aggravated by stresses at home. Assessment & Plan (05/04/2022 11:37 AM EDT): No KOURTNEY. Aggravated by stresses at home. Hyperlipidemia 11/15/2011 Overview (11/29/2023): Lab Results Component Value Date CHOL 171 04/06/2023 TRIG 203 (H) 04/06/2023 HDL 47 04/06/2023 LDLCHOLCAL 84 04/06/2023 -continue lifestyle modification -continue atorvastatin 40mg Assessment & Plan (11/29/2023 3:44 PM EDT): Lab Results Component Value Date CHOL 171 04/06/2023 TRIG 203 (H) 04/06/2023 HDL 47 04/06/2023 LDLCHOLCAL 84 04/06/2023 -continue lifestyle modification -continue atorvastatin 40mg Assessment & Plan (07/06/2023 8:33 AM EDT): Lab Results Component Value Date CHOL 171 04/06/2023 TRIG 203 (H) 04/06/2023 HDL 47 04/06/2023 LDLCHOLCAL 84 04/06/2023 -continue lifestyle modification -continue atorvastatin 40mg Assessment & Plan (04/05/2023 10:59 AM EST): No results found for: CHOLESTEROL , LDLCHOL , TRIG , HDLCHOL , CHOLHDLRAT -continue lifestyle modifications Assessment & Plan (11/17/2022 10:16 AM EDT): No results found for: CHOLESTEROL , LDLCHOL , TRIG , HDLCHOL , CHOLHDLRAT -continue lifestyle modifications Insulin dependent type 2 diabetes mellitus 10/30 Overview (11/29/2023): Diabetes is not controlled. A1c goal < 8 Has continuous glucose monitor Lab Results Component Value Date HGBA1C 9.2 (A) 11/29/2023 HGBA1C 9.3 (A) 11/14/2023 HGBA1C 8.9 (A) 07/05/2023 Lab Results Component Value Date MICROALBUR 308.0 04/06/2023 CREATININE 1.24 08/30/2023 -Willis/Arb: held 06/25/2021 for elvated potassium, CDTM restarted 07/25/23 with BMP follow up labs to be completed in 2 weeks - Metformin decreased from ER 1000mg twice daily to once daily due to decreased eGFR and risk of lactic acidosis with hypoxia - Decrease in eGFR 08/2023; metformin discontinued by CDTM 11/14/23 - Jardiance 10mg once daily started 07/21/23 and increased to 25mg once daily by CDTM 11/14/23 -Lantus titrated by CDTM -Statin therapy: Atorvastatin 40mg -Diabetic eye exam: 01/17/2022 -Diabetic foot exam: 11/29/23 -Continue lifestyle modifications -Continue current medications Saw CDTM on 11/14/23 rcommended to substitute Metformin ER 1000mg twice daily and Jardiance 10mg once daily with Synjardi XR 10mg-1000mg once daily (dose decrease of Metformin to 1000mg/day due to decreasing eGFR, risk of lactic acidosis with hypoxia) -Metformin discontinued on 11/15/23 due to worsening renal function, encouraged to keep following with Collaborative Drug Therapy Managment Program with our PharmD, JOON. Assessment & Plan (11/29/2023 3:46 PM EDT): Diabetes is not controlled. A1c goal < 8 Has continuous glucose monitor Lab Results Component Value Date HGBA1C 9.2 (A) 11/29/2023 HGBA1C 9.3 (A) 11/14/2023 HGBA1C 8.9 (A) 07/05/2023 Lab Results Component Value Date MICROALBUR 308.0 04/06/2023 CREATININE 1.24 08/30/2023 -Willis/Arb: held 06/25/2021 for elvated potassium, CDTM restarted 07/25/23 with BMP follow up labs to be completed in 2 weeks - Metformin decreased from ER 1000mg twice daily to once daily due to decreased eGFR and risk of lactic acidosis with hypoxia - Decrease in eGFR 08/2023; metformin discontinued by CDTM 11/14/23 - Jardiance 10mg once daily started 07/21/23 and increased to 25mg once daily by CDTM 11/14/23 -Lantus titrated by CDTM -Statin therapy: Atorvastatin 40mg -Diabetic eye exam: 01/17/2022 -Diabetic foot exam: 11/29/23 -Continue lifestyle modifications -Continue current medications Saw CDTM on 11/14/23 rcommended to substitute Metformin ER 1000mg twice daily and Jardiance 10mg once daily with Synjardi XR 10mg-1000mg once daily (dose decrease of Metformin to 1000mg/day due to decreasing eGFR, risk of lactic acidosis with hypoxia) -Metformin discontinued on 11/15/23 due to worsening renal function, encouraged to keep following with Collaborative Drug Therapy Managment Program with our PharmD, JOON. Assessment & Plan (07/06/2023 8:33 AM EDT): Diabetes is not controlled. A1c goal < 8 Has continuous glucose monitor Lab Results Component Value Date HGBA1C 8.9 (A) 07/05/2023 HGBA1C 7.6 (H) 04/06/2023 HGBA1C 7.9 (A) 04/05/2023 Lab Results Component Value Date MICROALBUR 308.0 04/06/2023 CREATININE 1.09 06/22/2023 -Willis/Arb: held 06/25/2021 for elvated potassium -Statin therapy: Atorvastatin 40mg -Diabetic eye exam: 01/17/2022 -Diabetic foot exam: 07/13/2022 -Continue lifestyle modifications -Continue current medications Assessment & Plan (04/05/2023 11:57 AM EST): Diabetes is controlled- Lab Results Component Value Date HGBA1C 7.8 (A) 11/17/2022 HGBA1C 8.3 (A) 09/15/2022 HGBA1C 7.6 (H) 06/27/2022 - Lab Results Component Value Date CREATININE 1.03 09/06/2022 -Willis/Arb: held 06/25/2021 for elvated potassium -Statin therapy: Atorvastatin 40mg -Diabetic eye exam: 01/17/2022 -Diabetic foot exam: 07/13/2022 -Continue lifestyle modifications -Continue current medications Assessment & Plan (11/17/2022 10:54 AM EDT): Diabetes is controlled. - Lab Results Component Value Date HGBA1C 8.3 (A) 09/15/2022 HGBA1C 7.6 (H) 06/27/2022 HGBA1C 7.7 (H) 02/24/2022 -No results found for: POCA1C - Lab Results Component Value Date CREATININE 1.03 09/06/2022 -Willis/Arb: held 06/25/2021 for elvated potassium -Statin therapy: Atorvastatin 40mg -Diabetic eye exam: -Diabetic foot exam: -Continue lifestyle modifications -Continue current medications Assessment & Plan (09/15/2022 9:33 AM EDT): Pt's blood sugar elevated due to the Prednisone, discussed need to use her Insulin as prescribed Assessment & Plan (07/13/2022 10:30 AM EDT): Diabetes is controlled. - Lab Results Component Value Date HGBA1C 7.6 (H) 06/27/2022 HGBA1C 7.7 (H) 02/24/2022 HGBA1C 9.9 (H) 10/30/2020 - Lab Results Component Value Date CREATININE 1.08 (H) 06/27/2022 -Changes: -Willis/Arb: -Statin therapy: -Diabetic eye exam: 01/17/2022 -Diabetic foot exam: 07/13/2022 -Continue lifestyle modifications -Continue current medications Assessment & Plan (05/04/2022 12:00 PM EDT): Seeing CDTM for DM. Eye exam done 01/17/2022. Hypertension 10/31/2011 Overview (03/20/2024): -Cozaar held 06/25/21 for elevated potassium; restarted losartan 25mg once daily. Follow up potassium WNL - Cozaar increased to 100mg once daily by CDTM 11/14/23; BMP previously ordered and pending patient completion -Atenolol decreased to 50mg twice daily by CDTM 11/14/23 - Continue amlodipine 5mg once daily Assessment & Plan (11/29/2023 3:45 PM EDT): -Cozaar held 06/25/21 for elevated potassium; restarted losartan 25mg once daily. Follow up potassium WNL - Cozaar increased to 50mg once daily by CDTM 11/14/23; BMP ordered to be rechecked in 2 weeks -Atenolol decreased to 50mg twice daily by CDTM 11/14/23 -Continue Amlodipine 10mg daily Saw CDTM on 11/14/23 -increased losartan to 50mg once daily - BMP ordered to be completed in 2 weeks following start of increased dose -discussed with PCP to decrease atenolol to 50mg twice daily Assessment & Plan (04/05/2023 10:59 AM EST): -Cozaar held 06/25/21 for elevated potassium -Continue Atenolol 100mg BID -Continue Amlodipine 10mg daily Assessment & Plan (11/17/2022 9:19 AM EDT): Cozaar held 06/25/21 for elevated potassium. -Continue Atenolol 100mg BID. -Continue Amlodipine 10mg daily. Assessment & Plan (07/13/2022 10:21 AM EDT): Cozaar held 06/25/21 for elevated potassium. -Continue Atenolol 100mg BID. -Continue Amlodipine 10mg daily. Assessment & Plan (05/04/2022 11:38 AM EDT): Anitra held 06/25/21 for elevated potassium. -Continue Atenolol 100mg BID. -Continue Amlodipine 10mg daily. Resolved Problems Problem Noted Date Diagnosed Date Resolved Date Chronic respiratory failure with hypoxia 10/21/2022 10/26/2022 COPD exacerbation 10/21/2022 10/26/2022 Hospital discharge follow-up 09/15/2022 11/17/2022 Assessment & Plan (09/15/2022 9:38 AM EDT): Patient here s/p HDF admitted to Hospital from 09/06-09/09/2022 for evaluation of dyspnea and general abdominal discomfort. Patient had oxygen drop down into 88-90% and was placed on supplemental O2. Noted to have increased work of breathing and treated for COPD with IV steroids and bronchodilators by nebs. Discharged home on O2 with activity and at night and prednisone. Today she is feeling better. Plan: Refer back to Pulmonology, Refer back to Sleep clinic Pt reports she has Oxygen at home Candidiasis of mouth 01/10/2022 023 Overview (05/04/2022): Education re importance of tight control of DM, fu with PCP and CDTM clinic. Clotrimazole oral throches 5x/d to be dissolved in mouth started 08/19/2021. Encouraged dentures hygiene. Reconsult prn Assessment & Plan (11/17/2022 9:18 AM EDT): Education re importance of tight control of DM, fu with PCP and CDTM clinic. Clotrimazole oral throches 5x/d to be dissolved in mouth started 08/19/2021. Encouraged dentures hygiene. Reconsult prn Assessment & Plan (07/13/2022 9:15 AM EDT): Education re importance of tight control of DM, fu with PCP and CDTM clinic. Clotrimazole oral throches 5x/d to be dissolved in mouth started 08/19/2021. Encouraged dentures hygiene. Reconsult prn Assessment & Plan (05/04/2022 11:39 AM EDT): Education re importance of tight control of DM, fu with PCP and CDTM clinic. Clotrimazole oral throches 5x/d to be dissolved in mouth started 08/19/2021. Encouraged dentures hygiene. Reconsult prn Diarrhea 01/10/2022 11/17/2022 Fatigue 01/10/2022 11/17/2022 Fever 01/10/2022 05/04/2022 Influenza 01/10/2022 05/04/2022 Encounters Date Type Department Care Team Description 03/20/2024 Travel 03/12/2024 Travel 03/11/2024 Telephone [facility] [address] [facility] [place] [address] Wanda Collins RNmelting operator 03/06/2024 Travel 02/27/2024 Telephone [facility] [address] [place] [address] Misa Adler, BronsonD 02/19/2024 Orders Only GENERIC EXTERNAL DATA DEPARTMENT Provider, Generic External Data 02/16/2024 Travel 02/07/2024 Refill [facility] [address] [facility] [place] [address] Misa Adler, PharmD Type 2 diabetes mellitus with hyperglycemia, with long-term current use of insulin ([facility]) 02/06/2024 Refill [facility] [address] [facility] [place] [address] Misa Adler, PharmD Primary hypertension; Type 2 diabetes mellitus with hyperglycemia, with long-term current use of insulin ([facility]) 02/06/2024 Refill [facility] [address] [facility] [place] [address] Misa Adler, PharmD Primary hypertension; Type 2 diabetes mellitus with hyperglycemia, with long-term current use of insulin ([facility]) 01/13/2024 Refill [facility] [address] [facility] [place] [address] Sirisha Soto MD 01/09/2024 Travel 12/26/2023 Orders Only [facility] [address] [place] [address] Annie Tafoya MD 12/26/2023 Travel from Last 3 Months Immunizations Name Administration Dates Next Due Hep B, adult 11/29/2023,07/05/2023,11/17/2022 Influenza High-dose Quadriva lent Preservative Free 11/17/2022,11/25/2020 Influenza injectable quadriv alent IIV4 with preservative 12/19/2016,11/27/2015 Influenza injectable quadriv alent preservative free 01/21/2015 Influenza, High Dose Seasona l, Preservative Free 11/29/2023,02/14/2019,12/13/2017 Influenza, IIV3, injectable 12/30/2013, 9 Influenza, Split (incl. ronal fied surface antigen) 11/14/2012,10/24/2011 Moderna Covid-19 Vaccine 12+ 01/25/2021,04/24/19,03/26/2020 Moderna Covid-19 Vaccine 6+ Bivalent 02/24/2022 Pfizer Covid-19 Vaccine 12+ Bivalent 07/13/2022 Pneumococcal Conjugate PCV 13 01/21/2015 Pneumococcal Conjugate PCV 20 08/16/2023(Deferre d: Patient decision) Pneumococcal Polysaccharide PPSV23 12/30/2013, Pneumococcal, Unspecified 04/11/2008 RSV Bivalent 08/16/2023(Deferred: Patient otis modi) Tdap 07/13/2022,10/24/2011 Zoster, Recombinant 10/22/2021,08/20/2021 Zoster, live 01/21/2015 Social History Tobacco Use Types Packs/Day Years Used Date Smoking Tobacco: Never Passive Smoke Exposure: Never Smokeless Tobacco: Never Tobacco Cessation:Counseling Given: Not Answered Alcohol Use Standard Drinks/Week Comments Never 0 [...] Orientation Straight 12/06/2021 10 :20 AM EDT Last Filed Vital Signs Vital Sign Reading Time Taken Comments Blood Pressure 136/68 03/20/2024 3:16 PM EST Pulse 71 03/20/2024 3:16 PM EST Temperature 36.2 ??C (97.1 ??F) 11/29/2023 3:33 PM ED T Respiratory Rate 19 11/29/2023 3:33 PM EDT Oxygen Saturation 98% 07/05/2023 3:24 PM EDT Inhaled Oxygen Concentration - - Weight 75.5 kg (166 lb 6.4 oz) 11/29/2023 3:33 PM EDT Height 149.3 cm (4' 10.76 ) 11/29/2023 3:33 PM E DT Body Mass Index 33.88 11/29/2023 3:33 PM EDT Plan of Treatment Upcoming Encounters Date Type Department Care Team (Late st Contact Info) Description 03/27/2024 2:00 PM EST Medication Management [facility] [address] [place] [id number] Misa Adler, PharmD [address] [place] [address] 05/15/2024 10:15 AM EDT Office Visit [facility] [address] [place] [address] Annie Tafoya MD [address] [place], [place] [id number] Health Maintenance Due Date Last Done Comments Dental Prophylaxis 1946 Dental X-Ray: Bitewings 04/30/2010 04/29/2009 RSV Patients and Patients Aged 60 years or older (1 - 1-dose 75+ series) 2021 Dental Oral Exam 04/28/2023 10/27/2022, 12/2016, 11/22/2012 Diabetes: Hemoglobin A1C 05/16/2024 025, 11/29/2023, 11/14/2023, Additional history exists Alcohol/Substance Use Screening 11/28/2024 11/29/2023 COVID-19 Vaccine ( season) 2024 07/13/2022, 02/24/2022, 01/25/2021, Additional history exists Postponed from 10/08/2023 (Patient Refused) Depression Screening 11/28/2024 11/29/2023, 11/29/19 24 Diabetes: Foot Exam 11/28/2024 11/29/2023, 11/29/2023, 11/29/2023, Additional history exists SDOH Screening 11/28/2024 11/29/2023 Tobacco Screening 11/28/2024 11/29/2023 Diabetes: Urine Protein Screening 02/18/2025 02/19/2024, 07/27/2023, 04/06/2023, Additional history exists Lipid Panel 02/18/2025 02/19/2024, 04/06/2023 Eye Exam 03/09/2025 03/09/2023, 02/0 02/2023, 03/09/2023, Additional history exists Dental X-Ray: Full Mouth 10/28/2025 023, 06/07/2017, 11/22/2012, Additional history exists DTaP/Tdap/Td Vaccines (3 - Td or Tdap) 07/13/2032 07/13/2022, 10/24/2011 Pneumococcal Vaccine: 50+ Years Completed 01/21/2015, 12/30/2013, 04/11/2008, Additional history exists Zoster Vaccines Completed 10/22/2021, 08/06, 01/21/2015 Hepatitis C Screening Completed 04/06/2023 Hepatitis B Vaccines Completed 11/29/2023, 07/05/2023, 11/17/2022 Influenza Vaccine Completed 11/29/2023, , 11/25/2020, Additional history exists HIB Vaccines Aged Out No longer eligi ble based on patient's age to complete this topic HPV Vaccines Aged Out No longer eligi ble based on patient's age to complete this topic Hepatitis A Vaccines Aged Out No long er eligible based on patient's age to complete this topic IPV Vaccines Aged Out No longer eligi ble based on patient's age to complete this topic Meningococcal Vaccine Aged Out No denise elpidio eligible based on patient's age to complete this topic RSV under 20 months Aged Out No longe r eligible based on patient's age to complete this topic Rotavirus Vaccines Aged Out No longer eligible based on patient's age to complete this topic Goals Goal Patient Goal Type Associated Problems Recent Progress Patient-Stated? Author Blood Pressure < 140/90 Blood Pressure 136/68(2024 3:16 PM EST) No Rene-Misa Collins, PharmD Hemoglobin A1c < 8 Result Component 10.5(02/15/19 3:28 PM EST) No Azars-Misa Collins PharmD Procedures Procedure Name Priority Date/Time Associated Diagnosis Comments ALBUMIN, RANDOM URINE W/CREATININE Routine 02/19/2024 10:20 AM EST LIPID PANEL, STANDARD Routine 02/19/2024 10:20 AM EST BASIC METABOLIC PANEL Routine 02/19/2024 10:20 AM EST URINALYSIS, COMPLETE Routine 02/19/2024 10:20 AM EST T-SPOT(R).TB Routine 02/19/2024 10:20 AM EST Screening for tuberculosis POCT GLYCATED HEMOGLOBIN, TOTAL Routine 02/16/2024 3:28 PM EST Type 2 diabetes mellitus with hyperglycemia, with long-term current use of insulin (CMS/HCC) BASIC METABOLIC PANEL Routine 12/26/2023 12:36 PM EST HEPATITIS C AB W/REFL TO HCV RNA, QN, PCR Routine 04/06/2023 9:45 AM EST Encounter for hepatitis C screening test for low risk patient PANORAMIC RADIOGRAPHIC IMAGE Routine 10/27/2022 1:30 PM EDT COMPREHENSIVE ORAL EVALUATION - NEW OR ESTABLISHED PATIENT Routine 10/27/2022 1:30 PM EDT INTRAORAL - COMPLETE SERIES OF RADIOGRAPHIC IMAGES Routine 04/29/2009 12:00 AM EDT from Last 3 Months or Most Recently Relevant to Health Maintenance Results * T-SPOT??.TB (02/19/2024 10:20 AM EST) [facility] T Spot TB Negative Negative [facility] Comment:A negative test resu lt does not exclude the possibilityof exposure to or infection with Mycobacteriumtuberculosis (M. tuberculosis). Patients with recentexposure to TB infected individuals exhibiting anegative T-SPOT.TB result should be considered forretesting within 6 weeks or if other relevant clinicalsymptoms indicate. Results from T-SPOT.TB testing mustbe used in conjunction with each individual'sepidemiological history, current medical status,and results of other diagnostic evaluations.The T-SPOT.TB test is qualitative and results arereported as positive, borderline, or negative, giventhat the test controls perform as expected. In linewith the Centers for Disease Control and Prevention's2010 recommendation to report quantitative measurementsalongside the qualitative result, the laboratoryprovides spot counts for informational purposes only.The T-SPOT.TB test should not be interpreted as aquantitative test. TS PANEL A 0 [facility] TS PANEL B 1 [facility] Negative Control Passed [facility] Positive Control Passed [facility] Comment:For additional infor roland, please refer tohttp://education.IgnitAd/faq/BEM882(This link is being provided for informational/educational purposes only.)THIS TEST WAS PERFORMED AT:[facility] [id number] [place] [address]TKTJGADDALJIT DURAN MD,PHD 02/19/2024 10:2 0 AM EST 02/19/2024 11:07 AM EST Annie Tafoya MD LAB BLOOD ORDERABLES Final Result Performing Organization Address [facility] de Phone Number [facility] [address] [place] [phone] * (ABNORMAL) Albumin, Random Urine W/Creatinine (02/19/2024 10:20 AM EST) Creatinine, Urine 44.57 mg/dL [facility] Microalbumin Urine 451.0 mg/L [facility] Microalbum Creatinine Ratio Ur 1,011.8(H ) <30 ug/mg cr [facility] Comment:Albumin/Creatinine R atio Reference Ranges: Normal: < 30 ug/mg creatinine Microalbuminuria: 30 - 300 ug/mg creatinineClinical Albuminuria: > 300 ug/mg creatinine 02/19/2024 10:2 0 AM EST 02/19/2024 10:58 AM EST Annie Tafoya MD LAB URINE ORDERABLES Final Result Performing Organization Address [facility]/ZIP Co de Phone Number [facility] [address] [place] [phone] * (ABNORMAL) Urinalysis Complete (02/19/2024 10:20 AM EST) Color Urine Yellow [facility] Appearance Urine Clear [facility] PH 6.0 5.0 - 9.0 [facility] Glucose Urine UA >=1000(A) Negative mg/dL [facility] Urine Blood Negative Negative [facility] Specific [place] - Urine 1.020 1.005 - 1.025 [facility] Urine Protein 100 (2+)(A) Neg-Trace mg/dL [facility] Urine Ketones Negative Negative mg/dL [facility] Nitrite Urine Negative Negative [facility] Leukocyte Esterase Urine Negative Negative [facility] RBC Urine 0-2 0 - 2 /HPF [facility] Urine WBC 6-10(A) 0 - 5 /HPF [facility] Urine Squamous Epithelial Cell 3-5 0 - 2 /HPF [facility] Urine Bacteria None Seen None Seen [facility] Hyaline Casts, Urine 0-2 0 - 2 /LPF [facility] 02/19/2024 10:2 0 AM EST 02/19/2024 10:58 AM EST us Generic External Data Provider LAB URINE ORDERAB LES Final Result Performing Organization Address City/State/[facility] Co de Phone Number [facility] [address] [place] [phone] * Lipid Panel, Standard (02/19/2024 10:20 AM EST) Triglycerides 149 <150 mg/dL [facility] Comment:Desirable Triglyceri de: less than 150 mg/dLBorderline High Triglyceride 150-199 mg/dLHigh Triglyceride: 200-499 mg/dLVery High Triglyceride: greater than or equal to 5OO mg/dL Cholesterol 152 <200 mg/dL [facility] Comment:Desirable Cholestero l: less than 200 mg/dLBorderline High Cholesterol: 200-239 mg/dLHigh Cholesterol: greater than 239 mg/dL LDL Cholesterol Calculated 75 <100 mg/dL [facility] Comment:Desirable LDL: less than 100 mg/dLNear Optimal/Above Optimal LDL: 110- 129 mg/dLBorderline High LDL: 130-159 mg/dLHigh LDL: 160-189 mg/dLVery High LDL: greater than or equal to 190 mg/dL HDL Cholesterol 48 >40 mg/dL [facility] Comment:Desirable HDL: great er than 40 mg/dL Note: This HDL assay may give artificially low results in patients with liver disease. 02/19/2024 10:2 0 AM EST 02/19/2024 11:07 AM EST Annie Tafoya MD LAB BLOOD ORDERABLES Final Result [facility] [address] [place] [phone] * (ABNORMAL) Basic Metabolic Panel (02/19/2024 10:20 AM EST) Only the most recent of2 resultswithin the time period is included. Sodium 141 135 - 145 mmol/L [facility] Potassium 4.6 3.3 - 5.1 mmol/L [facility] Chloride 102 96 - 108 mmol/L [facility] Carbon Dioxide 31(H) 22 - 29 mmol/L [facility] Anion Gap 13 12 - 20 [facility] Urea Nitrogen (BUN) 25(H) 9 - 16 mg/dL [facility] Creatinine, Serum 1.02 0.5 - 1.4 mg/dL [facility] Estimated Glomerular Filt Rate 53 [facility] Comment:Chronic Kidney Disea se: Estimated GFR < 60 mL/min/1.59k0Rlgirn Kidney Disease: Estimated GFR < 15 mL/min/1.73m2 Glucose 234(H) 60 - 115 mg/dL [facility] Calcium 9.4 8.4 - 10.2 mg/dL [facility] 02/19/2024 10:2 0 AM EST 02/19/2024 11:07 AM EST Annie Tafoya MD LAB BLOOD ORDERABLES Final Result Performing Organization Address [facility] Co de Phone Number [facility] [address] [place] [phone] * (ABNORMAL) POCT A1C (02/16/2024 3:28 PM EST) Pathologist [facility] Hemoglobin A1C 10.5(A) 4.0 - 6.0 % QC Media Lot # [id number] Lot# Expiration Date Blood 02/16/2024 3:28 PM EST Annie Tafoya MD POINT OF CARE TEST ENTER/E DIT ORDERABLES Final Result * Hepatitis C Antibody with Reflex to HCV, RNA, Quantitative, Real-Time PCR (04/06/2023 9:45 AM EST) [facility] Hepatitis C Antibody Nonreactive Nonreactive [facility] Comment:Antibodies to HCV no t detected; does not exclude early acuteHCV infection. Blood Venous blood specimen / Unknown 04/06/2023 9:45 AM EST 04/06/2023 11:27 AM EST Annie Tafoya MD LAB BLOOD ORDERABLES Final Result Performing Organization Address [facility] Co de Phone Number [facility] [address] [place] [phone] from Last 3 Months or Most Recently Relevant to Health Maintenance Insurance [facility] - [facility] Advance Directives Documents on File Type Date Recorded Patient Qa Manager Expl anation Advance Directives and Livin g Will 04/07/2023 1:54 PM HCP Care Teams Bike Shop Manager Relationship Specialty Start Date End Date Michelet, MD Annie [address] [place] [facility] [place] [phone] PCP - General Family Medicine 09/24/12 Misa Adler, BronsonD [address] [facility] [place] [address] Pharmacist Internal Medicine 02/25/22
--- OUTSIDE RECORDS SUMMARY | 2024-03-21 11:50 | XMS_ITS | Encounter Summary ---
Author Organization [employer] Address [address] [place] [address] Care Team Providers Care Lead Cashier Name Role Phone Annie Tafoya MD Primary Care Provider + [phone] Misa Adler PharmD Unavailable [phone]- [phone] Encounter Details Date Type Department Care Team (Latest Contact Info) Description 03/20/2024 Travel Social History Tobacco Use Types Packs/Day [...] Description 03/27/2024 2:00 PM EST Medication Management [facility] [address] [place] [phone] Azars-Teena Gaffneysa, PharmD [address] [place] [phone] 05/15/2024 10:15 AM EDT Office Visit [facility] [address] [place] [phone] Annie Tafoya MD [address] [place] [phone] documented as of this encounter Goals Goal [...] documented as of this encounter Care Teams Lead Cashier Relationship Specialty Start Date End Date Michelet, Annie, MD [address] [place] [address] PCP - General Family Medicine 09/24/12 Misa Adler, BronsonD [address] [place] [address] Pharmacist Internal Medicine 02/25/22 documented as of this encounter
--- OUTSIDE RECORDS SUMMARY | 2024-03-21 11:50 | XMS_ITS | Encounter Summary ---
Author Organization [employer] Address [address] 7t [place] [address] Care Team Providers Care Branch Credit Counselor Name Role Phone Annie Tafoya MD Primary Care Provider + [phone] Misa Adler PharmD Unavailable [phone] Encounter Details Date Type Department Care Team (Latest Contact Info) Description 03/12/2024 Travel Social History Tobacco Use Types Packs/Day [...] Description 03/27/2024 2:00 PM EST Medication Management [facility] [address] [place] [phone] Azars-Teena Gaffneysa, PharmD [address] [place] [address] 05/15/2024 10:15 AM EDT Office Visit [facility] [address] [place] [phone] Annie Tafoya MD [address] [place] [address] documented as of this encounter Goals Goal [...] documented as of this encounter Care Teams Branch Credit Counselor Relationship Specialty Start Date End Date Michelet, Annie, MD [address] [place] [address] PCP - General Family Medicine 09/24/12 Misa Adler, BronsonD [address] [place] [address] Pharmacist Internal Medicine 02/25/22 documented as of this encounter
--- OUTSIDE RECORDS SUMMARY | 2024-03-21 11:50 | XMS_ITS | Encounter Summary ---
Author Organization [employer] Address [address] [facility] 7t [place] [address] Care Team Providers Care Director Custom Name Role Phone Annie Tafoya MD Primary Care Provider + [phone] Misa Adler PharmD Unavailable [phone] Encounter Details Date Type Department Care Team (Late st Contact Info) Description 10/16/2023 Abstract [facility] [address] [place] [address] Stephanie Persaud MA Social History Tobacco Use Types Packs/Day Years Used Date Smoking Tobacco: Never Passive Smoke Exposure: Never Smokeless Tobacco: Never Alcohol Use Standard Drinks/Week Comments Never 0 (1 standard drink = 0.6 oz pur e alcohol) Depression Answer Date Recorded Patient Health Questionnaire-9 Score 2 09/15/2022 Housing Stability Answer Date Recorded What is your housing situation today? I have naren lepe 11/21/[address] you li ve. Do you have problems with any of the following? None of the above 11/21/2022 Food Insecurity Answer Date Recorded Within the past 12 months, y ou worried that your food would run out before you got money to buy more: Never True 11/21/2022 Within the past 12 months,th e food you bought just didn't last and you didn't have enough money to get more: Never True Transportation Answer Date Recorded In the past 12 months, has l ack of transportation kept you from medical appts, meetings, work or from getting things needed for daily living? No 11/21/2022 Utilities Answer Date Recorded In the past 12 months, has t he electric, gas, oil or water company threatened to shut off services in your home? No 11/21/2022 Depression Answer Date Recorded Patient Health Questionnaire-2 Score 1 09/15/2022 Comments Unknown Sex and Gender Information Value [...] Description 03/27/2024 2:00 PM EST Medication Management [facility] [address] [place] [phone] Misa Adler, PharmD [address] [place] [address] 05/15/2024 10:15 AM EDT Office Visit [facility] [address] [place] [address] Annie Tafoya MD [address] [place] [address] documented as of this encounter Goals Goal Patient Goal Type Associated Problems Recent Progress Patient-Stated? Author Blood Pressure < 140/90 Blood Pressure 136/68(2024 3:16 PM EST) No Azars-Misa Collins, PharmD Hemoglobin A1c < 8 Result Component 10.5(02/15/19 3:28 PM EST) No Misa Yap PharmD documented as of this encounter Procedures Procedure Name Priority Date/Time Associated Diagnosis Comments MAMMOGRAPHY Routine 10/16/2023 4:03 PM EDT documented in this encounter Results * Mammography (10/16/2023 4:03 PM EDT) Mammogram BIRADS 1 Normal, Abnormal, BIRADS 1 , BIRADS 2 Comment:routine annual mammo graphy screening Anatomical Region Laterality Modality Other Historical Provider HEALTH MAINTENANCE Final Result documented in this encounter Visit Diagnoses Not on filedocumented in this encounter Additional Health Concerns Assessment Noted Time PHQ-9 Depression Total Score: 2 09/16/19 23 9:25 AM EDT documented as of this encounter Care Teams Director Custom Relationship Specialty Start Date End Date Annie Tafoya MD [address] [place] [address] PCP - General Family Medicine 09/24/12 Misa Adler, Kilo [address] [place] [address] Pharmacist Internal Medicine 02/25/22 documented as of this encounter
--- OUTSIDE RECORDS SUMMARY | 2024-03-21 11:50 | XMS_ITS | Encounter Summary ---
Author Organization [employer] Address [address] [facility] 7t [place] [address] Care Team Providers Care Dredge Or Barge Shore Hand Name Role Phone Annie Tafoya MD Primary Care Provider + [phone] Misa Adler PharmD Unavailable Reason for Visit * Reason Onset Date Comments dentures prior authorization 11/28/2022 Encounter Details Date Type Department Care Team (Late st Contact Info) Description 11/28/2022 Telephone [facility] [address] [place], [place] [phone] Yoni Farr, ERICKA [address] [place], [place] [phone] dentures prior authorization Social History Tobacco Use Types Packs/Day Years Used Date Smoking Tobacco: Never Passive Smoke Exposure: Never Smokeless Tobacco: Never Depression Answer Date Recorded Patient Health Questionnaire-9 [...] encounter Miscellaneous Notes * Telephone Encounter - Emani Phillip - 11/28/2022 2:06 PM EDT Patient is looking to be scheduled for dentures. Unsure if prior authorization is needed for this appt as no approval or denial is scanned in DR documented in this encounter Plan of Treatment Upcoming Encounters Date Type Department Care Team (Late st Contact Info) Description 03/27/2024 2:00 PM EST Medication Management [facility] [address] [place] [phone] Misa Adler PharmD [address] [place] [address] 05/15/2024 10:15 AM EDT Office Visit [facility] [address] [place] [phone] Annie Tafoya MD [address] [place] [phone] documented as of this encounter Goals Goal Patient Goal Type Associated Problems Recent Progress Patient-Stated? Author Hemoglobin A1c < 8 Result Component 10.5( 3:28 PM EST) No Misa Adler PharmD documented as of this encounter Visit Diagnoses Not on filedocumented in this encounter Additional Health Concerns Assessment Noted Time PHQ-9 Depression Total Score: 2 09/16/19 9:25 AM EDT documented as of this encounter Care Teams Dredge Or Barge Shore Hand Relationship Specialty Start Date End Date Annie Tafoya MD [address] [place] [address] PCP - General Family Medicine 09/24/12 Misa Adler PharmD [address] [place] [address] Pharmacist Internal Medicine 02/25/22 documented as of this encounter
--- OUTSIDE RECORDS SUMMARY | 2024-03-21 11:50 | XMS_ITS | Encounter Summary ---
Author Organization [employer] Address [address] [facility] 7t [place] [address] Care Team Providers Care Consumer Loan Processor Name Role Phone Annie Tafoya MD Primary Care Provider + [phone] Misa Adler PharmD Unavailable Reason for Visit * Reason Onset Date Comments Med Refill 09/22/2022 Encounter Details Date Type Department Care Team (Late st Contact Info) Description 09/22/2022 Telephone [facility] [address] [place] [address] Annie Tafoya MD [address] [place], [place] [phone] Med Refill Social History Tobacco Use Types Packs/Day Years Used Date Smoking Tobacco: Never Passive Smoke Exposure: Never Smokeless Tobacco: Never Depression Answer Date Recorded Patient Health Questionnaire-9 Score 2 09/15/2022 Depression Answer Date Recorded Patient Health Questionnaire-2 Score 1 09/15/2022 Comments Unknown Sex and Gender Information Value Date Recorded Sex Assigned at Female 12/06/2021 10:20 AM EDT Legal Sex Female 10:20 AM EDT Gender Identity Female 12/06/2021 10:20 AM EDT Sexual Orientation Straight 12/06/2021 10 :20 AM EDT documented as of this encounter Miscellaneous Notes * Telephone Encounter - Karla Will - 09/22/2022 1:42 PM EDT 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 States pt is running out of what was given from hospital. Please contact tae at [phone] documented in this encounter Plan of Treatment Upcoming Encounters Date Type Department Care Team (Late st Contact Info) Description 03/27/2024 2:00 PM EST Medication Management [facility] [address] [place] [phone] Misa Adler PharmD [address] [place] [address] 05/15/2024 10:15 AM EDT Office Visit [facility] [address] [place] [phone] Annie Tafoya MD [address] [place] [address] [phone] documented as of this encounter Goals Goal Patient Goal Type Associated Problems Recent Progress Patient-Stated? Author Hemoglobin A1c < 8 Result Component 10.5( 3:28 PM EST) No Misa Adler, BronsonD documented as of this encounter Visit Diagnoses Not on filedocumented in this encounter Additional Health Concerns Assessment Noted Time PHQ-9 Depression Total Score: 2 09/16/19 9:25 AM EDT documented as of this encounter Care Teams Consumer Loan Processor Relationship Specialty Start Date End Date Annie Tafoya MD [address] [place] [address] [phone] PCP - General Family Medicine 09/24/12 Misa Adler PharmD [address] [place] [phone] Pharmacist Internal Medicine 02/25/22 documented as of this encounter
[2024-03-21 13:08] LABS: Anion Gap 11 (12-20); Blood Urea Nitrogen 17 mg/dL (9-16); Calcium 9.1 mg/dL (8.4-10.2); Carbon Dioxide 31 mmol/L (22-29); Chloride 103 mmol/L (96-108); Estimated Glomerular Filt Rate > 60; Glucose Random 138 mg/dL (60-115); Potassium 4.2 mmol/L (3.3-5.1); Sodium 141 mmol/L (135-145)
== END 2024-03-21 11:11 | disposition home or self-care (01) ==
LOC: HO.HHCL 11:10
PROVIDERS: Visit Provider Family Medicine
DX: I10 Essential (primary) hypertension (principal)
CPT/HCPCS: 36415; 80048

== ENCOUNTER 2024-04-04 11:00 | Outpatient (AMB) | payer OTHER, SELFPAY ==
--- NOTE | 2024-04-04 11:11 | HO.NEPHOV_ITS ---
Vital Signs 04/04/24 11:12 Height 5 ft Weight 168 lb BMI 32.8 BP 130/76 Blood Pressure Location Rt brachial Position Sitting Pulse 91 Pulse Source Pulse Oximeter Pulse Oximetry (%) 88 L Oxygen Delivery Method Room Air Intake Visit Reasons: Proteinuria/ cONF Program Evaluation Consultant Required: Yes Program Evaluation Consultant Name: ying [id number] Accompanied by: Self / Same As Patient Allergies No Known Allergies [No Known Allergies*] Allergy (Verified 04/04/24 11:13) Medication List - Last Reviewed 04/04/24 by JACQUELINE Olsen amlodipine 5 mg PO DAILY aspirin 1 tab PO QPM atenolol 50 mg PO BID atorvastatin 1 tab PO BEDTIME cholecalciferol (vitamin D3) 1 tab PO QAM empagliflozin (Jardiance) 25 mg PO DAILY insulin glargine (Lantus Solostar U-100 Insulin) 30 units subcut DAILY losartan 100 mg PO DAILY omeprazole 1 cap PO DAILY HPI Comments Details: Gay is a 78 new year old woman with a history of longstanding diabetes mellitus for more than 15 years along with hypertension. She has been referred for evaluation of proteinuria. She is currently on losartan for renal protection. She was accompanied by a family member. Program Evaluation Consultant service was used. She has been compliant with her medications. Today she has no complaints like headache nausea vomiting. No shortness of breath. No edema. No polyuria polydipsia. No fever no rash. No joint pains. 12/04/23 Did not undergo any investigations as ordered. Program Evaluation Consultant service was used. [facility] Medical History Diastolic dysfunction Cardiomegaly Mood disorder Hyperlipidemia Hypertension Insulin dependent type 2 diabetes mellitus GERD (gastroesophageal reflux disease) Surgical History History of esophagogastroduodenoscopy (EGD) Hx of colonoscopy History of tubal ligation Family History Family/Other No significant medical problems Social History Household Members: None Housing: Apartment Housing Other:: rd floor with elevator access Do you presently have visiting nurse or other home services: Yes Alcohol intake: never Patient Tobacco Use Status: Never used Tobacco Advance Directives Date on File: 07/20/20 service: No Current occupational status: unemployed Physical Exam Vital Signs: Last Vital Signs Pulse 91 04/04/24 11:12 BP 130/76 04/04/24 11:12 Pulse Ox 88 L 04/04/24 11:12 Oxygen Delivery Method Room Air 04/04/24 11:12 BMI result Body Mass Index 32.8 Const General: comfortable; No acute distress Orientation/consciousness: patient oriented x3 Eyes General: appearance normal, both eyes and all related structures Visual Mckeon: normal visual mckeon by confrontation Neck Neck: Yes supple and Yes no JVD Resp Effort & Inspection: normal respiratory effort and respiratory effort not decreased Auscultation: rhonchi Cardio Palpation: no palpable S3 and no palpable S4 Heart sounds: no rubs GI Inspection: Yes normal to inspection Palpation (GI): Soft to palpation Percussion: Yes normal to percussion Auscultation: normal bowel sounds General: Yes no CVA tenderness Back/Spine/Pelvis Back: no CVA tenderness Skin General skin exam: no petechiae and no purpura Neuro General: patient oriented x3 and no focal motor deficits Extrem General: No clubbing and No edema Results Reviewed Nephrology Results: Sodium 141 mmol/L (135-145) 03/21/24 Potassium 4.2 mmol/L (3.3-5.1) 03/21/24 Chloride 103 mmol/L (96-108) 03/21/24 Carbon Dioxide 31 mmol/L (22-29) H 03/21/24 BUN 17 mg/dL (9-16) H 03/21/24 Creatinine 0.89 mg/dL (0.5-1.4) 03/21/24 Calcium 9.1 mg/dL (8.4-10.2) 03/21/24 Urine Protein 100 (2+) mg/dL (Neg-Trace) H 02/19/24 Urine Creatinine 44.57 mg/dL 02/19/24 Renal US 12/12/23 Assessment & Plan Assessment & Plan (1) CKD (chronic kidney disease): Code(s): N18.9 - Chronic kidney disease, unspecified Category: Medical (2) Hypertension: Code(s): I10 - Essential (primary) hypertension Category: Medical Plan Gay is a 78-year-old woman with non nephrotic range proteinuria in the setting of longstanding diabetes mellitus hypertension. 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 No clinical evidence of obstruction. No evidence of any active glomerulonephritis or interstitial disease at this time. Mild acceptable increase in creatinine She could have a component of hypoperfusion ( She had diarrhea) Encouraged in increase PO fluids Optimize blood pressure and maintain blood pressure less than 130/80. Agree with angiotensin receptor jo. Gradually titrate the dose to maximize ARASELI inhibition. Continue to avoid nephrotoxic agents including NSAIDs. Encouraged her to stay on low-sodium diet. Orders: Orders WISAM Reflex Titer and Pattern Today I10 - Essential (primary) hypertension, N18.9 - Chronic kidney disease, unspecified Anti Glomerular Basement Memb Today I10 - Essential (primary) hypertension, N18.9 - Chronic kidney disease, unspecified Complement C3 Today I10 - Essential (primary) hypertension, N18.9 - Chronic kidney disease, unspecified Complement C4 Today I10 - Essential (primary) hypertension, N18.9 - Chronic kidney disease, unspecified Protein Electrophoresis, Serum Today I10 - Essential (primary) hypertension, N18.9 - Chronic kidney disease, unspecified UA and rflx microscopic 6 Months I10 - Essential (primary) hypertension, N18.9 - Chronic kidney disease, unspecified Creatinine Urine 6 Months I10 - Essential (primary) hypertension, N18.9 - Chronic kidney disease, unspecified Basic Metabolic Panel 6 Months I10 - Essential (primary) hypertension, N18.9 - Chronic kidney disease, unspecified Total Protein Urine Random 6 Months I10 - Essential (primary) hypertension, N18.9 - Chronic kidney disease, unspecified Medications: Discontinued primidone Discontinued Reason: Order 50 mg PO BID Coding Level of Care Code Est Pt Level 4 (48418) Diagnoses CKD (chronic kidney disease) N18.9 Hypertension I10
[2024-04-04 11:12] VITALS: BP 130/76; PULSE 91; O2SAT 88; BMI 32.8
--- OUTSIDE RECORDS SUMMARY | 2024-04-04 13:11 | XMS_ITS | Encounter Summary ---
Author Organization [employer] Address [address] [facility] [address] [place] [address] Care Team Providers Care Safety Trainer Name Role Phone Annie Tafoya MD Primary Care Provider [phone]- [phone] Misa Adler PharmD Unavailable [phone] Reason for Visit * Reason Onset Date Comments Prior Authorization 03/11/2024 Encounter Details Date Type Department Care Team (Late st Contact Info) Description 03/11/2024 Telephone [facility] MEDICINE [address] [place] [address] Wanda Collins, RN [address] [place] [address] Prior Authorization Social History Tobacco Use Types [...] encounter Miscellaneous Notes * Telephone Encounter - Wanda Collins RN - 03/21/2024 1:11 PM EST Pt scheduled for CGM teaching with CDTM 03/27. * Telephone Encounter - Alba Valenzuela - 03/21/2024 11:07 AM EST PA approval received. Scanned into media. * Telephone Encounter - Wanda Collins RN - 03/13/2024 4:07 PM EST Faxed signed PA packet to [facility] as below * Telephone Encounter - Wanda Collins RN - 03/11/2024 3:16 PM EST Received fax from pharmacy stating Sury 3 and supplies require PA. PA packet generated and placed on PCP's desk. Pending signature. documented in this encounter Plan of Treatment Upcoming Encounters Date Type Department Care Team (Late st Contact Info) Description 04/24/2024 2:00 PM EDT Medication Management [facility] MEDICINE [address] [place] [id number] Misa Adler, PharmD [address] [place] [phone] 05/15/2024 10:15 AM EDT Office Visit [facility] [address] [place] [address] [phone] Annie Tafoya MD [address] [place] [address] [phone] documented as of this encounter Goals Goal Patient Goal Type Associated Problems Recent Progress Patient-Stated? Author Blood Pressure < 140/90 Blood Pressure 136/68(2024 3:16 PM EST) No Misa Yap, PharmD Hemoglobin A1c < 8 Result Component 10.5(02/15/19 3:28 PM EST) No Misa Yap PharmD documented as of this encounter Visit Diagnoses Not on filedocumented in this encounter Additional Health Concerns Assessment Noted Time PHQ-9 Depression Total Score: 7 11/29/19 24 3:29 PM EDT documented as of this encounter Care Teams Safety Trainer Relationship Specialty Start Date End Date Annie Tafoya MD [address] [place] [address] [phone] PCP - General Family Medicine 09/24/12 Misa Adler PharmD [address] [place] [address] [phone] Pharmacist Internal Medicine 02/25/22 documented as of this encounter
--- OUTSIDE RECORDS SUMMARY | 2024-04-04 13:11 | XMS_ITS | Clinical Summary ---
Author Organization [employer] Address [address] [place] [address] Care Team Providers Care Card Punching Machine Operator Name Role Phone Annie Tafoya MD Primary Care Provider [phone]- [phone] Misa Adler PharmD Unavailable Allergies No known [...] SUGAR OCCURS 37 g 11 023 Active aspirin 81 MG EC tablet Take [...] hyperglycemia, with long-term current use of insulin ([facility]) TAKE 1 TABLET BY MOUTH EVERY MORNING [...] Once per day. 90 tablet 025 Active Continuous Glucose Sensor (FreeStyle Sury 3 Plus Sensor) miscIndications: Type 2 diabetes mellitus with hyperglycemia, with long-term current use of insulin ([facility]) 1 each Use as directed. 2 each 11 025 Active Continuous Glucose Corporate Travel Counselor (FreeStyle Sury 3 [place]) deviceIndication s:Type 2 diabetes mellitus with hyperglycemia, with long-term current use of insulin ([facility]) 1 each Use as directed. 1 each 025 Active insulin glargine (Lantus SoloStar) 100 UNIT/ML penIndications:T ype 2 diabetes mellitus with hyperglycemia, with long-term current use of insulin ([facility]) INJECT 34 UNITS SUBCUTANEOUSLY ONCE DAILY 025 Active insulin pen needle (Pentips) 32G x 4 mm miscIndications: Insulin dependent type 2 diabetes mellitus ([facility]) Use as instructed 100 each 5 025 Active Tirzepatide (Mounjaro) 2.5 MG/0.5ML solution auto-injectorInd ications:Type 2 diabetes mellitus with hyperglycemia, with long-term current use of insulin ([facility]) Inject 2.5 mg under the skin 1 (one) time per week. 2 mL 025 Active Continuous Blood Gluc Corporate Travel Counselor (FreeStyle Sury 2 [place]) deviceIndication s:Insulin dependent type 2 diabetes mellitus ([facility]) USE DIRECTED TO TEST BLOOD SUGAR EVERY 8 HOURS 1 each 023 2024 Discontinued(O ther) Pentips 32G X 4 MM miscIndications: Insulin dependent type 2 diabetes mellitus ([facility]) USE DIRECTED WITH LANTUS SOLOSTAR 100 each 5 024 2024 Discontinued(R eorder (will not trigger notification to Pharmacy)) Continuous Glucose Sensor (FreeStyle Sury 2 Sensor) miscIndications: Insulin dependent type 2 diabetes mellitus ([facility]) USE DIRECTED TO TEST BLOOD SUGAR EVERY 8 HOURS. CHANGE EVERY 14 DAYS 2 each 11 024 2024 Discontinued(O ther) insulin glargine (Lantus SoloStar) 100 UNIT/ML penIndications:T ype 2 diabetes mellitus with hyperglycemia, with long-term current use of insulin ([facility]) INJECT 32 UNITS SUBCUTANEOUSLY ONCE DAILY 025 2024 Discontinued Tirzepatide (Mounjaro) 2.5 MG/0.5ML solution auto-injectorInd ications:Type 2 diabetes mellitus with hyperglycemia, with long-term current use of insulin ([facility]) Inject 2.5 mg under the skin 1 (one) time per week. 2 mL 025 2024 Discontinued(R eorder (will not trigger notification to Pharmacy)) Active Problems Patient Care Coordination No te Formatting of this note migh t be different from the original. Enrolled in [facility] DM and [facility] HTN clinic with Misa Adler, PharmD, [facility] Care team: Navigator Srinath Walker Geriatric sales support coordinator Sasha [facility] manager of corporate Shayne Pagan [facility] Nurse correctional counselor/case manager Jean Bolaños, HERO Problem Noted Date Diagnosed Date Type 2 diabetes mellitus wit h hyperglycemia, with long-term current use of insulin 11/29/2023 Overview (03/20/2024): - Mounjaro 2.5mg once daily started by [facility] 03/06/24 - Lantus titrated by [facility] - Continue Jardiance 25mg once daily -Metformin previously discontinued -SMGB using Sury 2 however to switch to Sury 3 plus 03/27/24 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, psychotic disturbance, mood disturbance, or anxiety 11/10/2023 Overview (11/10/2023): MMSE2 in Salvadorean completed with pt 11/10/23 Pt scored a [...] due after 11/18/2023 -eye care facilitated by [facility] -dental home is [facility] -Health care proxy paperwork completed 04/05/23 Assessment & Plan (04/05/2023 10:42 AM EST): -next physical exam due after 11/18/2023 -eye care facilitated by [facility] -dental home is [facility] -Health care proxy paperwork completed 04/05/23 Assessment & Plan (11/17/2022 10:38 AM EDT): -next physical exam due after 11/18/2023 -eye care facilitated by [facility] -dental home is [facility] Physical exam 11/17/2022 Overview (07/05/2023): -Normal [...] new insurance. - Pt is followed by marsh buggy operator, Dr. Galvan. She last visited 2018. - [...] recommends follow up sleep clinic. -hospitalized at [facility] (09/06/22-09/09/22)Patient presented for evaluation of dyspnea and [...] if anyone cancels sooner - Pt saw [facility] 02/09/23 Pulmonology and her Oxygen was discontinued, CXR and PFTs ordered referral for O2 assessment done to see if she needs O2 or not, Pt reports she is no longer on O2, Has follow up in August, pt and LAST CODE STRIPER notified of follow up Assessment & Plan [...] new insurance. - Pt is followed by marsh buggy operator, Dr. Galvan. She last visited 2018. - [...] recommends follow up sleep clinic. -hospitalized at [facility] (09/06/22-09/09/22)Patient presented for evaluation of dyspnea and [...] if anyone cancels sooner - Pt saw [facility] 02/09/23 Pulmonology and her Oxygen was discontinued, CXR and PFTs ordered referral for O2 assessment done to see if she needs O2 or not, Pt reports she is no longer on O2, Has follow up in August, pt and LAST [employer] STRIPER notified of follow up Assessment & Plan [...] new insurance. - Pt is followed by marsh buggy operator, Dr. Galvan. She last visited 2018. - [...] recommends follow up sleep clinic. -hospitalized at [facility] (09/06/22-09/09/22)Patient presented for evaluation of dyspnea and [...] if anyone cancels sooner - Pt saw [facility] 02/09/23 Pulmonology and her Oxygen was discontinued, CXR and PFTs ordered referral for O2 assessment done to see if she needs O2 or not, Pt reports she is no longer on O2, Has follow up in August, pt and LAST [employer] STRIPER notified of follow up Assessment & Plan [...] new insurance. - Pt is followed by marsh buggy operator, Dr. Galvan. She last visited 2018. - [...] recommends follow up sleep clinic. -hospitalized at [facility] (09/06/22-09/09/22)Patient presented for evaluation of dyspnea and [...] diagnosed 04/2016 - Pt is followed by marsh buggy operator, Dr. Galvan. She last visited 2019. - [...] new insurance. - Pt is followed by marsh buggy operator, Dr. Galvan. She last visited 2019. - [...] new insurance. - Pt is followed by marsh buggy operator, Dr. Galvan. She last visited 2019. - [...] Assessment & Plan (11/17/2022 10:15 AM EDT): Saw cardiology; Dr. Cohen on 07/22/21. -Her echo on Feb 2017 showed moderate mitral annular calcification. -Echo 09/08/22 reveals EF 55-60% with grade 2, moderate diastolic dysfunction. Mild mitral annular calcification. Mild pulmonary hypertension. Mildly dilated inferior vena caval Assessment & Plan (07/13/2022 9:14 AM EDT): Saw cardiology; Dr. Cohen on [...] She saw a specialist on 11/2017 at [facility] 02/14/2018: We contacted [facility] and Linda reports: in July an order was sent to [facility] for CPAP and there is no record of issues with machine. We then contacted [facility] in July where Dr Fields's office was notified her insurance did not accept it so we recalled [facility] and the reported they will send an urgent message to find an in-network supplier. She states she has her machine now. - Sleep study done [facility] sleep center 02/17/23 recommending CPAP with 14 small N20 mask and Supplemental O2 at 1 L per min with Dr. Kayley Chamorro and patient reports compliance with CPAP 04/05/23 -Seen by sleep medicine 05/14/23 Resent CPAP prescription to [facility]. [facility] information given to patient. Advised patient to start CPAP at [id number] with supplemental O2 1 L at night. Stressed compliance, use CPAP nightly and more than 4 hrs. Assessment & Plan (07/06/2023 8:33 AM EDT): Diagnosed on sleep study 04/2016. Pt followed by sleep clinic. Reports now tolerating BiPAP. She saw a specialist on 11/2017 at [facility] 02/14/2018: We contacted [facility] and Linda reports: in July an order was sent to [facility] for CPAP and there is no record of issues with machine. We then contacted [facility] in July where Dr Fields's office was notified her insurance did not accept it so we recalled [facility] and the reported they will send an urgent message to find an in-network supplier. She states she has her machine now. - Sleep study done [facility] sleep center 02/17/23 recommending CPAP with 14 small N20 mask and Supplemental O2 at 1 L per min with Dr. Kayley Chamorro and patient reports compliance with CPAP 04/05/23 -Seen by sleep medicine 05/14/23 Resent CPAP prescription to [facility]. [facility] information given to patient. Advised patient to start CPAP at [id number] with supplemental O2 1 L at night. Stressed compliance, use CPAP nightly and more than 4 hrs. Assessment & Plan (04/05/2023 11:59 AM EST): Diagnosed on sleep study 04/2016. Pt followed by sleep clinic. Reports now tolerating BiPAP. She saw a specialist on 11/2017 at [facility] 02/14/2018: We contacted [facility] and Linda reports: in July an order was sent to [facility] for CPAP and there is no record of issues with machine. We then contacted [facility] in July where Dr Fields's office was notified her insurance did not accept it so we recalled [facility] and the reported they will send an urgent message to find an in-network supplier. She states she has her machine now. - Sleep study done [facility] sleep center 02/17/23 recommending CPAP with 14 small N20 mask and Supplemental O2 at 1 L per min with Dr. Kayley Chamorro and patient reports compliance with CPAP 04/05/23 Assessment & Plan (11/17/2022 9:20 AM EDT): Diagnosed on sleep study 04/2016. Pt followed by sleep clinic. Reports now tolerating BiPAP. She saw a specialist on 11/2017 at [facility] 02/14/2018: We contacted [facility] and Linda reports: in July an order was sent to [facility] for CPAP and there is no record of issues with machine. We then contacted [facility] in July where Dr Fields's office was notified her insurance did not accept it so we recalled [facility] and the reported they will send [...] She saw a specialist on 11/2017 at [facility] 02/14/2018: We contacted [facility] and Linda reports: in July an order was sent to [facility] for CPAP and there is no record of issues with machine. We then contacted [facility] in July where Dr Fields's office was notified her insurance did not accept it so we recalled [facility] and the reported they will send an urgent message to find an in-network supplier. She states she has her machine now. Assessment & Plan (05/04/2022 11:37 AM EDT): Diagnosed on sleep study 04/2016. Pt followed by sleep clinic. Reports now tolerating BiPAP. She saw a specialist on 11/2017 at [facility] 02/14/2018: We contacted [facility] and Linda reports: in July an order was sent to [facility] for CPAP and there is no record of issues with machine. We then contacted [facility] in July where Dr Fields's office was notified her insurance did not accept it so we recalled [facility] and the reported they will send [...] Collaborative Drug Therapy Managment Program with our JOON Boateng. Assessment & Plan (11/29/2023 3:46 PM EDT): [...] Collaborative Drug Therapy Managment Program with our JOON Boateng. Assessment & Plan (07/06/2023 8:33 AM EDT): [...] Assessment & Plan (07/13/2022 10:21 AM EDT): Anitra held 06/25/21 for elevated [...] Encounters Date Type Department Care Team Description 04/02/2024 Refill [facility] [address] [place] [address] Annie Tafoya MD Type 2 diabetes mellitus with hyperglycemia, with long-term current use of insulin ([facility]) 04/02/2024 Refill [facility] [address] [place] [place] [address] Misa Adler, PharmD Type 2 diabetes mellitus with hyperglycemia, with long-term current use of insulin ([facility]) 04/01/2024 Telephone [facility] [address] [place] [address] Misa Adler, PharmD 04/01/2024 Refill [facility] [address] [address] Wanda Collins, RN Insulin dependent type 2 diabetes mellitus ([facility]) 04/01/2024 Refill [facility] [address] [place] [address] Annie Tafoya MD Insulin dependent type 2 diabetes mellitus ([facility]) 03/21/2024 Orders Only [facility] [address] [place] [address] Annie Tafoya MD 03/20/2024 Travel 03/12/2024 Travel 03/11/2024 Telephone [facility] [address] [place] [address] Wanda Collins RNfirst mate 03/06/2024 Travel 02/27/2024 Telephone [facility] [address] [place] [address] Misa Adler, PharmD 02/19/2024 Orders Only GENERIC EXTERNAL DATA DEPARTMENT Provider, Generic External Data 02/16/2024 Travel 02/07/2024 Refill [facility] [address] [place] [address] Misa Adler, PharmD Type 2 diabetes mellitus with hyperglycemia, with long-term current use of insulin ([facility]) 02/06/2024 Refill [facility] [address] [place] [address] Misa Adler, PharmD Primary hypertension; Type 2 diabetes mellitus with hyperglycemia, with long-term current use of insulin ([facility]) 02/06/2024 Refill [facility] [address] [place] [address] Misa Adler, PharmD Primary hypertension; Type 2 diabetes mellitus with hyperglycemia, with long-term current use of insulin ([facility]) 01/13/2024 Refill [facility] [address] [place] [address] Sirisha Soto MD 01/09/2024 Travel from Last 3 Months Immunizations Name Administration Dates Next Due Hep B, adult 11/29/2023,07/05/2023,11/17/2022 Influenza High-dose Quadriva lent Preservative Free 11/17/2022,11/25/2020 Influenza injectable quadriv alent IIV4 with preservative 12/19/2016,11/27/2015 Influenza injectable quadriv alent preservative free 01/21/2015 Influenza, High Dose Seasona l, Preservative Free 11/29/2023,02/14/2019,12/13/2017 Influenza, IIV3, injectable 12/30/2013, 9 Influenza, Split (incl. ronal fied surface antigen) 11/14/2012,10/24/2011 Moderna Covid-19 Vaccine 12+ 01/25/2021,04/24/19 21,03/26/2020 Moderna Covid-19 Vaccine 6+ Bivalent 02/24/2022 Pfizer [...] kg (166 lb 6.4 oz) 11/29/2023 3:33 P M EDT Height 149.3 cm (4' 10.76 ) 11/29/2023 3:33 PM E DT Body Mass Index 33.88 11/29/2023 3:33 PM EDT Plan of Treatment Upcoming Encounters Date Type Department Care Team (Late st Contact Info) Description 04/24/2024 2:00 PM EDT Medication Management [facility] [address] [place] [phone] Misa Adler, PharmD [address] [place] [phone] 05/15/2024 10:15 AM EDT Office Visit [facility] [address] [place] [phone] Annie Tafoya MD [address] [place] [phone] Health Maintenance Due Date Last Done Comments [...] (Patient Refused) Depression Screening 11/28/2024 11/29/2023, 11/29/19 Diabetes: Foot Exam 11/28/2024 11/29/2023, 11/29/2023, 11/29/2023, [...] 3:28 PM EST) No Misa Yap PharmD Procedures Procedure Name Priority Date/Time Associated Diagnosis Comments BASIC METABOLIC PANEL Routine 03/21/2024 11:12 AM EST ALBUMIN, RANDOM URINE W/CREATININE Routine 02/19/2024 10:20 AM EST LIPID PANEL, STANDARD Routine 02/19/2024 10:20 AM EST BASIC METABOLIC PANEL Routine 02/19/2024 10:20 AM EST URINALYSIS, COMPLETE Routine 02/19/2024 10:20 AM EST T-SPOT(R).TB Routine 02/19/2024 10:20 AM EST Screening for tuberculosis POCT GLYCATED HEMOGLOBIN, TOTAL Routine 02/16/2024 3:28 PM EST Type 2 diabetes mellitus with hyperglycemia, with long-term current use of insulin (CMS/HCC) HEPATITIS C AB W/REFL TO HCV RNA, [...] Recently Relevant to Health Maintenance Results * (ABNORMAL) Basic Metabolic Panel (03/21/2024 11:12 AM EST) Only the most recent of2 resultswithin the time period is included. Sodium 141 135 - 145 mmol/L [facility] Potassium 4.2 3.3 - 5.1 mmol/L [facility] Chloride 103 96 - 108 mmol/L [facility] Carbon Dioxide 31(H) 22 - 29 mmol/L [facility] Anion Gap 11(L) 12 - 20 [facility] Urea Nitrogen (BUN) 17(H) 9 - 16 mg/dL [facility] Creatinine, Serum 0.89 0.5 - 1.4 mg/dL [facility] Estimated Glomerular Filt Rate >60 [facility] Comment:Chronic Kidney Disea se: Estimated GFR < 60 mL/min/1.04g8Cdlnwm Kidney Disease: Estimated GFR < 15 mL/min/1.73m2 Glucose 138(H) 60 - 115 mg/dL [facility] Calcium 9.1 8.4 - 10.2 mg/dL [facility] 03/21/2024 11:1 2 AM EST 03/21/2024 12:51 PM EST us Annie Tafoya MD LAB BLOOD ORDERABLES Final Result [facility] [address] [place] [address] [phone] * T-SPOT??.TB (02/19/2024 10:20 AM EST) T Spot TB Negative Negative [facility] Comment:A negative test resu lt [...] as aquantitative test. TS PANEL A 0 [facility] TS PANEL B 1 [facility] Negative Control Passed [facility] Positive Control Passed [facility] Comment:For additional infor roland, please refer tohttp://education.SpotOnWay/faq/BKK468(This link is being provided for informational/educational purposes only.)THIS TEST WAS PERFORMED AT:[employer] [id number] [place] [id number] DURAN MD,PHD 02/19/2024 10:2 0 AM EST 02/19/2024 11:07 AM EST us Annie Tafoya MD LAB BLOOD ORDERABLES Final Result [facility] [address] [place] [address] [phone] * (ABNORMAL) Albumin, Random Urine W/Creatinine (02/19/2024 10:20 AM EST) Pathologist [facility] Creatinine, Urine 44.57 mg/dL [facility] Microalbumin Urine 451.0 mg/L [facility] Microalbum Creatinine Ratio Ur 1,011.8(H ) <30 ug/mg cr [facility] Comment:Albumin/Creatinine R atio Reference Ranges: Normal: < 30 ug/mg creatinine Microalbuminuria: 30 - 300 ug/mg creatinineClinical Albuminuria: > 300 ug/mg creatinine 02/19/2024 10:2 0 AM EST 02/19/2024 10:58 AM EST us Annie Tafoya MD LAB URINE ORDERABLES Final Result Performing Organization Address City/[facility]/ZIP Co de Phone Number [facility] [address] [place], [place] [phone] * (ABNORMAL) Urinalysis Complete (02/19/2024 10:20 AM EST) Color Urine Yellow [facility] Appearance Urine Clear [facility] PH 6.0 5.0 - 9.0 [facility] Glucose Urine UA >=1000(A) Negative mg/dL [facility] Urine Blood Negative Negative [facility] Specific [place] - Urine 1.020 1.005 - 1.025 [facility] Urine Protein 100 (2+)(A) Neg-Trace mg/dL [facility] Urine Ketones Negative Negative mg/dL [facility] Nitrite Urine Negative Negative [facility] Leukocyte Esterase Urine Negative Negative [facility] RBC Urine 0-2 0 - 2 /HPF [facility] Urine WBC 6-10(A) 0 - 5 /HPF [facility] Urine Squamous Epithelial Cell 3-5 0 - 2 /HPF [facility] Urine Bacteria None Seen None Seen [facility] Hyaline Casts, Urine 0-2 0 - 2 /LPF [facility] 02/19/2024 10:2 0 AM EST 02/19/2024 10:58 AM EST us Generic External Data Provider LAB URINE ORDERAB LES Final Result [facility] [address] [place] [address] [phone] * Lipid Panel, Standard (02/19/2024 10:20 AM EST) Triglycerides 149 <150 mg/dL [facility] Comment:Desirable Triglyceri de: less than 150 mg/dLBorderline High Triglyceride 150-199 mg/dLHigh Triglyceride: 200-499 mg/dLVery High Triglyceride: greater than or equal to 5OO mg/dL Cholesterol 152 <200 mg/dL [facility] Comment:Desirable Cholestero l: less than 200 mg/dLBorderline High Cholesterol: 200-239 mg/dLHigh Cholesterol: greater than 239 mg/dL LDL Cholesterol Calculated 75 <100 mg/dL [facility] Comment:Desirable LDL: less than 100 mg/dLNear Optimal/Above Optimal LDL: 110- 129 mg/dLBorderline High LDL: 130-159 mg/dLHigh LDL: 160-189 mg/dLVery High LDL: greater than or equal to 190 mg/dL HDL Cholesterol 48 >40 mg/dL [facility] Comment:Desirable HDL: great er than 40 mg/dL Note: This HDL assay may give artificially low results in patients with liver disease. 02/19/2024 10:2 0 AM EST 02/19/2024 11:07 AM EST Annie Tafoya MD LAB BLOOD ORDERABLES Final Result [facility] [address] [place] [address] [phone] * (ABNORMAL) POCT A1C (02/16/2024 3:28 PM EST) Hemoglobin A1C 10.5(A) 4.0 - 6.0 % QC Media Lot # [id number] Lot# Expiration Date 667 Blood 02/16/2024 3:28 PM EST us Annie Tafoya MD POINT OF CARE TEST ENTER/E DIT ORDERABLES Final Result * Hepatitis C Antibody with Reflex to HCV, RNA, Quantitative, Real-Time PCR (04/06/2023 9:45 AM EST) Hepatitis C Antibody Nonreactive Nonreactive [facility] Comment:Antibodies to HCV no t detected; does not exclude early acuteHCV infection. Blood Venous blood specimen / Unknown 04/06/2023 9:45 AM EST 04/06/2023 11:27 AM EST us Annie Tafoya MD LAB BLOOD ORDERABLES Final Result [facility] [address] [place] [address] [phone] from Last 3 Months or Most Recently Relevant to Health Maintenance Insurance [facility] STANDARD Member Subscriber Plan / Payer (Ef fective 2022-Present) Name:Gay Giron Relation to Subscriber:Self Name:Walton Tip Dahlia Payer ID:Not on file Group ID:Not on file Type:Medicaid Address: [facility] [id number] [place] [id number] [place] [address] DANISH ASHELY LOPEZ [facility] [address] [place] [id number] DENTAL - DQ [facility] Advance Directives Documents on File Type Date Recorded Patient Mechanical Drawing Teacher Expl anation Advance Directives and Livin g Will 04/07/2023 1:54 PM HCP Care Teams Card Punching Machine Operator Relationship Specialty Start Date End Date [place], MD Annie [address] [place] [phone] PCP - General Family Medicine 09/24/12 Misa Adler, PharmD [address] [place] [address]10 Pharmacist Internal Medicine 02/25/22
--- OUTSIDE RECORDS SUMMARY | 2024-04-04 13:11 | XMS_ITS | Encounter Summary ---
Author Organization [employer] Address [address] [facility] [address] 7t [place] [address] Care Team Providers Care Pediatric Social Worker Name Role Phone Annie Tafoya MD Primary Care Provider + [phone] Misa Adler PharmD Unavailable +1- [phone] Encounter Details Date Type Department Care Team [...] Description 04/24/2024 2:00 PM EDT Medication Management [facility] [address] [place] [address] 63647 AzarsMisa Chris, PharmD [address] [place] [address] 52950 05/15/2024 10:15 AM EDT Office Visit [facility] [address] [place] [address] 94260 Annie Tafoya MD [address] [place] [address] 09339 documented as of this encounter Goals Goal [...] documented as of this encounter Care Teams Pediatric Social Worker Relationship Specialty Start Date End Date Michelet, Annie, MD [address] [place] [address] PCP - General Family Medicine 09/24/12 Misa Adler, BronsonD 230 [place] [address] Pharmacist Internal Medicine 02/25/22 documented as of this encounter
--- OUTSIDE RECORDS SUMMARY | 2024-04-04 13:12 | XMS_ITS | Encounter Summary ---
Author Organization [employer] Address 75 [facility] 7t [place] [address] Care Team Providers Care Yardage Caller Name Role Phone Annie Tafoya MD Primary Care Provider + [phone] Misa Adler PharmD Unavailable +1- [phone] Encounter Details Date Type Department Care Team (Late st Contact Info) Description 10/16/2023 Abstract [facility] [address] [place] [address] Stephanie Persaud [place] Social History Tobacco Use [...] Description 04/24/2024 2:00 PM EDT Medication Management [facility] [address] [place] [address] 31496 Misa Adler, PharmD [address] [place] [address] 57969 05/15/2024 10:15 AM EDT Office Visit [facility] [address] [place] [address] 46811 Annie Tafoya MD [address] [place] [address] 32684 documented as of this encounter Goals Goal Patient Goal Type Associated Problems Recent Progress Patient-Stated? Author Blood Pressure < 140/90 Blood Pressure 136/68(2024 3:16 PM EST) No Azars-Teena Collinssa, PharmD Hemoglobin A1c < 8 Result Component [...] documented as of this encounter Care Teams Yardage Caller Relationship Specialty Start Date End Date Annie Tafoya MD 230 [place] [address] PCP - General Family Medicine 09/24/12 Misa Adler, Kilo [address] [place] [address] 79550 Pharmacist Internal Medicine 02/25/22 documented as of this encounter
--- OUTSIDE RECORDS SUMMARY | 2024-04-04 13:12 | XMS_ITS | Encounter Summary ---
Author Organization [employer] Address 75 [facility] 7t [place] [address] Care Team Providers Care American History Professor Name Role Phone Annie Tafoya MD Primary Care Provider + [phone] Misa Adler PharmD Unavailable Reason for Visit * Reason Comments Med Refill Encounter Details Date Type Department Care Team (Late st Contact Info) Description 04/15/2022 Refill [facility] 230 [place], [place] [phone] Annie Tafoya MD 230 [place], [place] [phone] Type 2 diabetes mellitus with hyperglycemia ([facility]) Social History Tobacco Use Types [...] PM EDT Received an incoming fax from [facility] with refill request for Trihexyphenidyl 2 mg 1 tablet twice a day.Refill denied by pt needS an appt due to No Shows. DOES PCP WANT TO COVER? documented in this encounter Plan of Treatment Upcoming Encounters Date Type Department Care Team (Late st Contact Info) Description 04/24/2024 2:00 PM EDT Medication Management [facility] MED[facility]INE [address] [place] [address] 11627 Misa Adler PharmD [address] [place] [address] 626[address] 05/15/2024 10:15 AM EDT Office Visit [facility]INE [address] [place] [address] 99237 Annie Tafoya MD [address] [place] [address] [phone] documented as of this encounter Goals Goal Patient Goal Type Associated Problems Recent Progress Patient-Stated? Author Hemoglobin A1c < 8 Result Component 10.5( 3:28 PM EST) No Misa Adler PharmD documented as of this encounter Visit Diagnoses Diagnosis Type 2 diabetes mellitus with hyperglycemia (CMS/[facility]) documented in this encounter Care Teams American History Professor Relationship Specialty Start Date End Date Annie Tafoya MD [address] [place] [address] [phone] PCP - General Family Medicine 09/24/12 Misa Adler PharmD [address] [place] [address] [phone] Pharmacist Internal Medicine 02/25/22 documented as of this encounter
--- OUTSIDE RECORDS SUMMARY | 2024-04-04 13:12 | XMS_ITS | Encounter Summary ---
Author Organization [employer] Address 75 [facility] 7t [place] [address] Care Team Providers Care Die Sinking Machine Operator Name Role Phone Annie Tafoya MD Primary Care Provider + [phone] Misa Adler PharmD Unavailable [phone] Reason for Visit * Reason Comments Med Refill Encounter Details Date Type Department Care Team (Late st Contact Info) Description 04/01/2024 Refill [facility] MED[facility] 230 [place], [place] [phone] Annie Tafoya MD 230 [place], [place] [phone] Insulin dependent type 2 diabetes mellitus (CMS/HCC) Social History Tobacco Use Types Packs/Day Years [...] the past 12 months, has t he [employer], gas, oil or water [employer] threatened to shut off services in your [...] Description 04/24/2024 2:00 PM EDT Medication Management [facility]INE [address] [place] [address] 33299 Misa Adler PharmD [address] [place] [address] 09006 05/15/2024 10:15 AM EDT Office Visit [facility] [address] [place] [address] 77541 Annie Tafoya MD [address] [place] [address] 51375 documented as of this encounter Goals Goal Patient Goal Type Associated Problems Recent Progress Patient-Stated? 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
--- OUTSIDE RECORDS SUMMARY | 2024-04-04 13:12 | XMS_ITS | Encounter Summary ---
Author Organization [employer] Address [address] [facility] 7t [place] [address] Care Team Providers Care Still Pump Operator Name Role Phone Annie Tafoya MD Primary Care Provider + [phone] Misa Adler PharmD Unavailable Encounter Details Date Type Department Care Team (Late st Contact Info) Description 03/21/2024 Orders Only [facility] 230 [place], [place] [phone] Annie Tafoya MD 230 [place], [place] [phone] Social History Tobacco Use Types Packs/Day Years [...] Description 04/24/2024 2:00 PM EDT Medication Management [facility] [address] [place] [address] 8[address] Misa Adler PharmD [address] [place] [address] 039[address] 05/15/2024 10:15 AM EDT Office Visit [facility] [address] [place] [address] 98699 Annie Tafoya MD [address] [place] [address] 40183 documented as of this encounter Goals Goal [...] METABOLIC PANEL Routine 03/21/2024 11:12 AM EST documented in this encounter Results * (ABNORMAL) Basic Metabolic Panel (03/21/2024 11:12 AM EST) Sodium 141 135 - 145 mmol/L [facility] Potassium 4.2 3.3 - 5.1 mmol/L [facility] Chloride 103 96 - 108 mmol/L [facility] Carbon Dioxide 31(H) 22 - 29 mmol/L [facility] Anion Gap 11(L) 12 - 20 [facility] Urea Nitrogen (BUN) 17(H) 9 - 16 mg/dL [facility] Creatinine, Serum 0.89 0.5 - 1.4 mg/dL [facility] Estimated Glomerular Filt Rate >60 [facility] Comment:Chronic Kidney Disea se: Estimated GFR < 60 mL/min/1.76d1Defyci Kidney Disease: Estimated GFR < 15 mL/min/1.73m2 Glucose 138(H) 60 - 115 mg/dL [facility] Calcium 9.1 8.4 - 10.2 mg/dL [facility] 03/21/2024 11:1 2 AM EST 03/21/2024 12:51 PM EST Annie Tafoya MD LAB BLOOD ORDERABLES Final Result [facility] [address] [place] [address] [phone] documented in this encounter Visit Diagnoses Not on filedocumented in this encounter Additional Health Concerns Assessment Noted Time PHQ-9 Depression Total Score: 7 11/29/19 24 3:29 PM EDT documented as of this encounter Care Teams Still Pump Operator Relationship Specialty Start Date End Date Annie Tafoya MD [address] [place] [address] 29081 PCP - General Family Medicine 09/24/12 Misa Adler, Kilo [address] [place] [address] 17137 Pharmacist Internal Medicine 02/25/22 documented as of this encounter
--- OUTSIDE RECORDS SUMMARY | 2024-04-04 13:12 | XMS_ITS | Encounter Summary ---
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 Queued refill. documented in this encounter Plan of Treatment Upcoming Encounters Date Type Department Care Team (Late st Contact Info) Description 04/24/2024 2:00 PM EDT Medication Management [facility] [address] [place] [address] 88234 Misa Adler, BronsonD [address] [place] [address] 05/15/2024 10:15 AM EDT Office Visit [facility] [address] [place] [address] 88544 Annie Tafoya MD [address] [place] [address] 60015 documented as of this encounter Goals Goal Patient Goal Type Associated Problems Recent Progress Patient-Stated? Author Blood Pressure < 140/90 Blood Pressure 136/68(2024 3:16 PM EST) No Misa Yap PharmD Hemoglobin A1c < 8 Result Component 10.5(02/15/19 3:28 PM EST) No Misa Yap PharmD documented as of this encounter Visit Diagnoses Diagnosis Insulin dependent type 2 diabetes mellitus (CMS/[facility]) documented in this encounter Additional Health Concerns Assessment Noted Time PHQ-9 Depression Total Score: 7 11/29/19 24 3:29 PM EDT documented as of this encounter Care Teams Hand Spinner Relationship Specialty Start Date End Date Annie Tafoya MD [address] [place] [address] 43810 PCP - General Family Medicine 09/24/12 Misa Adler PharmD [address] [place] [address] 56465 Pharmacist Internal Medicine 02/25/22 documented as of this encounter
--- OUTSIDE RECORDS SUMMARY | 2024-04-04 13:12 | XMS_ITS | Encounter Summary ---
Author Organization [employer] Address [address] [facility] [address] 7t [place] [address] Care Team Providers Care Tool Crib Clerk Name Role Phone Annie Tafoya MD Primary Care Provider + [phone] Misa Adler PharmD Unavailable +[phone]- [phone] Encounter Details Date Type Department Care Team [...] 04/24/2024 2:00 PM EDT Medication Management [facility] MEDICINE [address] [place] [address] 03780 AzarsMisa Chris, PharmD [address] [place] [address] 94251 05/15/2024 10:15 AM EDT Office Visit [facility] [address] [place] [address] 36859 Annie Tafoya MD [address] [place] [address] 53628 documented as of this encounter Goals Goal [...] documented as of this encounter Care Teams Tool Crib Clerk Relationship Specialty Start Date End Date Michelet, Annie, MD 230 [place] [address] PCP - General Family Medicine 09/24/12 Misa Adler, BronsonD 230 [place] [address] Pharmacist Internal Medicine 02/25/22 documented as of this encounter
--- OUTSIDE RECORDS SUMMARY | 2024-04-04 13:12 | XMS_ITS | Encounter Summary ---
Author Organization [employer] Address 75 [facility] 7t [place] [address] Care Team Providers Care Picking Supervisor Name Role Phone Annie Tafoya MD Primary Care Provider + [phone] Misa Adler PharmD Unavailable Reason for Visit * Reason Onset Date Comments Med Refill 04/02/2024 Encounter Details Date Type Department Care Team (Late st Contact Info) Description 04/02/2024 Refill [facility]INE 230 [place], [place] [phone] Annie Tafoya MD 230 [place], [place] [phone] Type 2 diabetes mellitus with hyperglycemia, with long-term current use of insulin ([facility]) Social History Tobacco Use Types Packs/Day Years [...] as of this encounter Miscellaneous Notes * Addendum Note - Wanda Collins RN - 04/02/2024 1:28 PM ESTAddended by: WANDA COLLINS on: 04/02/2024 01:28 PM Modules accepted: Orders * Telephone Encounter - Bibi Todd - 04/02/2024 12:12 PM EST PT walked in requesting a refill for the following medication Tirzepatide (Mounjaro) 2.5MG/0.5 ML documented in this encounter Plan of Treatment Upcoming Encounters Date Type Department Care Team (Late st Contact Info) Description 04/24/2024 2:00 PM EDT Medication Management [facility] MEDICINE [address] [place] [address]40 Misa Adler PharmD [address] [place] [address] 28339 05/15/2024 10:15 AM EDT Office Visit [facility] [address] [place] [address] 13531 Annie Tafoya MD [address] [place] [address] 64457 documented as of this encounter Goals Goal Patient Goal Type Associated Problems Recent Progress Patient-Stated? Author Blood Pressure < 140/90 Blood Pressure 136/68(2024 3:16 PM EST) No Misa Yap PharmD Hemoglobin A1c < 8 Result Component 10.5(02/15/19 3:28 PM EST) No Misa Yap PharmD documented as of this encounter Visit Diagnoses Diagnosis Type 2 diabetes mellitus with hyperglycemia, with long-term current use of insulin ([facility]) documented in this encounter Additional Health Concerns Assessment Noted Time PHQ-9 Depression Total Score: 7 11/29/19 24 3:29 PM EDT documented as of this encounter Care Teams Picking Supervisor Relationship Specialty Start Date End Date Annie Tafoya MD [address] [place] [address] 27776 PCP - General Family Medicine 09/24/12 Misa Adler PharmD [address] [place] [address] 83800 Pharmacist Internal Medicine 02/25/22 documented as of this encounter
--- OUTSIDE RECORDS SUMMARY | 2024-04-04 13:12 | XMS_ITS | Encounter Summary ---
Author Organization [employer] Address 75 [facility] 7t [place] [address] Care Team Providers Care Solar Designer Name Role Phone Annie Tafoya MD Primary Care Provider + [phone] Misa Adler PharmD Unavailable Reason for Visit * Reason Onset Date Comments dentures prior authorization 11/28/2022 Encounter Details Date Type Department Care Team (Late st Contact Info) Description 11/28/2022 Telephone [facility] 230 [place], [place] [phone] Yoni Farr, ERICKA [address] [place], [place] [phone] dentures prior authorization Social History Tobacco Use [...] Description 04/24/2024 2:00 PM EDT Medication Management [facility]INE [address] [place] [address] 29376 Misa Adler PharmD [address] [place] [address] 45546 05/15/2024 10:15 AM EDT Office Visit [facility] [address] [place] [address] 31360 Annie Tafoya MD [address] [place] [address] 31332 documented as of this encounter Goals Goal [...] documented as of this encounter Care Teams Solar Designer Relationship Specialty Start Date End Date Annie Tafoya MD 230 [place] [address] PCP - General Family Medicine 09/24/12 Misa Adler PharmD 230 [place] [address] Pharmacist Internal Medicine 02/25/22 documented as of this encounter
--- OUTSIDE RECORDS SUMMARY | 2024-04-04 13:12 | XMS_ITS | Encounter Summary ---
Author Organization [employer] Address 75 [facility] 7t [place] [address] Care Team Providers Care Stock Fitter Name Role Phone Annie Tafoya MD Primary Care Provider + [phone] Misa Adler PharmD Unavailable Reason for Visit * Reason Onset Date Comments Med Refill 09/22/2022 Encounter Details Date Type Department Care Team (Late st Contact Info) Description 09/22/[address] 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 States pt is running out of what was given from hospital. Please contact tae at [phone] documented in this encounter Plan of Treatment Upcoming Encounters Date Type Department Care Team (Late st Contact Info) Description 04/24/2024 2:00 PM EDT Medication Management [facility] MED[facility]INE [address] [place] [address] 09996 Misa Adler PharmD [address] [place] [address] 05673 05/15/2024 10:15 AM EDT Office Visit [facility] [address] [place] [address] 86270 Annie Tafoya MD [address] [place] [address] [phone] documented as of this encounter Goals Goal Patient Goal Type Associated Problems Recent Progress Patient-Stated? Author Hemoglobin A1c < 8 Result Component 10.5( 3:28 PM EST) No Misa Adler, PharmD documented as of this encounter Visit Diagnoses Not on filedocumented in this encounter Additional Health Concerns Assessment Noted Time PHQ-9 Depression Total Score: 2 09/16/19 9:25 AM EDT documented as of this encounter Care Teams Stock Fitter Relationship Specialty Start Date End Date Annie Tafoya MD [address] [place] [address] [phone] PCP - General Family Medicine 09/24/12 Misa Adler PharmD [address] [place] [address] [phone] Pharmacist Internal Medicine 02/25/22 documented as of this encounter
--- OUTSIDE RECORDS SUMMARY | 2024-04-04 13:12 | XMS_ITS | Encounter Summary ---
Author Organization [employer] Address 75 [facility] 7t [place] [address] Care Team Providers Care Rural Route Mail Carrier Name Role Phone Annie Tafoya MD Primary Care Provider + [phone] Misa Adler PharmD Unavailable [phone] Reason for Visit * Reason Comments Med Refill Encounter Details Date Type Department Care Team (Late st Contact Info) Description 02/06/2024 Refill [facility] 230 [place] [address] Misa Adler, PharmD 230 [place], [place] [phone] Primary hypertension; Type 2 diabetes mellitus with hyperglycemia, with long-term current use of insulin ([facility]) Social History Tobacco Use Types Packs/Day [...] Description 04/24/2024 2:00 PM EDT Medication Management [facility] [address] [place] [address] 81288 Misa Adler, PharmD [address] [place] [address] 74243 05/15/2024 10:15 AM EDT Office Visit [facility] [address] [place] [address] 19875 Annie Tafoya MD [address] [place] [address] 79833 documented as of this encounter Goals Goal [...] hyperglycemia, with long-term current use of insulin ([facility]) documented in this encounter Additional Health Concerns Assessment Noted Time PHQ-9 Depression Total Score: 7 11/29/19 24 3:29 PM EDT documented as of this encounter Care Teams Rural Route Mail Carrier Relationship Specialty Start Date End Date Annie Tafoya MD 230 [place] [address] PCP - General Family Medicine 09/24/12 Misa Adler PharmD 230 [place] [address] Pharmacist Internal Medicine 02/25/22 documented as of this encounter
--- OUTSIDE RECORDS SUMMARY | 2024-04-04 13:12 | XMS_ITS | Encounter Summary ---
Author Organization [employer] Address [address] [facility] [address] 7t [place] [address] Care Team Providers Care Engineer Remote Control Diesel Name Role Phone Annie Tafoya MD Primary Care Provider + [phone] Misa Adler PharmD Unavailable +[phone]- [phone] Encounter Details Date Type Department Care Team [...] 04/24/2024 2:00 PM EDT Medication Management [facility] MED[facility]INE [address] [place] [address] 465[address] AzarsMisa Chris, PharmD [address] [place] [address] 09106 05/15/2024 10:15 AM EDT Office Visit [facility] [address] [place] [address] 93686 Annie Tafoya MD [address] [place] [address] 29364 documented as of this encounter Goals Goal [...] documented as of this encounter Care Teams Engineer Remote Control Diesel Relationship Specialty Start Date End Date Michelet, Annie, MD 230 [place] [address] PCP - General Family Medicine 09/24/12 Misa Adler, BronsonD 230 [place] [address] Pharmacist Internal Medicine 02/25/22 documented as of this encounter
--- OUTSIDE RECORDS SUMMARY | 2024-04-04 13:12 | XMS_ITS | Encounter Summary ---
Author Organization [employer] Address [address] [facility] 7t [place] [address] Care Team Providers Care Electrical Accessories Assembler Name Role Phone Annie Tafoya MD Primary Care Provider + [phone] Misa Adler PharmD Unavailable Encounter Details Date Type Department Care Team (Late st Contact Info) Description 04/01/[address] [facility] [address] [place] [address] Misa Adler, PharmD [address] [place] [address] Social History Tobacco Use Types Packs/Day Years [...] Telephone Encounter - Misa Adler PharmD - 04/01/2024 3:31 PM EST Refill for insulin pen needles provided. documented in this encounter Plan of Treatment Upcoming Encounters Date Type Department Care Team (Late st Contact Info) Description 04/24/2024 2:00 PM EDT Medication Management [facility] [address] [place] [phone] Misa Adler PharmD [address] [place] [phone] 05/15/2024 10:15 AM EDT Office Visit [facility] [address] [place] [phone] Annie Tafoya MD [address] [place] [phone] documented as of this encounter Goals Goal Patient Goal Type Associated Problems Recent Progress Patient-Stated? Author Blood Pressure < 140/90 Blood Pressure 136/68(2024 3:16 PM EST) No Misa Yap PharmD Hemoglobin A1c < 8 Result Component 10.5(02/15/19 3:28 PM EST) No Misa Yap PharmD documented as of this encounter Visit Diagnoses Diagnosis Insulin dependent type 2 diabetes mellitus ([facility]) documented in this encounter Additional Health Concerns Assessment Noted Time PHQ-9 Depression Total Score: 7 11/29/19 3:29 PM EDT documented as of this encounter Care Teams Electrical Accessories Assembler Relationship Specialty Start Date End Date Annie Tafoya MD [address] [place] [address] PCP - General Family Medicine 09/24/12 Misa Adler PharmD [address] [place] [phone] Pharmacist Internal Medicine 02/25/22 documented as of this encounter
--- OUTSIDE RECORDS SUMMARY | 2024-04-04 13:12 | XMS_ITS | Encounter Summary ---
Author Organization [employer] Address [address] [facility] 7t [place] [address] Care Team Providers Care Sprinkler Irrigation Equipment Mechanic Name Role Phone Annie Tafoya MD Primary Care Provider + [phone] Misa Adler PharmD Unavailable Reason for Visit * Reason Comments Med Refill Encounter Details Date Type Department Care Team (Late st Contact Info) Description 04/02/2024 Refill [facility] [address] [place] [address] Misa Adler, PharmD [address] [place], [place] [phone] Type 2 diabetes mellitus with hyperglycemia, with long-term current use of insulin ([facility]) Social History Tobacco Use Types [...] Description 04/24/2024 2:00 PM EDT Medication Management [facility] [address] [place] [phone] Misa Adler, PharmD [address] [place] [phone] 05/15/2024 10:15 AM EDT Office Visit [facility] [address] [place] [phone] Annie Tafoya MD [address] [place] [phone] documented as of this encounter Goals Goal Patient Goal Type Associated Problems Recent Progress Patient-Stated? Author Blood Pressure < 140/90 Blood Pressure 136/68(2024 3:16 PM EST) No PiersMisa Latif PharmD Hemoglobin A1c < 8 Result Component 10.5(02/15/19 25 3:28 PM EST) No Misa Yap PharmD documented as of this encounter Visit Diagnoses Diagnosis Type 2 diabetes mellitus with hyperglycemia, with long-term current use of insulin ([facility]) documented in this encounter Additional Health Concerns Assessment Noted Time PHQ-9 Depression Total Score: 7 11/29/19 24 3:29 PM EDT documented as of this encounter Care Teams Sprinkler Irrigation Equipment Mechanic Relationship Specialty Start Date End Date Annie Tafoya MD [address] [place] [address] PCP - General Family Medicine 09/24/12 Misa Adler PharmD [address] [place] [phone] Pharmacist Internal Medicine 02/25/22 documented as of this encounter
== END 2024-04-04 11:25 | disposition home or self-care (01) ==
PROVIDERS: PCP Family Medicine; Visit Provider Internal Medicine Hypertension Specialist
DX: I12.9 Hypertensive chronic kidney disease with stage 1 through stage 4 chronic kidney disease, or unspecified chronic kidney disease (principal); N18.9 Chronic kidney disease, unspecified
CPT/HCPCS: 99214

== ENCOUNTER 2024-04-04 11:31 | Outpatient (REF) | payer OTHER, SELFPAY ==
--- OUTSIDE RECORDS SUMMARY | 2024-04-04 13:57 | XMS_ITS | Encounter Summary ---
Author Organization [employer] Address [address] [facility] [address] 7[address] [place] [address] Care Team Providers Care Medical Office Supervisor Name Role Phone Annie Tafoya MD Primary Care Provider + [phone] Misa Adler PharmD Unavailable +[phone] Encounter Details Date Type Department Care Team [...] 04/24/2024 2:00 PM EDT Medication Management [facility] MED[facility]INE [address] [place] [phone] AzarsMisa Chris, PharmD [address] [place] [phone] 05/15/2024 10:15 AM EDT Office Visit [facility] [address] [place] [address] Annie Tafoya MD [address] [place] [phone] documented as of this encounter Goals Goal [...] documented as of this encounter Care Teams Medical Office Supervisor Relationship Specialty Start Date End Date Michelet, Annie, MD [address] [place] [address] PCP - General Family Medicine 09/24/12 Misa Adler, BronsonD [address] [place] [address] Pharmacist Internal Medicine 02/25/22 documented as of this encounter
--- OUTSIDE RECORDS SUMMARY | 2024-04-04 13:57 | XMS_ITS | Encounter Summary ---
Author Organization [employer] Address [address] [facility] 7t [place] [address] Care Team Providers Care Dry House Attendant Name Role Phone Annie Tafoya MD Primary Care Provider +- [phone] Misa Adler PharmD Unavailable Reason for Visit * Reason Onset Date Comments Prior Authorization 03/11/2024 Encounter Details Date Type Department Care Team (Late st Contact Info) Description 03/11/2024 Telephone [facility] [address] [place] [address] Wanda Collins, RN [address] [place] [address] Prior Authorization Social History Tobacco Use Types [...] PM EST Faxed signed PA packet to [facility] as below * Telephone Encounter - Wanda Collins RN - 03/11/2024 3:16 PM EST Received fax from pharmacy stating [employer] [facility] and supplies require PA. PA packet generated and placed on PCP's desk. Pending signature. documented in this encounter Plan of Treatment Upcoming Encounters Date Type Department Care Team (Late st Contact Info) Description 04/24/2024 2:00 PM EDT Medication Management [facility] [address] [place] [phone] Misa Adler, PharmD [address] [place] [phone] 05/15/2024 10:15 AM EDT Office Visit [facility] [address] [place] [address] [phone] Annie Tafoya MD [address] [place] [address] [phone] documented as of this encounter Goals Goal Patient Goal Type Associated Problems Recent Progress Patient-Stated? Author Blood Pressure < 140/90 Blood Pressure 136/68(2024 3:16 PM EST) No Misa aYp, PharmD Hemoglobin A1c < 8 Result Component 10.5(02/15/19 3:28 PM EST) No Misa Yap PharmD documented as of this encounter Visit Diagnoses Not on filedocumented in this encounter Additional Health Concerns Assessment Noted Time PHQ-9 Depression Total Score: 7 11/29/19 24 3:29 PM EDT documented as of this encounter Care Teams Dry House Attendant Relationship Specialty Start Date End Date Annie Tafoya MD [address] [place] [address] [phone] PCP - General Family Medicine 09/24/12 Misa Adler PharmD [address] [place] [address] [phone] Pharmacist Internal Medicine 02/25/22 documented as of this encounter
--- OUTSIDE RECORDS SUMMARY | 2024-04-04 13:58 | XMS_ITS | Encounter Summary ---
Author Organization [employer] Address [address] [facility] 7t [place] [address] Care Team Providers Care Tablet Making Machine Operator Name Role Phone Annie Tafoya MD Primary Care Provider + [phone] Misa Adler PharmD Unavailable Reason for Visit * Reason Comments Med Refill Encounter Details Date Type Department Care Team (Late st Contact Info) Description 04/02/2024 Refill [facility] [address] [place] [address] Misa Adler, PharmD [address] [place], [place] [phone] Type 2 diabetes mellitus with hyperglycemia, with long-term current use of insulin ([facility]) Social History Tobacco Use Types Packs/Day Years [...] Description 04/24/2024 2:00 PM EDT Medication Management [facility] [address] [place] [phone] Misa Adler, PharmD [address] [place] [phone] 05/15/2024 10:15 AM EDT Office Visit [facility] [address] [place] [phone] Annie Tafoya MD [address] [place] [phone] documented as of this encounter Goals Goal [...] hyperglycemia, with long-term current use of insulin ([facility]) documented in this encounter Additional Health Concerns Assessment Noted Time PHQ-9 Depression Total Score: 7 11/29/19 24 3:29 PM EDT documented as of this encounter Care Teams Tablet Making Machine Operator Relationship Specialty Start Date End Date Annie Tafoya MD [address] [place] [address] PCP - General Family Medicine 09/24/12 Misa Adler PharmD [address] [place] [phone] Pharmacist Internal Medicine 02/25/22 documented as of this encounter
--- OUTSIDE RECORDS SUMMARY | 2024-04-04 13:58 | XMS_ITS | Clinical Summary ---
Author Organization [employer] Address [address] [facility] 7t [place] [address] Care Team Providers Care Toll Test Worker Name Role Phone Annie Tafoya MD Primary Care Provider [phone]- [phone] Misa Adler PharmD Unavailable [phone] Allergies No known active allergies Medications albuterol [...] hyperglycemia, with long-term current use of insulin ([facility]) TAKE 1 TABLET BY MOUTH EVERY [...] hyperglycemia, with long-term current use of insulin ([facility]) 1 each Use as directed. 2 each 11 025 Active Continuous Glucose Diabetes Education Coordinator (FreeStyle Sury 3 [place]) deviceIndication s:Type 2 diabetes mellitus with hyperglycemia, with long-term current use of insulin ([facility]) 1 each Use as directed. 1 each 025 Active insulin glargine (Lantus SoloStar) 100 UNIT/ML penIndications:T ype 2 diabetes mellitus with hyperglycemia, with long-term current use of insulin ([facility]) INJECT 34 UNITS SUBCUTANEOUSLY ONCE DAILY 025 Active insulin pen needle (Pentips) 32G x 4 mm miscIndications: Insulin dependent type 2 diabetes mellitus ([facility]) Use as instructed 100 each 5 025 Active Tirzepatide (Mounjaro) 2.5 MG/0.5ML solution auto-injectorInd ications:Type 2 diabetes mellitus with hyperglycemia, with long-term current use of insulin ([facility]) Inject 2.5 mg under the skin 1 (one) time per week. 2 mL 025 Active Continuous Blood Gluc Diabetes Education Coordinator (FreeStyle Sury 2 [place]) deviceIndication s:Insulin dependent type 2 diabetes mellitus ([facility]) USE DIRECTED TO TEST BLOOD SUGAR EVERY 8 HOURS 1 each 023 2024 Discontinued(O ther) Pentips 32G X 4 MM miscIndications: Insulin dependent type 2 diabetes mellitus ([facility]) USE DIRECTED WITH LANTUS SOLOSTAR 100 each 5 024 2024 Discontinued(R eorder (will not trigger notification to Pharmacy)) Continuous Glucose Sensor (FreeStyle Sury 2 Sensor) miscIndications: Insulin dependent type 2 diabetes mellitus ([facility]) USE DIRECTED TO TEST BLOOD SUGAR EVERY 8 HOURS. CHANGE EVERY 14 DAYS 2 each 11 024 2024 Discontinued(O ther) insulin glargine (Lantus SoloStar) 100 UNIT/ML penIndications:T ype 2 diabetes mellitus with hyperglycemia, with long-term current use of insulin ([facility]) INJECT 32 UNITS SUBCUTANEOUSLY ONCE DAILY 025 2024 Discontinued Tirzepatide (Mounjaro) 2.5 MG/0.5ML solution auto-injectorInd ications:Type 2 diabetes mellitus with hyperglycemia, with long-term current use of insulin ([facility]) Inject 2.5 mg under the skin 1 (one) time per week. 2 mL 025 2024 Discontinued(R eorder (will not trigger notification to Pharmacy)) Active Problems Patient Care Coordination No te Formatting of this note migh t be different from the original. Enrolled in [facility] and [facility] clinic with Misa Adler, PharmD, [facility] Care team: Navigator Srinath Walker Geriatric legal support manager Sasha [facility] structural engineering project manager Shayne Pagan [facility] Nurse shelter case manager Jean Bolaños, HERO Problem Noted Date Diagnosed Date Type 2 diabetes mellitus wit h hyperglycemia, with long-term current use of insulin 11/29/2023 Overview (03/20/2024): - Mounjaro 2.5mg once daily started by [facility] 03/06/24 - Lantus titrated by [facility] - Continue Jardiance 25mg once daily -Metformin previously discontinued -SMGB using Sury 2 however to switch to Sury 3 plus 03/27/24 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, psychotic disturbance, mood disturbance, or anxiety 11/10/2023 Overview (11/10/2023): MMSE2 in [place] completed with pt 11/10/23 Pt scored a [...] due after 11/18/2023 -eye care facilitated by [facility] -dental home is [facility] -Health care proxy paperwork completed 04/05/23 Assessment & Plan (04/05/2023 10:42 AM EST): -next physical exam due after 11/18/2023 -eye care facilitated by [facility] -dental home is [facility] -Health care proxy paperwork completed 04/05/23 Assessment & Plan (11/17/2022 10:38 AM EDT): -next physical exam due after 11/18/2023 -eye care facilitated by [facility] -dental home is [facility] Physical exam 11/17/2022 Overview (07/05/2023): -Normal [...] new insurance. - Pt is followed by valve machine operator, Dr. Galvan. She last visited 2018. [...] recommends follow up sleep clinic. -hospitalized at [facility] (09/06/22-09/09/22)Patient presented for evaluation of dyspnea and [...] if anyone cancels sooner - Pt saw [facility] 02/09/23 Pulmonology and her Oxygen was discontinued, CXR and PFTs ordered referral for O2 assessment done to see if she needs O2 or not, Pt reports she is no longer on O2, Has follow up in August, pt and TANK OFFICER notified of follow up Assessment & Plan [...] new insurance. - Pt is followed by valve machine operator, Dr. Galvan. She last visited 2018. [...] recommends follow up sleep clinic. -hospitalized at [facility] (09/06/22-09/09/22)Patient presented for evaluation of dyspnea and [...] if anyone cancels sooner - Pt saw [facility] 02/09/23 Pulmonology and her Oxygen was discontinued, CXR and PFTs ordered referral for O2 assessment done to see if she needs O2 or not, Pt reports she is no longer on O2, Has follow up in August, pt and TANK OFFICER notified of follow up Assessment & Plan [...] new insurance. - Pt is followed by valve machine operator, Dr. Galvan. She last visited 2018. [...] recommends follow up sleep clinic. -hospitalized at [facility] (09/06/22-09/09/22)Patient presented for evaluation of dyspnea and [...] if anyone cancels sooner - Pt saw [facility] 02/09/23 Pulmonology and her Oxygen was discontinued, CXR and PFTs ordered referral for O2 assessment done to see if she needs O2 or not, Pt reports she is no longer on O2, Has follow up in August, pt and TANK OFFICER notified of follow up Assessment & Plan [...] new insurance. - Pt is followed by valve machine operator, Dr. Galvan. She last visited 2018. [...] recommends follow up sleep clinic. -hospitalized at [facility] (09/06/22-09/09/22)Patient presented for evaluation of dyspnea and [...] diagnosed 04/2016 - Pt is followed by valve machine operator, Dr. Galvan. She last visited 2019. [...] new insurance. - Pt is followed by valve machine operator, Dr. Galvan. She last visited 2019. [...] new insurance. - Pt is followed by valve machine operator, Dr. Galvan. She last visited 2019. [...] She saw a specialist on 11/2017 at [facility] 02/14/2018: We contacted [facility] and Linda reports: in July an order was sent to [facility] for CPAP and there is no record of issues with machine. We then contacted [employer] in July where Dr Fields's office was notified her insurance did not accept it so we recalled [facility] and the reported they will send an urgent message to find an in-network supplier. She states she has her machine now. - Sleep study done [facility] 02/17/23 recommending CPAP with 14 small N20 mask and Supplemental O2 at 1 L per min with Dr. Kayley Chamorro and patient reports compliance with CPAP 04/05/23 -Seen by sleep medicine 05/14/23 Resent CPAP prescription to [facility]. [facility] information given to patient. Advised patient to start CPAP at [id number] with supplemental O2 1 L at night. Stressed compliance, use CPAP nightly and more than 4 hrs. Assessment & Plan (07/06/2023 8:33 AM EDT): Diagnosed on sleep study 04/2016. Pt followed by sleep clinic. Reports now tolerating BiPAP. She saw a specialist on 11/2017 at [facility] 02/14/2018: We contacted [facility] and Linda reports: in July an order was sent to [facility] for CPAP and there is no record of issues with machine. We then contacted [employer] in July where Dr Fields's office was notified her insurance did not accept it so we recalled [facility] and the reported they will send an urgent message to find an in-network supplier. She states she has her machine now. - Sleep study done [facility] 02/17/23 recommending CPAP with 14 small N20 mask and Supplemental O2 at 1 L per min with Dr. Kayley Chamorro and patient reports compliance with CPAP 04/05/23 -Seen by sleep medicine 05/14/23 Resent CPAP prescription to [facility]. [facility] information given to patient. Advised patient to start CPAP at [id number] with supplemental O2 1 L at night. Stressed compliance, use CPAP nightly and more than 4 hrs. Assessment & Plan (04/05/2023 11:59 AM EST): Diagnosed on sleep study 04/2016. Pt followed by sleep clinic. Reports now tolerating BiPAP. She saw a specialist on 11/2017 at [facility] 02/14/2018: We contacted [facility] and Linda reports: in July an order was sent to [facility] for CPAP and there is no record of issues with machine. We then contacted [employer] in July where Dr Fields's office was notified her insurance did not accept it so we recalled [facility] and the reported they will send an urgent message to find an in-network supplier. She states she has her machine now. - Sleep study done [facility] 02/17/23 recommending CPAP with 14 small N20 mask and Supplemental O2 at 1 L per min with Dr. Kayley Chamorro and patient reports compliance with CPAP 04/05/23 Assessment & Plan (11/17/2022 9:20 AM EDT): Diagnosed on sleep study 04/2016. Pt followed by sleep clinic. Reports now tolerating BiPAP. She saw a specialist on 11/2017 at [facility] 02/14/2018: We contacted [facility] and Linda reports: in July an order was sent to [facility] for CPAP and there is no record of issues with machine. We then contacted [employer] in July where Dr Fields's office was notified her insurance did not accept it so we recalled [facility] and the reported they will send an [...] She saw a specialist on 11/2017 at [facility] 02/14/2018: We contacted [facility] and Linda reports: in July an order was sent to [facility] for CPAP and there is no record of issues with machine. We then contacted [facility] in July where Dr Fields's office was notified her insurance did not accept it so we recalled [facility] and the reported they will send an urgent message to find an in-network supplier. She states she has her machine now. Assessment & Plan (05/04/2022 11:37 AM EDT): Diagnosed on sleep study 04/2016. Pt followed by sleep clinic. Reports now tolerating BiPAP. She saw a specialist on 11/2017 at [facility] 02/14/2018: We contacted [facility] and Linda reports: in July an order was sent to [facility] for CPAP and there is no record of issues with machine. We then contacted [employer] in July where Dr Fields's office was notified her insurance did not accept it so we recalled [facility] and the reported they will send an [...] Type Department Care Team Description 04/02/2024 Refill [facility] [address] [facility] [place] [place] [address] Annie Tafoya MD Type 2 diabetes mellitus with hyperglycemia, with long-term current use of insulin ([facility]) 04/02/2024 Refill [facility] [address] [facility] [place] [address] Misa Adler, PharmD Type 2 diabetes mellitus with hyperglycemia, with long-term current use of insulin ([facility]) 04/01/2024 Telephone [facility] [address] [facility] [place] [address] Misa Adler, PharmD 04/01/2024 Refill [facility] [address] [facility] [place] [address] Wanda Collins, RN Insulin dependent type 2 diabetes mellitus ([facility]) 04/01/2024 Refill [facility] [address] [facility] [place] [address] Annie Tafoya MD Insulin dependent type 2 diabetes mellitus ([facility]) 03/21/2024 Orders Only [facility] [address] [facility] [place] [address] Annie Tafoya MD 03/20/2024 Travel 03/12/2024 Travel 03/11/2024 Telephone [facility] [address] [place] [address] Wanda Collins RNevents administrative assistant 03/06/2024 Travel 02/27/2024 Telephone [facility] [address] [place] [address] Misa Adler, PharmD 02/19/2024 Orders Only GENERIC EXTERNAL DATA DEPARTMENT Provider, Generic External Data 02/16/2024 Travel 02/07/2024 Refill [facility] [address] [place] [address] Misa Adler, PharmD Type 2 diabetes mellitus with hyperglycemia, with long-term current use of insulin ([facility]) 02/06/2024 Refill [facility] [address] [place] [address] Misa Adler, PharmD Primary hypertension; Type 2 diabetes mellitus with hyperglycemia, with long-term current use of insulin ([facility]) 02/06/2024 Refill [facility] [address] [place] [address] Misa Adler, PharmD Primary hypertension; Type 2 diabetes mellitus with hyperglycemia, with long-term current use of insulin ([facility]) 01/13/2024 Refill [facility] [address] [place] [address] Sirisha Soto MD 01/09/2024 Travel from Last [...] Description 04/24/2024 2:00 PM EDT Medication Management [facility] [address] [place] [phone] Misa Adler, PharmD [address] [place] [address] 05/15/2024 10:15 AM EDT Office Visit [facility] [address] [place] [phone] Annie Tafoya MD [address] [place] [phone] Health Maintenance Due Date Last Done Comments [...] included. Sodium 141 135 - 145 mmol/L [facility] Potassium 4.2 3.3 - 5.1 mmol/L [facility] Chloride 103 96 - 108 mmol/L [facility] Carbon Dioxide 31(H) 22 - 29 mmol/L [facility] Anion Gap 11(L) 12 - 20 [facility] Urea Nitrogen (BUN) 17(H) 9 - 16 mg/dL [facility] Creatinine, Serum 0.89 0.5 - 1.4 mg/dL [facility] Estimated Glomerular Filt Rate >60 [facility] Comment:Chronic Kidney Disea se: Estimated GFR < 60 mL/min/1.47r4Cthwvj Kidney Disease: Estimated GFR < 15 mL/min/1.73m2 Glucose 138(H) 60 - 115 mg/dL [facility] Calcium 9.1 8.4 - 10.2 mg/dL [facility] 03/21/2024 11:1 2 AM EST 03/21/2024 12:51 PM EST us Annie Tafoya MD LAB BLOOD ORDERABLES Final Result [facility] [address] [place] [address] [phone] * T-SPOT??.TB (02/19/2024 10:20 AM EST) T Spot TB Negative Negative [facility] Comment:A negative test resu lt [...] as aquantitative test. TS PANEL A 0 [facility] TS PANEL B 1 [facility] Negative Control Passed [facility] Positive Control Passed [facility] Comment:For additional infor roland, please refer tohttp://education.ActionRun/faq/WWT838(This link is being provided for informational/educational purposes only.)THIS TEST WAS PERFORMED AT:[employer] [id number] [place] [address]ENJUBACDALJIT DURAN MD,PHD 02/19/2024 10:2 0 AM EST 02/19/2024 11:07 AM EST us Annie Tafoya MD LAB BLOOD ORDERABLES Final Result [facility] [address] [place] [address] [phone] * (ABNORMAL) Albumin, Random Urine W/Creatinine (02/19/2024 10:20 AM EST) Pathologist [facility] Creatinine, Urine 44.57 mg/dL [facility] Microalbumin Urine 451.0 mg/L [facility] Microalbum Creatinine Ratio Ur 1,011.8(H ) <30 ug/mg cr [facility] Comment:Albumin/Creatinine R atio Reference Ranges: Normal: < 30 ug/mg creatinine Microalbuminuria: 30 - 300 ug/mg creatinineClinical Albuminuria: > 300 ug/mg creatinine 02/19/2024 10:2 0 AM EST 02/19/2024 10:58 AM EST us Annie Tafoya MD LAB URINE ORDERABLES Final Result Performing Organization Address City/[facility]/ZIP Co de Phone Number [facility] [address] [place], [place] [phone] * (ABNORMAL) Urinalysis Complete (02/19/2024 10:20 AM EST) Color Urine Yellow [facility] Appearance Urine Clear [facility] PH 6.0 5.0 - 9.0 [facility] Glucose Urine UA >=1000(A) Negative mg/dL [facility] Urine Blood Negative Negative [facility] Specific Paden - Urine 1.020 1.005 - 1.025 [facility] Urine Protein 100 (2+)(A) Neg-Trace mg/dL [facility] Urine Ketones Negative Negative mg/dL [facility] Nitrite Urine Negative Negative [facility] Leukocyte Esterase Urine Negative Negative [facility] RBC Urine 0-2 0 - 2 /HPF [facility] Urine WBC 6-10(A) 0 - 5 /HPF [facility] Urine Squamous Epithelial Cell 3-5 0 - 2 /HPF [facility] Urine Bacteria None Seen None Seen [facility] Hyaline Casts, Urine 0-2 0 - 2 /LPF [facility] 02/19/2024 10:2 0 AM EST 02/19/2024 10:58 AM EST us Generic External Data Provider LAB URINE ORDERAB LES Final Result [facility] [address] [place] [address] [phone] * Lipid Panel, Standard (02/19/2024 10:20 AM EST) Triglycerides 149 <150 mg/dL [facility] Comment:Desirable Triglyceri de: less than 150 mg/dLBorderline High Triglyceride 150-199 mg/dLHigh Triglyceride: 200-499 mg/dLVery High Triglyceride: greater than or equal to 5OO mg/dL Cholesterol 152 <200 mg/dL [facility] Comment:Desirable Cholestero l: less than 200 mg/dLBorderline High Cholesterol: 200-239 mg/dLHigh Cholesterol: greater than 239 mg/dL LDL Cholesterol Calculated 75 <100 mg/dL [facility] Comment:Desirable LDL: less than 100 mg/dLNear Optimal/Above Optimal LDL: 110- 129 mg/dLBorderline High LDL: 130-159 mg/dLHigh LDL: 160-189 mg/dLVery High LDL: greater than or equal to 190 mg/dL HDL Cholesterol 48 >40 mg/dL [facility] Comment:Desirable HDL: great er than 40 mg/dL Note: This HDL assay may give artificially low results in patients with liver disease. 02/19/2024 10:2 0 AM EST 02/19/2024 11:07 AM EST Annie Tafoya MD LAB BLOOD ORDERABLES Final Result [facility] [address] [place] [address] [phone] * (ABNORMAL) POCT A1C (02/16/2024 3:28 PM EST) Hemoglobin A1C 10.5(A) 4.0 - 6.0 % QC Media Lot # [id number] Lot# Expiration Date 368 Blood 02/16/2024 3:28 PM EST us Annie Tafoya MD POINT OF CARE TEST ENTER/E DIT ORDERABLES Final Result * Hepatitis C Antibody with Reflex to HCV, RNA, Quantitative, Real-Time PCR (04/06/2023 9:45 AM EST) Hepatitis C Antibody Nonreactive Nonreactive [facility] Comment:Antibodies to HCV no t detected; does not exclude early acuteHCV infection. Blood Venous blood specimen / Unknown 04/06/2023 9:45 AM EST 04/06/2023 11:27 AM EST us Annie Tafoya MD LAB BLOOD ORDERABLES Final Result [facility] [address] [place] [address] [phone] from Last 3 Months or Most Recently Relevant to Health Maintenance Insurance [facility] Member Subscriber Plan / Payer (Ef fective 2022-Present) Name:Gay Giron Relation to Subscriber:Self Name:Walton Tip Dahlia Payer ID:Not on file Group ID:Not on file Type:Medicaid Address: [facility] [id number] [place] [id number] [place] [address] [place] ASHELY LOPE[facility] [address] [place] [phone] DENTAL - DQ [facility] Advance Directives Documents on File Type Date Recorded Patient Rn Urology Expl anation Advance Directives and Livin g Will 04/07/2023 1:54 PM HCP Care Teams Toll Test Worker Relationship Specialty Start Date End Date [place], MD Annie [address] [place] [phone] PCP - General Family Medicine 09/24/12 Misa Adler, PharmD [address] [place] [phone] Pharmacist Internal Medicine 02/25/22
--- OUTSIDE RECORDS SUMMARY | 2024-04-04 13:58 | XMS_ITS | Encounter Summary ---
Author Organization [employer] Address [address] [facility] 7t [place] [address] Care Team Providers Care Grill Attendant Name Role Phone Annie Tafoya MD Primary Care Provider + [phone] Misa Adler PharmD Unavailable Reason for Visit * Reason Comments Med Refill Encounter Details Date Type Department Care Team (Late st Contact Info) Description 04/15/2022 Refill [facility] [address] [place], [place] [phone] Annie Tafoya MD [address] [place], [place] [phone] Type 2 diabetes mellitus with hyperglycemia ([facility]) Social History Tobacco Use Types Packs/Day Years [...] PM EDT Received an incoming fax from [facility] with refill request for Trihexyphenidyl 2 mg 1 tablet twice a day.Refill denied by pt needS an appt due to No Shows. DOES PCP WANT TO COVER? documented in this encounter Plan of Treatment Upcoming Encounters Date Type Department Care Team (Late st Contact Info) Description 04/24/2024 2:00 PM EDT Medication Management [facility] [address] [place] [phone] Misa Adler PharmD [address] [place] [phone] 05/15/2024 10:15 AM EDT Office Visit [facility] [address] [place] [phone] Annie Tafoya MD [address] [place] [address] [phone] documented as of this encounter Goals Goal Patient Goal Type Associated Problems Recent Progress Patient-Stated? Author Hemoglobin A1c < 8 Result Component 10.5( 3:28 PM EST) No Misa Adler PharmD documented as of this encounter Visit Diagnoses Diagnosis Type 2 diabetes mellitus with hyperglycemia ([facility]) documented in this encounter Care Teams Grill Attendant Relationship Specialty Start Date End Date Annie Tafoya MD [address] [place] [address] [phone] PCP - General Family Medicine 09/24/12 Misa Adler PharmD [address] [place] [address] [phone] Pharmacist Internal Medicine 02/25/22 documented as of this encounter
--- OUTSIDE RECORDS SUMMARY | 2024-04-04 13:58 | XMS_ITS | Encounter Summary ---
Author Organization [employer] Address 75 [facility] 7t [place] [address] Care Team Providers Care Fsr Name Role Phone Annie Tafoya MD Primary Care Provider + [phone] Misa Adler PharmD Unavailable Reason for Visit * Reason Onset Date Comments dentures prior authorization 11/28/2022 Encounter Details Date Type Department Care Team (Late st Contact Info) Description 11/28/2022 Telephone [facility] [address] [place], [place] [phone] Yoni Farr, ERICKA [address] [place], [place] [phone] dentures prior authorization Social History Tobacco Use [...] Description 04/24/2024 2:00 PM EDT Medication Management [facility] [address] [place] [address] Misa Adler PharmD [address] [place] [address] 05/15/2024 10:15 AM EDT Office Visit [facility] [address] [place] [address] 9[address] Annie Tafoya MD [address] [place] [address] documented as of this encounter Goals Goal [...] documented as of this encounter Care Teams Fsr Relationship Specialty Start Date End Date Annie Tafoya MD 230 [place] [address] PCP - General Family Medicine 09/24/12 Misa Adler PharmD [address] [place] [address] Pharmacist Internal Medicine 02/25/22 documented as of this encounter
--- OUTSIDE RECORDS SUMMARY | 2024-04-04 13:58 | XMS_ITS | Encounter Summary ---
Author Organization [employer] Address 75 [facility] 7t [place] [address] Care Team Providers Care Communication And Outreach Manager Name Role Phone Annie Tafoya MD Primary Care Provider + [phone] Misa Adler PharmD Unavailable [phone] Encounter Details Date Type Department Care Team (Late st Contact Info) Description 04/01/2024 Telephone [facility] 230 [place] [address] Misa Adler, PharmD 230 [place] [address] Social History Tobacco Use Types Packs/Day Years [...] Description 04/24/2024 2:00 PM EDT Medication Management [facility] [address] [place] [address] Misa Adler PharmD [address] [place] [address] 05/15/2024 10:15 AM EDT Office Visit [facility] [address] [place] [address] Annie Tafoya MD [address] [place] [address] 20067 documented as of this encounter Goals Goal Patient Goal Type Associated Problems Recent Progress Patient-Stated? Author Blood Pressure < 140/90 Blood Pressure 136/68(2024 3:16 PM EST) No Misa Yap PharmD Hemoglobin A1c < 8 Result Component 10.5(02/15/19 3:28 PM EST) No Misa Yap PharmD documented as of this encounter Visit Diagnoses Diagnosis Insulin dependent type 2 diabetes mellitus ([facility]) documented in this encounter Additional Health Concerns Assessment Noted Time PHQ-9 Depression Total Score: 7 11/29/19 3:29 PM EDT documented as of this encounter Care Teams Communication And Outreach Manager Relationship Specialty Start Date End Date Annie Tafoya MD 230 [place] [address] PCP - General Family Medicine 09/24/12 Misa Adler PharmD [address] [place] [address] Pharmacist Internal Medicine 02/25/22 documented as of this encounter
--- OUTSIDE RECORDS SUMMARY | 2024-04-04 13:58 | XMS_ITS | Encounter Summary ---
Author Organization [employer] Address 75 [facility] 7t [place] [address] Care Team Providers Care Chilling Hood Operator Name Role Phone Annie Tafoya MD Primary Care Provider + [phone] Misa Adler PharmD Unavailable Reason for Visit * Reason Comments Med Refill Encounter Details Date Type Department Care Team (Late st Contact Info) Description 04/01/2024 Refill [facility] 230 [place], [place] [phone] Annie Tafoya MD 230 [place], [place] [phone] Insulin dependent type 2 diabetes mellitus (CMS/HCC) [...] the past 12 months, has t he [employer], gas, oil or water [employer] threatened to shut off services in your [...] Description 04/24/2024 2:00 PM EDT Medication Management [facility] [address] [place] [address] Misa Adler PharmD [address] [place] [address] 05/15/2024 10:15 AM EDT Office Visit [facility] [address] [place] [address] 11167 Annie Tafoya MD [address] [place] [address] 9[address] documented as of this encounter Goals Goal [...] documented as of this encounter Care Teams Chilling Hood Operator Relationship Specialty Start Date End Date Annie Tafoya MD 230 [place] [address] PCP - General Family Medicine 09/24/12 Misa Adler, Kilo [address] [place] [address] Pharmacist Internal Medicine 02/25/22 documented as of this encounter
--- OUTSIDE RECORDS SUMMARY | 2024-04-04 13:58 | XMS_ITS | Encounter Summary ---
Author Organization [employer] Address 75 [facility] 7t [place] [address] Care Team Providers Care Butadiene Converter Helper Name Role Phone Annie Tafoya MD Primary Care Provider + [phone] Mias Adler PharmD Unavailable [phone] Encounter Details Date Type Department Care Team (Late st Contact Info) Description 10/16/2023 Abstract [facility] 230 [place] [address] Stephanie Persaud [place] Social History Tobacco Use [...] Medication Management [facility] [address] [place] [address] Misa Adler, PharmD [address] [place] [address] 9[address] 05/15/2024 10:15 AM EDT Office Visit [facility] [address] [place] [address] Annie Tafoya MD [address] [place] [address] 93[address] documented as of this encounter Goals Goal [...] documented as of this encounter Care Teams Butadiene Converter Helper Relationship Specialty Start Date End Date Annie Tafoya MD 230 [place] [address] PCP - General Family Medicine 09/24/12 Misa Adler, Kilo [address] [place] [address] Pharmacist Internal Medicine 02/25/22 documented as of this encounter
--- OUTSIDE RECORDS SUMMARY | 2024-04-04 13:58 | XMS_ITS | Encounter Summary ---
Author Organization [employer] Address 75 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 States pt is running out of what was given from hospital. Please contact tae at [phone] documented in this encounter Plan of Treatment Upcoming Encounters Date Type Department Care Team (Late st Contact Info) Description 04/24/2024 2:00 PM EDT Medication Management [facility] [address] [place] [address] Misa Adler PharmD [address] [place] [address] 48[address] 05/15/2024 10:15 AM EDT Office Visit [facility] [address] [place] [address] 99948 Annie Tafoya MD [address] [place] [address] [phone] documented as of this encounter Goals Goal [...] documented as of this encounter Care Teams Roller Leveler Operator Relationship Specialty Start Date End Date Annie Tafoya MD [address] [place] [address] [phone] PCP - General Family Medicine 09/24/12 Misa Adler PharmD [address] [place] [address] [phone] Pharmacist Internal Medicine 02/25/22 documented as of this encounter
--- OUTSIDE RECORDS SUMMARY | 2024-04-04 13:58 | XMS_ITS | Encounter Summary ---
Author Organization [employer] Address 75 [facility] 7t [place] [address] Care Team Providers Care Customer Leader Name Role Phone Annie Tafoya MD Primary Care Provider + [phone] Misa Adler PharmD Unavailable [phone] Encounter Details Date Type Department Care Team (Late st Contact Info) Description 03/21/2024 Orders Only [facility] 230 [place], [place] [phone] Annie Tafoya MD 230 [place], [place] [phone] Social History Tobacco Use Types Packs/Day Years [...] 2:00 PM EDT Medication Management [facility] [address] [place] [address] Misa Adler PharmD [address] [place] [address] 05/15/2024 10:15 AM EDT Office Visit [facility] [address] [place] [address] 50067 Annie Tafoya MD [address] [place] [address] 23760 documented as of this encounter Goals Goal [...] EST) Sodium 141 135 - 145 mmol/L [facility] Potassium 4.2 3.3 - 5.1 mmol/L [facility] Chloride 103 96 - 108 mmol/L [facility] Carbon Dioxide 31(H) 22 - 29 mmol/L [facility] Anion Gap 11(L) 12 - 20 [facility] Urea Nitrogen (BUN) 17(H) 9 - 16 mg/dL [facility] Creatinine, Serum 0.89 0.5 - 1.4 mg/dL [facility] Estimated Glomerular Filt Rate >60 [facility] Comment:Chronic Kidney Disea se: Estimated GFR < 60 mL/min/1.17h4Onesjr Kidney Disease: Estimated GFR < 15 mL/min/1.73m2 Glucose 138(H) 60 - 115 mg/dL [facility] Calcium 9.1 8.4 - 10.2 mg/dL [facility] 03/21/2024 11:1 2 AM EST 03/21/2024 12:51 PM EST Annie Tafoya MD LAB BLOOD ORDERABLES Final Result [facility] [address] [place] [address] [phone] documented in this encounter Visit Diagnoses Not on filedocumented in this encounter Additional Health Concerns Assessment Noted Time PHQ-9 Depression Total Score: 7 11/29/19 24 3:29 PM EDT documented as of this encounter Care Teams Customer Leader Relationship Specialty Start Date End Date Annie Tafoya MD [address] [place] [address] 61816 PCP - General Family Medicine 09/24/12 Misa Adler, Kilo [address] [place] [address] 23845 Pharmacist Internal Medicine 02/25/22 documented as of this encounter
--- OUTSIDE RECORDS SUMMARY | 2024-04-04 13:58 | XMS_ITS | Encounter Summary ---
Author Organization [employer] Address 75 [facility] 7t [place] [address] Care Team Providers Care Agronomy Advisor Name Role Phone Annie Tafoya MD Primary Care Provider + [phone] Misa Adler PharmD Unavailable Reason for Visit * Reason Comments Med Refill Encounter Details Date Type Department Care Team (Late st Contact Info) Description 02/06/2024 Refill [facility] 230 [place] [address] Misa Adler, PharmD 230 [place], [place] [phone] Primary hypertension; Type 2 diabetes mellitus with hyperglycemia, with long-term current use of insulin ([facility]) Social History Tobacco Use Types [...] Description 04/24/2024 2:00 PM EDT Medication Management [facility] [address] [place] [address] Misa Adler, PharmD [address] [place] [address] 05/15/2024 10:15 AM EDT Office Visit [facility] [address] [place] [address] 83369 Annie Tafoya MD [address] [place] [address] 0[address]10 documented as of this encounter Goals Goal [...] hyperglycemia, with long-term current use of insulin ([facility]) documented in this encounter Additional Health Concerns Assessment Noted Time PHQ-9 Depression Total Score: 7 11/29/19 24 3:29 PM EDT documented as of this encounter Care Teams Agronomy Advisor Relationship Specialty Start Date End Date Annie Tafoya MD 230 [place] [address] PCP - General Family Medicine 09/24/12 Misa Adler PharmD 230 [place] [address] Pharmacist Internal Medicine 02/25/22 documented as of this encounter
--- OUTSIDE RECORDS SUMMARY | 2024-04-04 13:58 | XMS_ITS | Encounter Summary ---
Author Organization [employer] Address 75 [facility] 7t [place] [address] Care Team Providers Care Irrigation District Manager Name Role Phone Annie Tafoya MD Primary Care Provider + [phone] Misa Adler PharmD Unavailable Reason for Visit * Reason Onset Date Comments Med Refill 04/02/2024 Encounter Details Date Type Department Care Team (Late st Contact Info) Description 04/02/2024 Refill [facility] 230 [place], [place] [phone] Annie Tafoya MD 230 [place], [place] [phone] Type 2 diabetes mellitus with hyperglycemia, with long-term current use of insulin ([facility]) Social History Tobacco Use Types [...] Description 04/24/2024 2:00 PM EDT Medication Management [facility] MED[facility] [address] [place] [address] Misa Adler PharmD [address] [place] [address]16 05/15/2024 10:15 AM EDT Office Visit [facility] [address] [place] [address]2693 Annie Tafoya MD [address] [place] [address] 85392 documented as of this encounter Goals Goal [...] hyperglycemia, with long-term current use of insulin ([facility]) documented in this encounter Additional Health Concerns Assessment Noted Time PHQ-9 Depression Total Score: 7 11/29/19 24 3:29 PM EDT documented as of this encounter Care Teams Irrigation District Manager Relationship Specialty Start Date End Date Annie Tafoya MD [address] [place] [address] PCP - General Family Medicine 09/24/12 Misa Adler PharmD [address] [place] [address] 93137 Pharmacist Internal Medicine 02/25/22 documented as of this encounter
--- OUTSIDE RECORDS SUMMARY | 2024-04-04 13:58 | XMS_ITS | Encounter Summary ---
Author Organization [employer] Address [address] [facility] [address] 7t [place] [address] Care Team Providers Care Logistics Specialist Name Role Phone Annie Tafoya MD Primary Care Provider + [phone] Misa Adler PharmD Unavailable [phone] Encounter Details Date Type Department Care Team [...] 04/24/2024 2:00 PM EDT Medication Management [facility] [address] [place] [address] AzarsMisa Chris, PharmD [address] [place] [address] 09603 05/15/2024 10:15 AM EDT Office Visit [facility] [address] [place] [address] 95062 Annie Tafoya MD [address] [place] [address] 12489 documented as of this encounter Goals Goal [...] documented as of this encounter Care Teams Logistics Specialist Relationship Specialty Start Date End Date Michelet, Annie, MD 230 [place] [address] PCP - General Family Medicine 09/24/12 Misa Adler, BronsonD 230 [place] [address] Pharmacist Internal Medicine 02/25/22 documented as of this encounter
--- OUTSIDE RECORDS SUMMARY | 2024-04-04 13:58 | XMS_ITS | Encounter Summary ---
Author Organization [employer] Address [address] [facility] [address] 7t [place] [address] Care Team Providers Care Dairy Feed Sales Consultant Name Role Phone Annie Tafoya MD Primary Care Provider + [phone] Misa Adler PharmD Unavailable +[phone]- [phone] Encounter Details Date Type Department Care Team [...] Description 04/24/2024 2:00 PM EDT Medication Management [facility] [address] [place] [address] 216[address] AzarsMisa Chris, PharmD [address] [place] [address] 15504 05/15/2024 10:15 AM EDT Office Visit [facility] [address] [place] [address] 47532 Annie Tafoya MD [address] [place] [address] 87206 documented as of this encounter Goals Goal [...] documented as of this encounter Care Teams Dairy Feed Sales Consultant Relationship Specialty Start Date End Date Michelet, Annie, MD 230 [place] [address] PCP - General Family Medicine 09/24/12 Misa Adler, BronsonD 230 [place] [address] Pharmacist Internal Medicine 02/25/22 documented as of this encounter
--- OUTSIDE RECORDS SUMMARY | 2024-04-04 13:58 | XMS_ITS | Encounter Summary ---
Author Organization [employer] Address 75 [facility] 7t [place] [address] Care Team Providers Care School Transportation Supervisor Name Role Phone Annie Tafoya MD Primary Care Provider +- [phone] Misa Adler PharmD Unavailable Reason for Visit * Reason Onset Date Comments Med Refill 04/01/2024 Encounter Details Date Type Department Care Team (Late st Contact Info) Description 04/01/2024 Refill [facility] 230 [place] [address] Wanda Collins, RN 230 [place] [address] Insulin dependent type 2 diabetes mellitus (CMS/HCC) [...] Description 04/24/2024 2:00 PM EDT Medication Management [facility] [address] [place] [address] Misa Adler, BronsonD 230 [place] [address] 05/15/2024 10:15 AM EDT Office Visit [facility] [address] [place] [address]805 Annie Tafoya MD [address] [place] [address] 18871 documented as of this encounter Goals Goal Patient Goal Type Associated Problems Recent Progress Patient-Stated? Author Blood Pressure < 140/90 Blood Pressure 136/68(2024 3:16 PM EST) No Misa Yap PharmD Hemoglobin A1c < 8 Result Component 10.5(02/15/19 3:28 PM EST) No Misa Yap PharmD documented as of this encounter Visit Diagnoses Diagnosis Insulin dependent type 2 diabetes mellitus ([facility]) documented in this encounter Additional Health Concerns Assessment Noted Time PHQ-9 Depression Total Score: 7 11/29/19 24 3:29 PM EDT documented as of this encounter Care Teams School Transportation Supervisor Relationship Specialty Start Date End Date Annie Tafoya MD [address] [place] [address]42 PCP - General Family Medicine 09/24/12 Misa Adler PharmD [address] [place] [address]40 Pharmacist Internal Medicine 02/25/22 documented as of this encounter
[2024-04-05 17:23] LABS: Anti Glomerular Basement Memb <1.0 AI
[2024-04-05 20:29] LABS: Complement C3 182 mg/dL (83-193)
[2024-04-05 21:44] LABS: Prot Elec - Albumin 3.7 g/dL (3.8-4.8); Prot Elec - Alpha1 0.3 g/dL (0.2-0.3); Prot Elec - Alpha2 0.7 g/dL (0.5-0.9); Prot Elec - Beta 1 0.6 g/dL (0.4-0.6); Prot Elec - Beta 2 0.6 g/dL (0.2-0.5); Prot Elec - Gamma 1.3 g/dL (0.8-1.7); Prot Elec - Total Protein 7.1 g/dL (6.1-8.1)
[2024-04-10 14:13] LABS: Anti Nuclear Antibody Pattern Nuclear Envelope; Anti Nuclear Antibody Screen POSITIVE (NEGATIVE)
== END 2024-04-04 11:32 | disposition home or self-care (01) ==
LOC: HO.10HDL 11:31
PROVIDERS: Visit Provider Internal Medicine Hypertension Specialist
DX: I12.9 Hypertensive chronic kidney disease with stage 1 through stage 4 chronic kidney disease, or unspecified chronic kidney disease (principal); N18.9 Chronic kidney disease, unspecified; R80.9 Proteinuria, unspecified
CPT/HCPCS: 36415; 83520; 84165; 86038; 86039; 86160; 99212

== ENCOUNTER → 2024-04-17 20:30 | Outpatient (REF) | payer OTHER, SELFPAY | LOC: HO.SL 20:30 | PROVIDERS: PCP Family Medicine; Visit Provider Nurse Practitioner Family | DX: G47.33 Obstructive sleep apnea (adult) (pediatric) (principal); G47.34 Idiopathic sleep related nonobstructive alveolar hypoventilation; R06.02 Shortness of breath | CPT/HCPCS: 95810 ==

== ENCOUNTER → 2024-04-17 23:37 | Outpatient (BNV) | payer OTHER, SELFPAY | PROVIDERS: PCP Family Medicine; Visit Provider Psychiatry & Neurology Neurology | DX: G47.33 Obstructive sleep apnea (adult) (pediatric) (principal) | CPT/HCPCS: 95810 ==

== ENCOUNTER → 2024-05-24 19:30 | Outpatient (REF) | payer OTHER, SELFPAY ==
--- OUTSIDE RECORDS SUMMARY | 2024-05-24 22:18 | XMS_ITS | Encounter Summary ---
Author Organization [employer] Address 75 [facility] 7t [place] [address] Care Team Providers Care Rental Car Ferry Driver Name Role Phone Annie Tafoya MD Primary Care Provider +1- [phone] Misa Adler PharmD Unavailable [phone] Emory Chamorro MD Unavailable [phone] Reason for Visit * Reason Onset Date Comments Durable Medical Equipment 05/24/2024 Encounter Details Date Type Department Care Team (Late st Contact Info) Description 05/24/2024 Telephone [facility] MEDICINE 230 [place], [place] [phone] Annie Tafoya MD [address] [place], [place] [phone] Durable Medical Equipment Social History Tobacco Use Types Packs/Day Years [...] encounter Miscellaneous Notes * Telephone Encounter - Ed Castellano - 05/24/2024 9:51 AM EDT Tc from pt requesting DME Script for Medium Gloves Underwear Disposable Size Large Contact pt [phone] documented in this encounter Plan of Treatment Upcoming Encounters Date Type Department Care Team (Late st Contact Info) Description 06/03/2024 2:00 PM EDT Medication Management [facility] MEDICINE 230 [place], [place] [phone] Misa Adler, PharmD [address] [place] [address] documented as of this encounter Goals Goal Patient Goal Type Associated Problems Recent Progress Patient-Stated? Author Blood Pressure < 140/90 Blood Pressure 130/62(2024 11:51 AM EDT) No Misa aYp PharmD Hemoglobin A1c < 8 Result Component 8.9( 11:16 AM EDT) No Misa Yap PharmD documented as of this encounter Visit Diagnoses Not on filedocumented in this encounter Additional Health Concerns Assessment Noted Time PHQ-9 Depression Total Score: 7 11/29/19 24 3:29 PM EDT documented as of this encounter Care Teams Rental Car Ferry Driver Relationship Specialty Start Date End Date Annie Tafoya MD [address] [place] [address] PCP - General Family Medicine 09/24/12 Misa Adler PharmD [address] [place] [address] Pharmacist Internal Medicine 02/25/22 Emory Chamorro MD 100 [facility] 200 [place] [address] Nephrology 04/04/24 documented as of this encounter
--- OUTSIDE RECORDS SUMMARY | 2024-05-24 22:18 | XMS_ITS | Encounter Summary ---
Author Organization [employer] Address 75 [facility] 7t [place] [address] Care Team Providers Care Application Integration Specialist Name Role Phone Annie Tafoya MD Primary Care Provider Misa Adler PharmD Unavailable [phone] Emory Chamorro MD Unavailable [phone] Reason for Visit * Reason Comments Med Refill Encounter Details Date Type Department Care Team (Late st Contact Info) Description 02/06/2024 Refill [facility] 230 [place], [place] [phone] Misa Adler, PharmD 230 [place], [place] [phone] Primary hypertension; Type 2 diabetes mellitus with hyperglycemia, with long-term current use of insulin ([facility]) Social History Tobacco Use Types Packs/Day Years [...] Description 06/03/2024 2:00 PM EDT Medication Management [facility] 230 [place] [address] Misa Adler PharmD 230 [place] [address] documented as of this encounter Goals Goal Patient Goal Type Associated Problems Recent Progress Patient-Stated? Author Blood Pressure < 140/90 Blood Pressure 130/62(2024 11:51 AM EDT) No Misa Yap, PharmD Hemoglobin A1c < 8 Result Component 8.9( 11:16 AM EDT) No Misa Yap PharmD documented as of this encounter Visit Diagnoses Diagnosis Primary hypertension Unspecified essential hypertension Type 2 diabetes mellitus with hyperglycemia, with long-term current use of insulin ([facility]) documented in this encounter Additional Health Concerns Assessment Noted Time PHQ-9 Depression Total Score: 7 11/29/19 24 3:29 PM EDT documented as of this encounter Care Teams Application Integration Specialist Relationship Specialty Start Date End Date Annie Tafoya MD 230 [place] [address] PCP - General Family Medicine 09/24/12 Misa Adler PharmD 230 [place] [address] Pharmacist Internal Medicine 02/25/22 Emory Chamorro MD 100 [facility] 200 [place] [address] Nephrology 04/04/24 documented as of this encounter
--- OUTSIDE RECORDS SUMMARY | 2024-05-24 22:18 | XMS_ITS | Encounter Summary ---
Author Organization [employer] Address [address] [facility] 7t [place] [address] Care Team Providers Care Nut Orchardist Name Role Phone Annie Tafoya MD Primary Care Provider Misa Adler PharmD Unavailable Emory Chamorro MD Unavailable [phone] Reason for Visit * Reason Comments Med Refill Encounter Details Date Type Department Care Team (Late st Contact Info) Description 04/02/2024 Refill [facility] 230 [place], [place] [phone] Misa Adler, PharmD 230 [place], [place] [phone] Type 2 diabetes mellitus with hyperglycemia, with long-term current use of insulin ([facility]) Social History Tobacco Use Types Packs/Day Years [...] Description 06/03/2024 2:00 PM EDT Medication Management [facility] [address] [place] [address] Misa Adler PharmD [address] [place] [address] documented as of this encounter Goals Goal Patient Goal Type Associated Problems Recent Progress Patient-Stated? Author Blood Pressure < 140/90 Blood Pressure 130/62(2024 11:51 AM EDT) No Misa Yap, PharmChely Hemoglobin A1c < 8 Result Component 8.9( 11:16 AM EDT) No Misa Yap PharmD documented as of this encounter Visit Diagnoses Diagnosis Type 2 diabetes mellitus with hyperglycemia, with long-term current use of insulin ([facility]) documented in this encounter Additional Health Concerns Assessment Noted Time PHQ-9 Depression Total Score: 7 11/29/19 24 3:29 PM EDT documented as of this encounter Care Teams Nut Orchardist Relationship Specialty Start Date End Date Annie Tafoya MD [address] [place] [address] PCP - General Family Medicine 09/24/12 Misa Adler, BronsonD 230 [place] [address] Pharmacist Internal Medicine 02/25/22 Emory Chamorro MD [address] [address] Nephrology 04/04/24 documented as of this encounter
--- OUTSIDE RECORDS SUMMARY | 2024-05-24 22:18 | XMS_ITS | Encounter Summary ---
Author Organization [employer] Address [address] [facility] 7t [place] [address] Care Team Providers Care Outside Rigger Name Role Phone Annie Tafoya MD Primary Care Provider Misa Adler PharmD Unavailable [phone] Emory Chamorro MD Unavailable [phone] Reason for Visit * Reason Onset Date Comments Med Refill 09/22/2022 Encounter Details Date Type Department Care Team (Late st Contact Info) Description 09/22/2022 Telephone [facility] [address] [place], [place] [phone] Annie Tafoya MD 230 [place], [place] [phone] Med Refill Social History Tobacco Use Types [...] Miscellaneous Notes * Telephone Encounter - Karla Suman - 09/22/2022 1:42 PM EDT Tc from pt [employer] requesting a new oxygen tank. States pt is running out of what was given from hospital. Please contact tae at [phone] documented in this encounter Plan of Treatment Upcoming Encounters Date Type Department Care Team (Late st Contact Info) Description 06/03/2024 2:00 PM EDT Medication Management [facility] [address] [place] [address] Misa Adler PharmD 230 [place] [address] documented as of this encounter Goals Goal Patient Goal Type Associated Problems Recent Progress Patient-Stated? Author Hemoglobin A1c < 8 Result Component 8.9(05/15/2024 11:16 AM EDT) No Misa Adler PharmD documented as of this encounter Visit Diagnoses Not on filedocumented in this encounter Additional Health Concerns Assessment Noted Time PHQ-9 Depression Total Score: 2 09/16/19 23 9:25 AM EDT documented as of this encounter Care Teams Outside Rigger Relationship Specialty Start Date End Date Annie Tafoya MD 230 [place] [address] PCP - General Family Medicine 09/24/12 Misa Adler PharmD [address] [place] [address] Pharmacist Internal Medicine 02/25/22 Emory Chamorro MD [address] [place] [address] Nephrology 04/04/24 documented as of this encounter
--- OUTSIDE RECORDS SUMMARY | 2024-05-24 22:18 | XMS_ITS | Encounter Summary ---
Author Organization [employer] Address [address] [facility] 7t [place] [address] Care Team Providers Care Certified Medical Records Coder Name Role Phone Annie Tafoya MD Primary Care Provider + [phone] Misa Adler PharmD Unavailable Emory Chamorro MD Unavailable [phone] Reason for Visit * Reason Comments Med Refill Encounter Details Date Type Department Care Team (Late st Contact Info) Description 04/25/2024 Refill [facility] 230 [place], [place] [phone] Annie Tafoya MD 230 [place], [place] [phone] Type 2 diabetes mellitus with hyperglycemia, with long-term current use of insulin ([facility]) Social History Tobacco Use Types [...] Description 06/03/2024 2:00 PM EDT Medication Management [facility] [address] [place] [address] Misa Adler PharmD 230 [place] [address] documented as of this encounter Goals Goal [...] hyperglycemia, with long-term current use of insulin ([facility]) documented in this encounter Additional Health Concerns Assessment Noted Time PHQ-9 Depression Total Score: 7 11/29/19 24 3:29 PM EDT documented as of this encounter Care Teams Certified Medical Records Coder Relationship Specialty Start Date End Date Annie Tafoya MD 230 [place] [address] PCP - General Family Medicine 09/24/12 Misa Adler, BronsonD 230 [place] [address] Pharmacist Internal Medicine 02/25/22 Emory Chamorro MD 100 [facility] 200 [place] [address] Nephrology 04/04/24 documented as of this encounter
--- OUTSIDE RECORDS SUMMARY | 2024-05-24 22:18 | XMS_ITS | Encounter Summary ---
Author Organization [employer] Address [address] [facility] [address] 7t [place] [address] Care Team Providers Care Sales Support Advisor Name Role Phone Annie Tafoya MD Primary Care Provider + [phone] Misa Adler PharmD Unavailable Emory Chamorro MD Unavailable [phone] Encounter Details Date Type Department Care Team (Late st Contact Info) Description 10/16/2023 Abstract [facility] [address] [place] [address] Stephanie Persaud [place] Social History Tobacco Use [...] Description 06/03/2024 2:00 PM EDT Medication Management [facility] [address] [place] [address] Misa Adler, PharmD 230 [place] [address] documented as of this encounter Goals Goal Patient Goal Type Associated Problems Recent Progress Patient-Stated? Author Blood Pressure < 140/90 Blood Pressure 130/62(2024 11:51 AM EDT) No Azars-Billy davenport, Misa, PharmD Hemoglobin A1c < 8 Result Component 8.9( 11:16 AM EDT) No Azars-Misa Collins, PharmD documented as of this encounter Procedures [...] documented as of this encounter Care Teams Sales Support Advisor Relationship Specialty Start Date End Date Annie Tafoya MD 230 [place] [address] PCP - General Family Medicine 09/24/12 Misa Adler PharmD [address] [place] [address] Pharmacist Internal Medicine 02/25/22 Emory Chamorro MD [address] [place] [address] 200 [place] [address] Nephrology 04/04/24 documented as of this encounter
--- OUTSIDE RECORDS SUMMARY | 2024-05-24 22:18 | XMS_ITS | Encounter Summary ---
Author Organization [employer] Address [address] [facility] 7t [place] [address] Care Team Providers Care Public Administration Professor Name Role Phone Annie Tafoya MD Primary Care Provider + [phone] Misa Adler PharmD Unavailable Emory Chamorro MD Unavailable [phone] Reason for Visit * Reason Onset Date Comments dentures prior authorization 11/28/2022 Encounter Details Date Type Department Care Team (Late st Contact Info) Description 11/28/2022 Telephone [facility] 230 [place], [place] [phone] Yoni Farr, ERICKA 230 [place], [place] [phone] dentures prior authorization Social History Tobacco Use [...] Description 06/03/2024 2:00 PM EDT Medication Management [facility] [address] [place] [address] Misa Adler, PharmD 230 [place] [address] documented as of this encounter Goals Goal Patient Goal Type Associated Problems Recent Progress Patient-Stated? Author Hemoglobin A1c < 8 Result Component 8.9(05/15/2024 11:16 AM EDT) No Misa Adler, PharmD documented as of this encounter Visit Diagnoses Not on filedocumented in this encounter Additional Health Concerns Assessment Noted Time PHQ-9 Depression Total Score: 2 09/16/19 23 9:25 AM EDT documented as of this encounter Care Teams Public Administration Professor Relationship Specialty Start Date End Date Annie Tafoya MD 230 [place] [address] PCP - General Family Medicine 09/24/12 Misa Adler PharmD 230 [place] [address] Pharmacist Internal Medicine 02/25/22 Emory Chamorro MD 100 [facility] 200 [place] [address] Nephrology 04/04/24 documented as of this encounter
--- OUTSIDE RECORDS SUMMARY | 2024-05-24 22:18 | XMS_ITS | Encounter Summary ---
Author Organization [email or web address] Address [address] [facility] 7t [place] [address] Care Team Providers Care Director Market Intelligence Name Role Phone Annie Tafoya MD Primary Care Provider + [phone] Misa Adler PharmD Unavailable Emory Chamorro MD Unavailable [phone] Reason for Visit * Reason Comments Med Refill Encounter Details Date Type Department Care Team (Late st Contact Info) Description 04/15/2022 Refill [facility] 230 [place], [place] [phone] Annie Tafoya MD 230 [place], [place] [phone] Type 2 diabetes mellitus with hyperglycemia ([facility]) Social History Tobacco Use Types Packs/Day [...] PM EDT Received an incoming fax from [facility] with refill request for Trihexyphenidyl 2 mg 1 tablet twice a day.Refill denied by pt needS an appt due to No Shows. DOES PCP WANT TO COVER? documented in this encounter Plan of Treatment Upcoming Encounters Date Type Department Care Team (Late st Contact Info) Description 06/03/2024 2:00 PM EDT Medication Management [facility] 230 [place] [address] Misa Adler PharmD 230 [place] [address] documented as of this encounter Goals Goal Patient Goal Type Associated Problems Recent Progress Patient-Stated? Author Hemoglobin A1c < 8 Result Component 8.9(05/15/2024 11:16 AM EDT) No Misa Adler PharmD documented as of this encounter Visit Diagnoses Diagnosis Type 2 diabetes mellitus with hyperglycemia ([facility]) documented in this encounter Care Teams Director Market Intelligence Relationship Specialty Start Date End Date Annie Tafoya MD 230 [place] [address] PCP - General Family Medicine 09/24/12 Misa Adler PharmD [address] [place] [address] Pharmacist Internal Medicine 02/25/22 Eomry Chamorro MD [address] [address] Nephrology 04/04/24 documented as of this encounter
== END ==
LOC: HO.SL 19:30
PROVIDERS: PCP Family Medicine; Visit Provider Nurse Practitioner Family
DX: G47.33 Obstructive sleep apnea (adult) (pediatric) (principal); G47.34 Idiopathic sleep related nonobstructive alveolar hypoventilation; J44.9 Chronic obstructive pulmonary disease, unspecified
CPT/HCPCS: 95811

== ENCOUNTER → 2024-05-24 19:30 | Outpatient (BNV) | payer OTHER, SELFPAY | PROVIDERS: PCP Family Medicine; Visit Provider Psychiatry & Neurology Neurology | DX: G47.33 Obstructive sleep apnea (adult) (pediatric) (principal) | CPT/HCPCS: 95811 ==

== ENCOUNTER 2024-07-03 11:10 | Outpatient (REF) | payer OTHER, SELFPAY ==
--- OUTSIDE RECORDS SUMMARY | 2024-07-03 12:12 | XMS_ITS | Clinical Summary ---
Author Organization [employer] Address [address] [place] [address] [address] [place] [address] Care Team Providers Care Foot Cutter Name Role Phone Annie Tafoya MD Primary Care Provider + [phone] Misa Adler PharmD Unavailable Emory Chamorro MD Unavailable [phone] Henny Francisco Unavailable Hugo Mix MD Unavailable Allergies No known active allergies Medications atorvastatin (Lipitor) 40 MG tabletIndications: Insulin dependent type 2 diabetes mellitus (CMS/HCC),Hyperlip idemia, unspecified hyperlipidemia type Take 1 tablet (40 mg) by mouth at bedtime. 90 tablet 3 07/05/19 24 Active omeprazole (PriLOSEC) [address] capsuleIndications :Gastric pain TAKE 1 CAPSULE BY MOUTH EVERY MORNING 90 capsule 3 08/23/19 24 Active cholecalciferol (Vitamin D3) 25 MCG (1000 UT) tabletIndications: Vitamin D deficiency TAKE 1 TABLET BY MOUTH EVERY MORNING 90 tablet 3 12/06/19 24 Active empagliflozin (Jardiance) 25 MGIndications:Type 2 diabetes mellitus with hyperglycemia, with long-term current use of insulin (CMS/HCC) TAKE 1 TABLET BY MOUTH EVERY MORNING 90 tablet 3 02/06/20 24 Active atenolol (Tenormin) 50 MG tabletIndications: Primary hypertension TAKE 1 TABLET BY MOUTH TWICE DAILY IN THE MORNING AND IN THE EVENING 180 tablet 3 02/06/20 24 Active Continuous Glucose Sensor (FreeStyle Sury 3 Plus Sensor) miscIndications:Ty pe 2 diabetes mellitus with hyperglycemia, with long-term current use of insulin ([facility]) 1 each Use as directed. 2 each 03/06/19 25 Active Continuous Glucose Bookmaker'S Clerk (FreeStyle Sury 3 [place]) deviceIndications: Type 2 diabetes mellitus with hyperglycemia, with long-term current use of insulin ([facility]) 1 each Use as directed. 1 each 03/06/19 25 Active amLODIPine (Norvasc) 5 MG tabletIndications: Primary hypertension Take 1 tablet (5 mg) by mouth Once per day. 90 tablet 1 05/02/19 25 Active losartan (Cozaar) 100 MG tabletIndications: Primary hypertension Take 1 tablet (100 mg) by mouth Once per day. 90 tablet 1 05/02/19 25 Active aspirin 81 MG EC tabletIndications: Mitral valve annular calcification Take 1 tablet (81 mg) by mouth Once per day. 90 tablet 3 05/16/19 25 Active fluticasone (Flonase) 50 MCG/ACT nasal sprayIndications:S easonal allergies Shake gently. Before first use, prime pump. After use, clean tip and replace cap. 16 g 2 05/16/19 25 Active senna (Senokot) 8.6 MG tabletIndications: Chronic idiopathic constipation Take 1 tablet (8.6 mg) by mouth if needed at bedtime for constipation. 90 tablet 05/16/19 25 Active glucose (Glutose) 40 % gel oral gelIndications:Typ e 2 diabetes mellitus with hyperglycemia, with long-term current use of insulin ([facility]) USE NEEDED IF LOW BLOOD SUGAR OCCURS 37 g 05/16/19 25 Active insulin pen needle (Pentips) 32G x 4 mm miscIndications:Ty pe 2 diabetes mellitus with hyperglycemia, with long-term current use of insulin ([facility]) Use as instructed 100 each 05/16/19 25 Active TRUEplus Lancets 33G miscIndications:Ty pe 2 diabetes mellitus with hyperglycemia, with long-term current use of insulin ([facility]) Use bid 100 each 05/16/19 25 Active Tirzepatide (Mounjaro) 5 MG/0.5ML solution auto-injectorIndic ations:Type 2 diabetes mellitus with hyperglycemia, with long-term current use of insulin ([facility]) Inject 5 mg under the skin every 7 (seven) days. 2 mL 3 05/18/19 25 Active insulin glargine (Lantus SoloStar) 100 UNIT/ML penIndications:Typ e 2 diabetes mellitus with hyperglycemia, with long-term current use of insulin (CMS/HCC) INJECT 24 UNITS SUBCUTANEOUSLY ONCE DAILY 06/04/19 25 Active white petrolatum-mineral oil (Lacri-Lube) ointment ophthalmic ointment Apply 1 Application. to both eyes at bedtime. 3 g 9 06/07/19 25 026 Active carboxymethylcellu lose (Refresh Tears) 0.5 % ophthalmic solution Administer 1 drop into both eyes if needed in the morning, at noon, and at bedtime for dry eyes. 15 mL 11 06/07/19 25 026 Active Active Problems Patient Care Coordination No te Formatting of this note migh t be different from the original. Enrolled in [facility] DM and [facility] HTN clinic with Misa Adler, BronsonD, [facility] Care team: Navigator Srinath Walker Geriatric sales support rep Sasha Allison Behavioral Health validation manager Shayne Pagan [facility] Nurse disease case manager rn Jean Bolaños, HERO Problem Noted Date Diagnosed Date Class 1 obesity due to exces s calories with serious comorbidity and body mass index (BMI) of 32.0 to 32.9 in adult 05/15/2024 Dietary counseling 05/15/2024 Exercise counseling 05/15/2024 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, psychotic disturbance, mood disturbance, or anxiety 11/10/2023 Overview (11/10/2023): MMSE2 in Croatian completed with pt 11/10/23 Pt scored a 13 out of a possible 30 points. This is considered severe cognitive impairment and at an increased odds for dementia status. Assessment & Plan (05/15/2024 10:35 AM EDT): MMSE2 in Croatian completed with pt 11/10/23 Pt scored a 13 out of a possible 30 points. This is considered severe cognitive impairment and at an increased odds for dementia status. Body aches 06/22/2023 Nausea 06/22/2023 Sore throat [...] 04/05/23 Other specified health status 11/17/2022 Overview (06/26/2024): -next physical exam due after 11/28/24 -eye care facilitated by [facility] and [facility] -dental home is [facility] -Health care proxy paperwork completed 04/05/23 Assessment & Plan (04/05/2023 10:42 AM EST): -next physical exam due after 11/18/2023 -eye care facilitated by [facility] -dental home is [facility] -Health care proxy paperwork completed 04/05/23 Assessment & Plan (11/17/2022 10:38 AM EDT): -next physical exam due after 11/18/2023 -eye care facilitated by none -dental home is [facility] Urinary incontinence 11/17/2022 Overview (11/17/2022): -Requesting letter [...] pulmonary hypertension. Mildly dilated inferior vena caval GERD (gastroesophageal reflux disease) Tubular adenoma of colon 10/21/2022 Dependence on wheelchair 01/10/2022 Overview (10/26/2022): Pt [...] -Losartan held. -Will recheck. Hypoxia 01/10/2022 Overview (05/15/2024): O2 Sa 85%-94% on RA documented since [...] new insurance. - Pt is followed by luncheonette manager, Dr. Cole. She last visited 2019. - Pt was [...] recommends follow up sleep clinic. -hospitalized at [facility] (09/06/22-09/09/22)Patient presented for evaluation [...] if anyone cancels sooner - Pt saw [facility] 02/09/23 Pulmonology and her Oxygen was discontinued, CXR and PFTs ordered referral for O2 assessment done to see if she needs O2 or not, Pt reports she is no longer on O2, Has follow up in August, pt and [facility] notified of follow up -rereferred 05/15/24 Assessment & Plan (05/15/2024 10:56 AM EDT): O2 Sa 85%-94% on RA [...] new insurance. - Pt is followed by luncheonette manager, Dr. Galvan. She last visited 2018. - [...] recommends follow up sleep clinic. -hospitalized at [facility] (09/06/22-09/09/22)Patient presented for evaluation [...] if anyone cancels sooner - Pt saw [facility] 02/09/23 Pulmonology and her Oxygen was discontinued, CXR and PFTs ordered referral for O2 assessment done to see if she needs O2 or not, Pt reports she is no longer on O2, Has follow up in August, pt and [facility] notified of follow up -rereferred 05/15/24 Assessment & Plan (07/06/2023 8:33 AM EDT): [...] new insurance. - Pt is followed by luncheonette manager, Dr. Galvan. She last visited 2019. - [...] recommends follow up sleep clinic. -hospitalized at [facility] (09/06/22-09/09/22)Patient presented for evaluation [...] if anyone cancels sooner - Pt saw [facility] 02/09/23 Pulmonology and her Oxygen was discontinued, CXR and PFTs ordered referral for O2 assessment done to see if she needs O2 or not, Pt reports she is no longer on O2, Has follow up in August, pt and [facility] notified of follow up Assessment & Plan [...] new insurance. - Pt is followed by luncheonette manager, Dr. Galvan. She last visited 2019. - [...] recommends follow up sleep clinic. -hospitalized at [facility] (09/06/22-09/09/22)Patient presented for evaluation [...] if anyone cancels sooner - Pt saw [facility] 02/09/23 Pulmonology and her Oxygen was discontinued, CXR and PFTs ordered referral for O2 assessment done to see if she needs O2 or not, Pt reports she is no longer on O2, Has follow up in August, pt and [facility] notified of follow up Assessment & Plan [...] new insurance. - Pt is followed by luncheonette manager, Dr. Galvan. She last visited 2018. - [...] recommends follow up sleep clinic. -hospitalized at [facility] (09/06/22-09/09/22)Patient presented for evaluation [...] diagnosed 04/2016 - Pt is followed by luncheonette manager, Dr. Galvan. She last visited 2018. - [...] new insurance. - Pt is followed by luncheonette manager, Dr. Galvan. She last visited 2019. - [...] new insurance. - Pt is followed by luncheonette manager, Dr. Galvan. She last visited 2018. - [...] calcification. Obstructive sleep apnea syndrome 01/10/2022 Overview (06/05/2024): Diagnosed on sleep study 04/2016. Pt followed by sleep clinic. Reports now tolerating BiPAP. She saw a specialist on 11/2017 at [facility] 02/14/2018: We contacted [facility] and Linda reports: in July an order was sent to [facility] for CPAP and there is no record of issues with machine. We then contacted [facility] in July where Dr Fields's office was notified her insurance did not accept it so we recalled [facility] and the reported they will send an urgent message to find an in-network supplier. She states she has her machine now. - Sleep study done [facility] sleep center 02/17/23 recommending CPAP with 14 small N20 mask and Supplemental O2 at 1 L per min with Dr. Kayley Chamorro and patient reports compliance with CPAP 04/05/23 -Seen by sleep medicine 05/14/23 Resent CPAP prescription to [facility]. [facility] information given to patient. Advised patient to start CPAP at [id number] with supplemental O2 1 L at night. Stressed compliance, use CPAP nightly and more than 4 hrs. -Seen by sleep medicine ABBEY Zarco 06/03/24 Discussed with patient that she has a known history of severe obstructive sleep apnea and nocturnal hypoxemia. Discussed that supplemental O2 use alone is usually not sufficient to treat nocturnal hypoxemia in the setting of severe TAMIKA. Patient states she is agreeable to resuming PAP therapy with O2 if needed. Patient is advised to undergo follow-up in-lab PSG, as she will need to requalify for CPAP therapy services. Her current respiratory supplier is [facility], however this may need to be changed to an alternate company, such as [employer], which can also provide supplemental home O2 Services. In the meantime, we will request pulmonology consult. Will follow-up upon review of above and patient to follow- up in clinic in 6 months or sooner prn. Assessment & Plan (05/15/2024 10:34 AM EDT): Diagnosed on sleep study 04/2016. Pt followed by sleep clinic. Reports now tolerating BiPAP. She saw a specialist on 11/2017 at [facility] 02/14/2018: We contacted [facility] and Linda reports: in July an order was sent to [facility] for CPAP and there is no record of issues with machine. We then contacted [facility] in July where Dr Fields's office was notified her insurance did not accept it so we recalled [facility] and the reported they will send an urgent message to find an in-network supplier. She states she has her machine now. - Sleep study done [facility] sleep center 02/17/23 recommending CPAP with 14 small N20 mask and Supplemental O2 at 1 L per min with Dr. Kayley Chamorro and patient reports compliance with CPAP 04/05/23 -Seen by sleep medicine 05/14/23 Resent CPAP prescription to [facility]. [facility] information given to patient. Advised patient to start CPAP at [id number] with supplemental O2 1 L at night. Stressed compliance, use CPAP nightly and more than 4 hrs. Assessment & Plan (07/06/2023 8:33 AM EDT): Diagnosed on sleep study 04/2016. Pt followed by sleep clinic. Reports now tolerating BiPAP. She saw a specialist on 11/2017 at [facility] 02/14/2018: We contacted [facility] and Linda reports: in July an order was sent to [facility] for CPAP and there is no record of issues with machine. We then contacted [facility] in July where Dr Fields's office was notified her insurance did not accept it so we recalled [facility] and the reported they will send an urgent message to find an in-network supplier. She states she has her machine now. - Sleep study done [facility] sleep center 02/17/23 recommending CPAP with 14 small N20 mask and Supplemental O2 at 1 L per min with Dr. Kayley Chamorro and patient reports compliance with CPAP 04/05/23 -Seen by sleep medicine 05/14/23 Resent CPAP prescription to [facility]. [facility] information given to patient. Advised patient to start CPAP at [id number] with supplemental O2 1 L at night. Stressed compliance, use CPAP nightly and more than 4 hrs. Assessment & Plan (04/05/2023 11:59 AM EST): Diagnosed on sleep study 04/2016. Pt followed by sleep clinic. Reports now tolerating BiPAP. She saw a specialist on 11/2017 at [facility] 02/14/2018: We contacted [facility] and Linda reports: in July an order was sent to [facility] for CPAP and there is no record of issues with machine. We then contacted [facility] in July where Dr Fields's office was notified her insurance did not accept it so we recalled [facility] and the reported they will send an urgent message to find an in-network supplier. She states she has her machine now. - Sleep study done [facility] sleep center 02/17/23 recommending CPAP with 14 small N20 mask and Supplemental O2 at 1 L per min with Dr. Kayley Chamorro and patient reports compliance with CPAP 04/05/23 Assessment & Plan (11/17/2022 9:20 AM EDT): Diagnosed on sleep study 04/2016. Pt followed by sleep clinic. Reports now tolerating BiPAP. She saw a specialist on 11/2017 at [facility] 02/14/2018: We contacted [facility] and Linda reports: in July an order was sent to [facility] for CPAP and there is no record of issues with machine. We then contacted [facility] in July where Dr Fields's office was notified her insurance did not accept it so we recalled [facility] and the reported they will send [...] She saw a specialist on 11/2017 at [facility] 02/14/2018: We contacted [facility] and Linda reports: in July an order was sent to [facility] for CPAP and there is no record of issues with machine. We then contacted [facility] in July where Dr Fields's office was notified her insurance did not accept it so we recalled [facility] and the reported they will send an urgent message to find an in-network supplier. She states she has her machine now. Assessment & Plan (05/04/2022 11:37 AM EDT): Diagnosed on sleep study 04/2016. Pt followed by sleep clinic. Reports now tolerating BiPAP. She saw a specialist on 11/2017 at [facility] 02/14/2018: We contacted [facility] and Linda reports: in July an order was sent to [facility] for CPAP and there is no record of issues with machine. We then contacted [facility] in July where Dr Fields's office was notified her insurance did not accept it so we recalled [facility] and the reported they will send [...] repeat in 5 years. Proteinuria 12/30/2013 Overview (05/15/2024): -Losartan increased to 100mg once daily and Jardiance increased to 25mg [...] inhibition. Continue overt nephrotoxic agents including NSAIDs. -Seen by Dr. Chamorro 04/02/24 note reviewed, labs were ordered Assessment & Plan (05/15/2024 10:39 AM EDT): -Losartan increased to 100mg once daily and Jardiance increased to 25mg [...] inhibition. Continue overt nephrotoxic agents including NSAIDs. -Seen by Dr. Chamorro 04/02/24 note reviewed, labs were ordered Tremor 04/09/2012 Overview (11/29/2023): Seen by neurology [...] by stresses at home. Hyperlipidemia 11/15/2011 Overview (05/15/2024): Lab Results Component Value Date CHOL 152 02/19/2024 CHOL 171 04/06/2023 TRIG 149 02/19/2024 TRIG 203 (H) 04/06/2023 HDL 48 02/19/2024 HDL 47 04/06/2023 LDLCHOLCAL 75 02/19/2024 LDLCHOLCAL 84 04/06/2023 -continue lifestyle modification -continue atorvastatin 40mg Assessment & Plan (05/15/2024 10:33 AM EDT): Lab Results Component Value Date CHOL 152 02/19/2024 CHOL 171 04/06/2023 TRIG 149 02/19/2024 TRIG 203 (H) 04/06/2023 HDL 48 02/19/2024 HDL 47 04/06/2023 LDLCHOLCAL 75 02/19/2024 LDLCHOLCAL 84 04/06/2023 -continue lifestyle modification -continue [...] dependent type 2 diabetes mellitus 10/30 Overview (06/26/2024): Diabetes is not controlled. A1c goal < 8 Has continuous glucose monitor Lab Results Component Value Date HGBA1C 8.9 (A) 05/15/2024 HGBA1C 10.5 (A) 02/16/2024 HGBA1C 9.2 (A) 11/29/2023 Lab Results Component Value Date MICROALBUR 451.0 02/19/2024 CREATININE 0.89 03/21/2024 -Willis/Arb: held 06/25/2021 for elvated potassium, CDTM [...] -Statin therapy: Atorvastatin 40mg -Diabetic eye exam: 06/25/24 -Diabetic foot exam: 11/29/23 -Continue lifestyle modifications [...] Therapy Managment Program with our PharmD, JOON. -Per CDTM 02/16/24, Patient agrees to plan to retrial GLP1: mounjaro 2.5mg once weekly prescribed due to tremor and difficulty with ozempic pen administration and previous intolerance with trulicity (GI upset). Mounjaro further titrated by CDTM [facility]. Assessment & Plan (05/15/2024 10:34 AM EDT): Diabetes is not controlled. A1c goal < 8 Has continuous glucose monitor Lab Results Component Value Date HGBA1C 10.5 (A) 02/16/2024 HGBA1C 9.2 (A) 11/29/2023 HGBA1C 9.3 (A) 11/14/2023 Lab Results Component Value Date MICROALBUR 451.0 02/19/2024 CREATININE 0.89 03/21/2024 -Willis/Arb: held 06/25/2021 for elvated potassium, CDTM [...] Therapy Managment Program with our PharmD, JOON. -Per CDTM 02/16/24, Patient agrees to plan to retrial GLP1: mounjaro 2.5mg once weekly prescribed due to tremor and difficulty with ozempic pen administration and previous intolerance with trulicity (GI upset) Assessment & Plan (11/29/2023 3:46 PM EDT): [...] Collaborative Drug Therapy Managment Program with our PharmDJOON. Assessment & Plan (07/06/2023 8:33 AM EDT): [...] amlodipine 5mg once daily Assessment & Plan (05/15/2024 10:33 AM EDT): -Cozaar held 06/25/21 for elevated potassium; [...] Assessment & Plan (11/17/2022 9:19 AM EDT): Padminizaar held 06/25/21 for elevated potassium. -Continue Atenolol 100mg BID. -Continue Amlodipine 10mg daily. Assessment & Plan (07/13/2022 10:21 AM EDT): Cozaar held 06/25/21 for elevated potassium. -Continue Atenolol 100mg BID. -Continue Amlodipine 10mg daily. Assessment & Plan (05/04/2022 11:38 AM EDT): Cozaar held 06/25/21 for elevated potassium. -Continue Atenolol 100mg BID. -Continue Amlodipine 10mg daily. Resolved Problems Problem Noted Date Diagnosed Date Resolved Date Type 2 diabetes mellitus wit h hyperglycemia, with long-term current use of insulin 11/29/2023 Overview (03/20/2024): - Mounjaro 2.5mg once daily started by [facility] 03/06/24 - Lantus titrated by [facility] - Continue Jardiance 25mg once daily -Metformin previously discontinued -SMGB using Sury 2 however to switch to Sury 3 plus 03/27/24 Diabetes mellitus due to und erlying condition, with diabetic microalbuminuria, with long-term current use of insulin 10/16/2023 COVID-19 06/22/2023 05/15/2024 Assessment & Plan (06/22/2023 10:18 AM EDT): [...] heated, humidified air or take hot showers. Physical exam 11/17/2022 04/16/2024 Overview (07/05/2023): -Normal growth and development. -Anticipatory guidance discussed. -Preventative care / harm reduction discussed. Assessment & Plan (11/17/2022 9:52 AM EDT): -Normal growth and development. -Anticipatory guidance discussed. -Preventative care / harm reduction discussed. Chronic respiratory failure with hypoxia 10/21/2022 10/26/2022 COPD exacerbation 10/21/2022 10/26/2022 Gastric pain 10/21/2022 05/15/2024 Hospital discharge follow-up 09/15/2022 11/17/2022 Assessment & [...] Pt reports she has Oxygen at home Class 1 obesity with serious comorbidity and body mass index (BMI) of 33.0 to 33.9 in adult 09/15/2022 05/15/2024 Assessment & Plan (09/15/2022 9:26 AM EDT): Patient has been counseled and educated about diet and exercise. Personal goal of weight loss discussedPatient has comorbidity of:Patient has comorbidity of: DM Candidiasis of mouth 01/10/2022 023 Overview (05/04/2022): [...] Encounters Date Type Department Care Team Description 07/02/2024 10:30 AM EDT Office Visit [facility] [address] [place] [id number] Rosy Boyd ANP Type 2 diabetes mellitus with hyperglycemia, with long-term current use of insulin (CMS/[facility]) (Primary Dx); Cataract of right eye, unspecified cataract type; Cataract of left eye, unspecified cataract type 07/02/2024 Travel 06/27/2024 Telephone [facility] [address] [place] [phone] Annie Tafoya MD Pre-op Exam 06/25/2024 Telephone [facility] [address] [place] [id number] Annie Tafoya MD 06/12/2024 Telephone [facility] [address] [place] [phone] Honey Aguilar, OD 06/06/2024 3:00 PM EDT Office Visit [facility] [address] [place] [address] Honey Aguilar, OD Type 2 diabetes mellitus without ophthalmic manifestations (CMS/HCC) (Primary Dx); Age-related nuclear cataract of both eyes; Dry eyes, bilateral; Dermatochalasis of both upper eyelids; Pterygium of left eye; Presbyopia 06/06/2024 Travel 06/03/2024 Telephone [facility] [address] [place] [address] Misa Adler, BronsonD Appointment Request 06/03/2024 Travel 05/24/2024 Telephone [facility] [address] Annie Tafoya MD Durable Medical Equipment 05/17/2024 Travel 05/15/2024 10:15 AM EDT Office Visit [facility] [place] [place] [address] Annie Tafoya MD Primary hypertension (Primary Dx); Insulin dependent type 2 diabetes mellitus (CMS/HCC); Class 1 obesity due to excess calories with serious comorbidity and body mass index (BMI) of 32.0 to 32.9 in adult; Dietary counseling; Exercise counseling; Moderate dementia without behavioral disturbance, psychotic disturbance, mood disturbance, or anxiety, unspecified dementia type (CMS/HCC); Hyperlipidemia, unspecified hyperlipidemia type; Hypoxia; Obstructive sleep apnea syndrome; Proteinuria, unspecified type; Chronic idiopathic constipation; Mitral valve annular calcification; Seasonal allergies; Type 2 diabetes mellitus with hyperglycemia (CMS/HCC); Type 2 diabetes mellitus with hyperglycemia, with long-term current use of insulin ([facility]CC) 05/15/2024 Travel 05/03/2024 Telephone [facility] [place] [address] Wanda Collins, RN Paperwork/Forms 05/01/2024 Refill [facility] [place] [address] Misa Adler, Kilo 05/01/2024 Travel 04/25/2024 Refill [facility] [place] [address] Wanda Clolins, RN Type 2 diabetes mellitus with hyperglycemia, with long-term current use of insulin ([facility]/HCC) 04/25/2024 Refill [facility] [place] [address] Annie Tafoya MD Type 2 diabetes mellitus with hyperglycemia, with long-term current use of insulin ([facility]/HCC) 04/25/2024 Telephone [facility] [place] [address] Annie Tafoya MD Appointment Request 04/16/2024 Orders Only [facility] [place] [address] Annie Tafoya MD from Last 3 Months Immunizations Immunization Administration Dates Next Due Hep B, adult [...] Polysaccharide PPSV23 12/30/2013, Pneumococcal, Unspecified 04/11/2008 RSV Vaccine, Unspecified 05/17/2024 Tdap 07/13/2022,10/24/2011 Zoster, Recombinant 10/22/2021,08/20/2021 Zoster, live 01/21/2015 Family History Medical History Relation Name Comments Heart disease Father Diabetes Mother Relation Name Status Comments Father Mother Social History Tobacco Use Types Packs/Day Years [...] Sign Reading Time Taken Comments Blood Pressure 142/82 07/02/2024 10:56 AM EDT Pulse 72 07/02/2024 10:56 AM EDT Temperature 37.2 ??C (98.9 ??F) 05/15/2024 10:38 AM E DT Respiratory Rate 20 07/02/2024 10:56 AM EDT Oxygen Saturation 93% 05/15/2024 10:38 AM EDT Inhaled Oxygen Concentration - - Weight 75.8 kg (167 lb) 07/02/2024 10:56 AM EDT Height 149.3 cm (4' 10.76 ) 07/02/2024 10:56 AM EDT Body Mass Index 34.01 07/02/2024 10:56 AM EDT Plan of Treatment Upcoming Encounters Date Type Department Care Team (Late st Contact Info) Description 08/05/2024 11:00 AM EDT Medication Management [facility] [address] [place] [phone] Misa Adler, PharmD [address] [place] [address] 09/24/2024 11:30 AM EDT Office Visit [facility] [address] [place] [address] Rosy Boyd, ANP [address] [place], [place] [phone] Health Maintenance Due Date Last Done Comments Dental Prophylaxis 1945 Dental X-Ray: Bitewings 04/30/2010 04/29/2009 Dental Oral Exam 04/28/2023 10/27/2022, 12/2016, 11/22/2012 Diabetes: Hemoglobin A1C 08/14/2024 025, 02/16/2024, 11/29/2023, Additional history exists Alcohol/Substance Use Screening 11/28/2024 11/29/2023 COVID-19 Vaccine ( season) 2024 07/13/2022, 02/24/2022, 01/25/2021, Additional history exists Postponed from 10/08/2023 (Patient Refused) Depression Screening 11/28/2024 11/29/2023, 11/29/19 24 Diabetes: Foot Exam 11/28/2024 11/29/2023, 11/29/2023, 11/29/2023, Additional history exists SDOH Screening 11/28/2024 11/29/2023 Diabetes: Urine Protein Screening 02/18/2025 02/19/2024, 07/27/2023, 04/06/2023, Additional history exists Lipid Panel 02/18/2025 02/19/2024, 04/06/2023 Tobacco Screening 07/02/2025 07/02/2024 Dental X-Ray: Full Mouth 10/28/2025 023, 06/07/2017, 11/22/2012, Additional history exists Eye Exam 06/06/2026 06/06/2024, 050 02/2024, 06/06/2024, Additional history exists DTaP/Tdap/Td Vaccines (3 - Td or Tdap) 07/13/2032 07/13/2022, 10/24/2011 Pneumococcal Vaccine: 50+ Years Completed 01/21/2015, 12/30/2013, 04/11/2008, Additional history exists Zoster Vaccines Completed 10/22/2021, 08/06, 01/21/2015 Hepatitis C Screening Completed 04/06/2023 Hepatitis B Vaccines Completed 11/29/2023, 07/05/2023, 11/17/2022 Influenza Vaccine Completed 11/29/2023, , 11/25/2020, Additional history exists RSV Patients and Patients Aged 60 years or older Completed 05/17/2024 RSV under 20 months Aged Out 05/17/2024 No longe r eligible based on patient's age to complete this topic HIB Vaccines Aged Out No longer eligi [...] patient's age to complete this topic Meningococcal B Vaccine Aged Out No l onger eligible based on patient's age to complete this topic Meningococcal Vaccine Aged Out No denise elpidio eligible based on patient's age to complete this topic Rotavirus Vaccines Aged Out No longer eligible based on patient's age to complete this topic Goals Goal Patient Goal Type Associated Problems Recent Progress Patient-Stated? Author Blood Pressure < 140/90 Blood Pressure 142/82(2024 10:56 AM EDT) No Misa Yap PharmD Hemoglobin A1c < 8 Result Component 8.9( 11:16 AM EDT) No Misa Yap PharmD Procedures Procedure Name Priority Date/Time Associated Diagnosis Comments POCT GLUCOSE Routine 05/15/2024 11:21 AM EDT Type 2 diabetes mellitus with hyperglycemia ([facility]) POCT GLYCOSYLATED HEMOGLOBIN (HGB A1C) Routine 05/15/2024 11:16 AM EDT Type 2 diabetes mellitus with hyperglycemia (CMS/HCC) ALBUMIN, RANDOM URINE W/CREATININE Routine 02/19/2024 10:20 AM EST LIPID PANEL, STANDARD Routine 02/19/2024 10:20 AM EST HEPATITIS C AB W/REFL TO HCV [...] Relevant to Health Maintenance Results * (ABNORMAL) POCT glucose manually resulted (05/15/2024 11:21 AM EDT) Glucose Blood, POC 218(A) 60 - 200 mg/dL QC Media Lot # [id number] Lot# Expiration Date Blood Capillary blood specimen / Unknown 05/15/2024 11:21 AM EDT Annie Tafoya MD POINT OF CARE TEST ENTER/E DIT ORDERABLES Final Result * (ABNORMAL) POCT glycosylated hemoglobin (Hgb A1c) (05/15/2024 11:16 AM EDT) Hemoglobin A1C 8.9(A) 4.0 - 6.0 % QC Media Lot # [id number] Lot# Expiration Date [id number] Blood Capillary blood specimen / Unknown 05/15/2024 11:16 AM EDT us Annie Tafoya MD POINT OF CARE TEST ENTER/E DIT ORDERABLES Final Result * (ABNORMAL) Albumin, Random Urine W/Creatinine (02/19/2024 10:20 AM EST) Creatinine, Urine 44.57 mg/dL [facility] Microalbumin Urine 451.0 mg/L H [facility] Microalbum Creatinine Ratio Ur 1,011.8(H ) <30 ug/mg cr [facility] Comment:Albumin/Creatinine R atio Reference Ranges: Normal: < 30 ug/mg creatinine Microalbuminuria: 30 - 300 ug/mg creatinineClinical Albuminuria: > 300 ug/mg creatinine 02/19/2024 10:2 0 AM EST 02/19/2024 10:58 AM EST us Annie Tafoya MD LAB URINE ORDERABLES Final Result [facility] [address] [place] [phone] * Lipid Panel, Standard (02/19/2024 10:20 AM EST) Triglycerides 149 <150 mg/dL [facility] Comment:Desirable Triglyceri de: less than 150 mg/dLBorderline High Triglyceride 150-199 mg/dLHigh Triglyceride: 200-499 mg/dLVery High Triglyceride: greater than or equal to 5OO mg/dL Cholesterol 152 <200 mg/dL [facility] Comment:Desirable Cholestero l: less than 200 mg/dLBorderline High Cholesterol: 200-239 mg/dLHigh Cholesterol: greater than 239 mg/dL LDL Cholesterol Calculated 75 <100 mg/dL [facility] Comment:Desirable LDL: less than 100 mg/dLNear Optimal/Above Optimal LDL: 110- 129 mg/dLBorderline High LDL: 130-159 mg/dLHigh LDL: 160-189 mg/dLVery High LDL: greater than or equal to 190 mg/dL HDL Cholesterol 48 >40 mg/dL [facility] Comment:Desirable HDL: great er than 40 mg/dL Note: This HDL assay may give artificially low results in patients with liver disease. 02/19/2024 10:2 0 AM EST 02/19/2024 11:07 AM EST Annie Tafoya MD LAB BLOOD ORDERABLES Final Result Performing Organization Address [facility]/ZIP Co de Phone Number [facility] [address] [place] [phone] * Hepatitis C Antibody with Reflex to HCV, RNA, Quantitative, Real-Time PCR (04/06/2023 9:45 AM EST) Hepatitis C Antibody Nonreactive Nonreactive [facility] Comment:Antibodies to HCV no t detected; does not exclude early acuteHCV infection. Blood Venous blood specimen / Unknown 04/06/2023 9:45 AM EST 04/06/2023 11:27 AM EST Annie Tafoya MD LAB BLOOD ORDERABLES Final Result Performing Organization Address [facility] Co de Phone Number [facility] [address] [place] [phone] from Last 3 Months or Most Recently Relevant to Health Maintenance Insurance [facility] [employer] [facility] Advance Directives Documents on File Type Date Recorded Patient Viscose Cellar Charge Hand Expl anation Advance Directives and Livin g Will 04/07/2023 1:54 PM HCP Care Teams Foot Cutter Relationship Specialty Start Date End Date [place], MD Annie [address] [place] [phone] PCP - General Family Medicine 09/24/12 Misa Adler, Kilo [address] [place] [address] Pharmacist Internal Medicine 02/25/22 Emory Chamorro MD 100 [facility] [address] [phone] Nephrology 04/04/24 Henny Francisco [address] [place] [address] 3rd [place] [address] Sleep Medicine 06/05/24 Hugo Mix MD [address] [place] [address] Ophthalmology 06/26/24
[2024-07-03 13:35] LABS: Estimated Average Glucose 192 mg/dL; Hemoglobin A1C 242.9226 umol/L; Hemoglobin A1c % 8.3 % (<6.0); Total Hemoglobin (HGBA1C) 3635.9356 umol/L
[2024-07-03 13:46] LABS: Anion Gap 15 (12-20); Blood Urea Nitrogen 23 mg/dL (9-16); Calcium 9.7 mg/dL (8.4-10.2); Carbon Dioxide 31 mmol/L (22-29); Chloride 98 mmol/L (96-108); Estimated Glomerular Filt Rate 43; Glucose Random 219 mg/dL (60-115); Potassium 4.8 mmol/L (3.3-5.1); Sodium 139 mmol/L (135-145)
[2024-07-06 12:43] LABS: Fructosamine 286 umol/L (205-285)
== END 2024-07-03 11:11 | disposition home or self-care (01) ==
LOC: HO.HHCL 11:10
PROVIDERS: Family Medicine; Visit Provider Nurse Practitioner Primary Care
DX: E11.65 Type 2 diabetes mellitus with hyperglycemia (principal); Z79.4 Long term (current) use of insulin
CPT/HCPCS: 36415; 80048; 82985; 83036

== ENCOUNTER 2024-10-10 09:44 | Outpatient (AMB) | payer OTHER, SELFPAY ==
--- NOTE | 2024-10-10 09:57 | A.OFFVIS_ITS ---
Vital Signs 10/10/24 09:58 Height 5 ft Weight 169 lb 12.095 oz BMI 33.1 BP 132/70 Blood Pressure Location Lt brachial Position Sitting Pulse 77 Pulse Source Pulse Oximeter Pulse Oximetry (%) 90 L Oxygen Delivery Method Room Air Intake Visit Reasons: Hypoxia Intake Note: pt is here as a new patient for hypoxia, oxygen was taken away 2023 by [employer], pt did not want to use anymore. she also has a hx of TAMIKA, and has multiple machines in the home bi-pap and cpap, she is using her bi-pap. Allergies No Known Allergies (No Known Allergies*) Allergy (Verified 10/10/24 10:34) Medication List - Last Reconciled 10/10/24 by Edwin Perez MD amlodipine 5 mg PO DAILY aspirin 1 tab PO QPM atenolol 50 mg PO BID atorvastatin 1 tab PO BEDTIME cholecalciferol (vitamin D3) 1 tab PO QAM empagliflozin (Jardiance) 25 mg PO DAILY insulin glargine (Lantus Solostar U-100 Insulin) 30 units subcut DAILY losartan 100 mg PO DAILY omeprazole 1 cap PO DAILY Do you need a note to return to daycare/school/sports/work: No HPI HPI Hypoxia: Details: Back ground History 12/14/2022, In-lab PSG showed AHI 40/hr, REM AHI 86/hr and oxygen apurva was 56% with average SpO2 91% and SpO2 under 88% for 73 minutes of sleep study time. Periodic limb movement of sleep (PLMS) index 21/hour and PLMS arousal index 3.8/hour. 02/17/2023 in-lab PAP titration study, showed frequent residual sleep apnea with hypoxemia at lower treatment pressures. Recommendation was CPAP 15 cm H2O with small N20 mask and supplemental O2 at 1 LPM. Subsequently she has been very noncompliant, and she gave away oxygen because she did not want to use it . Then due to some reason which we do not understand completely, she has gotten a BiPAP equipment, with pressure setting of 15/6 cm, from a different company, [employer] . Again she has not been using the BiPAP regularly. So she has a notice to give up the BiPAP machine because of non usage. She also has shortness of breath on exertion, and intermittent cough. He is not being treated, for COPD at this time , has had no pulmonary function test as she did not show up for her appointments. She has used oxygen in the past but return the equipment. Even with the CPAP she was advised to use O2 1 L/minute. She has history of smoking to age 60. She has occasional cough but no wheezing. She denies any shortness of breath on exertion because she does not walk much anyway. Comorbidities include hypertension, hyperlipidemia, diabetes mellitus, GERD symptoms. She seems to have some degree of cognitive impairment, and depends upon SEO MARKETING SPECIALIST to take her for her appointments and tests. She explains her reason for no shows , due to non availability of her SEO MARKETING SPECIALIST is to bring her to the appointments. Now, she has a new SEO MARKETING SPECIALIST who came with her and the SEO MARKETING SPECIALIST shows her determination to bring her to the scheduled appointments. [facility] Medical History Diastolic dysfunction Cardiomegaly Mood disorder Hyperlipidemia Hypertension Insulin dependent type 2 diabetes mellitus GERD (gastroesophageal reflux disease) Surgical History History of esophagogastroduodenoscopy (EGD) Hx of colonoscopy History of tubal ligation Family History Family/Other No significant medical problems Social History Household Members: None Housing: Apartment Housing Other:: rd floor with elevator access Do you presently have visiting nurse or other home services: Yes Alcohol intake: never Patient Tobacco Use Status: Never used Tobacco Advance Directives Date on File: 07/20/20 service: No Current occupational status: unemployed Review of Systems Const All systems reviewed & are unremarkable except as noted in HPI and below Reports snoring Eyes Reports no additional complaints ENT Reports no additional complaints Card Denies chest pain and Reports dyspnea on exertion (ON MODERATE ACTIVITY) Resp Reports as per HPI, Reports cough, Reports dyspnea on exertion (ON MODERATE ACTIVITY) and Reports snoring GI Reports heartburn (CONTROLLED WITH MED) Reports no additional complaints Musc Reports no additional complaints Skin/Breast Reports system reviewed and no additional complaints, except as documented Neuro Reports no additional complaints and Reports memory loss (CLINICALLY DOES HAVE SOME COGNITIVE IMPAIRMENT, MAY BE DUE TO POOR UNDERSTA) Psych Reports memory loss (CLINICALLY DOES HAVE SOME COGNITIVE IMPAIRMENT, MAY BE DUE TO POOR UNDERSTA) Endo Reports other (DIABETES MELLITUS) Vaughn/Lymph Reports no additional complaints Aller/Immun Reports no additional complaints Physical Exam Vital Signs: Last Vital Signs Pulse 77 10/10/24 09:58 BP 132/70 10/10/24 09:58 Pulse Ox 90 L 10/10/24 09:58 Oxygen Delivery Method Room Air 10/10/24 09:58 BMI result Body Mass Index 33.1 MODERATELY OBESE WITH A ROUND FACE AND SHORT NECK Const General: healthy appearing, comfortable, no acute distress, alert and awake Orientation/consciousness: patient oriented x3 HEENT Head: Yes normal to inspection General nose exam: No nasal polyps present and No nasal discharge present Face and sinus: Yes sinuses nontender Mouth: oropharynx abnormals (OROPHARYNX IS NARROW AND CROWDED, MALLAMPATI CLASS 4) Throat: Yes posterior oropharynx normal Eyes General: appearance normal, both eyes and all related structures Neck Neck: Yes normal visual inspection, Yes no lymphadenopathy, Yes trachea midline and Yes no JVD Thyroid: Thyroid normal Chest Chest palpation & inspection: normal inspection of the chest, normal palpation of entire chest wall and no tenderness Resp Other: PERCUSSION NOTE IS NOT COMPLETELY PERCEPTIBLE DUE TO THICK CHEST WALL. BREATH SOUNDS ARE DISTANT WITH PROLONGED EXPIRATORY PHASE. BUT NO WHEEZES RHONCHI OR CREPITATIONS ARE HEARD. Cardio Palpation: normal PMI Rate: regular rate Rhythm: regular rhythm Heart sounds: no gallops and no murmurs Peripheral pulses: Peripheral pulses 2+ throughout GI Inspection: Yes other (ABDOMEN IS MODERATELY OBESE AND PROTUBERANT) Palpation (GI): Soft to palpation, nontender, No hepatosplenomegaly present and no masses Auscultation: normal bowel sounds Back/Spine/Pelvis Thoracic/Lumbar Spine: thoracic and lumbar spine normal to inspection Skin General skin exam: no rashes or lesions noted Neuro General: patient oriented x3 and no focal motor deficits Cranial nerves: Yes CN's II-XII intact bilaterally Extrem General: Yes normal to inspection, Yes no clubbing, cyanosis or edema and Yes no calf tenderness Psych Speech and movement: Normal speech and movement present Results Reviewed Results Reviewed: POLYSOMNOGRAM STUDY 01/03/23 SHOWED SEVERE OBSTRUCTIVE SLEEP APNEA WITH AHI 40 AND REM STAGE AHI FOR 85. CPAP TITRATION STUDY ON 02/17/2023, PATIENT NEEDED PRESSURE 17 CM WITH OXYGEN 1 L/MINUTE. POLYSOMNOGRAM STUDY ON 05/01/2024, SEVERE TAMIKA WITH AHI 71. CPAP TITRATION STUDY ON 05/24 24, PATIENT NEEDED CPAP OF 15 CMs WITH O2 3 L/MT COMPLIANCE REPORT 07/11 TO 10/08/24 USED ONLY 36/90 NIGHTS, 40%. AVERAGE USAGE PER NIGHT 1 HOURS 55 MINUTES. LOT OF AIR LEAKAGE IS RECORDED. RESIDUAL AHI 13.5 Assessment & Plan Assessment & Plan (1) TAMIKA (obstructive sleep apnea): Comment: Severe degree of sleep apnea. The AHI was 40, REM AHI was 85 and oxygen apurva was 56%. Code(s): G47.33 - Obstructive sleep apnea (adult) (pediatric) Category: Medical Plan: PATIENT HAS BEEN PRESCRIBED CPAP THERAPY. INITIALLY SHE HAD CPAP WITH OXYGEN SUPPLEMENTATION 1 L/MT SHE STOPPED USING THE OXYGEN ON HER ROUND, AND DOES NOT ON TO HAVE OXYGEN AT HOME. HER COMPLIANCE TO THE USE OF CPAP HAS BEEN VERY POOR.. CPAP HAS BEEN CHANGED TO BIPAP, PRESSURE SETTING 15/6 CM, HER DME IS NOW [employer] , SHE REMAINS TOTALLY NONCOMPLIANT. PUTS ON THE MASK AT NIGHT BUT COMES OF AFTER 1 OR 2 HOURS USAGE. SHE HAS VERY POOR UNDERSTANDING THERE IS SOME COGNITIVE IMPAIRMENT. . I HAD A GOOD DISCUSSION WITH HER AND HER SEO MARKETING SPECIALIST. NOW SHE HAS A NEW SEO MARKETING SPECIALIST WHO WAS INVOLVED IN THE CONVERSATION AND PROMISES THAT SHE IS GOING TO MAKE SURE SHE PUTS ON THE CPAP AND KEEPS IT ON. SHE WILL MAKE SURE THAT SHE GOES TO HER APPOINTMENTS REGULARLY. . EVEN THEN PATIENT IS NOT WILLING TO HAVE OXYGEN AT HOME. (2) Nocturnal hypoxemia: Comment: SLEEP STUDY SHOWED THAT SHE DID HAVE NOCTURNAL HYPOXEMIA AND REQUIRED O2 1 L/MINUTE ALONG WITH THE CPAP. O2 WAS ORDERED BUT SHE RETURNED IT, SAYING THAT SHE DOES NOT WANT TO USE OXYGEN . HER HYPOXEMIA WAS DUE TO SLEEP-RELATED HYPOVENTILATION, BECAUSE OF SEVERITY OF HER SLEEP APNEA. BUT SHE NEEDS TO BE EVALUATED FOR PULMONARY DISEASE. Code(s): G47.34 - Idiopathic sleep related nonobstructive alveolar hypoventilation Category: Medical Plan: I EXPLAINED TO THE PATIENT THAT IF SHE DOES NOT USE THE BIPAP REGULARLY SHE IS MORE APT TO HAVE NOCTURNAL HYPOXEMIA . AND WE WILL HAVE TO START HER ON OXYGEN AT NIGHT. HOWEVER IT IS MUCH BETTER TO CONTROL THE HYPOXEMIA WITH THE USE OF BIPAP. (3) SOBOE (shortness of breath on exertion): Comment: PATIENT COMPLAINS OF GETTING SHORT OF BREATH ON WALKING FAST OR CLIMBING STAIRS. SHE DOES HAVE FEATURES OF CHRONIC OBSTRUCTIVE PULMONARY DISEASE AND MAY ALSO HAVE SIGNIFICANT RESTRICTIVE DISORDER. SHE NEEDS TO BE EVALUATED FOR THIS. Code(s): R06.02 - Shortness of breath Category: Medical Plan: I EXPLAINED TO HER THAT SHE NEEDS TO HAVE PULMONARY FUNCTION TEST SHE, SHE AGREES AND THAT IS BEING ORDERED. SHE WOULD ALSO NEED TO HAVE 6 MINUTES WALK TEST TO SEE IF SHE NEEDS PORTABLE OXYGEN. HOWEVER AT THIS TIME PATIENT IS NOT WILLING TO USE THE OXYGEN ANYWAY. Orders: Orders PFT pulmonary function test Today G47.33 - Obstructive sleep apnea (adult) (pediatric), G47.34 - Idiopathic sleep related nonobstructive alveolar hypoventilation, R06.02 - Shortness of breath Coding Level of Care Code Est Pt Level 4 (06104) Diagnoses TAMIKA (obstructive sleep apnea) G47.33 Nocturnal hypoxemia G47.34 SOBOE (shortness of breath on exertion) R06.02
[2024-10-10 09:58] VITALS: BP 132/70; PULSE 77; O2SAT 90; BMI 33.1
--- OUTSIDE RECORDS SUMMARY | 2024-10-10 10:40 | XMS_ITS | Encounter Summary ---
Author Organization [employer] Address [address] [facility] [address] [place] [address] Care Team Providers Care Fisheries Technical Officer Name Role Phone Annie Tafoya MD Primary Care Provider [phone] Misa Adler PharmD Unavailable Emory Chamorro MD Unavailable [phone] Henny Francisco Unavailable [phone] Hugo Mix MD Unavailable Encounter Details Date Type Department Care Team (Late st Contact Info) Description 10/16/2023 Abstract [facility] [address] [place] [address] Stephanie Persaud MA Social History Tobacco Use Types Packs/Day Years Used Date Smoking Tobacco: Never Passive Smoke Exposure: Never Smokeless Tobacco: Never Alcohol Use Standard Drinks/Week Comments Never 0 (1 standard drink = 0.6 oz pur e alcohol) Depression Answer Date Recorded Patient Health Questionnaire-9 Score 2 09/15/2022 Housing Stability Answer Date Recorded What is your housing situation today? I have narenradha lepe 11/21/[address] you [...] Care Team (Late st Contact Info) Description 11/29/2024 1:00 PM EDT Medication Management [facility] [address] [place] [address] Misa Adler PharmD [address] [place] [address] documented as of this encounter Goals Goal Patient Goal Type Associated Problems Recent Progress Patient-Stated? Author Blood Pressure < 140/90 Blood Pressure 118/62(2024 1:19 PM EDT) No Azars-Teena Collinssa, PharmD Hemoglobin A1c < 8 Result Component 8.1( 1:26 PM EDT) No Misa Yap, PharmD documented as of this encounter Procedures [...] documented as of this encounter Care Teams Fisheries Technical Officer Relationship Specialty Start Date End Date Annie Tafoya MD [address] [place] [address] PCP - General Family Medicine 09/24/12 Misa Adler, BronsonD [address] [place] [address] Pharmacist Internal Medicine 02/25/22 Emory Chamorro MD [address] [phone] Nephrology 04/04/24 Henny Francisco [address] [place] [address] [address]rd [place] [address] Sleep Medicine 06/05/24 Hugo Mix MD [address] [place] [phone] Ophthalmology 06/26/24 documented as of this encounter
--- OUTSIDE RECORDS SUMMARY | 2024-10-10 10:40 | XMS_ITS | Clinical Summary ---
Author Organization [address] [facility] Address [address] [place] [address] Phone Care Team Providers Care Studio Operation Engineer Name Role Phone Annie Tafoya MD Primary Care Provider [phone] Social History Tobacco Use Types Packs/Day Years Used Date Smoking Tobacco: Never Assessed Comments Unknown Sex and Gender Information Value Date Recorded Sex Assigned at Not on file Legal Sex Female 9:18 AM EDT Gender Identity Not on file Sexual Orientation Not on file Plan of Treatment Upcoming Encounters Date Type Department Care Team ([facility] Contact Info) Description 12/04/2024 2:30 PM EDT Consult Orthopedic Surgery - [place] [address] [address] Chase Sloan DPM [address] [phone] Health Maintenance Due Date Last Done Comments Diabetes: Annual GFR (Glomer ular Filtration Rate) 1945 Diabetes: Annual Foot Exam 1956 Diabetes: Annual Retina Eye Exam 1955 DTaP,Tdap,and Td Vaccines (1 - Tdap) 1965 Pneumococcal Vaccine: 50+ Ye ars (1 of 2 - PCV) 1965 Zoster Vaccines (1 of 2) 1996 RSV Immunization Adult Patie nts (1 - 1-dose 75+ series) 2021 Depression Screening 02/07/2024 Cholesterol Screening (Lipid Panel) 09/10/2024 Diabetes: Annual Urine Albumin-Creatinine Ratio (uACR) 09/10/2024 Diabetes: Blood Sugar Contro l Test (HGBA1C) 09/10/2024 Falls Risk Assessment 09/10/2024 Hepatitis C Screening 09/10/2024 Medicare Annual Wellness Visit 09/10/2024 Osteoporosis Screening (Bone Density Screening) 09/10/2024 Social Influencers of Health Screening 09/10/2024 COVID-19 Vaccine (1 - 2023-2 5 season) 2024 Influenza Vaccine (#1) 2024 HIB Vaccines Aged Out No longer eligi ble based on patient's age to complete this topic HPV Vaccines Aged Out No longer eligi ble based on patient's age to complete this topic Hepatitis A Vaccines Aged Out No long er eligible based on patient's age to complete this topic Hepatitis B Vaccines Aged Out No long er eligible based on patient's age to complete this topic IPV Vaccines Aged Out No longer eligi ble based on patient's age to complete this topic MMR Vaccines Aged Out No longer eligi ble based on patient's age to complete this topic Meningococcal ACWY Vaccine Aged Out N o longer eligible based on patient's age to complete this topic Meningococcal B Vaccine Aged Out No l onger eligible based on patient's age to complete this topic RSV Immunization Patients Un marilin 20 months Aged Out No longer eligible b ased on patient's age to complete this topic Varicella Vaccines Aged Out No longer eligible based on patient's age to complete this topic Insurance [employer] MEDICAID - [place] Care Teams Studio Operation Engineer Relationship Specialty Start Date End Date [place], MD Annie [address] [place] [phone] PCP - General Family Medicine 09/10/24
--- OUTSIDE RECORDS SUMMARY | 2024-10-10 10:40 | XMS_ITS | Encounter Summary ---
Author Organization [email or web address] Address [address] [place] [address] Care Team Providers Care Audio Tape Librarian Name Role Phone Annie Tafoya MD Primary Care Provider [phone] Misa Adler PharmD Unavailable Emory Chamorro MD Unavailable [phone] Henny Francisco Unavailable [phone] Hugo Mix MD Unavailable Reason for Visit * Reason Onset Date Comments dentures prior authorization 11/28/2022 Encounter Details Date Type Department Care Team (Late st Contact Info) Description 11/28/2022 Telephone [facility] [address] [place] [address] Yoni Farr, DMD [address] [place] [address] dentures prior authorization Social History Tobacco Use [...] no approval or denial is scanned in documented in this encounter Plan of Treatment Upcoming Encounters Date Type Department Care Team (Late st Contact Info) Description 11/29/2024 1:00 PM EDT Medication Management [facility] [address] [place] [address] Misa Adler PharmD [address] [place] [address] documented as of this encounter Goals Goal Patient Goal Type Associated Problems Recent Progress Patient-Stated? Author Hemoglobin A1c < 8 Result Component 8.1(09/27/2024 1:26 PM EDT) No Misa Adler, PharmD documented as of this encounter Visit Diagnoses Not on filedocumented in this encounter Additional Health Concerns Assessment Noted Time PHQ-9 Depression Total Score: 2 09/16/19 9:25 AM EDT documented as of this encounter Care Teams Audio Tape Librarian Relationship Specialty Start Date End Date Annie Tafoya MD [address] [place] [address] PCP - General Family Medicine 09/24/12 Misa Adler PharmD [address] [place] [address] Pharmacist Internal Medicine 02/25/22 Emory Chamorro MD [address] [id number] Nephrology 04/04/24 Henny Francisco [address] [place] [address] [address] [place] [address] Sleep Medicine 06/05/24 Hugo Mix MD [address] [place] [address] Ophthalmology 06/26/24 documented as of this encounter
--- OUTSIDE RECORDS SUMMARY | 2024-10-10 10:40 | XMS_ITS | Clinical Summary ---
Author Organization [employer] Address [address] [place] [address] [address] [place] [address] Care Team Providers Care Manager Client Support Name Role Phone Annie Tafoya MD Primary Care Provider + [phone] Misa Adler PharmD Unavailable Emory Chamorro MD Unavailable [phone] Henny Francisco Unavailable Hugo Mix MD Unavailable Allergies No known active allergies Medications cholecalciferol (Vitamin D3) 25 MCG (1000 UT) tabletIndication s:Vitamin D deficiency TAKE 1 TABLET BY MOUTH EVERY MORNING 90 tablet 3 2023 Active empagliflozin (Jardiance) 25 MGIndications:Ty pe 2 diabetes mellitus with hyperglycemia, with long-term current use of insulin ([facility]) TAKE 1 TABLET BY MOUTH EVERY MORNING 90 tablet 3 2023 Active atenolol (Tenormin) 50 MG tabletIndication s:Primary hypertension TAKE 1 TABLET BY MOUTH TWICE DAILY IN THE MORNING AND IN THE EVENING 180 tablet 3 2023 Active Continuous Glucose Sensor (FreeStyle Sury 3 Plus Sensor) miscIndications: Type 2 diabetes mellitus with hyperglycemia, with long-term current use of insulin ([facility]) 1 each Use as directed. 2 each 11 2024 Active Continuous Glucose Financial Aid (FreeStyle Sury 3 [place]) deviceIndication s:Type 2 diabetes mellitus with hyperglycemia, with long-term current use of insulin ([facility]) 1 each Use as directed. 1 each 2024 Active aspirin 81 MG EC tabletIndication s:Mitral valve annular calcification Take 1 tablet (81 mg) by mouth Once per day. 90 tablet 3 2024 Active senna (Senokot) 8.6 MG tabletIndication s:Chronic idiopathic constipation Take 1 tablet (8.6 mg) by mouth if needed at bedtime for constipation. 90 tablet 2024 Active glucose (Glutose) 40 % gel oral gelIndications:T ype 2 diabetes mellitus with hyperglycemia, with long-term current use of insulin ([facility]) USE NEEDED IF LOW BLOOD SUGAR OCCURS 37 g 11 2024 Active insulin pen needle (Pentips) 32G x 4 mm miscIndications: Type 2 diabetes mellitus with hyperglycemia, with long-term current use of insulin ([facility]) Use as instructed 100 each 5 2024 Active TRUEplus Lancets 33G miscIndications: Type 2 diabetes mellitus with hyperglycemia, with long-term current use of insulin ([facility]) Use bid 100 each 11 2024 Active insulin glargine (Lantus SoloStar) 100 UNIT/ML penIndications:T ype 2 diabetes mellitus with hyperglycemia, with long-term current use of insulin ([facility]) INJECT 24 UNITS SUBCUTANEOUSLY ONCE DAILY 2024 Active white petrolatum-mineralogy professor al oil (Lacri-Lube) ointment ophthalmic ointment Apply 1 Application. to both eyes at bedtime. 3 g 9 06/06 Active carboxymethylcel lulose (Refresh Tears) 0.5 % ophthalmic solution Administer 1 drop into both eyes if needed in the morning, at noon, and at bedtime for dry eyes. 15 mL 11 06/06 Active ketorolac (Acular) 0.5 % ophthalmic solution INSTILL 1 DROP INTO THE AFFECTED EYE(S) THREE TIMES DAILY STARTING 2 DAYS BEFORE SURGERY CONTINUE DIRECTED 2024 Active amLODIPine (Norvasc) 10 MG tabletIndication s:Primary hypertension TAKE 1 TABLET BY MOUTH EVERY MORNING 90 tablet 2024 Active atorvastatin (Lipitor) 40 MG tabletIndication s:Insulin dependent type 2 diabetes mellitus (CMS/HCC),Hyperl ipidemia, unspecified hyperlipidemia type TAKE 1 TABLET BY MOUTH AT BEDTIME 90 tablet 3 2024 Active omeprazole (PriLOSEC) [address] capsuleIndicatio ns:Gastric pain TAKE 1 CAPSULE BY MOUTH EVERY MORNING 90 capsule 3 2024 Active glycerin (Adult) 2 g suppositoryIndic ations:Chronic idiopathic constipation Insert 1 suppository (2 g) into the rectum if needed each day for constipation. 30 suppository 2 12/08 Active polyethylene glycol, PEG, 3350 (MiraLax) 17 GM/SCOOP powderIndication s:Chronic idiopathic constipation 17 grams in 8-12 oz fluid like water at bedtime prn constipation 527 g 2 2024 Active glipiZIDE (Glucotrol) 5 MG tabletIndication s:Type 2 diabetes mellitus with hyperglycemia, with long-term current use of insulin (CMS/HCC) TAKE 1/2 TABLET BY MOUTH EVERY EVENING BEFORE SUPPER, DO NOT TAKE IF no EAT 15 tablet 2024 Active Tirzepatide (Mounjaro) 5 MG/0.5ML solution auto-injectorInd ications:Type 2 diabetes mellitus with hyperglycemia, with long-term current use of insulin ([facility]) Inject 5 mg under the skin 1 (one) time per week. 2 mL 3 2024 Active Ascorbic Acid (vitamin C) 250 MG tabletIndication s:Bbpm-nbe-qsfkl er drug started Take 250 mg by mouth Once per day. Active Magnesium 250 MG capsuleIndicatio ns:Xdai-svj-bjqj ter drug started Take by mouth. Active fluticasone (Flonase) 50 MCG/ACT nasal sprayIndications :Seasonal allergies USE 1 SPRAY IN EACH NOSTRIL ONCE DAILY 16 g 2 2024 Active losartan (Cozaar) 100 MG tabletIndication s:Primary hypertension Take 1 tablet (100 mg) by mouth Once per day. 90 tablet 1 2024 Active losartan (Cozaar) 100 MG tabletIndication s:Primary hypertension Take 1 tablet (100 mg) by mouth Once per day. 90 tablet 1 09/27 Discontinued( Reorder (will not trigger notification to Pharmacy)) fluticasone (Flonase) 50 MCG/ACT nasal sprayIndications :Seasonal allergies Shake gently. Before first use, prime pump. After use, clean tip and replace cap. 16 g 2 09/26 Discontinued Active Problems Patient Care Coordination No te Formatting of this note migh t be different from the original. Enrolled in [facility] DM and [facility] HTN clinic with Misa Adler, BronsonD, [facility] team: Navigator Srinath Walker Geriatric technical support engineer Sasha [facility] cosmetics counter manager Shayne Pagan [facility] Nurse business case analyst eJan Bolaños RN Problem Noted Date Diagnosed Date Class 1 obesity due to exces s calories with serious comorbidity and body mass index (BMI) of 32.0 to 32.9 in adult 05/15/2024 Assessment & Plan (09/09/2024 10:53 AM EDT): 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, psychotic disturbance, mood disturbance, or anxiety 11/10/2023 Overview (11/10/2023): MMSE2 in Mongolian completed with pt 11/10/23 Pt scored a 13 out of a possible 30 points. This is considered severe cognitive impairment and at an increased odds for dementia status. Assessment & Plan (05/15/2024 10:35 AM EDT): MMSE2 in Mongolian completed with pt 11/10/23 Pt scored a 13 out of a possible 30 points. This is considered severe cognitive impairment and at an increased odds for dementia status. Cataracts, bilateral 03/13/2023 Overview (04/05/2023): This patient [...] to Cataract Surgery 04/05/23 Assessment & Plan (09/09/2024 10:53 AM EDT): This patient was seen in our clinic [...] surgery. Patient agrees to Cataract Surgery 04/05/23 - Pt was scheduled for cataract surgery 07/12/24(right eye) and 07/26/24(left eye) and surgery got cancelled. - Advised to call db2 dba 09/09/24 Assessment & Plan (04/05/2023 12:00 PM EST): [...] due after 11/28/24 -eye care facilitated by [facility] and [facility] -dental home is [facility] -Health care proxy paperwork completed 04/05/23 Assessment & Plan (04/05/2023 10:42 AM EST): -next physical exam due after 11/18/2023 -eye care facilitated by [facility] -dental home is [facility] -Health care proxy paperwork completed 04/05/23 Assessment & Plan (11/17/2022 10:38 AM EDT): -next physical exam due after 11/18/2023 -eye care facilitated by none -dental home is [facility] Urinary incontinence 11/17/2022 Overview (11/17/2022): -Requesting letter for night care. Assessment & Plan (11/17/2022 10:40 AM EDT): -Requesting letter for night care. Alcohol use 11/17/2022 Cardiomegaly 10/21/2022 Chronic idiopathic constipation 10/21/2022 Overview (09/09/2024): -prescribed laxative powder and suppositories 09/09/24 Assessment & Plan (09/09/2024 10:53 AM EDT): -prescribed laxative powder and suppositories 09/09/24 Orders: glycerin (Adult) 2 g suppository; Insert 1 suppository (2 g) into the rectum if needed each day for constipation. polyethylene glycol, PEG, 3350 (MiraLax) 17 GM/SCOOP powder; 17 grams in 8-12 oz fluid like water at bedtime prn constipation Diastolic dysfunction 10/21/2022 Overview (11/17/2022): Echo 09/08/22 reveals EF 55-60% with grade 2, moderate diastolic dysfunction. Mild mitral annular calcification. Mild pulmonary hypertension. Mildly dilated inferior vena caval Assessment & Plan (11/17/2022 10:15 AM EDT): Echo 09/08/22 reveals EF 55-60% with grade 2, moderate diastolic dysfunction. Mild mitral annular calcification. Mild pulmonary hypertension. Mildly dilated inferior vena caval GERD (gastroesophageal reflux disease) Dependence on wheelchair 01/10/2022 Overview (10/26/2022): Pt [...] -Losartan held. -Will recheck. Hypoxia 01/10/2022 Overview (09/09/2024): O2 Sa 85%-94% on RA documented since [...] new insurance. - Pt is followed by wort extractor, Dr. Galvan. She last visited 2018. - [...] recommends follow up sleep clinic. -[place] [facility] [place]09[place]09/[place]Patient presented for evaluation of dyspnea and [...] if anyone cancels sooner - Pt saw [facility] 02/09/23 Pulmonology and her Oxygen was discontinued, CXR and PFTs ordered referral for O2 assessment done to see if she needs O2 or not, Pt reports she is no longer on O2, Has follow up in August, pt and MARKETING AREA MANAGER notified of follow up -rereferred 05/15/24 - has appt with wort extractor 10/2024. Assessment & Plan (09/09/2024 10:53 AM EDT): O2 Sa 85%-94% on RA [...] new insurance. - Pt is followed by wort extractor, Dr. Galvan. She last visited 2018. - [...] recommends follow up sleep clinic. -hospitalized at [facility] (09/06/22-09/09/22)Patient presented for evaluation of dyspnea and [...] if anyone cancels sooner - Pt saw [facility] 02/09/23 Pulmonology and her Oxygen was discontinued, CXR and PFTs ordered referral for O2 assessment done to see if she needs O2 or not, Pt reports she is no longer on O2, Has follow up in August, pt and MARKETING AREA MANAGER notified of follow up -rereferred 05/15/24 - has appt with wort extractor 10/2024. Assessment & Plan (05/15/2024 10:56 AM EDT): [...] new insurance. - Pt is followed by wort extractor, Dr. Galvan. She last visited 2018. - [...] recommends follow up sleep clinic. -hospital[place] [facility] [place]09/06/22-09/09/22)Patient presented for evaluation of dyspnea and [...] if anyone cancels sooner - Pt saw [facility] 02/09/23 Pulmonology and her Oxygen was discontinued, CXR and PFTs ordered referral for O2 assessment done to see if she needs O2 or not, Pt reports she is no longer on O2, Has follow up in August, pt and MARKETING AREA MANAGER notified of follow up -rereferred 05/15/24 Assessment [...] new insurance. - Pt is followed by wort extractor, Dr. Galvan. She last visited 2019. - [...] recommends follow up sleep clinic. -hospital[place] [facility] [place]09/06/22-09/09/22)Patient presented for evaluation of dyspnea and [...] if anyone cancels sooner - Pt saw [facility] 02/09/23 Pulmonology and her Oxygen was discontinued, CXR and PFTs ordered referral for O2 assessment done to see if she needs O2 or not, Pt reports she is no longer on O2, Has follow up in August, pt and MARKETING AREA MANAGER notified of follow up Assessment & Plan [...] new insurance. - Pt is followed by wort extractor, Dr. Galvan. She last visited 2019. - [...] recommends follow up sleep clinic. -hospital[place] [facility] [place]06/22-09/09/22)Patient presented for evaluation of dyspnea and [...] if anyone cancels sooner - Pt saw [facility] 02/09/23 Pulmonology and her Oxygen was discontinued, CXR and PFTs ordered referral for O2 assessment done to see if she needs O2 or not, Pt reports she is no longer on O2, Has follow up in August, pt and MARKETING AREA MANAGER notified of follow up Assessment & Plan [...] new insurance. - Pt is followed by wort extractor, Dr. Galvan. She last visited 2019. - [...] recommends follow up sleep clinic. -hospital[place] [facility] [place]09/06/22-09/09/22)Patient presented for evaluation of dyspnea and [...] diagnosed 04/2016 - Pt is followed by wort extractor, Dr. Galvan. She last visited 2018. - [...] new insurance. - Pt is followed by wort extractor, Dr. Galvan. She last visited 2018. - [...] new insurance. - Pt is followed by wort extractor, Dr. Galvan. She last visited 2018. - [...] follow up04/2018 recommends follow up sleep clinic. Mitral valve annular calcification 01/10/2022 Overview (11/17/2022): [...] [facility] We contacted [facility] and Linda reports: in July an order was sent to [facility] for CPAP and there is no record of issues with machine. We then contacted [facility] in July where Dr Fields's office was notified her insurance did not accept it so we recalled [facility] and the reported they will send an urgent message to find an in-network supplier. She states she has her machine now. - Sleep study done [facility] sleep center 02/17/23 recommending CPAP with 14 small N20 mask and Supplemental O2 at 1 L per min with Dr. Kayley Chamorro and patient reports compliance with CPAP 04/05/23 -Seen by sleep medicine 05/14/23 Resent CPAP prescription to [facility]. [facility] information given to patient. Advised patient to start CPAP at [id number] with supplemental O2 1 L at night. [...] therapy services. Her current respiratory supplier is [facility], however this may need to be changed to an alternate company, such as [employer], which can also provide supplemental home O2 [...] [facility]: We contacted [facility] and Linda reports: in July an order was sent to [facility] for CPAP and there is no record of issues with machine. We then contacted [facility] in July where Dr Fields's office was notified her insurance did not accept it so we recalled [facility] and the reported they will send an urgent message to find an in-network supplier. She states she has her machine now. - Sleep study done [facility] sleep center 02/17/23 recommending CPAP with 14 small N20 mask and Supplemental O2 at 1 L per min with Dr. Kayley Chamorro and patient reports compliance with CPAP 04/05/23 -Seen by sleep medicine 05/14/23 Resent CPAP prescription to [facility]. [facility] information given to patient. Advised patient to start CPAP at [id number] with supplemental O2 1 L at night. Stressed compliance, use CPAP nightly and more than 4 hrs. Assessment & Plan (07/06/2023 8:33 AM EDT): Diagnosed on sleep study 04/2016. Pt followed by sleep clinic. Reports now tolerating BiPAP. She saw a specialist on 11/2017 at [facility] 02/14/2018: We contacted [facility] and Linda reports: in July an order was sent to [facility] for CPAP and there is no record of issues with machine. We then contacted [facility] in July where Dr Fields's office was notified her insurance did not accept it so we recalled [facility] and the reported they will send an urgent message to find an in-network supplier. She states she has her machine now. - Sleep study done [facility] sleep center 02/17/23 recommending CPAP with 14 small N20 mask and Supplemental O2 at 1 L per min with Dr. Kayley Chamorro and patient reports compliance with CPAP 04/05/23 -Seen by sleep medicine 05/14/23 Resent CPAP prescription to [facility]. C information given to patient. Advised patient to start CPAP at [id number] with supplemental O2 1 L at night. Stressed compliance, use CPAP nightly and more than 4 hrs. Assessment & Plan (04/05/2023 11:59 AM EST): Diagnosed on sleep study 04/2016. Pt followed by sleep clinic. Reports now tolerating BiPAP. She saw a specialist on 11/2017 at [facility] 02/14/2018: We contacted [facility] and Linda reports: in July an order was sent to [facility] for CPAP and there is no record of issues with machine. We then contacted [facility] in July where Dr Fields's office was notified her insurance did not accept it so we recalled [facility] and the reported they will send an urgent message to find an in-network supplier. She states she has her machine now. - Sleep study done [facility] sleep center 02/17/23 recommending CPAP with [...] [facility] 02/14/2018: We contacted [facility] and Linda reports: in July an order was sent to [facility] for CPAP and there is no record of issues with machine. We then contacted [facility] in July where Dr Fields's office was notified her insurance did not accept it so we recalled [facility] and the reported they will send an [...] [facility] 02/14/2018: We contacted [facility] and Linda reports: in July an order was sent to [facility] for CPAP and there is no record of issues with machine. We then contacted [facility] in July where Dr Fields's office was notified her insurance did not accept it so we recalled [facility] and the reported they will send an urgent message to find an in-network supplier. She states she has her machine now. Assessment & Plan (05/04/2022 11:37 AM EDT): Diagnosed on sleep study 04/2016. Pt followed by sleep clinic. Reports now tolerating BiPAP. She saw a specialist on 11/2017 at [facility] 02/14/2018: We contacted [facility] and Linda reports: in July an order was sent to [facility] for CPAP and there is no record of issues with machine. We then contacted [facility] in July where Dr Fields's office was notified her insurance did not accept it so we recalled [facility] and the reported they will send an urgent message to find an in-network supplier. She states she has her machine now. Tubular adenoma 01/10/2022 Overview (09/09/2024): Colonoscopy on 12/25/[address] Poole showed tubular adenoma. Advised repeat in 5 years. -referred to GI 09/09/24 Assessment & Plan (09/09/2024 10:53 AM EDT): Colonoscopy on 12/25/[address] Poole showed tubular adenoma. Advised repeat in 5 years. -referred to GI 09/09/24 Orders: Referral to Gastroenterology; Future Assessment & Plan (11/17/2022 9:21 AM EDT): [...] on 11/14/23 -seen by nephrology De. Emory hCamorro, 12/04/23-non nephrotic range proteinuria in the setting [...] dependent type 2 diabetes mellitus 10/30 Overview (09/09/2024): Diabetes is not controlled. A1c goal < 8 Has continuous glucose monitor Lab Results Component Value Date HGBA1C 8.3 (H) 07/03/2024 HGBA1C 8.9 (A) 05/15/2024 HGBA1C 10.5 (A) 02/16/2024 Lab Results Component Value Date MICROALBUR 451.0 02/19/2024 CREATININE 1.20 07/03/2024 -Wlilis/Arb: held 06/25/2021 for elvated potassium, CDTM restarted [...] by CDTM 11/14/23 -Lantus titrated by CDTM -glipidize 2.5mg once daily before dinner [facility] to frequent post prandial hyperglycemia following dinner -Statin therapy: Atorvastatin 40mg -Diabetic eye exam: 06/25/24 -Diabetic foot exam: 09/09/24 -Continue lifestyle modifications -Continue current medications Saw [...] trulicity (GI upset). Mounjaro further titrated by [facility]. Assessment & Plan (09/09/2024 10:53 AM EDT): Diabetes is not controlled. A1c goal < 8 Has continuous glucose monitor Lab Results Component Value Date HGBA1C 8.3 (H) 07/03/2024 HGBA1C 8.9 (A) 05/15/2024 HGBA1C 10.5 (A) 02/16/2024 Lab Results Component Value Date MICROALBUR 451.0 02/19/2024 CREATININE 1.20 07/03/2024 -Willis/Arb: held 06/25/2021 for elvated potassium, CDTM restarted 07/25/23 with [facility] follow up labs to be completed in 2 weeks - Metformin decreased from ER 1000mg twice daily to once daily due to decreased eGFR and risk of lactic acidosis with hypoxia - Decrease in eGFR 08/2023; metformin discontinued by CDTM 11/14/23 - Jardiance 10mg once daily started 07/21/23 and increased to 25mg once daily by CDTM 11/14/23 -Lantus titrated by TM -glipidize 2.5mg once daily before dinner added by [facility] due to frequent post prandial hyperglycemia following dinner -Statin therapy: Atorvastatin 40mg -Diabetic eye exam: 06/25/24 -Diabetic foot exam: 09/09/24 -Continue lifestyle modifications -Continue current medications Saw [...] Therapy Managment Program with our JOON Boateng. -Per CDTM 02/16/24, Patient agrees to plan to retrial GLP1: mounjaro 2.5mg once weekly prescribed due to tremor and difficulty with ozempic pen administration and previous intolerance with trulicity (GI upset). Mounjaro further titrated by CDTM [facility]. Orders: Referral to Podiatry; Future Assessment & Plan (05/15/2024 10:34 AM EDT): Diabetes is not controlled. A1c goal < 8 Has continuous glucose monitor Lab Results Component Value Date HGBA1C 10.5 (A) 02/16/2024 HGBA1C 9.2 (A) 11/29/2023 HGBA1C 9.3 (A) 11/14/2023 Lab Results Component Value Date MICROALBUR 451.0 02/19/2024 CREATININE 0.89 03/21/2024 -Willis/Arb: held 06/25/2021 for elvated potassium, CDTM restarted 07/25/23 with [facility] follow up labs to be completed in [...] Therapy Managment Program with our JOON Boateng. -Per CDTM 02/16/24, Patient agrees to plan [...] & Plan (05/04/2022 12:00 PM EDT): Seeing CD for DM. Eye exam done 01/17/2022. Hypertension 10/31/2011 Overview (09/09/2024): -Blood pressure is not at goal 09/09/24 likely due to medication non-adherence. -Continue lifestyle modifications -Continue current medications -Cozaar held 06/25/21 for elevated potassium; restarted losartan 25mg once daily. Follow up potassium WNL - Cozaar increased to 100mg once daily by [facility] 11/14/23; BMP previously ordered and pending patient completion -Atenolol decreased to 50mg twice daily by [facility] 11/14/23 - Amlodipine increased to 10mg once daily by [facility] 07/09/24 Assessment & Plan (09/09/2024 10:53 AM EDT): -Blood pressure is not at goal 09/09/24 likely due to medication non-adherence. -Continue lifestyle modifications -Continue current medications -Cozaar held 06/25/21 for elevated potassium; restarted losartan 25mg once daily. Follow up potassium WNL - Cozaar increased to 100mg once daily by [facility] 11/14/23; BMP previously ordered and pending patient completion -Atenolol decreased to 50mg twice daily by [facility] 11/14/23 - Amlodipine increased to 10mg once daily by [facility] 07/09/24 Assessment & Plan (05/15/2024 10:33 AM EDT): -Cozaar held 06/25/21 for elevated potassium; restarted losartan 25mg once daily. Follow up potassium WNL - Cozaar increased to 100mg once daily by [facility] 11/14/23; BMP previously ordered and pending patient [...] Assessment & Plan (11/17/2022 9:19 AM EDT): Anitra held 06/25/21 for elevated potassium. -Continue Atenolol 100mg BID. -Continue Amlodipine 10mg daily. Assessment & Plan (07/13/2022 10:21 AM EDT): Anitra held 06/25/21 for elevated potassium. -Continue Atenolol 100mg BID. -Continue Amlodipine 10mg daily. Assessment & Plan (05/04/2022 11:38 AM EDT): Fahadar held 06/25/21 for elevated potassium. -Continue Atenolol 100mg BID. -Continue Amlodipine 10mg daily. Resolved Problems Problem Noted Date Diagnosed Date Resolved Date Dietary counseling 05/15/2024 Exercise counseling 05/15/2024 09/10/19 25 Type 2 diabetes mellitus wit h hyperglycemia, with long-term current use of insulin 11/29/2023 Overview (03/20/2024): - Mounjaro 2.5mg once daily started by [facility] 03/06/24 - Lantus titrated by [facility] - Continue Jardiance 25mg once daily [...] or take hot showers. Body aches 06/22/2023 09/09/2024 Nausea 06/22/2023 09/09/2024 Sore throat 06/22/2023 09/09/2024 Physical exam 11/17/2022 04/16/2024 Overview (07/05/2023): -Normal growth and development. -Anticipatory guidance discussed. -Preventative care / harm reduction discussed. Assessment & Plan (11/17/2022 9:52 AM EDT): -Normal growth and development. -Anticipatory guidance discussed. -Preventative care / harm reduction discussed. Chronic respiratory failure with hypoxia 10/21/2022 10/26/2022 COPD exacerbation 10/21/2022 10/26/2022 Gastric pain 10/21/2022 05/15/2024 Tubular adenoma of colon 10/21/202205/2024 Hospital discharge follow-up 09/15/2022 11/17/2022 Assessment & [...] 11/17/2022 Fatigue 01/10/2022 11/17/2022 Fever 01/10/2022 05/04/2022 Pneumonia due to infectious organism 01/10/2022 09/09/2024 Influenza 01/10/2022 05/04/2022 Encounters Date Type Department Care Team Description 09/27/2024 Travel 09/25/2024 Refill [facility] [address] [place] [address] Annie Tafoya MD Seasonal allergies 09/09/2024 9:00 AM EDT Office Visit [facility] [address] [place] [phone] Annie Tafoya MD Cataract of both eyes, unspecified cataract type (Primary Dx); Primary hypertension; Hypoxia; Type 2 diabetes mellitus with hyperglycemia, with long-term current use of insulin ([facility]); Insulin dependent type 2 diabetes mellitus (CMS/HCC); Qnas-rcb-zqriayg drug started; Hypertrophic toenail; Chronic idiopathic constipation; Tubular adenoma; Class 2 severe obesity due to excess calories with serious comorbidity and body mass index (BMI) of 35.0 to 35.9 in adult (CMS/HCC); Dietary counseling; Exercise counseling 09/09/2024 Travel 09/06/2024 Telephone [facility] [address] [place], [place] [phone] Annie Tafoya MD chartprep 09/02/2024 Telephone [facility] [address] [place] [address] Misa Adler, PharmD 09/01/2024 Refill [facility] [address] [place] [address] Annie Tafoya MD Gastric pain 08/30/2024 Patient Outreach [facility] [address] [place] [address] Annie Tafoya MD Pre-visit Planning (SDOH Screening negative and Tobacco screening negative) 08/28/2024 Refill [facility] [address] [place] [address] Misa Adler, PharmChely Type 2 diabetes mellitus with hyperglycemia, with long-term current use of insulin ([facility]) 08/28/2024 Refill [facility] [address] [place] [address] Annie Tafoya MD Insulin dependent type 2 diabetes mellitus ([facility]); Hyperlipidemia, unspecified hyperlipidemia type 08/12/2024 Orders Only [facility] [address] [place] [phone] Annie Tafoya MD Insulin dependent type 2 diabetes mellitus ([facility]) (Primary Dx) 08/12/2024 Telephone [facility] [address] [place] [address] Annie Tafoya MD 08/12/2024 Telephone [facility] [address] [place] [address] Misa Adler PharmD Appointment Request 08/12/2024 Travel 08/07/2024 Refill [facility] [address] [place] [address] Misa Adler PharmChely Insulin dependent type 2 diabetes mellitus ([facility]); Primary hypertension 07/15/2024 Telephone [facility] [address] [place] [address] Annie Tafoya MD Appointment Request 07/15/2024 Telephone [facility] [address] [place] [address] Misa Adler PharmD 07/11/2024 Telephone [facility] [address] [place] [address] Annie Tafoya MD Pre-operative sent to [facility] 07/10/2024 Telephone [facility] [address] [place] [address] Misa Adler, Kilo Pre Op Clearance from Last 3 Months Immunizations Immunization Administration [...] Sign Reading Time Taken Comments Blood Pressure 118/62 09/27/2024 1:19 PM EDT Pulse 81 09/27/2024 1:19 PM EDT Temperature 35.9 C (96.6 F) 09/09/2024 9:14 AM EDT Respiratory Rate 17 09/09/2024 9:14 AM EDT Oxygen Saturation 94% 09/09/2024 9:14 AM EDT Inhaled Oxygen Concentration - - Weight 76.6 kg (168 lb 12.8 oz) 09/09/2024 9:14 AM EDT Height 147.3 cm (4' 10 ) 09/09/2024 9:14 AM EDT Body Mass Index 35.28 09/09/2024 9:14 AM EDT Plan of Treatment Upcoming Encounters Date Type Department Care Team (Late st Contact Info) Description 11/29/2024 1:00 PM EDT Medication Management [facility] [address] [place] [address] Misa Adler, PharmD [address] [place] [address] Health Maintenance Due Date Last Done Comments Dental Prophylaxis 1945 Dental X-Ray: Bitewings 04/30/2010 04/29/2009 Dental Oral Exam 04/28/2023 10/27/2022, 12/2016, 11/22/2012 COVID-19 Vaccine ( season) 2024 07/13/2022, 02/24/2022, 01/25/2021, Additional history exists Influenza Vaccine (#1) 2024 , 11/17/2022, 11/25/2020, Additional history exists Alcohol/Substance Use Screening 11/28/2024 11/29/2023 Depression Screening 11/28/2024 11/29/2023, 11/29/19 24 Diabetes: Hemoglobin A1C 12/28/2024 025, 07/03/2024, 05/15/2024, Additional history exists Diabetes: Urine Protein Screening 02/18/2025 02/19/2024, 07/27/2023, 04/06/2023, Additional history exists Lipid Panel 02/18/2025 02/19/2024, 04/06/2023 SDOH Screening 08/30/2025 08/30/2024 Diabetes: Foot Exam 09/09/2025 09/09/2024, 09/09/2024, 09/09/2024, Additional history exists Tobacco Screening 09/09/2025 09/09/2024 Dental X-Ray: Full Mouth 10/28/2025 023, 06/07/2017, 11/22/2012, Additional history exists Eye Exam 06/06/2026 06/06/2024, 02/2024, 06/06/2024, Additional history exists DTaP/Tdap/Td Vaccines (3 - Td or Tdap) 07/13/2032 07/13/2022, 10/24/2011 Pneumococcal Vaccine: 50+ Years Completed 01/21/2015, 12/30/2013, 04/11/2008, Additional history exists Zoster Vaccines Completed 10/22/2021, 08/06, 01/21/2015 Hepatitis C Screening Completed 04/06/2023 Hepatitis B Vaccines Completed 11/29/2023, 07/05/2023, 11/17/2022 RSV Patients and Patients Aged 60 years [...] Blood Pressure 118/62(2024 1:19 PM EDT) No Misa Yap, Kilo Hemoglobin A1c < 8 Result Component 8.1( 1:26 PM EDT) No Misa Yap, PharmD Procedures Procedure Name Priority Date/Time Associated Diagnosis Comments POCT GLYCATED HEMOGLOBIN, TOTAL Routine 09/27/2024 1:26 PM EDT Insulin dependent type 2 diabetes mellitus (CMS/HCC) ALBUMIN, RANDOM URINE W/CREATININE Routine 02/19/2024 [...] to Health Maintenance Results * (ABNORMAL) POCT A1c (09/27/2024 1:26 PM EDT) Hemoglobin A1C 8.1(A) 4.0 - 5.7 % QC Media Lot # [id number] Lot# Expiration Date [id number] Blood 09/27/2024 1:26 PM EDT Annie Tafoya MD POINT OF CARE TEST ENTER/E DIT ORDERABLES Final Result * (ABNORMAL) Albumin, Random Urine W/Creatinine (02/19/2024 10:20 AM EST) Creatinine, Urine 44.57 mg/dL [facility] Microalbumin Urine 451.0 mg/L H [facility] Microalbum Creatinine Ratio Ur 1,011.8(H ) <30 ug/mg cr [facility] Comment:Albumin/Creatinine R atio Reference Ranges: Normal: < 30 ug/mg creatinine Microalbuminuria: 30 - 300 ug/mg creatinineClinical Albuminuria: > 300 ug/mg creatinine 02/19/2024 10:2 0 AM EST 02/19/2024 10:58 AM EST Annie Tafoya MD LAB URINE ORDERABLES Final Result [facility] [address] [place] [phone] * Lipid Panel, Standard (02/19/2024 10:20 AM EST) Triglycerides 149 <150 mg/dL [facility] Comment:Desirable Triglyceri de: less than 150 mg/dLBorderline High Triglyceride 150-199 mg/dLHigh Triglyceride: 200-499 mg/dLVery High Triglyceride: greater than or equal to 5OO mg/dL Cholesterol 152 <200 mg/dL [facility] Comment:Desirable Cholestero l: less than 200 mg/dLBorderline High Cholesterol: 200-239 mg/dLHigh Cholesterol: greater than 239 mg/dL LDL Cholesterol Calculated 75 <100 mg/dL [facility] Comment:Desirable LDL: less than 100 mg/dLNear Optimal/Above Optimal LDL: 110- 129 mg/dLBorderline High LDL: 130-159 mg/dLHigh LDL: 160-189 mg/dLVery High LDL: greater than or equal to 190 mg/dL HDL Cholesterol 48 >40 mg/dL [facility] Comment:Desirable HDL: great er than 40 mg/dL Note: This HDL assay may give artificially low results in patients with liver disease. 02/19/2024 10:2 0 AM EST 02/19/2024 11:07 AM EST Annie Tafoya MD LAB BLOOD ORDERABLES Final Result Performing Organization Address [facility] Co de Phone Number [facility] [address] [place] [phone] * Hepatitis C Antibody with Reflex to HCV, RNA, Quantitative, Real-Time PCR (04/06/2023 9:45 AM EST) Hepatitis C Antibody Nonreactive Nonreactive [facility] Comment:Antibodies to HCV no t detected; does not exclude early acuteHCV infection. Blood Venous blood specimen / Unknown 04/06/2023 9:45 AM EST 04/06/2023 11:27 AM EST Annie Tafoya MD LAB BLOOD ORDERABLES Final Result Performing Organization Address [facility] Co de Phone Number [facility] [address] [place] [phone] from Last 3 Months or Most Recently Relevant to Health Maintenance Insurance [facility] Advance Directives Documents on File Type Date Recorded Patient Final Cleaner Expl anation Advance Directives and Livin g Will 04/07/2023 1:54 PM HCP Care Teams Manager Client Support Relationship Specialty Start Date End Date Annie Tafoya MD [address] [place] [address] PCP - General Family Medicine 09/24/12 Misa Adler, PharmD [address] [place] [address] Pharmacist Internal Medicine 02/25/22 Emory Chamorro MD [address] [address] Nephrology 04/04/24 Henny Francisco [address] [place] [address] Drive [address] [place] [address] Sleep Medicine 06/05/24 Hugo Mix MD [address] [place] [address] Ophthalmology 06/26/24
--- OUTSIDE RECORDS SUMMARY | 2024-10-10 10:40 | XMS_ITS | Encounter Summary ---
Author Organization [employer] Address [address] [place] [address] 7t [place] [address] Care Team Providers Care Foster Care Worker Name Role Phone Annie Tafoya MD Primary Care Provider [phone] Misa Adler PharmD Unavailable Emory Chamorro MD Unavailable [phone] Henny Francisco Unavailable [phone] Hugo Mix MD Unavailable Reason for Visit * Reason Comments Med Refill Encounter Details Date Type Department Care Team (Late st Contact Info) Description 04/15/2022 Refill [facility] [address] [place] [address] Annie Tafoya MD [address] [place], [place] [phone] Type 2 diabetes mellitus with hyperglycemia ([facility]) Social History Tobacco [...] PM EDT Received an incoming fax from [facility] with refill request for Trihexyphenidyl 2 mg 1 tablet twice a day.Refill denied by pt needS an appt due to No Shows. DOES PCP WANT TO COVER? documented in this encounter Plan of Treatment Upcoming Encounters Date Type Department Care Team (Late st Contact Info) Description 11/29/2024 1:00 PM EDT Medication Management [facility] [address] [place] [address] Misa Adler PharmD [address] [place] [address] documented as of this encounter Goals Goal Patient Goal Type Associated Problems Recent Progress Patient-Stated? Author Hemoglobin A1c < 8 Result Component 8.1(09/27/2024 1:26 PM EDT) No Misa Adler PharmD documented as of this encounter Visit Diagnoses Diagnosis Type 2 diabetes mellitus with hyperglycemia (CMS/HCC) documented in this encounter Care Teams Foster Care Worker Relationship Specialty Start Date End Date Annie Tafoya MD [address] [place] [address] PCP - General Family Medicine 09/24/12 Misa Adler, PharmD [address] [place] [phone] Pharmacist Internal Medicine 02/25/22 Emory Chamorro MD [address] [phone] Nephrology 04/04/24 Henny Francisco [address] [place] [address] 3rd [place] [address] Sleep Medicine 06/05/24 Hugo Mix MD [address] [place] [address] Ophthalmology 06/26/24 documented as of this encounter
--- OUTSIDE RECORDS SUMMARY | 2024-10-10 10:40 | XMS_ITS | Encounter Summary ---
Author Organization [employer] Address [address] [facility] 7t [place] [address] Care Team Providers Care Bakery Pastry Internship Name Role Phone Annie Tafoya MD Primary Care Provider Misa Adler PharmD Unavailable Emory Chamorro MD Unavailable [phone] Henny Francisco Unavailable [phone] Hugo Mix MD Unavailable Reason for Visit * Reason Comments Med Refill Encounter Details Date Type Department Care Team (Late st Contact Info) Description 04/25/2024 Refill [facility] [address] [place], [place] [phone] Annie Tafoya MD [address] [place], [place] [phone] Type 2 diabetes mellitus with hyperglycemia, with long-term current use of insulin ([facility]) Social History Tobacco Use Types [...] Description 11/29/2024 1:00 PM EDT Medication Management [facility] [address] [place] [address] Misa Adler PharmD [address] [place] [address] documented as of this encounter Goals Goal Patient Goal Type Associated Problems Recent Progress Patient-Stated? Author Blood Pressure < 140/90 Blood Pressure 118/62(2024 1:19 PM EDT) No Misa Yap PharmD Hemoglobin A1c < 8 Result Component 8.1( 5 1:26 PM EDT) No Misa Yap PharmD documented as of this encounter Visit Diagnoses Diagnosis Type 2 diabetes mellitus with hyperglycemia, with long-term current use of insulin ([facility]) documented in this encounter Additional Health Concerns Assessment Noted Time PHQ-9 Depression Total Score: 7 11/29/19 24 3:29 PM EDT documented as of this encounter Care Teams Bakery Pastry Internship Relationship Specialty Start Date End Date Annie Tafoya MD [address] [place] [address] PCP - General Family Medicine 09/24/12 Misa Adler, PharmD [address] [place] [address] Pharmacist Internal Medicine 02/25/22 Emory Chamorro MD [address] [address] Nephrology 04/04/24 Henny Francisco [address] [place] [address] 3[address] [place] [address] Sleep Medicine 06/05/24 Hugo Mix MD [address] [place] [address] Ophthalmology 06/26/24 documented as of this encounter
--- OUTSIDE RECORDS SUMMARY | 2024-10-10 10:40 | XMS_ITS | Encounter Summary ---
Author Organization [employer] Address [address] [facility] 7t [place] [address] Care Team Providers Care Crab Catcher Name Role Phone Annie Tafoya MD Primary Care Provider Misa Adler PharmD Unavailable Emory Chamorro MD Unavailable [phone] Henny Francisco Unavailable [phone] Hugo Mix MD Unavailable Reason for Visit * Reason Comments Med Refill Encounter Details Date Type Department Care Team (Late st Contact Info) Description 04/02/[address] [facility] [address] [place] [address] Misa Adler, PharmD [address] [place] [address] Type 2 diabetes mellitus with hyperglycemia, with long-term current use of insulin ([facility]) Social History Tobacco Use Types [...] Description 11/29/2024 1:00 PM EDT Medication Management [facility] [address] [place] [address] Misa Adler PharmD [address] [place] [address] documented as of this encounter Goals Goal Patient Goal Type Associated Problems Recent Progress Patient-Stated? Author Blood Pressure < 140/90 Blood Pressure 118/62(2024 1:19 PM EDT) No Piers-Gambl e, Misa, PharmD Hemoglobin A1c < 8 Result Component 8.1( 5 1:26 PM EDT) No Misa Yap PharmD documented as of this encounter Visit Diagnoses Diagnosis Type 2 diabetes mellitus with hyperglycemia, with long-term current use of insulin ([facility]) documented in this encounter Additional Health Concerns Assessment Noted Time PHQ-9 Depression Total Score: 7 11/29/19 24 3:29 PM EDT documented as of this encounter Care Teams Crab Catcher Relationship Specialty Start Date End Date Annie Tafoya MD [address] [place] [address] PCP - General Family Medicine 09/24/12 Misa Adler, BronsonD [address] [place] [address] Pharmacist Internal Medicine 02/25/22 Emory Chamorro MD [address] [phone] Nephrology 04/04/24 Henny Francisco [address] [place] [address] 3rd [place] [address] Sleep Medicine 06/05/24 Hugo Mix MD 180 [place] [address] Ophthalmology 06/26/24 documented as of this encounter
--- OUTSIDE RECORDS SUMMARY | 2024-10-10 10:40 | XMS_ITS | Encounter Summary ---
Author Organization [employer] Address [address] [place] [address] 7[address] [place] [address] Care Team Providers Care Client Onboarding Analyst Name Role Phone Annie Tafoya MD Primary Care Provider [phone] Misa Adler PharmD Unavailable [phone] Emory Chamorro MD Unavailable [phone] Henny Francisco Unavailable Hugo Mix MD Unavailable Reason for Visit * Reason Onset Date Comments Med Refill 09/22/2022 Encounter Details Date Type Department Care Team (Late st Contact Info) Description 09/22/[address] [facility] [address] [place] [address] Annie Tafoya MD [address] [place], [place] [phone] Med Refill Social History Tobacco Use Types [...] 09/22/2022 1:42 PM EDT Tc from pt ENROLLMENT ADVISOR requesting a new oxygen tank. States pt is running out of what was given from hospital. Please contact tae at [phone] documented in this encounter Plan of Treatment Upcoming Encounters Date Type Department Care Team (Late st Contact Info) Description 11/29/2024 1:00 PM EDT Medication Management [facility] [address] [place] [address] Misa Adler PharmD 230 [place] [address] documented as of this encounter Goals Goal [...] documented as of this encounter Care Teams Client Onboarding Analyst Relationship Specialty Start Date End Date Annie Tafoya MD [address] [place] [address] PCP - General Family Medicine 09/24/12 Misa Adler, PharmD [address] [place] [address] Pharmacist Internal Medicine 02/25/22 Emory Chamorro MD 100 [facility] 200 [place] [address] Nephrology 04/04/24 Henny Francisco [address] [place] [address] 3rd [place] [address] Sleep Medicine 06/05/24 Hugo Mix MD [address] [place] [address] Ophthalmology 06/26/24 documented as of this encounter
--- OUTSIDE RECORDS SUMMARY | 2024-10-10 10:40 | XMS_ITS | Encounter Summary ---
Author Organization [employer] Address [address] [facility] 7t [place] [address] Care Team Providers Care Business Support Coordinator Name Role Phone Annie Tafoya MD Primary Care Provider Misa Adler PharmD Unavailable [phone] Emory Chamorro MD Unavailable [phone] Henny Francisco Unavailable Hugo Mix MD Unavailable Reason for Visit * Reason Comments Med Refill Encounter Details Date Type Department Care Team (Late st Contact Info) Description 02/06/2024 Refill [facility] [address] [place] [address] Misa Adler, PharmD 230 [place] [address] Primary hypertension; Type 2 diabetes mellitus with hyperglycemia, with long-term current use of insulin ([facility]) Social History Tobacco Use Types Packs/Day Years [...] 1:00 PM EDT Medication Management [facility] [address] [place] [address] Misa Adler PharmD [address] [place] [address] documented as of this encounter Goals Goal [...] hyperglycemia, with long-term current use of insulin ([facility]) documented in this encounter Additional Health Concerns Assessment Noted Time PHQ-9 Depression Total Score: 7 11/29/19 24 3:29 PM EDT documented as of this encounter Care Teams Business Support Coordinator Relationship Specialty Start Date End Date Annie Tafoya MD [address] [place] [address] PCP - General Family Medicine 09/24/12 Misa Adler PharmD [address] [place] [address] Pharmacist Internal Medicine 02/25/22 Emory Chamorro MD [address] [address] Nephrology 04/04/24 Henny Francisco [address] [place] [address] 3rd [place] [address] Sleep Medicine 06/05/24 Hugo Mix MD 180 [place] [address] Ophthalmology 06/26/24 documented as of this encounter
--- OUTSIDE RECORDS SUMMARY | 2024-10-10 10:40 | XMS_ITS | Encounter Summary ---
Author Organization [employer] Address [address] [facility] 7t [place] [address] Care Team Providers Care Child Psychometrist Name Role Phone Annie Tafoya MD Primary Care Provider [phone] Misa Adler PharmD Unavailable Emory Chamorro MD Unavailable [phone] Henny Francisco Unavailable [phone] Hugo Mix MD Unavailable Encounter Details Date Type Department Care Team (Late st Contact Info) Description 06/12/2024 Telephone [facility] [address] [place], [place] [phone] Honey Aguilar, OD [address] [place] [address] Social History Tobacco Use Types Packs/Day Years [...] your housing situation today? I have naren sing 11/29/[address] you li [...] Description 11/29/2024 1:00 PM EDT Medication Management [facility] 230 [place] [address] Misa Adler PharmD [address] [place] [address] documented as of this encounter Goals Goal Patient Goal Type Associated Problems Recent Progress Patient-Stated? Author Blood Pressure < 140/90 Blood Pressure 118/62(2024 1:19 PM EDT) No Misa Yap, PharmD Hemoglobin A1c < 8 Result Component 8.1( 1:26 PM EDT) No Misa Yap, PharmD documented as of this encounter Visit Diagnoses Not on filedocumented in this encounter Additional Health Concerns Assessment Noted Time PHQ-9 Depression Total Score: 7 11/29/19 24 3:29 PM EDT documented as of this encounter Care Teams Child Psychometrist Relationship Specialty Start Date End Date Annie Tafoya MD [address] [place] [address] PCP - General Family Medicine 09/24/12 Misa Adler, BronsonD [address] [place] [address] Pharmacist Internal Medicine 02/25/22 Emory Chamorro MD [address] [address] Nephrology 04/04/24 Henny Francisco [address] [place] [address] 3rd [place] [address] Sleep Medicine 06/05/24 Hugo Mix MD 180 [place] [address] Ophthalmology 06/26/24 documented as of this encounter
== END 2024-10-10 10:35 | disposition home or self-care (01) ==
LOC: HO.HPS 09:45
PROVIDERS: PCP Family Medicine; Referring Provider Family Medicine; Visit Provider Internal Medicine
DX: G47.33 Obstructive sleep apnea (adult) (pediatric) (principal); G47.34 Idiopathic sleep related nonobstructive alveolar hypoventilation; R06.02 Shortness of breath
CPT/HCPCS: 99214

== ENCOUNTER → 2024-10-10 09:44 | Outpatient (BNVA) | payer OTHER, SELFPAY | PROVIDERS: PCP Family Medicine; Referring Provider Family Medicine; Visit Provider Internal Medicine | DX: G47.33 Obstructive sleep apnea (adult) (pediatric) (principal); G47.34 Idiopathic sleep related nonobstructive alveolar hypoventilation; R06.02 Shortness of breath | CPT/HCPCS: 99212 ==

== ENCOUNTER 2024-10-14 11:03 | Outpatient (REF) | payer OTHER, SELFPAY ==
[2024-10-14 11:48] LABS: Appearance Urine Clear; Glucose Urine UA >=1000 mg/dL (Negative); PH 6.0 (5.0-9.0); Specific Gravity - Urine 1.025 (1.005-1.025); UMIC TRIGGER UA YES
[2024-10-14 12:17] LABS: Alanine Aminotransferase 18 U/L (0-31); Albumin Level 4.0 g/dL (3.5-5.0); Alkaline Phosphatase 98 U/L (39-117); Anion Gap 13 (12-20); Aspartate Amino Transferase 28 U/L (5-31); Blood Urea Nitrogen 24 mg/dL (9-16); Calcium 9.0 mg/dL (8.4-10.2); Carbon Dioxide 32 mmol/L (22-29); Chloride 102 mmol/L (96-108); Estimated Glomerular Filt Rate 46; Potassium 4.5 mmol/L (3.3-5.1); Sodium 142 mmol/L (135-145); Total Protein 7.5 g/dL (6.5-8.0)
[2024-10-14 12:18] LABS: Microalbum/Creatinine Ratio Ur 619.7 ug/mg cr (<30)
[2024-10-14 12:20] LABS: Total Protein Urine Random 76 mg/dL (<12)
--- OUTSIDE RECORDS SUMMARY | 2024-10-14 13:37 | XMS_ITS | Encounter Summary ---
Author Organization [employer] Address [address] [place] [address] [address] [place] [address] Care Team Providers Care Correspondence School Teacher Name Role Phone Annie Tafoya MD Primary Care Provider [phone] Misa Adler PharmD Unavailable Emory Chamorro MD Unavailable [phone] Henny Francisco Unavailable Hugo Mix MD Unavailable Reason for Visit * Reason Comments Med Refill Encounter Details Date Type Department Care Team (Late st Contact Info) Description 04/15/2022 Refill [facility] [address] [place] [address] Annie Tafoya MD 230 [place], [place] [phone] Type 2 diabetes mellitus with hyperglycemia ([facility]) Social History Tobacco Use Types Packs/Day [...] PM EDT Received an incoming fax from [facility] with refill request for Trihexyphenidyl 2 mg 1 tablet twice a day.Refill denied by pt needS an appt due to No Shows. DOES PCP WANT TO COVER? documented in this encounter Plan of Treatment Upcoming Encounters Date Type Department Care Team (Late st Contact Info) Description 11/29/2024 1:00 PM EDT Medication Management [facility] [address] [place] [address] Misa Adler PharmD 230 [place] [address] documented as of this encounter Goals Goal Patient Goal Type Associated Problems Recent Progress Patient-Stated? Author Hemoglobin A1c < 8 Result Component 8.1(09/27/2024 1:26 PM EDT) No Misa Adler PharmD documented as of this encounter Visit Diagnoses Diagnosis Type 2 diabetes mellitus with hyperglycemia (CMS/HCC) documented in this encounter Care Teams Correspondence School Teacher Relationship Specialty Start Date End Date Annie Tafoya MD [address] [place] [address] PCP - General Family Medicine 09/24/12 Misa Adler, PharmD [address] [place] [address] Pharmacist Internal Medicine 02/25/22 Emory Chamorro MD [address] [address] Nephrology 04/04/24 Henny Francisco [address] [place] [address] 3rd [place] [address] Sleep Medicine 06/05/24 Hugo Mix MD [address] [place] [address] Ophthalmology 06/26/24 documented as of this encounter
--- OUTSIDE RECORDS SUMMARY | 2024-10-14 13:37 | XMS_ITS | Encounter Summary ---
Author Organization [employer] Address [address] [facility] 7t [place] [address] Care Team Providers Care Hanger Name Role Phone Annie Tafoya MD Primary Care Provider Misa Adler PharmD Unavailable [phone] Emory Chamorro MD Unavailable [phone] Henny Francisco Unavailable Hugo Mix MD Unavailable Reason for Visit * Reason Comments Med Refill Encounter Details Date Type Department Care Team (Late st Contact Info) Description 04/02/2024 Refill [facility] [address] [place] [address] Misa Adler, PharmD 230 [place] [address] Type 2 diabetes mellitus with hyperglycemia, with long-term current use of insulin ([facility]) Social History Tobacco Use Types Packs/Day [...] Description 11/29/2024 1:00 PM EDT Medication Management [facility] [address] [place] [address] Misa Adler PharmD [address] [place] [address] documented as of this encounter Goals Goal [...] long-term current use of insulin ([facility]) documented in this encounter Additional Health Concerns Assessment Noted Time PHQ-9 Depression Total Score: 7 11/29/19 24 3:29 PM EDT documented as of this encounter Care Teams Hanger Relationship Specialty Start Date End Date Annie Tafoya MD [address] [place] [address] PCP - General Family Medicine 09/24/12 Misa Adler, BronsonD [address] [place] [address] Pharmacist Internal Medicine 02/25/22 Emory Chamorro MD [address] [address] Nephrology 04/04/24 Henny Francisco [address] [place] [address] 3rd [place] [address] Sleep Medicine 06/05/24 Hugo Mix MD 180 [place] [address] Ophthalmology 06/26/24 documented as of this encounter
--- OUTSIDE RECORDS SUMMARY | 2024-10-14 13:37 | XMS_ITS | Encounter Summary ---
Author Organization [employer] Address [address] [place] [address] [address] [address] Care Team Providers Care Internet Sales Manager Name Role Phone Annie Tafoya MD Primary Care Provider [phone] Misa Adler PharmD Unavailable Emory Chamorro MD Unavailable [phone] Henny Francisco Unavailable Hugo Mix MD Unavailable Reason for Visit * Reason Onset Date Comments Med Refill 09/22/2022 Encounter Details Date Type Department Care Team (Late st Contact Info) Description 09/22/2022 Telephone [facility] 230 [place] [address] Annie Tafoya MD [address] [place], [place] [phone] Med Refill Social History Tobacco Use Types [...] 09/22/2022 1:42 PM EDT Tc from pt [employer] requesting a new oxygen tank. States pt is running out of what was given from hospital. Please contact tae at [phone] documented in this encounter Plan of Treatment Upcoming Encounters Date Type Department Care Team (Late st Contact Info) Description 11/29/2024 1:00 PM EDT Medication Management [facility] [address] [place] [address] Misa Adler PharmD [address] [place] [address] documented as of this encounter Goals Goal [...] documented as of this encounter Care Teams Internet Sales Manager Relationship Specialty Start Date End Date Annie Tafoya MD [address] [place] [address] PCP - General Family Medicine 09/24/12 Misa Adler, PharmD [address] [place] [address] Pharmacist Internal Medicine 02/25/22 Emory Chamorro MD 100 [facility] 200 [place] [address] Nephrology 04/04/24 Henny Francisco [address] [place] [address] 3rd [place] [address] Sleep Medicine 06/05/24 Hugo Mix MD [address] [place] [address] Ophthalmology 06/26/24 documented as of this encounter
--- OUTSIDE RECORDS SUMMARY | 2024-10-14 13:37 | XMS_ITS | Encounter Summary ---
Author Organization [employer] Address [address] [facility] 7t [place] [address] Care Team Providers Care Vice President Diversity Name Role Phone Annie Tafoya MD Primary Care Provider [phone] Misa Adler PharmD Unavailable [phone] Emory Chamorro MD Unavailable [phone] Henny Francisco Unavailable [phone] Hugo Mix MD Unavailable Encounter Details Date Type Department Care Team (Late st Contact Info) Description 10/16/2023 Abstract [facility] [address] [place] [address] Stephanie Persaud [place] Social History Tobacco Use [...] Description 11/29/2024 1:00 PM EDT Medication Management [facility] [address] [place] [address] Misa Adler PharmD [address] [place] [address] documented as of this encounter Goals Goal [...] documented as of this encounter Care Teams Vice President Diversity Relationship Specialty Start Date End Date Annie Tafoya MD [address] [place] [address] PCP - General Family Medicine 09/24/12 Misa Adler, BronsonD [address] [place] [address] Pharmacist Internal Medicine 02/25/22 Emory Chamorro MD [address] [address] Nephrology 04/04/24 Henny Francisco [address] [place] [address] 3rd [place] [address] Sleep Medicine 06/05/24 Hugo Mix MD [address] [place] [address] Ophthalmology 06/26/24 documented as of this encounter
--- OUTSIDE RECORDS SUMMARY | 2024-10-14 13:37 | XMS_ITS | Encounter Summary ---
Author Organization [employer] Address [address] [facility] 7t [place] [address] Care Team Providers Care Levers Lace Machine Operator Name Role Phone Annie Tafoya MD Primary Care Provider [phone] Misa Adler PharmD Unavailable [phone] Emory Chamorro MD Unavailable [phone] Henny Francisco Unavailable [phone] Hugo Mix MD Unavailable Reason for Visit * Reason Onset Date Comments dentures prior authorization 11/28/2022 Encounter Details Date Type Department Care Team (Late st Contact Info) Description 11/28/2022 Telephone [facility] [address] [place] [address] Yoni Farr, DMD [address] [place] [address] dentures prior authorization Social History Tobacco Use [...] Description 11/29/2024 1:00 PM EDT Medication Management [facility] [address] [place] [address] Misa Adler PharmD 230 [place] [address] documented as of this encounter Goals Goal [...] documented as of this encounter Care Teams Levers Lace Machine Operator Relationship Specialty Start Date End Date Annie Tafoya MD 230 [place] [address] PCP - General Family Medicine 09/24/12 Misa Adler PharmD 230 [place] [address] Pharmacist Internal Medicine 02/25/22 Emory Chamorro MD [address] [address] Nephrology 04/04/24 Henny Francisco [address] [place] [address] 3rd [place] [address] Sleep Medicine 06/05/24 Hugo Mix MD 180 [place] [address] Ophthalmology 06/26/24 documented as of this encounter
--- OUTSIDE RECORDS SUMMARY | 2024-10-14 13:37 | XMS_ITS | Clinical Summary ---
Author Organization [employer] Address [address] [place] [address] 7[address] [place] [address] Care Team Providers Care Clam Sorter Name Role Phone Annie Tafoya MD Primary Care Provider [phone]- [phone] Misa Adler PharmD Unavailable Emory Chamorro MD Unavailable [phone] Henny Francisco Unavailable [phone] Hugo Mix MD Unavailable Allergies No known active allergies Medications cholecalciferol (Vitamin D3) 25 MCG (1000 UT) tabletIndication s:Vitamin D deficiency TAKE 1 TABLET BY MOUTH EVERY MORNING 90 tablet 3 2023 Active empagliflozin (Jardiance) 25 MGIndications:Ty pe 2 diabetes mellitus with hyperglycemia, with long-term current use of insulin ([facility]) TAKE 1 TABLET BY MOUTH EVERY MORNING 90 tablet 3 2023 Active atenolol (Tenormin) 50 MG tabletIndication s:Primary hypertension TAKE 1 TABLET BY MOUTH TWICE DAILY IN THE MORNING AND IN THE EVENING 180 tablet 3 2023 Active Continuous Glucose Sensor (FreeStyle Sury 3 Plus Sensor) miscIndications: Type 2 diabetes mellitus with hyperglycemia, with long-term current use of insulin ([facility]) 1 each Use as directed. 2 each 11 2024 Active Continuous Glucose Bag Patcher (FreeStyle Sury 3 [place]) deviceIndication s:Type 2 diabetes mellitus with hyperglycemia, with long-term current use of insulin ([facility]) 1 each Use as directed. 1 each [...] hyperglycemia, with long-term current use of insulin ([facility]) USE NEEDED IF LOW BLOOD SUGAR OCCURS 37 g 11 2024 Active insulin pen needle (Pentips) 32G x 4 mm miscIndications: Type 2 diabetes mellitus with hyperglycemia, with long-term current use of insulin ([facility]) Use as instructed 100 each 5 2024 Active TRUEplus Lancets 33G miscIndications: Type 2 diabetes mellitus with hyperglycemia, with long-term current use of insulin ([facility]) Use bid 100 each 11 2024 Active insulin glargine (Lantus SoloStar) 100 UNIT/ML penIndications:T ype 2 diabetes mellitus with hyperglycemia, with long-term current use of insulin ([facility]) INJECT 24 UNITS SUBCUTANEOUSLY ONCE DAILY 2024 Active white petrolatum-gold miner al oil (Lacri-Lube) ointment ophthalmic ointment Apply [...] hyperglycemia, with long-term current use of insulin ([facility]) Inject 5 mg under the skin 1 (one) time per week. 2 mL 3 2024 Active Ascorbic Acid (vitamin C) 250 MG tabletIndication s:Eusc-dpa-xwlrj er drug started Take 250 mg by mouth Once per day. Active Magnesium 250 MG capsuleIndicatio ns:Jskf-urv-hulg ter drug started Take by mouth. Active [...] different from the original. 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 This is considered severe cognitive impairment and at an increased odds for dementia status. Assessment & Plan (05/15/2024 10:35 AM EDT): MMSE2 in [place] completed with pt 11/10/23 Pt scored a [...] surgery got cancelled. - Advised to call sand slinger operator 09/09/24 Assessment & Plan (04/05/2023 12:00 PM [...] due after 11/28/24 -eye care facilitated by [facility] and [facility] -dental home is [facility] -Health care proxy paperwork completed 04/05/23 Assessment & Plan (04/05/2023 10:42 AM EST): -next physical exam due after 11/18/2023 -eye care facilitated by [facility] -dental home is [facility] -Health care proxy paperwork completed 04/05/23 Assessment & Plan (11/17/2022 10:38 AM EDT): -next physical exam due after 11/18/2023 -eye care facilitated by none -dental home is [facility] Urinary incontinence 11/17/2022 Overview (11/17/2022): -Requesting [...] new insurance. - Pt is followed by metal trim erector, Dr. Galvan. She last visited 2018. - [...] recommends follow up sleep clinic. -hospitalized at [facility] (09/06/22-09/09/22)Patient presented for evaluation of dyspnea and [...] if anyone cancels sooner - Pt saw [facility] 02/09/23 Pulmonology and her Oxygen was discontinued, CXR and PFTs ordered referral for O2 assessment done to see if she needs O2 or not, Pt reports she is no longer on O2, Has follow up in August, pt and PETROGRAPHY TEACHER notified of follow up -rereferred 05/15/24 - has appt with metal trim erector 10/2024. Assessment & Plan (09/09/2024 10:53 AM [...] new insurance. - Pt is followed by metal trim erector, Dr. Galvan. She last visited 2018. - [...] recommends follow up sleep clinic. -hospitalized at [facility] (09/06/22-09/09/22)Patient presented for evaluation of dyspnea and [...] if anyone cancels sooner - Pt saw [facility] 02/09/23 Pulmonology and her Oxygen was discontinued, CXR and PFTs ordered referral for O2 assessment done to see if she needs O2 or not, Pt reports she is no longer on O2, Has follow up in August, pt and PETROGRAPHY TEACHER notified of follow up -rereferred 05/15/24 - has appt with metal trim erector 10/2024. Assessment & Plan (05/15/2024 10:56 AM [...] new insurance. - Pt is followed by metal trim erector, Dr. Galvan. She last visited 2018. - [...] recommends follow up sleep clinic. -hospitalized at [facility] (09/06/22-09/09/22)Patient presented for evaluation of dyspnea and [...] if anyone cancels sooner - Pt saw [facility] 02/09/23 Pulmonology and her Oxygen was discontinued, CXR and PFTs ordered referral for O2 assessment done to see if she needs O2 or not, Pt reports she is no longer on O2, Has follow up in August, pt and PETROGRAPHY TEACHER notified of follow up -rereferred 05/15/24 Assessment [...] new insurance. - Pt is followed by metal trim erector, Dr. Galvan. She last visited 2019. - [...] recommends follow up sleep clinic. -hospitalized at [facility] (09/06/22-09/09/22)Patient presented for evaluation of dyspnea and [...] if anyone cancels sooner - Pt saw [facility] 02/09/23 Pulmonology and her Oxygen was discontinued, CXR and PFTs ordered referral for O2 assessment done to see if she needs O2 or not, Pt reports she is no longer on O2, Has follow up in August, pt and PETROGRAPHY TEACHER notified of follow up Assessment & Plan [...] new insurance. - Pt is followed by metal trim erector, Dr. Galvan. She last visited 2019. - [...] recommends follow up sleep clinic. -hospitalized at [facility] (09/06/22-09/09/22)Patient presented for evaluation of dyspnea and [...] if anyone cancels sooner - Pt saw [facility] 02/09/23 Pulmonology and her Oxygen was discontinued, CXR and PFTs ordered referral for O2 assessment done to see if she needs O2 or not, Pt reports she is no longer on O2, Has follow up in August, pt and PETROGRAPHY TEACHER notified of follow up Assessment & Plan [...] new insurance. - Pt is followed by metal trim erector, Dr. Galvan. She last visited 2019. - [...] recommends follow up sleep clinic. -hospitalized at [facility] (09/06/22-09/09/22)Patient presented for evaluation of dyspnea and [...] diagnosed 04/2016 - Pt is followed by metal trim erector, Dr. Galvan. She last visited 2018. - [...] new insurance. - Pt is followed by metal trim erector, Dr. Galvan. She last visited 2018. - [...] new insurance. - Pt is followed by metal trim erector, Dr. Galvan. She last visited 2018. - [...] [facility] We contacted [facility] and Linda reports: in July an order was sent to [facility] for CPAP and there is no record of issues with machine. We then contacted [facility] in July where Dr Fields's office was notified her insurance did not accept it so we recalled [facility] and the reported they will send an urgent message to find an in-network supplier. She states she has her machine now. - Sleep study done [facility] sleep center 02/17/23 recommending CPAP with 14 small N20 mask and Supplemental O2 at 1 L per min with Dr. Kayley Chamorro and patient reports compliance with CPAP 04/05/23 -Seen by sleep medicine 05/14/23 Resent CPAP prescription to [facility]. [facility] information given to patient. Advised patient to start CPAP at [id number] with supplemental O2 1 L at night. [...] therapy services. Her current respiratory supplier is [facility], however this may need to be changed to an alternate company, such as [employer], which can also provide supplemental home O2 [...] [facility] 02/14/2018: We contacted [facility] and Linda reports: in July an order was sent to [facility] for CPAP and there is no record of issues with machine. We then contacted [facility] in July where Dr Fields's office was notified her insurance did not accept it so we recalled [facility] and the reported they will send an urgent message to find an in-network supplier. She states she has her machine now. - Sleep study done [facility] sleep center 02/17/23 recommending CPAP with 14 small N20 mask and Supplemental O2 at 1 L per min with Dr. Kayley Chamorro and patient reports compliance with CPAP 04/05/23 -Seen by sleep medicine 05/14/23 Resent CPAP prescription to [facility]. [facility] information given to patient. Advised patient to start CPAP at [id number] with supplemental O2 1 L at night. Stressed compliance, use CPAP nightly and more than 4 hrs. Assessment & Plan (07/06/2023 8:33 AM EDT): Diagnosed on sleep study 04/2016. Pt followed by sleep clinic. Reports now tolerating BiPAP. She saw a specialist on 11/2017 at [facility] 02/14/2018: We contacted [facility] and Linda reports: in July an order was sent to [facility] for CPAP and there is no record of issues with machine. We then contacted [employer] in July where Dr Fields's office was notified her insurance did not accept it so we recalled [facility] and the reported they will send an urgent message to find an in-network supplier. She states she has her machine now. - Sleep study done [facility] sleep center 02/17/23 recommending CPAP with 14 small N20 mask and Supplemental O2 at 1 L per min with Dr. Kayley Chamorro and patient reports compliance with CPAP 04/05/23 -Seen by sleep medicine 05/14/23 Resent CPAP prescription to [facility] C information given to patient. Advised patient to start CPAP at [id number] with supplemental O2 1 L at night. Stressed compliance, use CPAP nightly and more than 4 hrs. Assessment & Plan (04/05/2023 11:59 AM EST): Diagnosed on sleep study 04/2016. Pt followed by sleep clinic. Reports now tolerating BiPAP. She saw a specialist on 11/2017 at [facility] 02/14/2018: We contacted [facility] and Linda reports: in July an order was sent to [facility] for CPAP and there is no record of issues with machine. We then contacted [facility] in July where Dr Fields's office was notified her insurance did not accept it so we recalled [facility] and the reported they will send an urgent message to find an in-network supplier. She states she has her machine now. - Sleep study done [facility] sleep center 02/17/23 recommending CPAP with 14 [...] [facility] 02/14/2018: We contacted [facility] and Linda reports: in July an order was sent to [facility] for CPAP and there is no record of issues with machine. We then contacted [facility] in July where Dr Fields's office was notified her insurance did not accept it so we recalled [facility] and the reported they will send an [...] [facility] 02/14/2018: We contacted [facility] and Linda reports: in July an order was sent to [facility] for CPAP and there is no record of issues with machine. We then contacted [facility] in July where Dr Fields's office was notified her insurance did not accept it so we recalled [facility] and the reported they will send an urgent message to find an in-network supplier. She states she has her machine now. Assessment & Plan (05/04/2022 11:37 AM EDT): Diagnosed on sleep study 04/2016. Pt followed by sleep clinic. Reports now tolerating BiPAP. She saw a specialist on 11/2017 at [facility] 02/14/2018: We contacted [facility] and Linda reports: in July an order was sent to [facility] for CPAP and there is no record of issues with machine. We then contacted [employer] in July where Dr Fields's office was notified her insurance did not accept it so we recalled [facility] and the reported they will send an [...] 2.5mg once daily before [facility] to [facility] post prandial hyperglycemia following [...] trulicity (GI upset). Mounjaro further titrated by [facility]. Assessment & Plan (09/09/2024 10:53 AM EDT): Diabetes is not controlled. A1c goal < 8 Has continuous glucose monitor Lab Results Component Value Date HGBA1C 8.3 (H) 07/03/2024 HGBA1C 8.9 (A) 05/15/2024 HGBA1C 10.5 (A) 02/16/2024 Lab Results Component Value Date MICROALBUR 451.0 02/19/2024 CREATININE 1.20 07/03/2024 -Willis/Arb: held 06/25/2021 for elvated potassium, CDTM restarted 07/25/23 with [facility] follow up labs to be completed in [...] 2.5mg once daily before dinner added by [facility] due to frequent post prandial hyperglycemia [...] Mounjaro further titrated by CD[facility]. Orders: Referral to Podiatry; Future Assessment & Plan (05/15/2024 10:34 AM EDT): Diabetes is not controlled. A1c goal < 8 Has continuous glucose monitor Lab Results Component Value Date HGBA1C 10.5 (A) 02/16/2024 HGBA1C 9.2 (A) 11/29/2023 HGBA1C 9.3 (A) 11/14/2023 Lab Results Component Value Date MICROALBUR 451.0 02/19/2024 CREATININE 0.89 03/21/2024 -Willis/Arb: held 06/25/2021 for elvated potassium, CDTM restarted 07/25/23 with [facility] follow up labs to be completed in [...] Cozaar increased to 100mg once daily by [facility] 11/14/[facility]; BMP previously ordered and pending patient completion -Atenolol decreased to 50mg twice daily by [facility] 11/14/23 - Amlodipine increased to 10mg once daily by [facility] 07/09/24 Assessment & Plan (09/09/2024 10:53 AM EDT): -Blood pressure is not at goal 09/09/24 likely due to medication non-adherence. -Continue lifestyle modifications -Continue current medications -Cozaar held 06/25/21 for elevated potassium; restarted losartan 25mg once daily. Follow up potassium WNL - Cozaar increased to 100mg once daily by [facility] 11/14/23; BMP previously ordered and pending patient completion -Atenolol decreased to 50mg twice daily by [facility] 11/14/23 - Amlodipine increased to 10mg once daily by [facility] 07/09/24 Assessment & Plan (05/15/2024 10:33 AM EDT): -Cozaar held 06/25/21 for elevated potassium; restarted losartan 25mg once daily. Follow up potassium WNL - Cozaar increased to 100mg once daily by [facility] 11/14/23; BMP previously ordered and pending patient [...] Assessment & Plan (07/13/2022 10:21 AM EDT): Anirta held 06/25/21 for elevated potassium. -Continue Atenolol [...] Encounters Date Type Department Care Team Description 10/14/2024 Orders Only GENERIC EXTERNAL DATA DEPARTMENT Provider, Generic External Data 09/27/2024 Travel 09/25/2024 Refill [facility] [address] [place] [phone] Annie Tafoya MD Seasonal allergies 09/09/2024 9:00 AM EDT Office Visit [address] [address] Annie Tafoya MD Cataract of both eyes, unspecified cataract type (Primary Dx); Primary hypertension; Hypoxia; Type 2 diabetes mellitus with hyperglycemia, with long-term current use of insulin ([facility]); Insulin dependent type 2 diabetes mellitus ([facility]); Hnwi-qft-zlwcbhz drug started; Hypertrophic toenail; Chronic idiopathic constipation; Tubular adenoma; Class 2 severe obesity due to excess calories with serious comorbidity and body mass index (BMI) of 35.0 to 35.9 in adult ([facility]); Dietary counseling; Exercise counseling 09/09/2024 Travel 09/06/2024 Telephone [facility] [address] [place] [phone] Annie Tafoya MD chartprep 09/02/[address] [phone] Misa Adler, PharmD 09/01/2024 Refill [facility] [place] [address] Annie Tafoya MD Gastric pain 08/30/2024 Patient Outreach [facility] [place] [address] Annie Tafoya MD Pre-visit Planning (SDOH Screening negative and Tobacco screening negative) 08/28/2024 Refill [facility] [place] [address] Misa Adler, Kilo Type 2 diabetes mellitus with hyperglycemia, with long-term current use of insulin ([facility]) 08/28/2024 Refill [facility] [place] [address] Annie Tafoya MD Insulin dependent type 2 diabetes mellitus ([facility]); Hyperlipidemia, unspecified hyperlipidemia type 08/12/2024 Orders Only [facility] [place] [address] Annie Tafoya MD Insulin dependent type 2 diabetes mellitus ([facility]) (Primary Dx) 08/12/2024 Telephone [facility] [place] [address] Annie Tafoya MD 08/12/2024 Telephone [facility] [place] [address] Misa Adler PharmD Appointment Request 08/12/2024 Travel 08/07/2024 Refill [facility] [place] [address] Misa Adler PharmD Insulin dependent type 2 diabetes mellitus ([facility]); Primary hypertension 07/15/2024 Telephone [facility] [place] [place] [address] Annie Tafoya MD Appointment Request 07/15/2024 Telephone [facility] [place] [address] Misa Adler PharmD from Last 3 Months Immunizations Immunization Administration [...] Description 11/29/2024 1:00 PM EDT Medication Management [facility] [address], [place] [phone] Misa Adler, PharmD [address] [place] [address] Health Maintenance Due Date Last Done Comments Dental Prophylaxis 1945 Dental X-Ray: Bitewings 04/30/2010 04/29/2009 Dental Oral Exam 04/28/2023 10/27/2022, 12/2016, 11/22/2012 COVID-19 Vaccine ( season) 2024 07/13/2022, 02/24/2022, 01/25/2021, Additional history exists Influenza Vaccine (#1) 2024 , 11/17/2022, 11/25/2020, Additional history exists Alcohol/Substance Use Screening 11/28/2024 11/29/2023 Depression Screening 11/28/2024 11/29/2023, 11/29/19 Diabetes: Hemoglobin A1C 12/28/2024 025, 07/03/2024, 05/15/2024, Additional history exists Lipid Panel 02/18/2025 02/19/2024, 04/06/2023 SDOH Screening 08/30/2025 08/30/2024 Diabetes: Foot Exam 09/09/2025 09/09/2024, 09/09/2024, 09/09/2024, Additional history exists Tobacco Screening 09/09/2025 09/09/2024 Diabetes: Urine Protein Screening 10/14/2025 10/14/2024, 10/14/2024, 02/19/2024, Additional history exists Dental X-Ray: Full Mouth [...] Component 8.1( 1:26 PM EDT) No Misa Yap PharmD Procedures Procedure Name Priority Date/Time Associated Diagnosis Comments BASIC METABOLIC PANEL Routine 10/14/2024 11:22 AM EDT HEPATIC FUNCTION PANEL Routine 11:22 AM EDT URINE PROTEIN, TOTAL, RANDOM (W/O CREATININE) Routine 10/14/2024 11:17 AM EDT CREATININE, RANDOM URINE Routine 10/14/2024 11:17 AM EDT ALBUMIN, RANDOM URINE W/CREATININE Routine 10/14/2024 11:17 AM EDT URINALYSIS, COMPLETE Routine 10/14/2024 11:17 AM EDT POCT GLYCATED HEMOGLOBIN, TOTAL Routine 09/27/2024 1:26 PM EDT Insulin dependent type 2 diabetes mellitus (CMS/HCC) LIPID PANEL, STANDARD Routine 02/19/2024 10:20 AM [...] Recently Relevant to Health Maintenance Results * Hepatic Function Panel (10/14/2024 11:22 AM EDT) Bilirubin, Total 0.3 0.0 - 1.0 mg/dL [facility] Bilirubin, Direct 0.1 0.0 - 0.5 mg/dL [facility] Aspartate Amino Transferase 28 5 - 31 U/L [facility] Alanine Aminotransferase 18 0 - 31 U/L [facility] Total Protein 7.5 6.5 - 8.0 g/dL [facility] Albumin Level 4.0 3.5 - 5.0 g/dL [facility] Alkaline Phosphatase 98 39 - 117 U/L [facility] 10/14/2024 11:2 2 AM EDT 10/14/2024 11:22 AM EDT us Annie Tafoya MD LAB BLOOD ORDERABLES Final Result [facility] [address] [place] [phone] * (ABNORMAL) Basic Metabolic Panel (10/14/2024 11:22 AM EDT) Sodium 142 135 - 145 mmol/L [facility] Potassium 4.5 3.3 - 5.1 mmol/L [facility] Chloride 102 96 - 108 mmol/L [facility] Carbon Dioxide 32(H) 22 - 29 mmol/L [facility] Anion Gap 13 12 - 20 [facility] Urea Nitrogen (BUN) 24(H) 9 - 16 mg/dL [facility] Creatinine, Serum 1.14 0.5 - 1.4 mg/dL [facility] Estimated Glomerular Filt Rate 46 [facility] Comment:Chronic Kidney Disea se: Estimated GFR < 60 mL/min/[id number] Kidney Disease: Estimated GFR < 15 mL/min/1.73m2 Glucose 232(H) 60 - 115 mg/dL [facility] Calcium 9.0 8.4 - 10.2 mg/dL [facility] 10/14/2024 11:2 2 AM EDT 10/14/2024 11:22 AM EDT us Generic External Data Provider LAB BLOOD ORDERAB LES Final Result Performing Organization Address City/State/[facility] Co de Phone Number [facility] [address] [place] [phone] * (ABNORMAL) Albumin, Random Urine W/Creatinine (10/14/2024 11:17 AM EDT) Creatinine, Urine 73.90 mg/dL [facility] Microalbumin Urine 458.0 mg/L [facility] Microalbum Creatinine Ratio Ur 619.7(H) <30 ug/mg cr [facility] Comment:Albumin/Creatinine R atio Reference Ranges: Normal: < 30 ug/mg creatinine Microalbuminuria: 30 - 300 ug/mg creatinineClinical Albuminuria: > 300 ug/mg creatinine 10/14/2024 11:1 7 AM EDT 10/14/2024 11:40 AM EDT us Annie Tafoya MD LAB URINE ORDERABLES Final Result Performing Organization Address [facility] [facility] Co de Phone Number [facility] [address] [place] [phone] * (ABNORMAL) Urine Protein, Total, Random without Creatinine (10/14/2024 11:17 AM EDT) Protein, Total, Random Urine 76(H) <12 mg/dL [facility] 10/14/2024 11:1 7 AM EDT 10/14/2024 11:40 AM EDT Generic External Data Provider LAB URINE ORDERAB LES Final Result Performing Organization Address [facility] Co de Phone Number [facility] [address] [place] [phone] * Creatinine, Random Urine (10/14/2024 11:17 AM EDT) Creatinine, Urine 73.51 mg/dL [facility] 10/14/2024 11:1 7 AM EDT 10/14/2024 11:40 AM EDT Generic External Data Provider LAB URINE ORDERAB LES Final Result Performing Organization Address [facility] de Phone Number [facility] [address] [place] [address] [phone] * (ABNORMAL) Urinalysis Complete (10/14/2024 11:17 AM EDT) Color Urine Yellow [facility] Appearance Urine Clear [facility] PH 6.0 5.0 - 9.0 [facility] Glucose Urine UA >=1000(A) Negative mg/dL [facility] Urine Blood Negative Negative [facility] Specific [place] - Urine 1.025 1.005 - 1.025 [facility] Urine Protein 100 (2+)(A) Neg-Trace mg/dL [facility] Urine Ketones Negative Negative mg/dL [facility] Nitrite Urine Negative Negative [facility] Leukocyte Esterase Urine Negative Negative [facility] RBC Urine 0-2 0 - 2 /HPF [facility] Urine WBC 0-5 0 - 5 /HPF [facility] Urine Squamous Epithelial Cell 3-5 0 - 2 /HPF [facility] Urine Bacteria None Seen None Seen [facility] Hyaline Casts, Urine 0-2 0 - 2 /LPF [facility] 10/14/2024 11:1 7 AM EDT 10/14/2024 11:40 AM EDT us Generic External Data Provider LAB URINE ORDERAB LES Final Result Performing Organization Address City/State/[facility] Co de Phone Number [facility] [address] [place] [phone] * (ABNORMAL) POCT A1c (09/27/2024 1:26 PM EDT) Hemoglobin A1C 8.1(A) 4.0 - 5.7 % QC Media Lot # [id number] Lot# Expiration Date Blood 09/27/2024 1:26 PM EDT Annie Tafoya MD POINT OF CARE TEST ENTER/E DIT ORDERABLES Final Result * Lipid Panel, Standard (02/19/2024 10:20 AM EST) Triglycerides 149 <150 mg/dL [facility] Comment:Desirable Triglyceri de: less than 150 mg/dLBorderline High Triglyceride 150-199 mg/dLHigh Triglyceride: 200-499 mg/dLVery High Triglyceride: greater than or equal to 5OO mg/dL Cholesterol 152 <200 mg/dL [facility] Comment:Desirable Cholestero l: less than 200 mg/dLBorderline High Cholesterol: 200-239 mg/dLHigh Cholesterol: greater than 239 mg/dL LDL Cholesterol Calculated 75 <100 mg/dL [facility] Comment:Desirable LDL: less than 100 mg/dLNear Optimal/Above Optimal LDL: 110- 129 mg/dLBorderline High LDL: 130-159 mg/dLHigh LDL: 160-189 mg/dLVery High LDL: greater than or equal to 190 mg/dL HDL Cholesterol 48 >40 mg/dL [facility] Comment:Desirable HDL: great er than 40 mg/dL Note: This HDL assay may give artificially low results in patients with liver disease. 02/19/2024 10:2 0 AM EST 02/19/2024 11:07 AM EST Annie Tafoya MD LAB BLOOD ORDERABLES Final Result Performing Organization Address [facility] Co de Phone Number [facility] [address] [place] [phone] * Hepatitis C Antibody with Reflex to HCV, RNA, Quantitative, Real-Time PCR (04/06/2023 9:45 AM EST) Hepatitis C Antibody Nonreactive Nonreactive [facility] Comment:Antibodies to HCV no t detected; does not exclude early acuteHCV infection. Blood Venous blood specimen / Unknown 04/06/2023 9:45 AM EST 04/06/2023 11:27 AM EST Annie Tafoya MD LAB BLOOD ORDERABLES Final Result Performing Organization Address [facility] Co de Phone Number [facility] [address] [place] [phone] from Last 3 Months or Most Recently Relevant to Health Maintenance Insurance [facility] [place] [address] [place] [phone] [place] [phone] [place] [phone] Advance Directives Documents on File Type Date Recorded Patient Route Rider Supervisor Expl anation Advance Directives and Livin g Will 04/07/2023 1:54 PM HCP Care Teams Clam Sorter Relationship Specialty Start Date End Date Annie Tafoya MD [address] [place] [address] PCP - General Family Medicine 09/24/12 Misa Adler, BronsonD [address] [place] [address] Pharmacist Internal Medicine 02/25/22 Emory Chamorro MD [address] [phone] Nephrology 04/04/24 Henny Francisco [address] [place] [address] 3rd [place] [address] Sleep Medicine 06/05/24 Hugo Mix MD [address] [place] [phone] Ophthalmology 06/26/24
--- OUTSIDE RECORDS SUMMARY | 2024-10-14 13:37 | XMS_ITS | Encounter Summary ---
Author Organization [employer] Address [address] [facility] 7t [place] [address] Care Team Providers Care Cafe Server Name Role Phone Annie Tafoya MD Primary Care Provider Misa Adler PharmD Unavailable Emory Chamorro MD Unavailable [phone] Henny Francisco Unavailable Hugo Mix MD Unavailable Reason for Visit * Reason Comments Med Refill Encounter Details Date Type Department Care Team (Late st Contact Info) Description 04/25/2024 Refill [facility] [address] [place], [place] [phone] Annie Tafoya MD [address] [place], [place] [phone] Type 2 diabetes mellitus with hyperglycemia, with long-term current use of insulin ([facility]) Social History Tobacco Use Types [...] 1:00 PM EDT Medication Management [facility] [address] [place] [address] Misa Adler PharmD [address] [place] [address] documented as of this encounter Goals Goal [...] hyperglycemia, with long-term current use of insulin ([facility]) documented in this encounter Additional Health Concerns Assessment Noted Time PHQ-9 Depression Total Score: 7 11/29/19 24 3:29 PM EDT documented as of this encounter Care Teams Cafe Server Relationship Specialty Start Date End Date Annie Tafoya MD [address] [place] [address] PCP - General Family Medicine 09/24/12 Misa Adler, PharmD [address] [place] [address] Pharmacist Internal Medicine 02/25/22 Emory Chamorro MD [address] [phone] Nephrology 04/04/24 Henny Francisco [address] [place] [address] [address] [place] [address] Sleep Medicine 06/05/24 Hugo Mix MD [address] [place] [phone] Ophthalmology 06/26/24 documented as of this encounter
--- OUTSIDE RECORDS SUMMARY | 2024-10-14 13:37 | XMS_ITS | Encounter Summary ---
Author Organization [email or web address] Address [address] [facility] 7t [place] [address] Care Team Providers Care Operation Supervisor Name Role Phone Annie Tafoya MD Primary Care Provider [phone] Misa Adler PharmD Unavailable [phone] Emory Chamorro MD Unavailable [phone] Henny Francisco Unavailable [phone] Hugo Mix MD Unavailable Encounter Details Date Type Department Care Team (Late st Contact Info) Description 10/14/2024 Orders Only GENERIC EXTERNAL DATA DEPARTMENT Provider, Generic External Data Social History Tobacco Use Types Packs/Day Years [...] Description 11/29/2024 1:00 PM EDT Medication Management [facility] [address] [place] [address] Misa Adler, PharmD [address] [place] [address] documented as of this encounter Goals Goal Patient Goal Type Associated Problems Recent Progress Patient-Stated? Author Blood Pressure < 140/90 Blood Pressure 118/62(2024 1:19 PM EDT) No Azars-Teena Collinssa, PharmD Hemoglobin A1c < 8 Result Component 8.1( 1:26 PM EDT) No AzarsTeena Latifsa, PharmD documented as of this encounter Procedures Procedure Name Priority Date/Time Associated Diagnosis Comments HEPATIC FUNCTION PANEL Routine 10/14/2024 11:22 AM EDT BASIC METABOLIC PANEL Routine 10/14/2024 11:22 AM EDT ALBUMIN, RANDOM URINE W/CREATININE Routine 10/14/2024 11:17 AM EDT URINE PROTEIN, TOTAL, RANDOM (W/O CREATININE) Routine 10/14/2024 11:17 AM EDT CREATININE, RANDOM URINE Routine 10/14/2024 11:17 AM EDT URINALYSIS, COMPLETE Routine 10/14/2024 11:17 AM EDT documented in this encounter Results * (ABNORMAL) Basic Metabolic Panel (10/14/2024 11:22 AM EDT) Sodium 142 135 - 145 mmol/L [facility] Potassium 4.5 3.3 - 5.1 mmol/L [facility] Chloride 102 96 - 108 mmol/L [facility] Carbon Dioxide 32(H) 22 - 29 mmol/L [facility] Anion Gap 13 12 - 20 [facility] Urea Nitrogen (BUN) 24(H) 9 - 16 mg/dL [facility] Creatinine, Serum 1.14 0.5 - 1.4 mg/dL [facility] Estimated Glomerular Filt Rate 46 [facility] Comment:Chronic Kidney Disea se: Estimated GFR < 60 mL/min/1.86k3Ldbnwy Kidney Disease: Estimated GFR < 15 mL/min/1.73m2 Glucose 232(H) 60 - 115 mg/dL [facility] Calcium 9.0 8.4 - 10.2 mg/dL [facility] 10/14/2024 11:2 2 AM EDT 10/14/2024 11:22 AM EDT us Generic External Data Provider LAB BLOOD ORDERAB LES Final Result [facility] [address] [place] [phone] * Hepatic Function Panel (10/14/2024 11:22 AM EDT) Bilirubin, Total 0.3 0.0 - 1.0 mg/dL [facility] Bilirubin, Direct 0.1 0.0 - 0.5 mg/dL [facility] Aspartate Amino Transferase 28 5 - 31 U/L [facility] Alanine Aminotransferase 18 0 - 31 U/L [facility] Total Protein 7.5 6.5 - 8.0 g/dL [facility] Albumin Level 4.0 3.5 - 5.0 g/dL [facility] Alkaline Phosphatase 98 39 - 117 U/L [facility] 10/14/2024 11:2 2 AM EDT 10/14/2024 11:22 AM EDT us Annie Tafoya MD LAB BLOOD ORDERABLES Final Result Performing Organization Address City/[facility]/ZIP Co de Phone Number [facility] [address] [place] [phone] * (ABNORMAL) Urine Protein, Total, Random without Creatinine (10/14/2024 11:17 AM EDT) Protein, Total, Random Urine 76(H) <12 mg/dL [facility] 10/14/2024 11:1 7 AM EDT 10/14/2024 11:40 AM EDT us Generic External Data Provider LAB URINE ORDERAB LES Final Result Performing Organization Address City/[facility]/ZIP Co de Phone Number [facility] [address] [place] [phone] * Creatinine, Random Urine (10/14/2024 11:17 AM EDT) Creatinine, Urine 73.51 mg/dL [facility] 10/14/2024 11:1 7 AM EDT 10/14/2024 11:40 AM EDT us Generic External Data Provider LAB URINE ORDERAB LES Final Result Performing Organization Address [facility] Co de Phone Number [facility] [address] [place] [phone] * (ABNORMAL) Albumin, Random Urine W/Creatinine (10/14/2024 11:17 AM EDT) Creatinine, Urine 73.90 mg/dL [facility] Microalbumin Urine 458.0 mg/L H [facility] Microalbum Creatinine Ratio Ur 619.7(H) <30 ug/mg cr [facility] Comment:Albumin/Creatinine R atio Reference Ranges: Normal: < 30 ug/mg creatinine Microalbuminuria: 30 - 300 ug/mg creatinineClinical Albuminuria: > 300 ug/mg creatinine 10/14/2024 11:1 7 AM EDT 10/14/2024 11:40 AM EDT us Annie Tafoya MD LAB URINE ORDERABLES Final Result Performing Organization Address [facility] Co de Phone Number [facility] [address] [place] [address] [phone] * (ABNORMAL) Urinalysis Complete (10/14/2024 11:17 AM EDT) Color Urine Yellow [facility] Appearance Urine Clear [facility] PH 6.0 5.0 - 9.0 [facility] Glucose Urine UA >=1000(A) Negative mg/dL [facility] Urine Blood Negative Negative [facility] Specific [place] - Urine 1.025 1.005 - 1.025 [facility] Urine Protein 100 (2+)(A) Neg-Trace mg/dL [facility] Urine Ketones Negative Negative mg/dL [facility] Nitrite Urine Negative Negative [facility] Leukocyte Esterase Urine Negative Negative [facility] RBC Urine 0-2 0 - 2 /HPF [facility] Urine WBC 0-5 0 - 5 /HPF [facility] Urine Squamous Epithelial Cell 3-5 0 - 2 /HPF [facility] Urine Bacteria None Seen None Seen [facility] Hyaline Casts, Urine 0-2 0 - 2 /LPF [facility] 10/14/2024 11:1 7 AM EDT 10/14/2024 11:40 AM EDT us Generic External Data Provider LAB URINE ORDERAB LES Final Result [facility] [address] [place] [phone] documented in this encounter Visit Diagnoses Not on filedocumented in this encounter Additional Health Concerns Assessment Noted Time PHQ-9 Depression Total Score: 7 11/29/19 24 3:29 PM EDT documented as of this encounter Care Teams Operation Supervisor Relationship Specialty Start Date End Date Annie Tafoya MD [address] [place] [address] PCP - General Family Medicine 09/24/12 Misa Adler, BronsonD [address] [place] [address] Pharmacist Internal Medicine 02/25/22 Emory Chamorro MD [address] [phone] Nephrology 04/04/24 Henny Francisco [address] 3rd [place] [address] Sleep Medicine 06/05/24 Hugo Mix MD [address] [place] [address] Ophthalmology 06/26/24 documented as of this encounter
--- OUTSIDE RECORDS SUMMARY | 2024-10-14 13:37 | XMS_ITS | Clinical Summary ---
Author Organization [address] [facility] Address [address] [place] [address] Phone Care Team Providers Care Cold Food Packer Name Role Phone Annie Tafoya MD Primary Care Provider [phone] Social History Tobacco Use Types Packs/Day Years Used Date Smoking Tobacco: Never Assessed Comments Unknown Sex and Gender Information Value Date Recorded Sex Assigned at Not on file Legal Sex Female 9:18 AM EDT Gender Identity Not on file Sexual Orientation Not on file Plan of Treatment Upcoming Encounters Date Type Department Care Team ([facility] Contact Info) Description 12/04/2024 2:30 PM EDT Consult Orthopedic Surgery - [place] [phone] [phone] Chase Sloan DPM [address] [phone] Health Maintenance Due Date Last [...] MEDICARE ADVANTAGE MEDICAID - [place] Care Teams Cold Food Packer Relationship Specialty Start Date End Date [place], [place] Annie [address] [place] [phone] PCP - General Family Medicine 09/10/24
--- OUTSIDE RECORDS SUMMARY | 2024-10-14 13:37 | XMS_ITS | Encounter Summary ---
Author Organization [employer] Address [address] [facility] 7t [place] [address] Care Team Providers Care Package Dyeing Machine Operator Name Role Phone Annie Tafoya MD Primary Care Provider [phone] Misa Adler PharmD Unavailable Emory Chamorro MD Unavailable [phone] Henny Francisco Unavailable Hugo Mix MD Unavailable Encounter Details Date Type Department Care Team (Late st Contact Info) Description 06/12/2024 Telephone [facility] [address] [place], [place] [phone] Honey Aguilar, OD [address] [place] [address] Social History Tobacco Use Types Packs/Day Years [...] Description 11/29/2024 1:00 PM EDT Medication Management [facility] [address] [place] [address] Misa Adler PharmD [address] [place] [address] documented as of this encounter Goals Goal [...] documented as of this encounter Care Teams Package Dyeing Machine Operator Relationship Specialty Start Date End Date Annie Tafoya MD [address] [place] [address] PCP - General Family Medicine 09/24/12 Misa Adler, BronsonD [address] [place] [address] Pharmacist Internal Medicine 02/25/22 Emory Chamorro MD [address] [phone] Nephrology 04/04/24 Henny Francisco [address] [place] [address] 3rd [place] [address] Sleep Medicine 06/05/24 Hugo Mix MD [address] [place] [address] Ophthalmology 06/26/24 documented as of this encounter
--- OUTSIDE RECORDS SUMMARY | 2024-10-14 13:37 | XMS_ITS | Encounter Summary ---
Author Organization [employer] Address [address] [facility] 7t [place] [address] Care Team Providers Care Chop Saw Operator Name Role Phone Annie Tafoya MD Primary Care Provider Misa Adler PharmD Unavailable Emory Chamorro MD Unavailable [phone] Henny Francisco Unavailable [phone] Hugo Mix MD Unavailable Reason for Visit * Reason Comments Med Refill Encounter Details Date Type Department Care Team (Late st Contact Info) Description 02/06/2024 Refill [facility] [address] [place] [address] Misa Adler, PharmD [address] [place] [address] Primary hypertension; Type 2 diabetes mellitus with hyperglycemia, with long-term current use of insulin ([facility]) Social History Tobacco Use Types [...] Description 11/29/2024 1:00 PM EDT Medication Management [facility] [address] [place] [address] Misa Adler PharmD [address] [place] [address] documented as of this encounter Goals Goal [...] hyperglycemia, with long-term current use of insulin ([facility]) documented in this encounter Additional Health Concerns Assessment Noted Time PHQ-9 Depression Total Score: 7 11/29/19 24 3:29 PM EDT documented as of this encounter Care Teams Chop Saw Operator Relationship Specialty Start Date End Date Annie Tafoya MD [address] [place] [address] PCP - General Family Medicine 09/24/12 Misa Adler PharmD [address] [place] [address] Pharmacist Internal Medicine 02/25/22 Emory Chamorro MD [address] [phone] Nephrology 04/04/24 Henny Francisco [address] [place] [address] [address] [place] [address] Sleep Medicine 06/05/24 Hugo Mix MD [address] [place] [address] Ophthalmology 06/26/24 documented as of this encounter
== END 2024-10-14 11:04 | disposition home or self-care (01) ==
LOC: HO.LAB 11:03
PROVIDERS: PCP Family Medicine; Visit Provider Internal Medicine Hypertension Specialist
DX: E11.22 Type 2 diabetes mellitus with diabetic chronic kidney disease (principal); I12.9 Hypertensive chronic kidney disease with stage 1 through stage 4 chronic kidney disease, or unspecified chronic kidney disease; N18.9 Chronic kidney disease, unspecified; E78.5 Hyperlipidemia, unspecified; Z79.4 Long term (current) use of insulin
CPT/HCPCS: 36415; 80048; 80076; 81001; 82043; 82570; 84156

== ENCOUNTER 2024-10-28 12:02 | Outpatient (AMB) | payer OTHER, SELFPAY ==
[2024-10-28 12:16] VITALS: BP 114/62; PULSE 79; O2SAT 89; BMI 33.0
--- NOTE | 2024-10-28 12:16 | HO.NEPHOV_ITS ---
Vital Signs 10/28/24 12:16 Height 5 ft Weight 169 lb BMI 33.0 BP 114/62 Blood Pressure Location Rt brachial Position Sitting Pulse 79 Pulse Source Pulse Oximeter Pulse Oximetry (%) 89 L Oxygen Delivery Method Room Air Intake Visit Reasons: R/S 10/15/2024-Conf Cloth Brushing And Sueding Supervisor Required: Yes Cloth Brushing And Sueding Supervisor Name: Betsy [id number] Accompanied by: RETREAD OPERATOR Allergies No Known Allergies (No Known Allergies*) Allergy (Verified 10/28/24 12:18) Medication List - Last Reviewed 10/28/24 by JACQUELINE Olsen amlodipine 10 mg PO QAM aspirin 1 tab PO QPM atenolol 50 mg PO BID atorvastatin 1 tab PO BEDTIME cholecalciferol (vitamin D3) 1 tab PO QAM empagliflozin (Jardiance) 25 mg PO DAILY insulin glargine (Lantus Solostar U-100 Insulin) 30 units subcut DAILY losartan 100 mg PO DAILY omeprazole 1 cap PO DAILY tirzepatide (Mounjaro) mg subcut QWEEK HPI Comments Details: Gay is a 78 new year old woman with a history of longstanding diabetes mellitus for more than 15 years along with hypertension. She has been referred for evaluation of proteinuria. She is currently on losartan for renal protection. She was accompanied by a family member. Cloth Brushing And Sueding Supervisor service was used. She has been compliant with her medications. Today she has no complaints like headache nausea vomiting. No shortness of breath. No edema. No polyuria polydipsia. No fever no rash. No joint pains. 12/04/23 Did not undergo any investigations as ordered. Cloth Brushing And Sueding Supervisor service was used. 10/28/24 - The patient is a 79-year-old female presenting with follow-up for proteinuria. - Long-standing constipation with difficulty in bowel movements, partially relieved by medication. - Proteinuria with improved kidney function and protein levels, managed with losartan. - Diabetes well-controlled with stable blood sugar levels. - Hypertension stable with losartan treatment. [facility] Medical History Diastolic dysfunction Cardiomegaly Mood disorder Hyperlipidemia Hypertension Insulin dependent type 2 diabetes mellitus GERD (gastroesophageal reflux disease) Surgical History History of esophagogastroduodenoscopy (EGD) Hx of colonoscopy History of tubal ligation Family History Family/Other No significant medical problems Social History Household Members: None Housing: Apartment Housing Other:: rd floor with elevator access Do you presently have visiting nurse or other home services: Yes Alcohol intake: never Patient Tobacco Use Status: Never used Tobacco Advance Directives Date on File: 07/20/20 service: No Current occupational status: unemployed Physical Exam Vital Signs: Last Vital Signs Pulse 79 10/28/24 12:16 Pulse Ox 89 L 10/28/24 12:16 Oxygen Delivery Method Room Air 10/28/24 12:16 BMI result Body Mass Index 33.0 Const General: comfortable; No acute distress Orientation/consciousness: patient oriented x3 Eyes General: appearance normal, both eyes and all related structures Visual Callahan: normal visual callahan by confrontation Neck Neck: Yes supple and Yes no JVD Resp Effort & Inspection: normal respiratory effort and respiratory effort not decreased Auscultation: rhonchi Cardio Palpation: no palpable S3 and no palpable S4 Heart sounds: no rubs GI Inspection: Yes normal to inspection Palpation (GI): Soft to palpation Percussion: Yes normal to percussion Auscultation: normal bowel sounds General: Yes no CVA tenderness Back/Spine/Pelvis Back: no CVA tenderness Skin General skin exam: no petechiae and no purpura Neuro General: patient oriented x3 and no focal motor deficits Extrem General: No clubbing and No edema Results Reviewed Nephrology Results: Sodium, (135-145) 142 mmol/L 10/14/24 Potassium, (3.3-5.1) 4.5 mmol/L 10/14/24 Chloride, (96-108) 102 mmol/L 10/14/24 Carbon Dioxide, (22-29) 32 mmol/L H 10/14/24 BUN, (9-16) 24 mg/dL H 10/14/24 Creatinine, (0.5-1.4) 1.14 mg/dL 10/14/24 Calcium, (8.4-10.2) 9.0 mg/dL Δ 10/14/24 Urine Protein, (Neg-Trace) 100 (2+) mg/dL H 10/14/24 Urine Creatinine 73.51 mg/dL 10/14/24 Renal US 12/12/23 Assessment & Plan Assessment & Plan (1) CKD (chronic kidney disease): Code(s): N18.9 - Chronic kidney disease, unspecified Category: Medical (2) Hypertension: Code(s): I10 - Essential (primary) hypertension Category: Medical Plan Gya is a 79-year-old woman with non nephrotic range proteinuria in the setting of longstanding diabetes mellitus hypertension. 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 No clinical evidence of obstruction. No evidence of any active glomerulonephritis or interstitial disease at this time. Mild acceptable increase in creatinine She could have a component of hypoperfusion ( She had diarrhea) Encouraged in increase PO fluids Optimize blood pressure and maintain blood pressure less than 130/80. Agree with angiotensin receptor jo. Continue to avoid nephrotoxic agents including NSAIDs. Encouraged her to stay on low-sodium diet. Orders: Orders Basic Metabolic Panel 4 Months I10 - Essential (primary) hypertension, N18.9 - Chronic kidney disease, unspecified, R80.9 - Proteinuria, unspecified Creatinine Urine 4 Months I10 - Essential (primary) hypertension, N18.9 - Chronic kidney disease, unspecified, R80.9 - Proteinuria, unspecified UA and rflx microscopic 4 Months I10 - Essential (primary) hypertension, N18.9 - Chronic kidney disease, unspecified, R80.9 - Proteinuria, unspecified Total Protein Urine Random 4 Months I10 - Essential (primary) hypertension, N18.9 - Chronic kidney disease, unspecified, R80.9 - Proteinuria, unspecified Coding Level of Care Code Est Pt Level 4 (69194) Diagnoses CKD (chronic kidney disease) N18.9 Hypertension I10
== END 2024-10-28 12:29 | disposition home or self-care (01) ==
LOC: HO.HKA 12:03
PROVIDERS: PCP Family Medicine; Visit Provider Internal Medicine Hypertension Specialist
DX: I12.9 Hypertensive chronic kidney disease with stage 1 through stage 4 chronic kidney disease, or unspecified chronic kidney disease (principal); N18.9 Chronic kidney disease, unspecified
CPT/HCPCS: 99214

== ENCOUNTER → 2024-10-28 12:02 | Outpatient (BNVA) | payer OTHER, SELFPAY | PROVIDERS: PCP Family Medicine; Visit Provider Internal Medicine Hypertension Specialist | DX: E11.9 Type 2 diabetes mellitus without complications (principal); I10 Essential (primary) hypertension; R80.9 Proteinuria, unspecified; N18.30 Chronic kidney disease, stage 3 unspecified | CPT/HCPCS: 99212 ==

== ENCOUNTER 2024-12-18 10:40 | Outpatient (AMB) | payer OTHER, SELFPAY ==
--- NOTE | 2024-12-18 11:01 | A.OFFVIS_ITS ---
Vital Signs 12/18/24 11:02 Height 5 ft Weight 168 lb 10.458 oz BMI 32.9 BP 130/68 Blood Pressure Location Lt brachial Position Sitting Pulse 84 Pulse Source Pulse Oximeter Pulse Oximetry (%) 88 L Oxygen Delivery Method Room Air Intake Visit Reasons: Hypoxia Intake Note: pt is here fo rfollow up and states using bi-pap, she states she has too eat much it affects her breahting Service Rig Operator Required: Yes Service Rig Operator Services: Service Rig Operator Present Service Rig Operator Name: Elizabeth [facility] Allergies No Known Allergies (No Known Allergies*) Allergy (Verified 12/18/24 13:31) Medication List - Last Reconciled 12/18/24 by Edwin Perez MD amlodipine 10 mg PO QAM aspirin 1 tab PO QPM atenolol 50 mg PO BID atorvastatin 1 tab PO BEDTIME cholecalciferol (vitamin D3) 1 tab PO QAM empagliflozin (Jardiance) 25 mg PO DAILY insulin glargine (Lantus Solostar U-100 Insulin) 30 units subcut DAILY losartan 100 mg PO DAILY omeprazole 1 cap PO DAILY tirzepatide (Mounjaro) mg subcut QWEEK Do you need a note to return to daycare/school/sports/work: No HPI HPI Hypoxia: Details: CAILIN, 79 YEARS OLD FEMALE, ROMANIAN-SPEAKING, COMES. FOR ROUTINE FOLLOW-UP AFTER 4 MONTHS SHE CLAIMS THAT BREATHING HAS BEEN STABLE, SHE HAS NO RESPIRATORY DISTRESS AND SLEEPS WELL AT NIGHT. SHE CLAIMED THAT SHE DOES USE CPAP AT NIGHT HOWEVER THE COMPLIANCE REPORT TELLS US THE OPPOSITE. SHE USES VERY BRIEFLY IF AT ALL, MAYBE UP TO 1 HOUR BUT ONLY ON SOME NIGHTS. SHE SAY SHE SLEEPS WELL . SHE ALSO DOES NOT USE ANY OXYGEN AT NIGHT. HAS RETURNED THE DEVICE , AND HAS ALREADY SAID MANY TIMES THAT EVEN IF SHE DOES HAVE OXYGEN AT HOME SHE WOULD NOT USE IT. DURING THE DAYTIME SHE DOES NOT HAVE MUCH DISTRESS WHEN SHE WALKS AROUND, SHE HAS ONLY MINIMAL COUGH OFF AND ON. [facility] Medical History Diastolic dysfunction Cardiomegaly Mood disorder Hyperlipidemia Hypertension Insulin dependent type 2 diabetes mellitus GERD (gastroesophageal reflux disease) Surgical History History of esophagogastroduodenoscopy (EGD) Hx of colonoscopy History of tubal ligation Family History Family/Other No significant medical problems Social History Household Members: None Housing: Apartment Housing Other:: rd floor with elevator access Do you presently have visiting nurse or other home services: Yes Alcohol intake: never Patient Tobacco Use Status: Never used Tobacco Advance Directives Date on File: 07/20/20 service: No Current occupational status: unemployed Review of Systems Const All systems reviewed & are unremarkable except as noted in HPI and below Reports snoring Eyes Reports no additional complaints ENT Reports no additional complaints Card Denies chest pain and Reports dyspnea on exertion (ON MODERATE ACTIVITY) Resp Reports as per HPI, Reports cough, Reports dyspnea on exertion (ON MODERATE ACTIVITY) and Reports snoring GI Reports heartburn (CONTROLLED WITH MED) Reports no additional complaints Musc Reports no additional complaints Skin/Breast Reports system reviewed and no additional complaints, except as documented Neuro Reports no additional complaints and Reports memory loss (CLINICALLY DOES HAVE SOME COGNITIVE IMPAIRMENT, MAY BE DUE TO POOR UNDERSTA) Psych Reports memory loss (CLINICALLY DOES HAVE SOME COGNITIVE IMPAIRMENT, MAY BE DUE TO POOR UNDERSTA) Endo Reports other (DIABETES MELLITUS) Vaughn/Lymph Reports no additional complaints Aller/Immun Reports no additional complaints Physical Exam Vital Signs: Last Vital Signs Pulse 84 12/18/24 11:02 BP 130/68 12/18/24 11:02 Pulse Ox 88 L 12/18/24 11:02 Oxygen Delivery Method Room Air 12/18/24 11:02 BMI result Body Mass Index 32.9 MODERATELY OBESE WITH A ROUND FACE AND SHORT NECK Const General: healthy appearing, comfortable, no acute distress, alert and awake Orientation/consciousness: patient oriented x3 HEENT Head: Yes normal to inspection General nose exam: No nasal polyps present and No nasal discharge present Face and sinus: Yes sinuses nontender Mouth: oropharynx abnormals (OROPHARYNX IS NARROW AND CROWDED, MALLAMPATI CLASS 4) Throat: Yes posterior oropharynx normal Eyes General: appearance normal, both eyes and all related structures Neck Neck: Yes normal visual inspection, Yes no lymphadenopathy, Yes trachea midline and Yes no JVD Thyroid: Thyroid normal Chest Chest palpation & inspection: normal inspection of the chest, normal palpation of entire chest wall and no tenderness Resp Other: PERCUSSION NOTE IS NOT COMPLETELY PERCEPTIBLE DUE TO THICK CHEST WALL. BREATH SOUNDS ARE DISTANT WITH PROLONGED EXPIRATORY PHASE. BUT NO WHEEZES RHONCHI OR CREPITATIONS ARE HEARD. Cardio Palpation: normal PMI Rate: regular rate Rhythm: regular rhythm Heart sounds: no gallops and no murmurs Peripheral pulses: Peripheral pulses 2+ throughout GI Inspection: Yes other (ABDOMEN IS MODERATELY OBESE AND PROTUBERANT) Palpation (GI): Soft to palpation, nontender, No hepatosplenomegaly present and no masses Auscultation: normal bowel sounds Back/Spine/Pelvis Thoracic/Lumbar Spine: thoracic and lumbar spine normal to inspection Skin General skin exam: no rashes or lesions noted Neuro General: patient oriented x3 and no focal motor deficits Cranial nerves: Yes CN's II-XII intact bilaterally Extrem General: Yes normal to inspection, Yes no clubbing, cyanosis or edema and Yes no calf tenderness Psych Speech and movement: Normal speech and movement present Results Reviewed Results Reviewed: COMPLIANCE REPORT SHOWS THAT SHE HAS ONLY USED SPORADICALLY AND WHEN SHE USES IT IS NO MORE THAN 1 HOUR 33 MINUTES. WHEN SHE USES THERE IS AN AIR LEAK AND RESIDUAL AHI 9.5 Assessment & Plan Assessment & Plan (1) TAMIKA and COPD overlap syndrome: Comment: IN ADDITION TO TAMIKA SHE ALSO HAS MILD COPD. SHE GETS SHORT OF BREATH WHEN SHE WALKS UP HILL OR WHEN SHE WALKS OUTDOORS. THIS HAPPENS MORE IF SHE WALKS RIGHT AFTER EATING. ANYWAY SHE IS NOT NEEDING ANY BRONCHODILATOR INHALERS Code(s): G47.33 - Obstructive sleep apnea (adult) (pediatric); J44.9 - Chronic obstructive pulmonary disease, unspecified Category: Medical Plan: ADVISED TO LOSE SOME WEIGHT, AND DO DEEP BREATHING EXERCISES WHEN SHE IS AT HOME . (2) TAMIKA (obstructive sleep apnea): Comment: Severe degree of sleep apnea. The AHI was 40, REM AHI was 85 and oxygen apurva was 56%. SHE HAS BEEN PROVIDED WITH THE CPAP DEVICE, BUT SHE IS NOT APT TO USE IT, WHEN SHE TRIES AT NIGHT IT IS ONLY FOR A BRIEF PERIOD. SHE CLAIMS THAT SHE IS SLEEPING OKAY. Code(s): G47.33 - Obstructive sleep apnea (adult) (pediatric) Category: Medical Plan: ENCOURAGED TO USE THE CPAP MORE REGULARLY AND FOR AT LEAST 4 HOURS EVERY NIGHT. SHE ALWAYS SAY IS YES SHE WILL DO IT. BUT DUE TO SOME COGNITIVE IMPAIRMENT SHE IS PROBABLY NOT GOING TO USE IT REGULARLY. (3) Nocturnal hypoxemia: Comment: SLEEP STUDY SHOWED THAT SHE DID HAVE NOCTURNAL HYPOXEMIA AND REQUIRED O2 1 L/MINUTE ALONG WITH THE CPAP. O2 WAS ORDERED BUT SHE RETURNED IT, SAYING THAT SHE DOES NOT WANT TO USE OXYGEN . HER HYPOXEMIA WAS DUE TO SLEEP-RELATED HYPOVENTILATION, BECAUSE OF SEVERITY OF HER SLEEP APNEA. BUT SHE NEEDS TO BE EVALUATED FOR PULMONARY DISEASE. PULMONARY FUNCTION TEST WAS ORDERED BUT SHE FAILED TO COME FOR THE TEST. Code(s): G47.34 - Idiopathic sleep related nonobstructive alveolar hypoventilation Category: Medical Plan: AT PRESENT SHE STATES THAT EVEN IF SHE DOES HAVE O2 SUPPLY AT HOME SHE IS NOT GOING TO USE IT, Coding Level of Care Code Est Pt Level 3 (09510) Diagnoses TAMIKA and COPD overlap syndrome G47.33; J44.9 TAMIKA (obstructive sleep apnea) G47.33 Nocturnal hypoxemia G47.34
[2024-12-18 11:02] VITALS: BP 130/68; PULSE 84; O2SAT 88; BMI 32.9
--- OUTSIDE RECORDS SUMMARY | 2024-12-18 12:51 | XMS_ITS | Encounter Summary ---
Author Organization [employer] Address [address] [place] [address] 7[address] [place] [address] Care Team Providers Care Machine Operator Transplanter Name Role Phone Annie Tafoya MD Primary Care Provider Misa Adler PharmD Unavailable Emory Chamorro MD Unavailable [phone] Henny Francisco Unavailable Hugo Mix MD Unavailable Chase Sloan DPM Unavailable Reason for Visit * Reason Comments Med Refill Encounter Details Date Type Department Care Team (Late st Contact Info) Description 04/25/2024 Refill [facility] [address] [place], [place] [phone] Annie Tafoya MD [address] [place], [place] [phone] Type 2 diabetes mellitus with hyperglycemia, with long-term current use of insulin ([facility]) Social History Tobacco Use Types [...] Care Team (Late st Contact Info) Description 12/23/2024 10:30 AM EST Office Visit [facility] [address] [place] [address] Annie Tafoya MD [address] [place] [address] 01/10/2025 1:00 PM EST Medication Management [facility] [address] [place] [address] Misa Adler, BronsonD [address] [place] [phone] documented as of this encounter Goals Goal Patient Goal Type Associated Problems Recent Progress Patient-Stated? Author Blood Pressure < 140/90 Blood Pressure 128/70(2024 1:27 PM EDT) No Misa Yap PharmChely Hemoglobin A1c < 8 Result Component 8.1( 1:26 PM EDT) No Misa Yap PharmD documented as of this encounter Visit Diagnoses Diagnosis Type 2 diabetes mellitus with hyperglycemia, with long-term current use of insulin (HCC) documented in this encounter Additional Health Concerns Assessment Noted Time PHQ-9 Depression Total Score: 7 11/29/19 3:29 PM EDT documented as of this encounter Care Teams Machine Operator Transplanter Relationship Specialty Start Date End Date Annie Tafoya MD [address] [place] [address] PCP - General Family Medicine 09/24/12 Misa Adler, PharmD [address] [place] [address] Pharmacist Internal Medicine 02/25/22 Emory Chamorro MD [address] [phone] Nephrology 04/04/24 Henny Francisco 11 [facility] 3rd [place] [address] Sleep Medicine 06/05/24 Hugo Mix MD [address] [place] [address] Ophthalmology 06/26/24 Chase Sloan DPM [address] [place] [address] Podiatry 12/10/24 documented as of this encounter
--- OUTSIDE RECORDS SUMMARY | 2024-12-18 12:51 | XMS_ITS | Encounter Summary ---
Author Organization [employer] Address [address] [place] [address] 7t [place] [address] Care Team Providers Care Microcomputer Technician Name Role Phone Annie Tafoya MD Primary Care Provider [phone] Misa Adler PharmD Unavailable Emory Chamorro MD Unavailable [phone] Henny Francisco Unavailable Hugo Mix MD Unavailable Chase Sloan DPM Unavailable Reason for Visit * Reason Comments Med Refill Encounter Details Date Type Department Care Team (Late st Contact Info) Description 04/02/2024 Refill [facility] 230 [place], [place] [phone] Misa Adler, PharmD 230 [place], [place] [phone] Type 2 diabetes mellitus with hyperglycemia, with long-term current use of insulin ([facility]) Social History Tobacco Use Types [...] Description 12/23/2024 10:30 AM EST Office Visit [facility] [address] [place] [address] Annie Tafoya MD [address] [place] [address] 01/10/2025 1:00 PM EST Medication Management [facility] [address] [place] [address] Misa Adler PharmD 230 [place] [address] documented as of this encounter Goals Goal Patient Goal Type Associated Problems Recent Progress Patient-Stated? Author Blood Pressure < 140/90 Blood Pressure 128/70(2024 1:27 PM EDT) No Misa Yap PharmD Hemoglobin [...] documented as of this encounter Care Teams Microcomputer Technician Relationship Specialty Start Date End Date Annie Tafoya MD 230 [place] [address] PCP - General Family Medicine 09/24/12 Misa Adler, PharmD [address] [place] [address] Pharmacist Internal Medicine 02/25/22 Emory Chamorro MD [address] [phone] Nephrology 04/04/24 Henny Francisco 11 [facility] 3rd [place] [address] Sleep Medicine 06/05/24 Hugo Mix MD 180 [place] [address] Ophthalmology 06/26/24 Chase Sloan DPM [address] [address] Podiatry 11/4/25 documented as of this encounter
--- OUTSIDE RECORDS SUMMARY | 2024-12-18 12:51 | XMS_ITS | Encounter Summary ---
Author Organization [employer] Address [address] [place] [address] 7t [place] [address] Care Team Providers Care Toll Relief Operator Name Role Phone Annie Tafoya MD Primary Care Provider [phone] Misa Adler PharmD Unavailable Emory Chamorro MD Unavailable [phone] Henny Francisco Unavailable Hugo Mix MD Unavailable Chase SloanM Unavailable Reason for Visit * Reason Comments Med Refill Encounter Details Date Type Department Care Team (Late st Contact Info) Description 02/06/2024 Refill [facility] [address] [place], [place] [phone] Misa Adler, PharmD 230 [place], [place] [phone] Primary hypertension; Type 2 diabetes mellitus with hyperglycemia, with long-term current use of insulin ([facility]) Social History Tobacco Use Types [...] Description 12/23/2024 10:30 AM EST Office Visit [facility] [address] [place] [address] Annie Tafoya MD [address] [place] [address] 01/10/2025 1:00 PM EST Medication Management [facility] [address] [place] [address] Misa Adler, PharmD 230 [place] [address] documented as of this encounter Goals Goal [...] documented as of this encounter Care Teams Toll Relief Operator Relationship Specialty Start Date End Date Annie Tafoya MD 230 [place] [address] PCP - General Family Medicine 09/24/12 Misa Adler, PharmD [address] [place] [address] Pharmacist Internal Medicine 02/25/22 Emory Chamorro MD [address] [phone] Nephrology 04/04/24 Henny Francisco 11 [facility] 3rd [place] [address] Sleep Medicine 06/05/24 Hugo Mix MD 180 [place] [address] Ophthalmology 06/26/24 Chase Sloan DPM [address] [address] Podiatry 12/10/24 documented as of this encounter
--- OUTSIDE RECORDS SUMMARY | 2024-12-18 12:51 | XMS_ITS | Encounter Summary ---
Author Organization [employer] Address [address] [facility] [address] [place] [address] Care Team Providers Care Superintendent Mechanical Name Role Phone Annie Tafoya MD Primary Care Provider [phone] Misa Adler PharmD Unavailable Emory Chamorro MD Unavailable [phone] Henny Francisco Unavailable [phone] Hugo Mix MD Unavailable Chase Sloan DPM Unavailable [phone] Encounter Details Date Type Department Care Team (Late st Contact Info) Description 10/16/2023 Abstract [facility] [address] [place] [address] Stephanie Persaud [place] Social History Tobacco Use Types Packs/Day Years Used Date Smoking Tobacco: Never Passive Smoke Exposure: Never Smokeless Tobacco: Never Alcohol Use Standard Drinks/Week Comments Never 0 (1 standard drink = 0.6 oz pur e alcohol) Depression Answer Date Recorded Patient Health Questionnaire-9 Score 2 09/15/2022 Housing Stability Answer Date Recorded What is your housing situation today? I have naren roberth 11/21/[address] you li [...] Description 12/23/2024 10:30 AM EST Office Visit [address] [address] Annie Tafoya MD [address] [place] [address] 01/10/2025 1:00 PM EST Medication Management [address] [address] AzarsMisa Chris, PharmD [address] [place] [address] documented as of this encounter Goals Goal Patient Goal Type Associated Problems Recent Progress Patient-Stated? Author Blood Pressure < 140/90 Blood Pressure 128/70(2024 1:27 PM EDT) No Piers-Gambl e, Misa, PharmD Hemoglobin A1c < 8 Result Component 8.1( 1:26 PM EDT) No Piers-Gambl e, Misa, PharmD documented as of this encounter Procedures Procedure Name Priority Date/Time Associated Diagnosis Comments MAMMOGRAPHY Routine 10/16/2023 4:03 PM EDT documented in this encounter Results * Mammography (10/16/2023 4:03 PM EDT) Mammogram BIRADS 1 Normal, Abnormal, BIRADS 1 , BIRADS 2 Comment:routine annual mammo graphy screening Anatomical Region Laterality Modality Other us Historical Provider HEALTH MAINTENANCE Final Result documented in this encounter Visit Diagnoses Not on filedocumented in this encounter Additional Health Concerns Assessment Noted Time PHQ-9 Depression Total Score: 2 09/16/19 9:25 AM EDT documented as of this encounter Care Teams Superintendent Mechanical Relationship Specialty Start Date End Date Annie Tafoya MD 230 [place] [address] PCP - General Family Medicine 09/24/12 Misa Adler PharmD 230 [place] [address] Pharmacist Internal Medicine 02/25/22 Emory Chamorro MD 100 [facility] [address] [place] [address] Nephrology 04/04/24 Henny Francisco [address] [place] [address] 3rd [place] [address] Sleep Medicine 06/05/24 Hugo Mix MD 180 [place] [address] Ophthalmology 06/26/24 Chase Slona DPM [address] [address] Podiatry 12/10/24 documented as of this encounter
--- OUTSIDE RECORDS SUMMARY | 2024-12-18 12:51 | XMS_ITS | Clinical Summary ---
Author Organization [address] [facility] Address [address] [place] [address] Phone Care Team Providers Care Can Stacker Name Role Phone Annie Tafoya MD Primary Care Provider [phone] Allergies No known active allergies Medications albuterol HFA (ProAir HFA) 90 mcg/actuation inhaler INHALE 2 PUFF(S) EVERY 4-6 HOURS NEEDED 03/23/19 18 Active amLODIPine (NORVASC) 10 mg tablet Take 1 tablet (10 mg total) by mouth 1 (one) time each day in the morning. 08/08/19 25 Active ascorbic acid (VITAMIN C) 250 mg tablet Take 1 tablet (250 mg total) by mouth daily. Active atenoloL (TENORMIN) 50 mg tablet TAKE 1 TABLET BY MOUTH TWICE DAILY IN THE MORNING AND IN THE EVENING 02/06/20 24 Active blood-glucose sensor (FreeStyle Sury 3 Plus Sensor) USE DIRECTED TO TEST BLOOD SUGAR CHANGE EVERY 15 DAYS 12/03/19 25 Active carboxymethylce llulose (REFRESH PLUS) 0.5 % ophthalmic solution Administer 1 drop into both eyes 3 times daily as needed. 06/07/19 25 026 Active cholecalciferol (VITAMIN D-3) 25 mcg (1,000 unit) tablet Take 1 tablet (1,000 Units total) by mouth 1 (one) time each day in the morning. 12/06/19 24 Active dextrose (Glutose-15) 40 % gel USE NEEDED IF LOW BLOOD SUGAR OCCURS 05/16/19 25 Active FreeStyle Sury 2 Sensor kit USE DIRECTED EVERY 8 HOURS TO TEST BLOOD SUGAR. CHANGE EVERY 14 DAYS 03/04/19 25 Active glipiZIDE (GLUCOTROL) 5 mg tablet TAKE 1/2 TABLET BY MOUTH EVERY EVENING BEFORE SUPPER. DO NOT TAKE IF NO EAT. 11/13/19 25 Active fluticasone propionate (FLONASE) 50 mcg/actuation nasal spray Administer 1 spray into each nostril daily. 09/27/19 25 Active ketorolac (ACULAR) 0.5 % ophthalmic solution INSTILL 1 DROP INTO THE AFFECTED EYE(S) THREE TIMES DAILY STARTING 2 DAYS BEFORE SURGERY CONTINUE DIRECTED 06/29/19 25 Active TRUEplus Lancets 33 gauge misc USE DIRECTED TO TEST BLOOD SUGAR TWICE DAILY 07/10/19 25 Active losartan (COZAAR) 100 mg tablet Take 1 tablet (100 mg total) by mouth daily. 09/28/19 25 Active metFORMIN (GLUCOPHAGE) 500 mg tablet Take 1 tablet (500 mg total) by mouth. 03/23/19 18 Active white petrolatum-mine ral oiL (ARTIFICIAL TEARS) 83-15 % Apply 1 Application to both eyes. 06/07/19 25 026 Active TechLITE Pen Needle 32 gauge x 5/32 needle 1 (one) time each day. as directed 10/29/19 25 Active polyethylene glycol (PEG) 17 gram/dose oral powder MIX 17 GRAMS (1 CAPFUL) IN 8 TO 12 OUNCES WATER AT BEDTIME NEEDED FOR CONSTIPATION 09/10/19 25 Active senna (SENOKOT) 8.6 mg tablet Take 1 tablet (8.6 mg total) by mouth once daily as needed. 05/16/19 25 Active SITagliptin phosphate (Januvia) 100 mg tablet Take 1 tablet (100 mg total) by mouth. 03/23/19 18 Active Mounjaro 2.5 mg/0.5 mL injection INJECT ONE PEN (=2.5MG) SUBCUTANEOUSLY ONCE A WEEK DIRECTED 04/26/19 25 Active trihexyphenidyL (ARTANE) 2 mg tablet Take 1 tablet (2 mg total) by mouth. 03/23/19 18 Active glycerin (Fleet Glycerin, Adult,) suppository Insert 1 suppository (2 g total) into the rectum. 09/10/19 25 025 Encounters Date Type Department Care Team Description 12/04/2024 2:30 PM EDT Consult Orthopedic Surgery [facility] [address] [phone] Chase Sloan DPM Diabetic mononeuropathy simplex ([facility] V24, [facility] V28) (Primary Dx); Dermatophytosis of nail; Pain in toe of right foot; Pain in toe of left foot; Hammer toe of left foot; Acquired hammer toe of right foot from Last 3 Months Social History Tobacco Use Types Packs/Day Years Used Date Smoking Tobacco: Never Assessed Comments Unknown Sex and Gender Information Value Date Recorded Sex Assigned at Not on file Legal Sex Female 9:18 AM EDT Gender Identity Not on file Sexual Orientation Not on file Plan of Treatment Upcoming Encounters Date Type Department Care Team (Late st Contact Info) Description 03/06/2025 1:45 PM EST Office Visit Orthopedic Surgery [facility] [address] [phone] Chase Sloan DPM [address] [phone] Health Maintenance Due Date Last Done Comments Diabetes: Annual Foot Exam 1955 Diabetes: Annual Retina Eye Exam 1955 RSV Immunization Adult Patients (1 - 1-dose 75+ series) 2021 05/17/2024 Depression Screening 02/07/2024 Diabetes: Annual Urine Albumin-Creatinine Ratio (uACR) 09/10/2024 Falls Risk Assessment 09/10/2024 Medicare Annual Wellness Visit 09/10/2024 Osteoporosis Screening (Bone Density Screening) 09/10/2024 Social Influencers of Health Screening 09/10/2024 COVID-19 Vaccine ( season) 2024 07/13/2022, 02/24/2022, 01/25/2021, Additional history exists Influenza Vaccine (#1) 2024 , 11/17/2022, 11/25/2020, Additional history exists Diabetes: Blood Sugar Control Test (HGBA1C) 03/30/2025 09/27/2024 Diabetes: Annual GFR (Glomerular Filtration Rate) 10/14/2025 10/14/2024 Hypertension/CHF/CAD Annual BMP Blood Test 10/14/2025 10/14/2024 Cholesterol Screening (Lipid Panel) 02/18/2029 02/19/2024 DTaP,Tdap,and Td Vaccines (3 - Td or Tdap) 07/13/2032 07/13/2022, 10/24/2011 Pneumococcal Vaccine: 50+ Years Completed 01/21/2015, 12/30/2013, 04/11/2008, Additional history exists Zoster Vaccines Completed 10/22/2021, 08/06, 01/21/2015 Hepatitis C Screening Completed 04/06/2023 Hepatitis B Vaccines Completed 11/29/2023, 07/05/2023, 11/17/2022 RSV Immunization Patients Under 20 months Aged Out 05/17/2024 No longer eligible based on patient's age [...] [facility] [employer] MEDICAID - [place] MEDICARE Care Teams Can Stacker Relationship Specialty Start Date End Date Annie Tafoya MD [address] [place] [phone] PCP - General Family Medicine 09/10/24
--- OUTSIDE RECORDS SUMMARY | 2024-12-18 12:51 | XMS_ITS | Encounter Summary ---
Author Organization [facility] Address [address] [facility] [address] [place] [address] Care Team Providers Care Pipe Foreman Name Role Phone Annie Tafoya MD Primary Care Provider [phone] Misa Adler PharmD Unavailable [phone] Emory Chamorro MD Unavailable [phone] Henny Francisco Unavailable Hugo Mix MD Unavailable Chase Slona DPM Unavailable Encounter Details Date Type Department Care Team (Late st Contact Info) Description 06/12/2024 Telephone [facility] OPTOMETRY [address] [place] [address] Honey Aguilar, OD [address] [place] [address] Social History Tobacco Use Types Packs/Day Years [...] Description 12/23/2024 10:30 AM EST Office Visit [facility] MEDICINE [address] [place] [phone] Annie Tafoya MD [address] [place] [phone] 01/10/2025 1:00 PM EST Medication Management [address] [address] Misa Adler, Kilo [address] [place] [phone] documented as of this encounter Goals Goal [...] documented as of this encounter Care Teams Pipe Foreman Relationship Specialty Start Date End Date Annie Tafoya MD [address] [place] [address] PCP - General Family Medicine 09/24/12 iMsa Adler PharmD [address] [place] [address] Pharmacist Internal Medicine 02/25/22 Emory Chamorro MD [address] [phone] Nephrology 04/04/24 Henny Francisco [address] [place] [address] [address] [place] [address] Sleep Medicine 06/05/24 Hugo Mix MD [address] [place] [address] Ophthalmology 06/26/24 Chase Sloan DPM [address] [phone] Podiatry 12/10/24 documented as of this encounter
--- OUTSIDE RECORDS SUMMARY | 2024-12-18 12:51 | XMS_ITS | Clinical Summary ---
Author Organization [employer] Address [address] [place] [address] [address] [place] [address] Care Team Providers Care Extractor Operator Helper Name Role Phone Annie Tafoya MD Primary Care Provider Misa Adler PharmD Unavailable Emory Chamorro MD Unavailable [phone] Henny Francisco Unavailable [phone] Hugo Mix MD Unavailable Chase Sloan DPM Unavailable Allergies No known active allergies Medications cholecalciferol (Vitamin D3) 25 MCG (1000 UT) tabletIndication s:Vitamin D deficiency TAKE 1 TABLET BY MOUTH EVERY MORNING 90 tablet 3 2023 Active empagliflozin (Jardiance) 25 MGIndications:Ty pe 2 diabetes mellitus with hyperglycemia, with long-term current use of insulin (HCC) TAKE 1 TABLET BY MOUTH EVERY MORNING 90 tablet 3 2023 Active atenolol (Tenormin) 50 MG tabletIndication s:Primary hypertension TAKE 1 TABLET BY MOUTH TWICE DAILY IN THE MORNING AND IN THE EVENING 180 tablet 3 2023 Active Continuous Glucose Sensor (FreeStyle Sury 3 Plus Sensor) miscIndications: Type 2 diabetes mellitus with hyperglycemia, with long-term current use of insulin (HCC) 1 each Use as directed. 2 each 11 2024 Active Continuous Glucose Crisis Nurse (FreeStyle Sury 3 [place]) deviceIndication s:Type 2 diabetes mellitus with hyperglycemia, with long-term current use of insulin ([facility]) 1 each Use as directed. 1 [...] hyperglycemia, with long-term current use of insulin ([facility]) USE NEEDED IF LOW BLOOD SUGAR OCCURS 37 g 11 2024 Active insulin pen needle (Pentips) 32G x 4 mm miscIndications: Type 2 diabetes mellitus with hyperglycemia, with long-term current use of insulin ([facility]) Use as instructed 100 each 5 2024 Active TRUEplus Lancets 33G miscIndications: Type 2 diabetes mellitus with hyperglycemia, with long-term current use of insulin ([facility]) Use bid 100 each 11 2024 Active white petrolatum-reexaminer al oil (Lacri-Lube) ointment ophthalmic ointment Apply 1 Application. to both eyes at bedtime. 3 g 9 06/06 Active carboxymethylcel lulose (Refresh Tears) 0.5 % ophthalmic solution Administer 1 drop into both eyes if needed in the morning, at noon, and at bedtime for dry eyes. 15 mL 06/06 Active ketorolac (Acular) 0.5 % ophthalmic solution INSTILL 1 DROP INTO THE AFFECTED EYE(S) THREE TIMES DAILY STARTING 2 DAYS BEFORE SURGERY CONTINUE DIRECTED 2024 Active amLODIPine (Norvasc) 10 MG tabletIndication s:Primary hypertension TAKE 1 TABLET BY MOUTH EVERY MORNING 90 tablet 2024 Active atorvastatin (Lipitor) 40 MG tabletIndication s:Insulin dependent type 2 diabetes mellitus (HCC),Hyperlipid emia, unspecified hyperlipidemia type TAKE 1 TABLET BY MOUTH AT BEDTIME 90 tablet 3 2024 Active omeprazole (PriLOSEC) [address] capsuleIndicatio ns:Gastric pain TAKE 1 CAPSULE BY MOUTH EVERY MORNING 90 capsule 3 2024 Active polyethylene glycol, PEG, 3350 (MiraLax) 17 GM/SCOOP powderIndication s:Chronic idiopathic constipation 17 grams in 8-12 oz fluid like water at bedtime prn constipation 527 g 2 2024 Active Tirzepatide (Mounjaro) 5 MG/0.5ML solution auto-injectorInd ications:Type 2 diabetes mellitus with hyperglycemia, with long-term current use of insulin (HCC) Inject 5 mg under the skin 1 (one) time per week. 2 mL 3 2024 Active Ascorbic Acid (vitamin C) 250 MG tabletIndication s:Jtml-kkj-lpaim er drug started Take 250 mg by mouth Once per day. Active Magnesium 250 MG capsuleIndicatio ns:Tbpg-tri-mjvd ter drug started Take by mouth. Active fluticasone (Flonase) 50 MCG/ACT nasal sprayIndications :Seasonal allergies USE 1 SPRAY IN EACH NOSTRIL ONCE DAILY 16 g 2 2024 Active losartan (Cozaar) 100 MG tabletIndication s:Primary hypertension Take 1 tablet (100 mg) by mouth Once per day. 90 tablet 1 2024 Active glipiZIDE (Glucotrol) 5 MG tabletIndication s:Type 2 diabetes mellitus with hyperglycemia, with long-term current use of insulin (HCC) TAKE 1/2 TABLET BY MOUTH EVERY EVENING BEFORE SUPPER. DO NOT TAKE IF NO EAT. 15 tablet 3 2024 Active insulin glargine (Lantus SoloStar) 100 UNIT/ML penIndications:T ype 2 diabetes mellitus with hyperglycemia, with long-term current use of insulin (HCC) INJECT 28 UNITS SUBCUTANEOUSLY ONCE DAILY 2024 Active Alcohol Swabs (Alcohol Prep) 70 % padsIndications: Type 2 diabetes mellitus with hyperglycemia, with long-term current use of insulin (HCC) Use as directed up to two times daily 100 each 11 2024 Active insulin glargine (Lantus SoloStar) 100 UNIT/ML penIndications:T ype 2 diabetes mellitus with hyperglycemia, with long-term current use of insulin (HCC) INJECT 24 UNITS SUBCUTANEOUSLY ONCE DAILY 11/29 Discontinued( Reorder (will not trigger notification to Pharmacy)) glycerin (Adult) 2 g suppositoryIndic ations:Chronic idiopathic constipation Insert 1 suppository (2 g) into the rectum if needed each day for constipation. 30 suppository 2 12/08 Active Problems Patient Care Coordination No te Formatting of this note migh t be different from the original. Enrolled in [facility] DM and [facility]] HTN clinic with Bronson HopkinsD, [facility] Care team: Navigator Srinath Walker Geriatric client support consultant Sasha Allison [facility] heavy equipment sales manager Shayne Pagan [facility] Nurse corrections caseworker Jean Bolaños RN Problem Noted Date Diagnosed Date Stage 3b chronic kidney disease ([facility]) 2024 Overview (12/05/2024): Lab Results Component Value Date CREATININE 1.14 10/14/2024 CREATININE 1.20 07/03/2024 CREATININE 0.89 03/21/2024 CREATININE 1.11 06/24/2021 CREATININE 1.39 06/18/2021 CREATININE 0.84 07/15/2020 EGFR 46 10/14/2024 EGFR 43 07/03/2024 EGFR >60 03/21/2024 MICROALBCREU 619.7 (H) 10/14/2024 MICROALBCREU 1,011.8 (H) 02/19/2024 MICROALBCREU 350.3 (H) 04/06/2023 -avoid nephrotoxic agents Class 1 obesity due to exces s calories with serious comorbidity and body mass index (BMI) of 32.0 to 32.9 in adult 05/15/2024 Assessment & Plan (09/09/2024 10:53 AM EDT): 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, psychotic disturbance, mood disturbance, or anxiety (CMS/HCC) 11/10/2023 Overview (11/10/2023): MMSE2 in Romanian completed with pt 11/10/23 Pt scored a 13 out of a possible 30 points. This is considered severe cognitive impairment and at an increased odds for dementia status. Assessment & Plan (05/15/2024 10:35 AM EDT): MMSE2 in Romanian completed with pt 11/10/23 Pt scored a [...] surgery got cancelled. - Advised to call executive administrative asst 09/09/24 Assessment & Plan (04/05/2023 12:00 PM [...] due after 11/28/24 -eye care facilitated by [facility] and [facility] -dental home is [facility] -[facility] care proxy paperwork completed 04/05/23 Assessment & Plan (04/05/2023 10:42 AM EST): -next physical exam due after 11/18/2023 -eye care facilitated by [facility] -dental home is [facility] -Health care proxy paperwork completed 04/05/23 Assessment & Plan (11/17/2022 10:38 AM EDT): -next physical exam due after 11/18/2023 -eye care facilitated by [facility] -dental home is [facility] Urinary incontinence 11/17/2022 Overview (11/17/2022): -Requesting letter [...] -Losartan held. -Will recheck. Hypoxia 01/10/2022 Overview (10/15/2024): O2 Sa 85%-94% on RA documented since [...] new insurance. - Pt is followed by punch hand, Dr. Galvan. She last visited 2019. - [...] recommends follow up sleep clinic. -[place] [facility] [place]Patient presented for evaluation of dyspnea and [...] if anyone cancels sooner - Pt saw [facility] 02/09/23 Pulmonology and her Oxygen was discontinued, CXR and PFTs ordered referral for O2 assessment done to see if she needs O2 or not, Pt reports she is no longer on O2, Has follow up in August, pt and CRANBERRY SORTER notified of follow up -rereferred 05/15/24 - seen by Dr. Ramos punch hand 10/11/24 PFTs ordered Assessment & Plan (09/09/2024 10:53 AM EDT): [...] new insurance. - Pt is followed by punch hand, Dr. Galvan. She last visited 2018. - [...] recommends follow up sleep clinic. -hospital[place] [facility] [place]09/09/22)Patient presented for evaluation of dyspnea and [...] if anyone cancels sooner - Pt saw [facility] 02/09/23 Pulmonology and her Oxygen was discontinued, CXR and PFTs ordered referral for O2 assessment done to see if she needs O2 or not, Pt reports she is no longer on O2, Has follow up in August, pt and CRANBERRY SORTER notified of follow up -rereferred 05/15/24 - has appt with punch hand 10/2024. Assessment & Plan (05/15/2024 10:56 AM [...] new insurance. - Pt is followed by punch hand, Dr. Galvan. She last visited 2019. - [...] recommends follow up sleep clinic. -hospitalized at [facility] [place]09/09/22)Patient presented for evaluation of dyspnea and [...] if anyone cancels sooner - Pt saw [facility] 02/09/23 Pulmonology and her Oxygen was discontinued, CXR and PFTs ordered referral for O2 assessment done to see if she needs O2 or not, Pt reports she is no longer on O2, Has follow up in August, pt and CRANBERRY SORTER notified of follow up -rereferred 05/15/24 Assessment [...] new insurance. - Pt is followed by punch hand, Dr. Galvan. She last visited 2018. - [...] recommends follow up sleep clinic. -hospitalized [place] [facility] [place]09/09/22)Patient presented for evaluation of dyspnea and [...] if anyone cancels sooner - Pt saw [facility] 02/09/23 Pulmonology and her Oxygen was discontinued, CXR and PFTs ordered referral for O2 assessment done to see if she needs O2 or not, Pt reports she is no longer on O2, Has follow up in August, pt and CRANBERRY SORTER notified of follow up Assessment & Plan [...] new insurance. - Pt is followed by punch hand, Dr. Galvan. She last visited 2018. - [...] recommends follow up sleep clinic. -hospitalized at [facility] [place]/06/22[place]09/09/22)Patient presented for evaluation of dyspnea and [...] if anyone cancels sooner - Pt saw [facility] 02/09/23 Pulmonology and her Oxygen was discontinued, CXR and PFTs ordered referral for O2 assessment done to see if she needs O2 or not, Pt reports she is no longer on O2, Has follow up in August, pt and CRANBERRY SORTER notified of follow up Assessment & Plan [...] new insurance. - Pt is followed by punch hand, Dr. Galvan. She last visited 2018. - [...] recommends follow up sleep clinic. -hospitalized at [facility] [place]/22[place]09/09/22)Patient presented for evaluation of dyspnea and [...] diagnosed 04/2016 - Pt is followed by punch hand, Dr. Galvan. She last visited 2019. - [...] new insurance. - Pt is followed by punch hand, Dr. Galvan. She last visited 2019. - [...] new insurance. - Pt is followed by punch hand, Dr. Galvan. She last visited 2018. - [...] calcification 01/10/2022 Overview (11/17/2022): Saw cardiology; Dr. Coehn on 07/22/21. -Her echo on Feb 2017 [...] She saw a specialist on 11/2017 at [facility] 02/14/2018: We contacted [facility] and Linda reports: in July an order was sent to [facility] for CPAP and there is no record of issues with machine. We then contacted [employer] in July where Dr Fields's office was notified her insurance did not accept it so we recalled [facility] and the reported they will send an urgent message to find an in-network supplier. She states she has her machine now. - Sleep study done [facility] 02/17/23 recommending CPAP with 14 small N20 mask and Supplemental O2 at 1 L per min with Dr. Kayley Chamorro and patient reports compliance with CPAP 04/05/23 -Seen by sleep medicine 05/14/23 Resent CPAP prescription to [facility]. [facility] information given to patient. Advised patient to start CPAP at [id number] with supplemental O2 1 L at night. [...] Her current respiratory supplier is [facility], however this may need to be changed to an alternate company, such as [facility], which can also provide supplemental home O2 Services. In the meantime, we will request pulmonology consult. Will follow-up upon review of above and patient to follow- up in clinic in 6 months or sooner prn. Assessment & Plan (05/15/2024 10:34 AM EDT): Diagnosed on sleep study 04/2016. Pt followed by sleep clinic. Reports now tolerating BiPAP. She saw a specialist on 11/2017 at [facility] 02/14/2018: We contacted [facility] and Linda reports: in July an order was sent to [facility] for CPAP and there is no record of issues with machine. We then contacted [employer] in July where Dr Fields's office was notified her insurance did not accept it so we recalled [facility] and the reported they will send an urgent message to find an in-network supplier. She states she has her machine now. - Sleep study done [facility] 02/17/23 recommending CPAP with 14 small N20 mask and Supplemental O2 at 1 L per min with Dr. Kayley Chamorro and patient reports compliance with CPAP 04/05/23 -Seen by sleep medicine 05/14/23 Resent CPAP prescription to [facility]. [facility] information given to patient. Advised patient to start CPAP at [id number] with supplemental O2 1 L at night. Stressed compliance, use CPAP nightly and more than 4 hrs. Assessment & Plan (07/06/2023 8:33 AM EDT): Diagnosed on sleep study 04/2016. Pt followed by sleep clinic. Reports now tolerating BiPAP. She saw a specialist on 11/2017 at [facility] 02/14/2018: We contacted [facility] and Linda reports: in July an order was sent to [facility] for CPAP and there is no record of issues with machine. We then contacted [facility] in July where Dr Fields's office was notified her insurance did not accept it so we recalled [facility] and the reported they will send an urgent message to find an in-network supplier. She states she has her machine now. - Sleep study done [facility] 02/17/23 recommending CPAP with 14 small N20 mask and Supplemental O2 at 1 L per min with Dr. Kayley Chamorro and patient reports compliance with CPAP 04/05/23 -Seen by sleep medicine 05/14/23 Resent CPAP prescription to [facility]. [facility] information given to patient. Advised patient to start CPAP at [id number] with supplemental O2 1 L at night. Stressed compliance, use CPAP nightly and more than 4 hrs. Assessment & Plan (04/05/2023 11:59 AM EST): Diagnosed on sleep study 04/2016. Pt followed by sleep clinic. Reports now tolerating BiPAP. She saw a specialist on 11/2017 at [facility] 02/14/2018: We contacted [facility] and Linda reports: in July an order was sent to [facility] for CPAP and there is no record of issues with machine. We then contacted [facility] in July where Dr Fields's office was notified her insurance did not accept it so we recalled [facility] and the reported they will send an urgent message to find an in-network supplier. She states she has her machine now. - Sleep study done [facility] 02/17/23 recommending CPAP with 14 small N20 mask and Supplemental O2 at 1 L per min with Dr. Kayley Chamorro and patient reports compliance with CPAP 04/05/23 Assessment & Plan (11/17/2022 9:20 AM EDT): Diagnosed on sleep study 04/2016. Pt followed by sleep clinic. Reports now tolerating BiPAP. She saw a specialist on 11/2017 at [facility] 02/14/2018: We contacted [facility] and Linda reports: in July an order was sent to [facility] for CPAP and there is no record of issues with machine. We then contacted [employer] in July where Dr Fields's office was notified her insurance did not accept it so we recalled [facility] and the reported they will send an [...] She saw a specialist on 11/2017 at [facility] 02/14/2018: We contacted [facility] and Linda reports: in July an order was sent to [facility] for CPAP and there is no record of issues with machine. We then contacted [employer] in July where Dr Fields's office was notified her insurance did not accept it so we recalled [facility] and the reported they will send an urgent message to find an in-network supplier. She states she has her machine now. Assessment & Plan (05/04/2022 11:37 AM EDT): Diagnosed on sleep study 04/2016. Pt followed by sleep clinic. Reports now tolerating BiPAP. She saw a specialist on 11/2017 at [facility] 02/14/2018: We contacted [facility] and Linda reports: in July an order was sent to [facility] for CPAP and there is no record of issues with machine. We then contacted [employer] in July where Dr Fields's office was notified her insurance did not accept it so we recalled [facility] and the reported they will send an [...] repeat in 5 years. Proteinuria 12/30/2013 Overview (10/30/2024): -Losartan increased to 100mg once daily and Jardiance increased to 25mg once daily by CDTM on 11/14/23 -seen by nephrology De. Emory Chamorro, 10/28/24-non nephrotic range proteinuria in the setting of [...] agents including NSAIDs. -Seen by Dr. Chamorro 10/30/24 note reviewed, labs were ordered Assessment & [...] bid clonazapam 0.5 daily trihexphenidyl 2mg bid Recurrent major depressive disorder, in partial remission 11/15/2011 Overview (10/26/2022): No KOURTNEY. Aggravated by [...] , HDLCHOL , CHOLHDLRAT -continue lifestyle modifications Type 2 diabetes mellitus wit h stage 3b chronic kidney disease, with long-term current use of insulin 10/31/2011 Overview (12/10/2024): Diabetes is controlled. A1c goal < 8 Has continuous glucose monitor Lab Results Component Value Date HGBA1C 8.1 (A) 09/27/2024 HGBA1C 8.3 (H) 07/03/2024 HGBA1C 8.9 (A) 05/15/2024 Lab Results Component Value Date CREATININE 1.14 10/14/2024 EGFR 46 10/14/2024 MICROALBCREU 619.7 (H) 10/14/2024 MICROALBCREU 1,011.8 (H) 02/19/2024 LDLCHOLCAL 75 02/19/2024 -Willis/Arb: held 06/25/2021 for elvated potassium, CDTM restarted 07/25/23 with repeat BMP WNL - Metformin discontinued by [facility] 11/14/23 due to declining eGFR - Jardiance 10mg once daily started 07/21/23 and increased to 25mg once daily by [facility] 11/14/23 -Lantus titrated by [facility][NOTE 3] -glipidize 2.5mg once daily before dinner added by [facility] due to frequent post prandial hyperglycemia following dinner -Statin therapy: Atorvastatin 40mg -Diabetic eye exam: 06/25/24 -Diabetic foot exam: with Dr. Sloan 11/2024 -Continue lifestyle modifications -Continue current medications -Per [facility] 3[facility] 02/16/24, Patient agrees to plan to retrial GLP1: mounjaro 2.5mg once weekly prescribed due to tremor and difficulty with ozempic pen administration and previous intolerance with trulicity (GI upset). Mounjaro further titrated by [facility]. - Was last seen in [facility] clinic 11/29/24; patient to continue mounjaro 5mg and lantus titrated. - Nephrology visit 10/28/24 for assessment of proteinuria; no medication changes made Assessment & Plan (09/09/2024 10:53 AM EDT): [...] 2.5mg once daily before dinner added by [facility] due to frequent post [...] trulicity (GI upset). Mounjaro further titrated by [facility]. Orders: Referral to Podiatry; Future Assessment & Plan (05/15/2024 10:34 AM EDT): Diabetes is not controlled. A1c goal < 8 Has continuous glucose monitor Lab Results Component Value Date HGBA1C 10.5 (A) 02/16/2024 HGBA1C 9.2 (A) 11/29/2023 HGBA1C 9.3 (A) 11/14/2023 Lab Results Component Value Date MICROALBUR 451.0 02/19/2024 CREATININE 0.89 03/21/2024 -Willis/Arb: held 06/25/2021 for elvated potassium, CDTM restarted 07/25/23 with [facility] follow up labs to be completed [...] & Plan (05/04/2022 12:00 PM EDT): Seeing [facility] for DM. Eye exam done 01/17/2022. Hypertension 10/31/2011 Overview (11/29/2024): -Blood pressure is not at goal 09/09/24 likely due to medication non-adherence. -Continue lifestyle modifications -Continue current medications -Cozaar held 06/25/21 for elevated potassium; restarted losartan 25mg once daily. Follow up potassium WNL - Cozaar increased to 100mg once daily by [facility] 3[facility] 11/14/23; BMP previously ordered and pending patient completion -Atenolol decreased to 50mg twice daily by [facility]] 11/14/23 - Amlodipine increased to 10mg once daily by [facility] 07/09/24 -Patient was last seen in [facility] clinic 11/29/24; BP WNL Assessment & Plan (09/09/2024 10:53 AM EDT): -Blood pressure is not at goal 09/09/24 likely due to medication non-adherence. -Continue lifestyle modifications -Continue current medications -Cozaar held 06/25/21 for elevated potassium; restarted losartan 25mg once daily. Follow up potassium WNL - Cozaar increased to 100mg once daily by [facility] 11/14/23; BMP previously ordered and pending patient completion -Atenolol decreased to 50mg twice daily by [facility] 11/14/23 - Amlodipine increased to 10mg once daily by [facility] 07/09/24 Assessment & Plan (05/15/2024 10:33 AM EDT): -Cozaar held 06/25/21 for elevated potassium; restarted losartan 25mg once daily. Follow up potassium WNL - Cozaar increased to 100mg once daily by [facility] 11/14/23; BMP previously ordered and pending patient completion -Atenolol decreased to 50mg twice daily by [facility] 11/14/23 - Continue amlodipine 5mg once daily Assessment & Plan (11/29/2023 3:45 PM EDT): -Cozaar held 06/25/21 for elevated potassium; restarted losartan 25mg once daily. Follow up potassium WNL - Cozaar increased to 50mg once daily by [facility] 11/14/23; BMP ordered to be rechecked in 2 weeks -Atenolol decreased to 50mg twice daily by [facility]] 11/14/23 -Continue Amlodipine 10mg daily Saw [facility] on 11/14/23 -increased losartan to 50mg once [...] Dietary counseling 05/15/2024 Exercise counseling 05/15/2024 09/10/19 Type 2 diabetes mellitus wit h hyperglycemia, with long-term current use of insulin 11/29/2023 Overview (03/20/2024): - Mounjaro 2.5mg once daily started by [facility] 03/06/24 - Lantus titrated by [facility] - Continue Jardiance 25mg once daily [...] reduction discussed. Chronic respiratory failure with hypoxia (CMS/HCC) 10/21/2022 10/26/2022 COPD exacerbation (CMS/HCC) 10/21/2022 10/26/2022 Gastric pain 10/21/2022 05/15/2024 Tubular [...] Encounters Date Type Department Care Team Description 12/06/2024 Telephone [facility] [address] [place] [address] Misa Adler, BronsonD 11/29/2024 Travel 11/11/2024 Refill [facility] [address] [place] [address] Annie Tafoya MD Type 2 diabetes mellitus with hyperglycemia, with long-term current use of insulin (HCC) 11/02/2024 Telephone [facility] [address] [place] [address] Annie Tafoya MD January Recalls 11/02/2024 Travel 10/14/2024 Orders Only GENERIC EXTERNAL DATA DEPARTMENT Provider, Generic External Data 09/27/2024 Travel 09/25/2024 Refill [facility] [address], [place] [id number] Annie Tafoya MD Seasonal allergies from Last 3 Months Immunizations Immunization Administration [...] housing situation today? I have naren roberth 11/29/[address] you li [...] Sign Reading Time Taken Comments Blood Pressure 128/70 11/29/2024 1:27 PM EDT Pulse 74 11/29/2024 1:27 PM EDT Temperature 35.9 C (96.6 F) [...] Description 12/23/2024 10:30 AM EST Office Visit [facility] [address] [place] [phone] Annie Tafoya MD [address] [place] [address] 01/10/2025 1:00 PM EST Medication Management [facility] [address] [place] [address] Misa Adler, PharmD [address] [place] [address] Health Maintenance Due Date Last Done Comments Dental Prophylaxis 1946 Alcohol/Substance Use Screening 1958 Dental X-Ray: Bitewings 04/30/2010 04/29/2009 Dental Oral Exam 04/28/2023 10/27/2022, 12/2016, 11/22/2012 COVID-19 Vaccine ( season) 2024 07/13/2022, 02/24/2022, 01/25/2021, Additional history exists Influenza Vaccine (#1) 2024 , 11/17/2022, 11/25/2020, Additional history exists Depression Screening 11/28/2024 11/29/2023, 11/29/19 Diabetes: Hemoglobin [...] Bilirubin, Total 0.3 0.0 - 1.0 mg/dL [facility] Bilirubin, Direct 0.1 0.0 - 0.5 mg/dL [facility] Aspartate Amino Transferase 28 5 - 31 U/L [facility] Alanine Aminotransferase 18 0 - 31 U/L [facility] Total Protein 7.5 6.5 - 8.0 g/dL [facility] Albumin Level 4.0 3.5 - 5.0 g/dL [facility] Alkaline Phosphatase 98 39 - 117 U/L [facility] 10/14/2024 11:2 2 AM EDT 10/14/2024 11:22 AM EDT us Annie Tafoya MD LAB BLOOD ORDERABLES Final Result [facility] [address] [place] [address] [phone] * (ABNORMAL) Basic Metabolic Panel (10/14/2024 11:22 AM EDT) Sodium 142 135 - 145 mmol/L [facility] Potassium 4.5 3.3 - 5.1 mmol/L [facility] Chloride 102 96 - 108 mmol/L [facility] Carbon Dioxide 32(H) 22 - 29 mmol/L [facility] Anion Gap 13 12 - 20 [facility] Urea Nitrogen (BUN) 24(H) 9 - 16 mg/dL [facility] Creatinine, Serum 1.14 0.5 - 1.4 mg/dL [facility] Estimated Glomerular Filt Rate 46 [facility] Comment:Chronic Kidney Disea se: Estimated GFR < 60 mL/min/1.96u7Nchnil Kidney Disease: Estimated GFR < 15 mL/min/1.73m2 Glucose 232(H) 60 - 115 mg/dL [facility] Calcium 9.0 8.4 - 10.2 mg/dL [facility] 10/14/2024 11:2 2 AM EDT 10/14/2024 11:22 AM EDT us Generic External Data Provider LAB BLOOD ORDERAB LES Final Result Performing Organization Address [facility] Co de Phone Number [facility] [address] [place] [phone] * (ABNORMAL) Albumin, Random Urine W/Creatinine (10/14/2024 11:17 AM EDT) Creatinine, Urine 73.90 mg/dL [facility] Microalbumin Urine 458.0 mg/L H [facility] Microalbum Creatinine Ratio Ur 619.7(H) <30 ug/mg cr [facility] Comment:Albumin/Creatinine R atio Reference Ranges: Normal: < 30 ug/mg creatinine Microalbuminuria: 30 - 300 ug/mg creatinineClinical Albuminuria: > 300 ug/mg creatinine 10/14/2024 11:1 7 AM EDT 10/14/2024 11:40 AM EDT us Annie Tafoya MD LAB URINE ORDERABLES Final Result Performing Organization Address [facility] Co de Phone Number [facility] [address] [place] [phone] * (ABNORMAL) Urine Protein, Total, Random without Creatinine (10/14/2024 11:17 AM EDT) Protein, Total, Random Urine 76(H) <12 mg/dL [facility] 10/14/2024 11:1 7 AM EDT 10/14/2024 11:40 AM EDT us Generic External Data Provider LAB URINE ORDERAB LES Final Result Performing Organization Address [facility] Co de Phone Number [facility] [address] [place] [phone] * Creatinine, Random Urine (10/14/2024 11:17 AM EDT) Creatinine, Urine 73.51 mg/dL [facility] 10/14/2024 11:1 7 AM EDT 10/14/2024 11:40 AM EDT Generic External Data Provider LAB URINE ORDERAB LES Final Result Performing Organization Address [facility] Co de Phone Number [facility] [address] [place] [phone] * (ABNORMAL) Urinalysis Complete (10/14/2024 11:17 AM EDT) Color Urine Yellow [facility] Appearance Urine Clear [facility] PH 6.0 5.0 - 9.0 [facility] Glucose Urine UA >=1000(A) Negative mg/dL [facility] Urine Blood Negative Negative [facility] Specific [place] - Urine 1.025 1.005 - 1.025 [facility] Urine Protein 100 (2+)(A) Neg-Trace mg/dL [facility] Urine Ketones Negative Negative mg/dL [facility] Nitrite Urine Negative Negative [facility] Leukocyte Esterase Urine Negative Negative [facility] RBC Urine 0-2 0 - 2 /HPF [facility] Urine WBC 0-5 0 - 5 /HPF [facility] Urine Squamous Epithelial Cell 3-5 0 - 2 /HPF [facility] Urine Bacteria None Seen None Seen [facility] Hyaline Casts, Urine 0-2 0 - 2 /LPF [facility] 10/14/2024 11:1 7 AM EDT 10/14/2024 11:40 AM EDT us Generic External Data Provider LAB URINE ORDERAB LES Final Result Performing Organization Address [facility]/ZIP Co de Phone Number [facility] [address] [place] [phone] [phone] * (ABNORMAL) POCT A1c (09/27/2024 1:26 PM EDT) Hemoglobin A1C 8.1(A) 4.0 - 5.7 % QC Media Lot # [id number] Lot# Expiration Date [id number] Blood 09/27/2024 1:26 PM EDT Annie Tafoya MD POINT OF CARE TEST ENTER/E DIT ORDERABLES Final Result * Lipid Panel, Standard (02/19/2024 10:20 AM EST) Triglycerides 149 <150 mg/dL [facility] Comment:Desirable Triglyceri de: less than 150 mg/dLBorderline High Triglyceride 150-199 mg/dLHigh Triglyceride: 200-499 mg/dLVery High Triglyceride: greater than or equal to 5OO mg/dL Cholesterol 152 <200 mg/dL [facility] Comment:Desirable Cholestero l: less than 200 mg/dLBorderline High Cholesterol: 200-239 mg/dLHigh Cholesterol: greater than 239 mg/dL LDL Cholesterol Calculated 75 <100 mg/dL [facility] Comment:Desirable LDL: less than 100 mg/dLNear Optimal/Above Optimal LDL: 110- 129 mg/dLBorderline High LDL: 130-159 mg/dLHigh LDL: 160-189 mg/dLVery High LDL: greater than or equal to 190 mg/dL HDL Cholesterol 48 >40 mg/dL [facility] Comment:Desirable HDL: great er than 40 mg/dL Note: This HDL assay may give artificially low results in patients with liver disease. 02/19/2024 10:2 0 AM EST 02/19/2024 11:07 AM EST Annie Tafoya MD LAB BLOOD ORDERABLES Final Result [facility] [address] [place] [address] [phone] * Hepatitis C Antibody with Reflex to HCV, RNA, Quantitative, Real-Time PCR (04/06/2023 9:45 AM EST) Hepatitis C Antibody Nonreactive Nonreactive [facility] Comment:Antibodies to HCV no t detected; does not exclude early acuteHCV infection. Blood Venous blood specimen / Unknown 04/06/2023 9:45 AM EST 04/06/2023 11:27 AM EST Annie Tafoya MD LAB BLOOD ORDERABLES Final Result [facility] [address] [place] [address] [phone] from Last 3 Months or Most Recently Relevant to Health Maintenance Insurance [facility] Member Subscriber Plan / Payer (Ef fective 2022-Present) Name:Anton MathewsarezGay T Relation to Subscriber:Self Name:Anton MathewsarezGay T Payer ID:Not on file Group ID:Not on file Type:Medicaid Address: [facility] [id number] [place] [address] [place] [address] [facility] Advance Directives Documents on File Type Date Recorded Patient Contour Grinder Expl anation Advance Directives and Livin g Will 04/07/2023 1:54 PM HCP Care Teams Extractor Operator Helper Relationship Specialty Start Date End Date [place], MD Annie [address] [place] [address] PCP - General Family Medicine 09/24/12 Misa Adler PharmD [address] [place] [address] Pharmacist Internal Medicine 02/25/22 Emory Chamorro MD [address] [phone] Nephrology 04/04/24 Henny Francisco 11 [facility] 3rd [place] [address] Sleep Medicine 06/05/24 Hugo Mix MD [address] [place] [phone] Ophthalmology 06/26/24 Chase Sloan DPM [address] [place] [phone] Podiatry 12/10/24
--- OUTSIDE RECORDS SUMMARY | 2024-12-18 12:51 | XMS_ITS | Encounter Summary ---
Author Organization [employer] Address [address] [place] [address] [address] [place] [address] Care Team Providers Care Integrated Circuits Inspector Name Role Phone Annie Tafoya MD Primary Care Provider [phone] Misa Adler PharmD Unavailable Emory Chamorro MD Unavailable [phone] Henny Francisco Unavailable [phone] Hugo Mix MD Unavailable Chase Sloan DPM Unavailable [phone] Reason for Visit * Reason Comments Med Refill Encounter Details Date Type Department Care Team (Late st Contact Info) Description 04/15/2022 Refill [facility] [address] [place], [place] [phone] Annie Tafoya MD [address] [place], [place] [phone] Type 2 diabetes mellitus with hyperglycemia ([facility]) Social History Tobacco Use Types [...] PM EDT Received an incoming fax from [facility] with refill request for Trihexyphenidyl 2 mg 1 tablet twice a day.Refill denied by pt needS an appt due to No Shows. DOES PCP WANT TO COVER? documented in this encounter Plan of Treatment Upcoming Encounters Date Type Department Care Team (Late st Contact Info) Description 12/23/2024 10:30 AM EST Office Visit [facility] [address] [place] [phone] Annie Tafoya MD [address] [place] [address] 01/10/2025 1:00 PM EST Medication Management [facility] [address] [place] [address] Misa Adler PharmChely [address] [place] [address] documented as of this encounter Goals Goal Patient Goal Type Associated Problems Recent Progress Patient-Stated? Author Hemoglobin A1c < 8 Result Component 8.1(09/27/2024 1:26 PM EDT) No Misa Adler PharmD documented as of this encounter Visit Diagnoses Diagnosis Type 2 diabetes mellitus with hyperglycemia (HCC) documented in this encounter Care Teams Integrated Circuits Inspector Relationship Specialty Start Date End Date Annie Tafoya MD [address] [place] [address] PCP - General Family Medicine 09/24/12 Misa Adler, PharmD [address] [place] [address] Pharmacist Internal Medicine 02/25/22 Emory Chamorro MD 100 [facility] [address] [place] [phone] Nephrology 04/04/24 Henny Francisco 11 [facility] 3rd [place] [address] Sleep Medicine 06/05/24 Hugo Mix MD [address] [place] [address] Ophthalmology 06/26/24 Chase Sloan DPM [address] [place] [phone] Podiatry 12/10/24 documented as of this encounter
--- OUTSIDE RECORDS SUMMARY | 2024-12-18 12:51 | XMS_ITS | Encounter Summary ---
Author Organization [employer] Address [address] [place] [address] [address] [address] Care Team Providers Care Attache Name Role Phone Annie Tafoya MD Primary Care Provider [phone] Misa Adler PharmD Unavailable [phone] Emory Chamorro MD Unavailable [phone] Henny Francisco Unavailable [phone] Hugo Mix MD Unavailable Chase Sloan DPM Unavailable [phone] Reason for Visit * Reason Onset Date Comments Med Refill 09/22/2022 Encounter Details Date Type Department Care Team (Late st Contact Info) Description 09/22/2022 Telephone [facility] [address] [place], [place] [phone] Annie Tafoya MD [address] [place], [place] [phone] Med Refill Social History Tobacco Use Types [...] 09/22/2022 1:42 PM EDT 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 States pt is running out of what was given from hospital. Please contact linnea at [phone] documented in this encounter Plan of Treatment Upcoming Encounters Date Type Department Care Team (Late st Contact Info) Description 12/23/2024 10:30 AM EST Office Visit [facility] [address] [place] [phone] Annie Tafoya MD [address] [place] [address] 01/10/2025 1:00 PM EST Medication Management [facility] [address] [place] [address] Misa Adler, PharmD [address] [place] [address] documented as of this encounter Goals Goal [...] documented as of this encounter Care Teams Attache Relationship Specialty Start Date End Date Annie Tafoya MD [address] [place] [address] PCP - General Family Medicine 09/24/12 Misa Adler, PharmD [address] [place] [phone] Pharmacist Internal Medicine 02/25/22 Emory Chamorro MD 100 [facility] 200 [place] [address] Nephrology 04/04/24 Henny Francisco 11 [facility] 3rd [place] [address] Sleep Medicine 06/05/24 Hugo Mix MD 180 [place] [address] Ophthalmology 06/26/24 Chase Sloan DPM 175 [facility] 250 [place] [address] Podiatry 12/10/24 documented as of this encounter
--- OUTSIDE RECORDS SUMMARY | 2024-12-18 12:51 | XMS_ITS | Encounter Summary ---
Author Organization [employer] Address [address] [place] [address] 7t [place] [address] Care Team Providers Care Operating Room Rn Name Role Phone Annie Tafoya MD Primary Care Provider [phone] Misa Adler PharmD Unavailable [phone] Emory Chamorro MD Unavailable [phone] Henny Francisco Unavailable [phone] Hugo Mix MD Unavailable Chase Sloan DPM Unavailable Reason for Visit * Reason Onset Date Comments dentures prior authorization 11/28/2022 Encounter Details Date Type Department Care Team (Late st Contact Info) Description 11/28/2022 Telephone [facility] [address] [place], [place] [phone] Yoni Farr, DMD [address] [place] [address] dentures prior authorization Social History Tobacco Use [...] Description 12/23/2024 10:30 AM EST Office Visit [facility] [address] [place] [phone] Annie Tafoya MD [address] [place] [address] 01/10/2025 1:00 PM EST Medication Management [facility] [address] [place] [address] Misa Adler, BronsonD [address] [place] [address] documented as of this encounter Goals Goal [...] documented as of this encounter Care Teams Operating Room Rn Relationship Specialty Start Date End Date Annie Tafoya MD [address] [place] [address] PCP - General Family Medicine 09/24/12 Misa Adler, PharmD [address] [place] [address] Pharmacist Internal Medicine 02/25/22 Emory Chamorro MD 100 [facility] 200 [place] [phone] Nephrology 04/04/24 Henny Francisco 11 [facility] 3rd [place] [address] Sleep Medicine 06/05/24 Hugo Mix MD 180 [place] [address] Ophthalmology 06/26/24 Chase Sloan DPM [address] [address] Podiatry 12/10/24 documented as of this encounter
== END 2024-12-18 11:25 | disposition home or self-care (01) ==
LOC: HO.HPS 10:40
PROVIDERS: PCP Family Medicine; Visit Provider Internal Medicine
DX: G47.33 Obstructive sleep apnea (adult) (pediatric) (principal); J44.9 Chronic obstructive pulmonary disease, unspecified; G47.34 Idiopathic sleep related nonobstructive alveolar hypoventilation
CPT/HCPCS: 99213

== ENCOUNTER → 2024-12-18 10:40 | Outpatient (BNVA) | payer OTHER, SELFPAY | PROVIDERS: PCP Family Medicine; Visit Provider Internal Medicine | DX: G47.33 Obstructive sleep apnea (adult) (pediatric) (principal); J44.89 Other specified chronic obstructive pulmonary disease; G47.34 Idiopathic sleep related nonobstructive alveolar hypoventilation; Z99.89 Dependence on other enabling machines and devices | CPT/HCPCS: 99212 ==